=== PATIENT | male | born 1950 | race Caucasian/White ===

== ENCOUNTER 2020-12-17 08:15 | Outpatient (REF) | payer MEDICARE, SELFPAY ==
--- NOTE | ~2020-12-17 | US_ITS ---
EXAMINATION: US RETROPERITONEAL LIMITED (AORTA) CLINICAL INFORMATION: History of nicotine dependence. COMPARISON: 12/08/2011 TECHNIQUE: Villeda-scale, color Doppler and spectral Doppler evaluation of the abdominal aorta. FINDINGS: The aorta is normal. The measurements of the aorta in maximum AP and transverse dimensions respectively are as follows: Proximal: 2.7 x 2.8 cm. Mid: 2.4 x 2.2 cm. Distal: 1.9 x 2 cm. PSV: 123 cm/s. The measurements of the common iliac arteries in maximum AP and TRV dimensions are as follows: Right Common Iliac Artery: 1.2 x 1.2 cm. Left Common Iliac Artery: 1.1 x 1.1 cm. US/US aorta IMPRESSION: No evidence of aneurysmal dilatation of the abdominal aorta.
== END 2020-12-17 08:16 | disposition home or self-care (01) ==
LOC: HO.US 08:15
PROVIDERS: PCP Internal Medicine Geriatric Medicine; Visit Provider Emergency Medicine
DX: Z13.6 Encounter for screening for cardiovascular disorders (principal); Z87.891 Personal history of nicotine dependence
CPT/HCPCS: 76775

== ENCOUNTER 2022-10-29 08:26 | Outpatient (REF) | payer MEDICARE, SELFPAY ==
--- NOTE | ~2022-10-29 | XR_ITS ---
EXAMINATION: XR CHEST CLINICAL INFORMATION: Cough for 2 months. Right lower lobe crackles on exam COMPARISON: 11/12/2019 TECHNIQUE: 2 views of the chest were obtained. FINDINGS: Small right pleural effusion appears new from prior study. No left pleural effusion. No pneumothorax. Normal pulmonary vascularity. No focal consolidation or mass. Normal heart size. Mild degenerative changes of the thoracic spine. XR/XR chest 2V IMPRESSION: New small right pleural effusion.
== END 2022-10-29 08:27 | disposition home or self-care (01) ==
LOC: HO.XRAY 08:26
PROVIDERS: PCP Internal Medicine Geriatric Medicine; Visit Provider Internal Medicine Geriatric Medicine
DX: R05.9 Cough, unspecified (principal)
CPT/HCPCS: 71046

== ENCOUNTER 2022-11-23 08:42 | Outpatient (REF) | payer OTHER, SELFPAY ==
--- NOTE | ~2022-11-23 | XR_ITS ---
EXAMINATION: XR CHEST 2 VIEWS CLINICAL INFORMATION: Cough. COMPARISON: Chest radiographs dated 10/29/2022. TECHNIQUE: Frontal and lateral views of the chest were obtained. The frontal view is somewhat rotated. FINDINGS: The heart, great vessels, pulmonary vasculature and mediastinum are normal. The lungs show no focal infiltrate, effusion or pneumothorax. There is no acute osseous abnormality. XR/XR chest 2V IMPRESSION: No active cardiopulmonary disease.
== END 2022-11-23 08:43 | disposition home or self-care (01) ==
LOC: HO.XRAY 08:42
PROVIDERS: PCP Internal Medicine Geriatric Medicine; Visit Provider Internal Medicine Geriatric Medicine
DX: J90 Pleural effusion, not elsewhere classified (principal); R05.9 Cough, unspecified
CPT/HCPCS: 71046

== ENCOUNTER 2022-12-25 08:30 | Outpatient (REF) | payer OTHER, SELFPAY | END 2022-12-25 08:31 | disposition home or self-care (01) | LOC: HO.SH 08:30 | PROVIDERS: Visit Provider Internal Medicine Geriatric Medicine | DX: Z01.118 Encounter for examination of ears and hearing with other abnormal findings (principal); H93.293 Other abnormal auditory perceptions, bilateral | CPT/HCPCS: 92552; 92556; 92567; 92588 ==

== ENCOUNTER 2023-08-25 08:46 | Outpatient (REF) | payer OTHER, SELFPAY ==
[2023-08-25 12:08] LABS: Alanine Aminotransferase 16 U/L (0-40); Albumin Level 3.8 g/dL (3.5-5.0); Alkaline Phosphatase 68 U/L (39-117); Anion Gap 10 (12-20); Aspartate Amino Transferase 26 U/L (5-37); Bilirubin Total 1.3 mg/dL (0.0-1.0); Blood Urea Nitrogen 22 mg/dL (9-16); Calcium 9.5 mg/dL (8.4-10.2); Carbon Dioxide 26 mmol/L (22-29); Chloride 107 mmol/L (96-108); Cholesterol 152 mg/dL (<200); Estimated Glomerular Filt Rate > 60; Glucose Random 100 mg/dL (60-115); HDL Cholesterol 52 mg/dL (>40); LDL Cholesterol Calculated 86 mg/dL (<100); Potassium 4.4 mmol/L (3.3-5.1); Sodium 139 mmol/L (135-145); Total Protein 7.9 g/dL (6.5-8.0); Triglycerides 73 mg/dL (<150)
== END 2023-08-25 08:47 | disposition home or self-care (01) ==
LOC: HO.HHCL 08:46
PROVIDERS: Visit Provider Internal Medicine Geriatric Medicine
DX: I10 Essential (primary) hypertension (principal); R73.03 Prediabetes
CPT/HCPCS: 36415; 80053; 80061

== ENCOUNTER 2023-11-11 12:48 | Emergency (ER) | payer OTHER, SELFPAY ==
--- NOTE | ~2023-11-11 | XR_ITS ---
EXAMINATION: XR CHEST CLINICAL INFORMATION: Chest pain COMPARISON: None available. TECHNIQUE: 2 views of the chest were obtained. FINDINGS: The lungs are well-expanded with no acute pneumonic process. There is patchy linear density right upper lobe. There are small pulmonary nodules measuring 4 mm and 7 mm in the right middle lobe and likely 7 mm nodule in the lingula. No pleural effusion or thickening seen. Heart size and pulmonary vascularity is normal. No gross bony abnormality seen. XR/XR chest 2V IMPRESSION: 1. No acute pneumonic process seen. 2. Small pulmonary nodules in right middle lobe and lingula. Patchy linear opacity right upper lobe. 3. Recommend CT chest exam.
--- NOTE | ~2023-11-11 | CT_ITS ---
EXAMINATION: CT HEAD WITHOUT CONTRAST CLINICAL INFORMATION: Headache COMPARISON: None available. TECHNIQUE: Contiguous axial imaging was performed from the skull base to vertex without intravenous administration of contrast. This CT examination was performed using dose optimization techniques as appropriate, variously including the following: *Automated exposure control *Adjustment of mA and/or kV according to patient size (this includes techniques or standardized protocols for targeted exams where dose is matched to indication/reason for exam; i.e. extremities or head) *Use of iterative reconstruction technique DLP: 665 mGy-cm FINDINGS: The ventricles and sulci are normal in size and configuration. No acute hemorrhage, mass effect or shift is evident. Villeda-white differentiation is maintained. In the posterior fossa, the brainstem, cerebellum and fourth ventricle image normally. The orbits and calvarium are intact. The paranasal sinuses and mastoid air cells are well pneumatized and clear. CT/CT head/brain wo IV con IMPRESSION: 1. Unremarkable noncontrast brain CT. No acute hemorrhage, mass effect or shift.
--- NOTE | 2023-11-11 12:50 | ECG_ITS ---
Test Reason : chest pain Blood Pressure : / mmHG Vent. Rate : 069 BPM Atrial Rate : 069 BPM P-R Int : 122 ms QRS Dur : 100 ms QT Int : 388 ms P-R-T Axes : 039 023 047 degrees QTc Int : 415 ms Normal sinus rhythm Increased R/S ratio in V1, consider early transition or posterior infarct Abnormal ECG When compared with ECG of 13-NOV-2019 09:50, ST no longer elevated in Inferior leads Referred By: Pihll Durán Electronically Signed By:HORTENCIA BENTLEY
[2023-11-11 13:04] VITALS: BP 149/78; PULSE 73; RESP 18; TEMP 36.6; O2SAT 98; BMI 25.8
--- NOTE | 2023-11-11 13:04 | ED.GENADULT ---
HPI - General Adult General Chief complaint: General Medical Stated complaint: Chest pain Related Data Allergies Allergy/AdvReac Type Severity Reaction Status Date / Time No Known Allergies Allergy Verified 12/11/23 19:23 Physical Exam ED Vital Signs: BMI result Body Mass Index 25.8 Course Course Course Narrative: DONNA- 73-year-old male presents for evaluation of chest tightness. He reports that he also had chest pain 1 week ago with left arm weakness and reported diaphoresis. He did not seek medical care at that time. During triage he has no symptoms but does endorse having chest tightness earlier this morning. His EKG was already completed, plan for labs including a troponin. Also complains of a headache every day since the 1st episode last week. Will also add CT brain Medical Decision Making Lab Data 11/11/23 13:51 11/11/23 13:51 Labs: Lab Results 11/11/23 Range/Units 13:51 WBC 5.8 (4.8-10.8) X10*3/uL RBC 5.36 (4.60-5.80) X10*6/uL Hgb 15.7 (14.0-18.0) g/dl Hct 46.6 (42.0-52.0) % MCV 86.9 (80.0-98.0) fL MCH 29.3 (27.0-33.0) pg MCHC 33.7 (31.0-36.0) g/dl RDW 13.0 (11.0-16.0) % Plt Count 170 (160-400) X10*3/uL MPV 11.7 (9.4-12.4) fL Immature Gran % (Auto) 0.2 (0.0-0.4) % Neut % (Auto) 62.4 (45-73) % Lymph % (Auto) 28.6 (20-40) % [place] % (Auto) 6.9 (2-11) % Eos % (Auto) 1.4 (0-4) % Baso % (Auto) 0.5 (0-2) % Lymph # (Auto) 1.7 (1.2-4.9) X10*3/uL [place] # (Auto) 0.4 (0.1-1.2) X10*3/uL Eos # (Auto) 0.1 (0.0-0.4) X10*3/uL Baso # (Auto) 0.0 (0.0-0.2) X10*3/uL Abs Immat Gran (auto) 0.01 (0.00-0.03) X10*3/uL Absolute Neuts (auto) 3.6 (2.0-8.3) x10*3/uL Absolute Nucleated RBC 0.000 (0.0-0.012) X10*3/uL Nucleated RBC % (auto) 0.0 (0.0-0.2) /100WBC PT 12.1 (11.1-13.3) SEC INR 1.0 (0.9-1.1) APTT 28.7 (26.0-36.4) SEC Sodium 140 (135-145) mmol/L Potassium 4.2 (3.3-5.1) mmol/L Chloride 104 (96-108) mmol/L Carbon Dioxide 28 (22-29) mmol/L Anion Gap 12 (12-20) BUN 18 H (9-16) mg/dL Creatinine 1.06 (0.5-1.4) mg/dL Estim Creat Clear Calc 61.8 Estimated GFR > 60 Random Glucose 120 H (60-115) mg/dL Calcium 9.2 (8.4-10.2) mg/dL Total Bilirubin 0.6 (0.0-1.0) mg/dL AST 29 (5-37) U/L ALT 17 (0-40) U/L Alkaline Phosphatase 67 (39-117) U/L Troponin I High Sens < 2.7 (<3.5-35.0) ng/L Total Protein 7.4 (6.5-8.0) g/dL Albumin 3.7 (3.5-5.0) g/dL Lipase 24 (8-78) U/L Discharge Plan Discharge Clinical Impression: Chest pain Patient Disposition: Left W/O Completing Treatment Discharge Date/Time: 11/11/23 18:41
[2023-11-11 13:56] LABS: MANUAL DIFF FLAG NO
[2023-11-11 13:58] LABS: Basophils Percent Auto 0.5 % (0-2); Eosinophils Absolute Auto 0.1 X10*3/uL (0.0-0.4); Eosinophils Percent Auto 1.4 % (0-4); Hematocrit 46.6 % (42.0-52.0); Hemoglobin 15.7 g/dl (14.0-18.0); Imm Gran Abs Auto 0.01 X10*3/uL (0.00-0.03); Imm Gran Pct Auto 0.2 % (0.0-0.4); Lymphocytes Absolute Auto 1.7 X10*3/uL (1.2-4.9); Lymphocytes Percent Auto 28.6 % (20-40); Mean Corpuscular HGB Conc 33.7 g/dl (31.0-36.0); Mean Corpuscular Hemoglobin 29.3 pg (27.0-33.0); Mean Corpuscular Volume 86.9 fL (80.0-98.0); Mean Platelet Volume 11.7 fL (9.4-12.4); Monocytes Absolute Auto 0.4 X10*3/uL (0.1-1.2); Monocytes Percent Auto 6.9 % (2-11); Neutrophils Absolute Auto 3.6 x10*3/uL (2.0-8.3); Neutrophils Percent Auto 62.4 % (45-73); Platelet Count 170 X10*3/uL (160-400); Red Blood Count 5.36 X10*6/uL (4.60-5.80); White Blood Count 5.8 X10*3/uL (4.8-10.8)
[2023-11-11 14:03] LABS: Prothrombin Time 12.1 SEC (11.1-13.3)
[2023-11-11 14:06] LABS: Partial Thromboplastin Time 28.7 SEC (26.0-36.4)
[2023-11-11 14:18] LABS: Alanine Aminotransferase 17 U/L (0-40); Albumin Level 3.7 g/dL (3.5-5.0); Alkaline Phosphatase 67 U/L (39-117); Anion Gap 12 (12-20); Aspartate Amino Transferase 29 U/L (5-37); Bilirubin Total 0.6 mg/dL (0.0-1.0); Blood Urea Nitrogen 18 mg/dL (9-16); Calcium 9.2 mg/dL (8.4-10.2); Carbon Dioxide 28 mmol/L (22-29); Chloride 104 mmol/L (96-108); Creatinine Clr Calc Pharmacy 61.8; Estimated Glomerular Filt Rate > 60; Glucose Random 120 mg/dL (60-115); Lipase 24 U/L (8-78); Potassium 4.2 mmol/L (3.3-5.1); Sodium 140 mmol/L (135-145); Total Protein 7.4 g/dL (6.5-8.0)
[2023-11-11 14:33] LABS: Troponin-I High Sensitivity < 2.7 ng/L (<3.5-35.0)
[2023-11-11 15:24] VITALS: BP 140/74; PULSE 73; RESP 16; TEMP 36.5; O2SAT 98
== END 2023-11-11 18:41 | disposition left against medical advice (07) ==
PROVIDERS: Physician Assistant; Emergency Provider Emergency Medicine; PCP Internal Medicine Geriatric Medicine
DX: R07.89 Other chest pain (principal); R53.1 Weakness; R51.9 Headache, unspecified; Z79.899 Other long term (current) drug therapy
CPT/HCPCS: 36415; 70450; 71046; 80053; 83690; 84484; 85025; 85610; 85730; 93005; 99283; 99284

== ENCOUNTER → 2023-11-11 12:50 | Outpatient (BNV) | payer OTHER, SELFPAY | PROVIDERS: Emergency Provider Emergency Medicine; PCP Internal Medicine Geriatric Medicine; Visit Provider Internal Medicine | DX: R07.9 Chest pain, unspecified (principal) | CPT/HCPCS: 93010 ==

== ENCOUNTER 2023-12-11 19:13 | Emergency (ER) | payer OTHER, SELFPAY ==
--- NOTE | ~2023-12-11 | XR_ITS ---
EXAMINATION: CHEST 2 VIEWS CLINICAL INFORMATION: cp. COMPARISON: 11/11/2023. TECHNIQUE: PA and lateral views of the chest obtained. FINDINGS: The lungs are well expanded. No focal infiltrate, effusion, edema, or pneumothorax. Calcified granulomas again noted. Cardiac and mediastinal silhouettes are within normal limits for technique. No acute bony abnormality seen XR/XR chest 2V IMPRESSION: No evidence of acute disease
--- NOTE | 2023-12-11 19:14 | ECG_ITS ---
Test Reason : CP Blood Pressure : / mmHG Vent. Rate : 071 BPM Atrial Rate : 071 BPM P-R Int : 126 ms QRS Dur : 088 ms QT Int : 390 ms P-R-T Axes : 043 022 035 degrees QTc Int : 423 ms Normal sinus rhythm Normal ECG When compared with ECG of 11-NOV-2023 12:52, No significant change was found Referred By: Candida Martines Electronically Signed By:Fabián Medrano
--- NOTE | 2023-12-11 19:14 | ED_ITS ---
HPI - Chest Pain General Chief Complaint: Chest Pain Stated Complaint: chest pain Time Seen by Provider: 12/11/23 20:42 Source: patient Mode of arrival: ambulatory History of Present Illness HPI narrative: 73-year-old male with history of hypertension presents after experiencing substernal chest pain while sitting at [employer] and denies any stressful scenario or interactions, chest pain was nonradiating and not associated with any dizziness/headache/shortness of breath/diaphoresis patient does report mild nausea. He then asked someone to take him home, he did forget to take his medication for blood pressure today, then had another episode of chest discomfort that lasted approximately 10 minutes just prior to arrival. Patient is completely asymptomatic since arriving to the emergency room he does report an incident approximately 3 weeks ago and states that he underwent an evaluation here in the emergency room for which he did not stay for the entire investigation but did follow-up with his primary care afterwards and denies being sent out for a cardiology referral. Related Data Allergies Allergy/AdvReac Type Severity Reaction Status Date / Time No Known Allergies Allergy Verified 12/11/23 19:23 Review of Systems 2 Review of Systems: Pertinent positives and negatives as stated in the HPI [facility] Past Medical History Source: nursing notes reviewed Social History Social History Advance Directives: No Advance Directives Information Provided: No Physical Exam 2 Vital Signs: Vital Signs: Last Vital Signs Temp 97.6 F 12/11/23 20:08 Pulse 71 12/11/23 20:08 Resp 19 12/11/23 20:08 BP 125/68 12/11/23 20:08 Pulse Ox 97 12/11/23 20:08 O2 Del Method Room Air 12/11/23 20:08 BMI result Body Mass Index 26.7 VITAL SIGNS: Reviewed. GENERAL: Well developed, well nourished, in no acute distress. HEAD: Normocephalic/atraumatic EYES: PERRLA, EOMI EARS: Ext canals without abnormality, TMs non-bulging and non-erythematous NOSE: Nares patent bilateral OROPHARYNX: no oral lesions noted, posterior pharynx clear and non-erythematous without noted tonsillar enlargement/erythema/exudates NECK: Supple, no adenopathy LUNGS: Normal breath sounds. No adventitious sounds or accessory muscle use. SpO2<97> CARDIOVASCULAR: Regular rate and rhythm without noted murmurs ABDOMEN: Soft, non-tender, non-distended with bowel sounds. MUSCULOSKELETAL: No tenderness, deformities, or effusions noted on gross inspection. EXTREMITIES: No cyanosis, clubbing or edema. SKIN: Inspection of the skin reveals no rashes NEUROLOGIC: Alert and oriented x 4. Strength and sensation to light touch were grossly intact x 4. Course Course Course Narrative: RME: 73 year-old M w/ PMHx presenting to the ED c/o chest pain described as pressure x 20-30mins FEATHER BALER while at rest. Pain resolved at present. Admits to exertional fatigue. reports this is the 3rd time in a couple months patient has been having CP. denies SOB, numbness/tingling. EKG, Labs, CXR ordered Full HPI, ROS and PE to be performed by primary ED provider. Medical Decision Making Medical Decision Making [facility] Narrative: 73-year-old male with history and clinical presentation, DDX: Musculoskeletal, anxiety, lower clinical suspicion for ACS I reviewed all investigations and hematologic indices are grossly within normal limits without any noted derangements. Chemistry and disease to not demonstrated WILIAM or electrolyte derangement but there are noted increase in transaminases in comparison to approximately 1 month ago when patient presented. I sensitivity troponin is undetectable and EKG without evidence to suggest STEMI. Chest x-ray without infiltrate or venous congestion otherwise my interpretation is in agreement with radiology's impression. Serial troponins are negative, there are no acute findings on EKG and no evidence to suggest viral or bacterial etiologies. Patient was strongly encouraged to follow-up with his primary care doctor on Wednesday/Wednesday morning. Differential Diagnosis Differential Diagnoses: The differential diagnosis associated with the presentation includes Please see the discussion above Admission/Observation Consideration of admission/observation: Escalation of care including admission/observation considered Please see the discussion above Lab Data [facility] Lab Attestation statement: I reviewed the patient's lab results. Please see the discussion above 12/11/23 19:36 12/11/23 19:36 Labs: Lab Results 12/11/23 12/11/23 Range/Units 19:36 22:29 WBC 5.4 (4.8-10.8) X10*3/uL RBC 5.40 (4.60-5.80) X10*6/uL Hgb 15.9 (14.0-18.0) g/dl Hct 47.2 (42.0-52.0) % MCV 87.4 (80.0-98.0) fL MCH 29.4 (27.0-33.0) pg MCHC 33.7 (31.0-36.0) g/dl RDW 12.7 (11.0-16.0) % Plt Count 164 (160-400) X10*3/uL MPV 12.2 (9.4-12.4) fL Immature Gran % (Auto) 0.2 (0.0-0.4) % Neut % (Auto) 60.6 (45-73) % Lymph % (Auto) 28.6 (20-40) % [place] % (Auto) 8.7 (2-11) % Eos % (Auto) 1.3 (0-4) % Baso % (Auto) 0.6 (0-2) % Lymph # (Auto) 1.5 (1.2-4.9) X10*3/uL [place] # (Auto) 0.5 (0.1-1.2) X10*3/uL Eos # (Auto) 0.1 (0.0-0.4) X10*3/uL Baso # (Auto) 0.0 (0.0-0.2) X10*3/uL Abs Immat Gran (auto) 0.01 (0.00-0.03) X10*3/uL Absolute Neuts (auto) 3.3 (2.0-8.3) x10*3/uL Absolute Nucleated RBC 0.000 (0.0-0.012) X10*3/uL Nucleated RBC % (auto) 0.0 (0.0-0.2) /100WBC Sodium 138 (135-145) mmol/L Potassium 4.0 (3.3-5.1) mmol/L Chloride 104 (96-108) mmol/L Carbon Dioxide 26 (22-29) mmol/L Anion Gap 12 (12-20) BUN 26 H (9-16) mg/dL Creatinine 1.08 (0.5-1.4) mg/dL Estim Creat Clear Calc 60.6 Estimated GFR > 60 Random Glucose 155 H (60-115) mg/dL Calcium 9.0 (8.4-10.2) mg/dL Total Bilirubin 0.7 (0.0-1.0) mg/dL Direct Bilirubin 0.3 (0.0-0.5) mg/dL AST 120 H (5-37) U/L ALT 60 H (0-40) U/L Alkaline Phosphatase 80 (39-117) U/L Troponin I High Sens < 2.7 < 2.7 (<3.5-35.0) ng/L B-Natriuretic Peptide 11 (<100) pg/mL Total Protein 7.7 (6.5-8.0) g/dL Albumin 3.8 (3.5-5.0) g/dL Independent Interpretation I performed an independent interpretation of an: EKG Interpretation: Normal sinus rhythm, HR-71, no STEMI, MA/QRS/QTC is within normal limits. Radiology Impression Discussion of test interpretation with radiology: I have reviewed the radiologist's reading. Radiologist Impression: Please see the discussion above External Record Review External record reviewed: Outpatient record and Prior outpatient labs Chronic Conditions Patient?s care impacted by: Hypertension Critical Care Time Critical Care Time Critical Care Time: Yes Total Critical Care Time: 45 Attestation: I personally attest to this time spent taking care of the patient. Discharge Plan Discharge Clinical Impression: Chest pain Patient Disposition: Home, Self-Care Instructions: Chest Pain (ED) Additional Instructions: Reanude todos los medicamentos caseros seg?n lo recetado. Seguimiento con m?dico de atenci?n primaria el jkai por la ma?arielle. Regrese a la lopez de emergencias si los s?ntomas empeoran. Resume all home medications as prescribed. Follow-up with primary care doctor on Wednesday. Return to the ER for any worsening symptoms. Referrals: Name,MD Oliver [Primary Care Provider] - Print Language: Citizen Of [place]
[2023-12-11 19:19] VITALS: BP 160/88; PULSE 78; RESP 16; TEMP 36.4; O2SAT 98; BMI 26.7
[2023-12-11 19:42] LABS: MANUAL DIFF FLAG NO
[2023-12-11 19:54] LABS: Basophils Percent Auto 0.6 % (0-2); Eosinophils Absolute Auto 0.1 X10*3/uL (0.0-0.4); Eosinophils Percent Auto 1.3 % (0-4); Hematocrit 47.2 % (42.0-52.0); Hemoglobin 15.9 g/dl (14.0-18.0); Imm Gran Abs Auto 0.01 X10*3/uL (0.00-0.03); Imm Gran Pct Auto 0.2 % (0.0-0.4); Lymphocytes Absolute Auto 1.5 X10*3/uL (1.2-4.9); Lymphocytes Percent Auto 28.6 % (20-40); Mean Corpuscular HGB Conc 33.7 g/dl (31.0-36.0); Mean Corpuscular Hemoglobin 29.4 pg (27.0-33.0); Mean Corpuscular Volume 87.4 fL (80.0-98.0); Mean Platelet Volume 12.2 fL (9.4-12.4); Monocytes Absolute Auto 0.5 X10*3/uL (0.1-1.2); Monocytes Percent Auto 8.7 % (2-11); Neutrophils Absolute Auto 3.3 x10*3/uL (2.0-8.3); Neutrophils Percent Auto 60.6 % (45-73); Platelet Count 164 X10*3/uL (160-400); Red Cell Distribution Width 12.7 % (11.0-16.0); White Blood Count 5.4 X10*3/uL (4.8-10.8)
[2023-12-11 19:59] LABS: Alanine Aminotransferase 60 U/L (0-40); Albumin Level 3.8 g/dL (3.5-5.0); Alkaline Phosphatase 80 U/L (39-117); Anion Gap 12 (12-20); Aspartate Amino Transferase 120 U/L (5-37); Bilirubin Direct 0.3 mg/dL (0.0-0.5); Bilirubin Total 0.7 mg/dL (0.0-1.0); Blood Urea Nitrogen 26 mg/dL (9-16); Carbon Dioxide 26 mmol/L (22-29); Chloride 104 mmol/L (96-108); Creatinine Clr Calc Pharmacy 60.6; Estimated Glomerular Filt Rate > 60; Glucose Random 155 mg/dL (60-115); Sodium 138 mmol/L (135-145); Total Protein 7.7 g/dL (6.5-8.0)
[2023-12-11 20:03] LABS: B Type Natriuretic Peptide 11 pg/mL (<100)
[2023-12-11 20:08] VITALS: BP 125/68; PULSE 71; RESP 19; TEMP 36.4; O2SAT 97
[2023-12-11 20:08] LABS: Troponin-I High Sensitivity < 2.7 ng/L (<3.5-35.0)
[2023-12-11 22:00] VITALS: PULSE 72
[2023-12-11 23:06] LABS: Troponin-I High Sensitivity < 2.7 ng/L (<3.5-35.0)
[2023-12-11 23:40] VITALS: BP 120/71; PULSE 67; RESP 18; TEMP 36.7; O2SAT 95
--- NOTE | 2023-12-11 23:47 | PC.NURSE ---
pt reports cp only lasted approx 5 min and resolved. no episodes of cp here. vss. nsr on monitor. pt and educated on d/c instructions both verbalize understanding in syriac. axox4 ambulatory with steady gait.
== END 2023-12-11 23:48 | disposition home or self-care (01) ==
PROVIDERS: Physician Assistant; Emergency Provider Student in an Organized Health Care Education/Training Program; PCP Internal Medicine Geriatric Medicine
DX: R07.9 Chest pain, unspecified (principal)
CPT/HCPCS: 36415; 71046; 80048; 80076; 83880; 84484; 85025; 93005; 99283; 99284

== ENCOUNTER → 2023-12-11 19:14 | Outpatient (BNV) | payer OTHER, SELFPAY | PROVIDERS: Emergency Provider Student in an Organized Health Care Education/Training Program; PCP Internal Medicine Geriatric Medicine; Visit Provider Internal Medicine Cardiovascular Disease | DX: R07.9 Chest pain, unspecified (principal) | CPT/HCPCS: 93010 ==

== ENCOUNTER 2024-02-01 07:24 | Outpatient (REF) | payer OTHER, SELFPAY ==
--- NOTE | ~2024-02-01 | CT_ITS ---
EXAMINATION: CT CHEST WITH CONTRAST CLINICAL INFORMATION: Pulmonary nodule seen on recent chest x-ray COMPARISON: Chest radiograph 12/11/2023 TECHNIQUE: Multidetector volumetric CT imaging of the chest was obtained after the administration of 65 mL of Omnipaque 350 intravenous contrast without immediate adverse reactions. Axial MIP volume rendering provided. Sagittal and coronal reformatted images were obtained. This CT examination was performed using dose optimization techniques as appropriate, variously including the following: *Automated exposure control *Adjustment of mA and/or kV according to patient size (this includes techniques or standardized protocols for targeted exams where dose is matched to indication/reason for exam; i.e. extremities or head) *Use of iterative reconstruction technique DLP: 152 mGy-cm FINDINGS: LUNGS: Mild paraseptal emphysema. Biapical pleural parenchymal scarring with scattered opacities suggesting of scar. Numerous calcified pulmonary granulomas. A 6 mm solid lower lobe pulmonary nodule with irregular margins, 6 5:117 and a 6 x 4 mm (average diameter 5 mm) irregular solid left upper lobe pulmonary nodule, 5:77. Few scattered solid noncalcified pulmonary micronodules are also seen. PLEURA: Calcified right pleural plaques which can be seen in the setting of asbestos-related pleural disease. MEDIASTINUM: No cardiomegaly. Aorta and pulmonary artery are normal in caliber. No mediastinal lymphadenopathy. No hilar lymphadenopathy. CORONARY ARTERY CALCIFICATION: Mild coronary artery calcification is present recommend correlation with cardiac risk factors. CHEST WALL/AXILLA: No axillary or internal mammary lymphadenopathy. UPPER ABDOMEN: Hypoattenuating hepatic parenchyma compatible with hepatic steatosis. Small hiatal hernia. OSSEOUS STRUCTURES: Unremarkable. CT/CT chest w IV con IMPRESSION: * Several solid noncalcified pulmonary nodules measuring up to 6 mm the largest with irregular margins. According to the UPDATED 2017 Fleischner Society recommendations, the advised follow-up imaging for multiple solid nodules measuring up to 6-8 mm is follow-up CT at 3 to 6 months. In high-risk patients, subsequent CT follow-up at 18 to 24 months is recommended. In low-risk patients, subsequent CT follow-up at 18 to 24 months is optional. * Numerous calcified pulmonary granulomas suggesting prior granulomatous disease. * Calcified right pleural plaques which can be seen in the setting of asbestos-related pleural disease. * Mild paraseptal emphysema. * Mild coronary artery calcification is present recommend correlation with cardiac risk factors. * Hepatic steatosis. Aubrey Pompa human geography faculty member confirmed receipt of these findings and recommendations with Lana Limon RN at the office of ordering provider Oliver Constantino, at 1:14 PM 02/09/2024 with read back confirmation and it was ascertained that the content and urgency of the report was understood at the time of direct communication.
[2024-02-01] MEDS: iohexoL 350 MG/ML 100 ML INFUS..BTL 65 ML IV (08:49)
[2024-02-01 14:50] LABS: Creatinine POC 1.1 mg/dL (0.5-1.4); GFR POC > 60
== END 2024-02-01 07:25 | disposition home or self-care (01) ==
LOC: HO.CT 07:24
PROVIDERS: PCP Internal Medicine Geriatric Medicine; Visit Provider Internal Medicine Geriatric Medicine
DX: R91.1 Solitary pulmonary nodule (principal)
CPT/HCPCS: 71260; 82565; Q9967

== ENCOUNTER 2024-03-15 09:30 | Outpatient (AMB) | payer OTHER, SELFPAY ==
[2024-03-15 09:36] VITALS: BP 100/62; PULSE 91; O2SAT 97; BMI 26.6
--- NOTE | 2024-03-15 09:36 | A.OFFVIS_ITS ---
Vital Signs 03/15/24 09:36 Height 5 ft 8 in Weight 175 lb 4.28 oz BMI 26.6 BP 100/62 Blood Pressure Location Rt brachial Position Sitting Pulse 91 Pulse Source Doppler Pulse Oximetry (%) 97 Oxygen Delivery Method Room Air Intake Visit Reasons: pulmonary nodules Allergies No Known Allergies Allergy (Verified 12/11/23 19:23) HPI HPI pulmonary nodules: Details: 74-year-old gentleman, former smoker in his 20s up to 2 packs a day, quit over 40 years prior, with underlying history of tuberculosis in his late teens, treated in [facility] for at least 6 months, referred for evaluation of abnormal CT scan. Patient also complains of cough intermittently productive of sputum and intermittent episodes of chest tightness with exposure to strong scents. He denies recent pulmonary function testing. Patient does have history of tuberculosis in his mother, but no other history of lung disease in his family. Patient has had multiple jobs, but does not remember being exposed to asbestos. He does complain of intermittent environmental allergies. He denies any dyspnea on exertion. [facility], [facility] Social History (Updated 03/15/24 @ 09:41 by Kajal Torres [facility]) Patient Tobacco Use Status: Former Tobacco user Years Smoked: quit about 45+ years ago Review of Systems Const Denies daytime sleepiness, Denies excessive sweating, Denies fatigue, Denies fever(s), Denies lethargy, Denies malaise, Denies night sweats, Denies snoring and Denies weight loss Eyes Denies blurry vision and Denies itchy eyes ENT Denies nasal congestion, Denies post nasal drip, Denies sinus pain, Denies sinus pressure and Denies other ( Thrush) Card Denies chest pain, Denies pedal edema, Denies dyspnea, Denies orthopnea and Denies paroxysmal nocturnal dyspnea Resp Reports cough, Denies hemoptysis, Denies excessive phlegm production, Denies dyspnea, Denies snoring, Denies wheezing and Reports other (Intermittent chest tightness) GI Denies abdominal pain and Denies heartburn Musc Denies myalgias, Denies arthralgias and Denies joint swelling Skin/Breast Denies rash Neuro Denies memory loss and Denies seizure-like activity Psych Denies abnormal sleep pattern, Denies anxiety and Denies memory loss Endo Denies excessive sweating, Denies fatigue and Denies heat intolerance [place]/Lymph Denies easy bruising Aller/Immun Denies itchy eyes, Denies seasonal rhinorrhea and Denies wheezing Physical Exam Vital Signs: Last Vital Signs Pulse 91 03/15/24 09:36 BP 100/62 03/15/24 09:36 Pulse Ox 97 03/15/24 09:36 Oxygen Delivery Method Room Air 03/15/24 09:36 BMI result Body Mass Index 26.6 Const General: no acute distress and alert Nutritional Appearance: not obese Orientation/consciousness: Other orientation findings ( oriented) HEENT Head: Yes atraumatic Eyes General: appearance normal, both eyes and all related structures Sclerae: sclerae normal EOM: EOMs intact bilaterally Neck Neck: Yes supple Lymphatic: no lymphadenopathy noted Resp Effort & Inspection: normal respiratory effort and no use of accessory muscles Auscultation: clear to auscultation bilaterally Cardio Rate: regular rate Rhythm: regular rhythm Heart sounds: no gallops, no murmurs and no rubs Skin General skin exam: other ( warm) Extrem General: No clubbing, No cyanosis and No edema Assessment & Plan Assessment & Plan (1) Asthma: Code(s): J45.909 - Unspecified asthma, uncomplicated Category: Medical Plan: Likely underlying asthma. Will obtain full PFT. (2) History of tuberculosis: Code(s): Z86.11 - Personal history of tuberculosis Category: Medical Plan: Will obtain T spot for further evaluation. (3) Multiple pulmonary nodules: Code(s): R91.8 - Other nonspecific abnormal finding of lung field Category: Medical Plan: 6 mm and under multiple calcified nodules, may be related to prior TB treatment. Also noted pleural plaques and emphysema. No history of asbestos exposure. Will repeat CT chest in 6 months. Orders: Orders T Spot TB Today Z86.11 - Personal history of tuberculosis PFT pulmonary function test Today J45.909 - Unspecified asthma, uncomplicated CT chest wo IV con 08/15/24 R91.8 - Other nonspecific abnormal finding of lung field Coding Level of Care Code New Pt Level 4 (48004) Diagnoses Asthma J45.909 History of tuberculosis Z86.11 Multiple pulmonary nodules R91.8
== END 2024-03-15 10:06 | disposition home or self-care (01) ==
PROVIDERS: PCP Internal Medicine Geriatric Medicine; Visit Provider Internal Medicine Pulmonary Disease
DX: J45.909 Unspecified asthma, uncomplicated (principal); Z86.11 Personal history of tuberculosis; R91.8 Other nonspecific abnormal finding of lung field
CPT/HCPCS: 99204

== ENCOUNTER 2024-03-15 09:30 | Outpatient (REF) | payer OTHER, SELFPAY ==
[2024-03-18 06:43] LABS: TS Negative Control Passed; TS Panel A 0; TS Panel B 0; TS Positive Control Passed; TSpotTB Negative (Negative)
== END 2024-03-15 09:31 | disposition home or self-care (01) ==
LOC: HO.LAB 09:30
PROVIDERS: PCP Internal Medicine Geriatric Medicine; Visit Provider Internal Medicine Pulmonary Disease
DX: R91.8 Other nonspecific abnormal finding of lung field (principal); Z86.11 Personal history of tuberculosis
CPT/HCPCS: 36415; 86481; 99202

== ENCOUNTER 2024-08-08 08:46 | Outpatient (REF) | payer OTHER, SELFPAY ==
--- NOTE | ~2024-08-08 | CT_ITS ---
EXAMINATION: CT CHEST WITHOUT CONTRAST CLINICAL INFORMATION: Follow-up pulmonary nodule. COMPARISON: 02/01/2024. TECHNIQUE: Multidetector volumetric CT imaging of the chest was done. Axial MIP volume rendering provided. Sagittal and coronal reformatted images were obtained. This CT examination was performed using dose optimization techniques as appropriate, variously including the following: *Automated exposure control *Adjustment of mA and/or kV according to patient size (this includes techniques or standardized protocols for targeted exams where dose is matched to indication/reason for exam; i.e. extremities or head) *Use of iterative reconstruction technique DLP: 172 mGy-cm FINDINGS: PULMONARY NODULES: -5 mm right lower lobe nodule previously seen is unchanged, with a suggestion may represent intrabronchial inspissation (series 5, image 293). -An abutting similar appearing 6 mm stellate nodule is present slightly more inferomedially right lower lobe (series 5, image 311), also unchanged. -6 x 4 mm (average diameter 5 mm) solid left upper lobe pulmonary nodule previously seen is unchanged (series 5 image 186). -Innumerable calcified granuloma bilaterally. -No new or enlarging nodules. LUNGS: -Similar right lung volume loss, right middle and upper lobe reticulonodular scarring, and right inferior thoracic pleural thickening and calcification, without change. -Numerous calcified granulomata are present throughout both lungs, the largest in the right middle lobe measuring 7 mm in diameter. -Similar biapical pleural parenchymal scarring. MEDIASTINUM: -No mediastinal or hilar lymphadenopathy. -No masses. -Aorta and main pulmonary artery are normal in caliber. -Heart size is normal. No pericardial effusion. -Esophagus is normal. -Suspect a small type I hiatus hernia at the GE junction. CORONARY ARTERY CALCIFICATION: None visualized on this study. AXILLA/CHEST WALL: No masses or lymphadenopathy. UPPER ABDOMEN: -Small type I hiatus hernia. -Partially imaged parapelvic cysts bilateral kidneys. -Remainder of the upper abdominal contents appear normal. -Previously seen fatty infiltration of the liver has resolved. OSSEOUS STRUCTURES: -There is no lytic or blastic suspicious bone lesion. -No acute findings. -Mild spinal degenerative changes, stable. CT/CT chest wo IV con IMPRESSION: 1. Mild centrilobular emphysema. Stable foci of parenchymal scarring right middle and upper lobes. Stable innumerable calcified granulomas both lungs. 2. Stable mild right lung volume loss, inferior pleural thickening and calcification. 3. Stable pulmonary nodules measuring up to 6 mm right lower lobe, without new or enlarging suspicious nodule. 4. Diffuse small airway thickening and mild bronchiectasis, consistent with chronic airways disease. 5. No additional acute pulmonary abnormality. 6. Small type I hiatus hernia GE junction. 7. Additional ancillary findings as discussed. Fleischner guidelines were followed. Electronically signed by: Ki Perez MD 10/04/2024 03:31 PM [facility]
== END 2024-08-08 08:47 | disposition home or self-care (01) ==
LOC: HO.CT 08:46
PROVIDERS: PCP Internal Medicine Geriatric Medicine; Visit Provider Internal Medicine Pulmonary Disease
DX: R91.8 Other nonspecific abnormal finding of lung field (principal)
CPT/HCPCS: 71250

== ENCOUNTER → 2024-08-08 08:48 | Outpatient (BNV) | payer OTHER, SELFPAY | PROVIDERS: PCP Internal Medicine Geriatric Medicine; Visit Provider Radiology Diagnostic Radiology | DX: R91.8 Other nonspecific abnormal finding of lung field (principal) | CPT/HCPCS: 71250 ==

== ENCOUNTER 2024-08-13 15:42 | Emergency (ER) | payer OTHER, SELFPAY ==
[2024-08-13 15:48] VITALS: BP 162/92; PULSE 86; RESP 16; TEMP 36.6; O2SAT 97; BMI 26.5
--- NOTE | 2024-08-13 15:48 | ED.GENADULT ---
HPI - General Adult General Chief complaint: General Medical Stated complaint: Food stuck in throat Time Seen by Provider: 08/13/24 15:56 Source: patient Mode of arrival: ambulatory Limitations: no limitations History of Present Illness ED Provider: Suresh MOJICA HPI narrative: 74-year-old male history of hypertension and cured prostate cancer presents to the ED for food stuck in his throat. Patient states at 12:00 o'clock he had a small piece of apple and since then feel like having difficulty swallowing apples choking sensation. Patient states feel like apple is still in the esophagus. Before apple patient had plantain, mashed potato, and jean marie sausage with no problems. Patieint states no change in voice, chest pain, abdominal pain, nausea, vomitting, or shortness of breath. Patient denies having any esophageal issues in the past. Patient denies any acid reflux sensation or any swallowing esophagus throat discomfort going down to chest. Related Data Home Medications ?Medication ?Instructions ?Recorded ?Confirmed acetaminophen 500 mg tablet mg PO 03/15/24 fluticasone propionate 50 intranasal 03/15/24 mcg/actuation nasal spray,suspension gabapentin 300 mg capsule 300 mg PO BEDTIME 03/15/24 imipramine HCl 50 mg tablet 50 mg PO BEDTIME 03/15/24 losartan 25 mg tablet 25 mg PO DAILY 03/15/24 Allergies Allergy/AdvReac Type Severity Reaction Status Date / Time No Known Allergies Allergy Verified 08/13/24 15:49 Review of Systems Review of Systems: food stuck in throat Yes all other systems are reviewed and are negative [facility] Social History Social History (Updated 03/15/24 @ 09:41 by Kajal Torres ON LICENSE OF [facility]) Patient Tobacco Use Status: Former Tobacco user Years Smoked: quit about 45+ years ago Smoked in Last 30 Days: No Use of substances other than those prescribed or required for medical reasons: No Advance Directives: No Advance Directives Information Provided: No Physical Exam ED Vital Signs: Vital Signs - 24 hr 08/13/24 15:48 08/13/24 17:28 08/13/24 19:15 Temperature 97.9 F 97.7 F 98.4 F Pulse Rate 86 70 69 Respiratory Rate 16 16 12 Blood Pressure 162/92 H 137/90 H 134/77 Pulse Oximetry 97 98 99 Oxygen Delivery Method Room Air Room Air Room Air 08/13/24 19:53 Temperature 98.4 F Pulse Rate 69 Respiratory Rate 12 Blood Pressure 134/77 Pulse Oximetry 99 Oxygen Delivery Method Room Air BMI result Body Mass Index 26.5 Const General: cooperative, healthy appearing, comfortable, no acute distress, well developed, alert and awake Orientation/consciousness: patient oriented x3 [facility] Head: Yes normal to inspection, Yes No palpable skull fracture present, Yes normocephalic and Yes atraumatic Ears: hearing grossly normal bilaterally, external ears normal, TM's normal bilaterally, TM normal on the right, TM normal on the left, EAC's normal, mastoids normal and no periauricular adenopathy Throat: Yes posterior oropharynx normal, Yes tonsils normal and Yes uvula midline Eyes General: appearance normal, both eyes and all related structures Neck Neck: Yes normal visual inspection, Yes full ROM, Yes no lymphadenopathy, Yes no meningeal signs, Yes trachea midline, Yes supple, No anterior neck swelling and No tender Chest Chest palpation & inspection: normal inspection of the chest and normal palpation of entire chest wall Resp Effort & Inspection: normal respiratory effort and able to speak in complete sentences Auscultation: clear to auscultation bilaterally Cardio Jugular venous distension: no JVD Heart sounds: S1 normal heart sound present and S2 normal heart sound present GI Inspection: Yes normal to inspection Palpation (GI): Soft to palpation, not firm, nontender, no guarding and not rigid General: No CVA tenderness and Yes no CVA tenderness Back/Spine/Pelvis Back: no CVA tenderness, No CVA tenderness and No back tenderness Skin General skin exam: no rashes or lesions noted, elasticity normal and turgor normal Neuro General: patient oriented x3, gait normal, tone normal, moves all extremities, Normal light touch and pain sensation, no meningeal signs, no focal motor deficits, CN's II-XI intact bilaterally and normal sensation to monofilament Extrem General: Yes normal to inspection, Yes full ROM and Yes capillary refill normal Psych Appearance: grossly normal, well kempt and not disheveled Course Course Course Narrative: This is a Rapid Medical Examination (RME) performed by Franki Carey PA-C in triage. Full HPI, ROS, assessment and treatment plan per primary provider in the Main ED. 74 yo male here for eval of esophageal food bolus. 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 has been able to tolerate water however feels as though something is still stuck in his throat. no hx of similar. + satting 97% on RA. airway patent. soeaking in full complete sentences. Plan: further eval in back. Medications Administered Discontinued Medications Generic Name Dose Route Start Last Admin Trade Name Alba PRN Reason Stop Dose Admin Glucagon 1 mg 08/13/24 16:15 08/13/24 16:36 Glucagon Hcl 1 Mg Vial IVPUSH 08/13/24 16:16 1 mg ONCE ONE Administration Medical Decision Making Medical Decision Making [facility] Narrative: 74-year-old male presents to the ED as food being stuck in her throat. Patient states had sensation of apple in throat when he swallows. Patient presently not drooling and not vomiting. Negative for any choking. Patient states drinking some kim gordon and starting to feel better. Patient denies any referred chest pain. Patient has family history of father and brother from heart attack at similar age. Although patient does not have any chest pain or shortness of breath will do EKG and cardiac markers. Glucagon IV ordered due to patient stating still having sensation of food/apple in the throat but presently drinking Gatorade without any issue 7;29pm: Patient 2 troponins negative. EKG negative STEMI. Patient states no longer having sensation food/apple in his throat. Patient feels better after glucagon. Patient had crackers and drank kim gordon. Patient is safe for discharge. Not suspecting food bolus, myocardial infarction, pneumothorax, hemothorax, pancreatitis, cholecystitis, perforation, PE, aortic dissection, GI bleed, CHF, peforation, or any other life-threatening etiology. Food impaction self resolved. No need for any x-ray. Patient denies any chest pain. No need for any CT of esophagus or chest. Patient is now asymptomatic and feels better. Patient and explained worrisome signs and informed to return to the ED immediately Differential Diagnosis Differential Diagnoses: The differential diagnosis associated with the presentation includes (MT, food bolus) Admission/Observation Consideration of admission/observation: Escalation of care including admission/observation considered Lab Data [facility] Lab Attestation statement: I reviewed the patient's lab results. 08/13/24 16:35 08/13/24 16:35 Labs: Lab Results 08/13/24 08/13/24 Range/Units 16:35 18:40 WBC 5.7 (4.8-10.8) X10*3/uL RBC 5.26 (4.60-5.80) X10*6/uL Hgb 15.6 (14.0-18.0) g/dl Hct 45.5 (42.0-52.0) % MCV 86.5 (80.0-98.0) fL MCH 29.7 (27.0-33.0) pg MCHC 34.3 (31.0-36.0) g/dl RDW 13.0 (11.0-16.0) % Plt Count 163 (160-400) X10*3/uL MPV 12.0 (9.4-12.4) fL Immature Gran % (Auto) 0.2 (0.0-0.4) % Neut % (Auto) 60.3 (45-73) % Lymph % (Auto) 30.9 (20-40) % Calloway % (Auto) 7.6 (2-11) % Eos % (Auto) 0.5 (0-4) % Baso % (Auto) 0.5 (0-2) % Lymph # (Auto) 1.8 (1.2-4.9) X10*3/uL Calloway # (Auto) 0.4 (0.1-1.2) X10*3/uL Eos # (Auto) 0.0 (0.0-0.4) X10*3/uL Baso # (Auto) 0.0 (0.0-0.2) X10*3/uL Abs Immat Gran (auto) 0.01 (0.00-0.03) X10*3/uL Absolute Neuts (auto) 3.4 (2.0-8.3) x10*3/uL Absolute Nucleated RBC 0.000 (0.0-0.012) X10*3/uL Nucleated RBC % (auto) 0.0 (0.0-0.2) /100WBC PT 12.1 (10.9-12.4) SEC INR 1.0 (0.9-1.1) APTT 28.5 (26.0-36.8) SEC Sodium 137 (135-145) mmol/L Potassium 4.4 (3.3-5.1) mmol/L Chloride 104 (96-108) mmol/L Carbon Dioxide 25 (22-29) mmol/L Anion Gap 12 (12-20) BUN 18 H (9-16) mg/dL Creatinine 1.02 (0.5-1.4) mg/dL Estim Creat Clear Calc 63.3 Estimated GFR > 60 Random Glucose 108 (60-115) mg/dL Calcium 9.8 D (8.4-10.2) mg/dL Total Bilirubin 0.9 (0.0-1.0) mg/dL AST 25 (5-37) U/L ALT 16 (0-40) U/L Alkaline Phosphatase 57 (39-117) U/L Troponin I High Sens < 2.7 < 2.7 (<3.5-35.0) ng/L Total Protein 7.4 (6.5-8.0) g/dL Albumin 3.8 (3.5-5.0) g/dL Independent Interpretation I performed an independent interpretation of an: EKG (Negative STEMI) Radiology Impression Discussion of test interpretation with radiology: I have reviewed the radiologist's reading. Independent Historian Clinical information obtained from an independent historian. History obtained from or confirmed by: Spouse () and Other (patinet) External Record Review External record reviewed: Other (prior visists) Discharge Plan Discharge Clinical Impression: Indigestion, Obstruction of esophagus due to food impaction Patient Disposition: Home, Self-Care Instructions: Esophageal Foreign Body (ED), Indigestion (ED), Food Impaction (ED) Additional Instructions: Your EKG and blood work came back negative for heart attack. Rest of your labs are normal. Your food bolus/impaction self resolved. 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 Return to the ED immediately for any drooling, change in voice, vomiting, inability tolerate solid food/liquid, chest pain, shortness of breath, neck pain acid burning sensation, or any other concerning symptoms. Recommend follow-up with your primary care provider. Prescriptions: No Action fluticasone propionate 50 mcg/actuation spray,suspension intranasal gabapentin 300 mg capsule 300 mg PO BEDTIME imipramine HCl 50 mg tablet 50 mg PO BEDTIME acetaminophen 500 mg tablet PO losartan 25 mg tablet 25 mg PO DAILY Interventions: ED Discharge Assessment Last Done: 08/13/24 19:53 Discharge Date/Time: 08/13/24 19:53 Print Language: Citizen Of [place]
--- NOTE | 2024-08-13 16:19 | ECG_ITS ---
Test Reason : CHOKING Blood Pressure : / mmHG Vent. Rate : 077 BPM Atrial Rate : 077 BPM P-R Int : 120 ms QRS Dur : 090 ms QT Int : 378 ms P-R-T Axes : 027 014 044 degrees QTc Int : 427 ms Normal sinus rhythm Nonspecific T wave abnormality Abnormal ECG When compared with ECG of 11-DEC-2023 19:27, No significant change was found Referred By: Suresh Mccollum Electronically Signed By:Fabián Medrano
[2024-08-13] MEDS: glucagon HCL 1 MG VIAL IVPUSH (16:36)
[2024-08-13 16:44] LABS: MANUAL DIFF FLAG NO
[2024-08-13 16:50] LABS: Basophils Percent Auto 0.5 % (0-2); Eosinophils Percent Auto 0.5 % (0-4); Hematocrit 45.5 % (42.0-52.0); Hemoglobin 15.6 g/dl (14.0-18.0); Imm Gran Abs Auto 0.01 X10*3/uL (0.00-0.03); Imm Gran Pct Auto 0.2 % (0.0-0.4); Lymphocytes Absolute Auto 1.8 X10*3/uL (1.2-4.9); Lymphocytes Percent Auto 30.9 % (20-40); Mean Corpuscular HGB Conc 34.3 g/dl (31.0-36.0); Mean Corpuscular Hemoglobin 29.7 pg (27.0-33.0); Mean Corpuscular Volume 86.5 fL (80.0-98.0); Monocytes Absolute Auto 0.4 X10*3/uL (0.1-1.2); Monocytes Percent Auto 7.6 % (2-11); Neutrophils Absolute Auto 3.4 x10*3/uL (2.0-8.3); Neutrophils Percent Auto 60.3 % (45-73); Platelet Count 163 X10*3/uL (160-400); Red Blood Count 5.26 X10*6/uL (4.60-5.80); White Blood Count 5.7 X10*3/uL (4.8-10.8)
[2024-08-13 16:59] LABS: Prothrombin Time 12.1 SEC (10.9-12.4)
[2024-08-13 17:01] LABS: Alanine Aminotransferase 16 U/L (0-40); Albumin Level 3.8 g/dL (3.5-5.0); Alkaline Phosphatase 57 U/L (39-117); Anion Gap 12 (12-20); Aspartate Amino Transferase 25 U/L (5-37); Bilirubin Total 0.9 mg/dL (0.0-1.0); Blood Urea Nitrogen 18 mg/dL (9-16); Calcium 9.8 mg/dL (8.4-10.2); Carbon Dioxide 25 mmol/L (22-29); Chloride 104 mmol/L (96-108); Creatinine Clr Calc Pharmacy 63.3; Estimated Glomerular Filt Rate > 60; Glucose Random 108 mg/dL (60-115); Potassium 4.4 mmol/L (3.3-5.1); Sodium 137 mmol/L (135-145); Total Protein 7.4 g/dL (6.5-8.0)
[2024-08-13 17:02] LABS: Partial Thromboplastin Time 28.5 SEC (26.0-36.8)
[2024-08-13 17:09] LABS: Troponin-I High Sensitivity < 2.7 ng/L (<3.5-35.0)
[2024-08-13 17:28] VITALS: BP 137/90; PULSE 70; RESP 16; TEMP 36.5; O2SAT 98
[2024-08-13 19:09] LABS: Troponin-I High Sensitivity < 2.7 ng/L (<3.5-35.0)
[2024-08-13 19:15] VITALS: BP 134/77; PULSE 69; RESP 12; TEMP 36.9; O2SAT 99
--- NOTE | 2024-08-13 19:20 | PC.NURSE ---
Assumed care of pt. Pt anuradha heath, no acute distress at this time. Pending repeat labs.
[2024-08-13 19:53] VITALS: BP 134/77; PULSE 69; RESP 12; TEMP 36.9; O2SAT 99
== END 2024-08-13 19:53 | disposition home or self-care (01) ==
PROVIDERS: Physician Assistant; Emergency Provider Emergency Medicine; PCP Internal Medicine Geriatric Medicine
DX: K30 Functional dyspepsia (principal); R09.89 Other specified symptoms and signs involving the circulatory and respiratory systems; R94.31 Abnormal electrocardiogram [ECG] [EKG]; R10.2 Pelvic and perineal pain; Z79.899 Other long term (current) drug therapy
CPT/HCPCS: 36415; 80053; 84484; 85025; 85610; 85730; 93005; 96374; 99284; J1610

== ENCOUNTER → 2024-08-13 16:19 | Outpatient (BNV) | payer OTHER, SELFPAY | PROVIDERS: Emergency Provider Emergency Medicine; PCP Internal Medicine Geriatric Medicine; Visit Provider Internal Medicine Cardiovascular Disease | DX: R94.31 Abnormal electrocardiogram [ECG] [EKG] (principal) | CPT/HCPCS: 93010 ==

== ENCOUNTER 2024-08-28 11:02 | Outpatient (REF) | payer OTHER, SELFPAY ==
[2024-08-28 14:36] LABS: TSH reflex Free T4 1.89 uIU/mL (0.32-4.0)
== END 2024-08-28 11:03 | disposition home or self-care (01) ==
LOC: HO.HHCL 11:02
PROVIDERS: Visit Provider Nurse Practitioner
DX: R13.13 Dysphagia, pharyngeal phase (principal)
CPT/HCPCS: 36415; 84443

== ENCOUNTER 2024-09-04 12:43 | Outpatient (REF) | payer OTHER, SELFPAY ==
--- NOTE | ~2024-09-04 | US_ITS ---
EXAMINATION: ULTRASOUND SOFT TISSUES NECK, LIMITED CLINICAL INFORMATION: Tenderness. Possible lymphadenopathy. COMPARISON: CT chest 02/01/2024. TECHNIQUE: Sonographic evaluation of the regions of clinical concern as pointed by the patient in the bilateral soft tissues of the neck. FINDINGS/ US/US soft tiss head and/or neck IMPRESSION: No lymphadenopathy. No significant abnormality including no mass, organized collection or abscess. Electronically signed by: Chelo Jewell MD 09/04/2024 05:01 PM [facility]
== END 2024-09-04 12:44 | disposition home or self-care (01) ==
LOC: HO.US 12:43
PROVIDERS: PCP Internal Medicine Geriatric Medicine; Visit Provider Nurse Practitioner
DX: R13.19 Other dysphagia (principal); R59.0 Localized enlarged lymph nodes
CPT/HCPCS: 76536

== ENCOUNTER 2024-09-13 09:54 | Outpatient (REF) | payer OTHER, SELFPAY ==
--- NOTE | ~2024-09-13 | FL_ITS ---
EXAMINATION: Modified Barium Swallow CLINICAL INFORMATION: Dysphagia COMPARISON: None TECHNIQUE: Modified barium swallow was performed under lateral fluoroscopy with patient in standing position. Barium mixed with solids and liquids of different consistencies was administered by the speech pathologist. Examination was recorded in the fluoroscopy suite. FINDINGS: No laryngeal penetration or aspiration was observed during this examination. FLUOROSCOPY TIME: 1 minute 7 seconds Number of Spot Images: N/A DOSE AREA PRODUCT: 453.1 uGy-m2 (microgray-meter squared) FL/FL Modified Barium Swallow IMPRESSION: 1. No laryngeal penetration or aspiration was observed during this examination. Refer to the speech therapy report for further clarification This procedure was performed by Phill Brown PA-C, and supervised by Dr. Perez Electronically signed by: Ki Perez MD 09/13/2024 03:22 PM [facility]
--- NOTE | 2024-09-13 13:13 | MHC.SL.IMP ---
Date of Plan of Treatment: 09/13/24 Onset of Symptoms/Illness: 09/06/24 Date Treatment Started: 09/13/24 Admitting Diagnosis: Dysphagia, other (R13.19) Primary Speech & Language Diagnosis: R13.19 Other Dysphagia Reason for Today's Visit: 79295 Modified Barium Swallow Study Pre-evaluation Dietary Consistencies: Regular Pre-evaluation Liquid Consistency: Thin Pre-evaluation Medication Administration: Whole with Liquid Medical History: Pulminory Nodules Tuberculosis (remote) Indigestion Obstruction of esophagus due to food impaction Oral Motor Exam Facial Symmetry: Symmetrical Oral Expression Ability: No Impairment Is patient able to manage secretions?: Yes Is patient able to produce volitional cough?: Yes Food and Liquid Trials: Oral Impairment: Lip Closure: 0=No labial escape Oral Impairment: Tongue Control During Bolus Hold: 0=Cohesive bolus between tongue to palatal seal Oral Impairment: Bolus Preparation/Mastication: 0=Timely and efficient chewing and mashing Oral Impairment: Bolus Transport/Lingual Motion: 0=Brisk tongue motion Oral Impairment: Oral Residue: 1=Trace residue lining oral structures Oral Impairment:Initiation of Pharyngeal Swallow: 0=Bolus head at posterior angle of ramus (first hyoid excursion) Pharyngeal Impairment: Soft Palate Elevation: Pharyngeal Impairment: Laryngeal Elevation: 0=Complete superior movement of thyroid cartilage (see description) Pharyngeal Impairment: Anterior Hyoid Excursion: 0=Complete anterior movement Pharyngeal Impairment: Epiglottic Movement: 0=Complete inversion Pharyngeal Impairment: Laryngeal Vestibular Closure:: 0=Complete: no air/contrast in laryngeal vestibule Pharyngeal Impairment: Pharyngeal Stripping Wave: 0=Present: complete Pharyngeal Impairment: Pharyngeal Contraction: Did not test Pharyngeal Impairment: Pharyngoesophageal Segment Openin=Complete distension and complete duration: no obstruction of flow Pharyngeal Impairment: Tongue Base (TB) Retraction: 1=Trace column of contrast/air between TB and posterior PW Pharyngeal Impairment: Pharyngeal Residue: 1=Trace residue within or on pharyngeal structures Pharyngeal Impairment: Esophageal Clearance Upright Position: Did not test Impressions and Recommendations Clinical Observations: Current (pre-evaluation) Intake/Diet: Pre-Study Functional Oral Intake Scale (FOIS): 6- Total oral intake with no special preparation, but must avoid specific foods or liquid items MBSImP ID: [id number] Results: Lip closure for intraoral bolus containment resulted in no labial escape. Tongue control during bolus hold maintained a cohesive bolus held between tongue to palate seal. Bolus preparation and mastication resulted in timely and efficient chewing and mashing. Bolus transport/lingual motion was with brisk tongue motion. Oral residue was a trace, lining oral structures. Initiation of the pharyngeal swallow occurred as the bolus head reached the posterior angle of the mandibular ramus. Soft palate elevation resulted in no bolus between the soft palate and the pharyngeal wall. Laryngeal elevation demonstrated complete superior movement of the thyroid cartilage with complete approximation of the arytenoids to the epiglottic petiole. Anterior hyoid excursion demonstrated complete anterior movement. Epiglottic movement resulted in complete inversion. Laryngeal vestibular closure was complete, as indicated by no air or contrast within the laryngeal vestibule at the height of the swallow. Pharyngeal stripping wave was present and complete. Pharyngeal contraction could not be determined due to logistical reasons not related to physiologic impairment. Pharyngoesophageal segment opening was completely distended for complete duration with no obstruction of bolus flow. Tongue base retraction allowed a trace column of contrast or air between the retracted tongue base and the posterior pharyngeal wall. Pharyngeal residue was a trace within or on pharyngeal structures. Esophageal clearance in the upright position could not be assessed due to logistical reasons not related to physiologic impairment. Oral Impairment Score: 0 Pharyngeal Impairment Score: 0 (absence of score, component 13) Esophageal Impairment Score: --- (absence of score, component 17) Laryngeal Penetration and Aspiration: Neither penetration nor aspiration was observed in today's study with Cookie, Pudding-thick, Thin. PLAN: Intake Recommendations: Post-Study Functional Oral Intake Scale (FOIS): 7- Total oral intake with no restrictions SUMMARY: Mr. Champagne was provided barium contrast via Thin Liquids, Puree Solids, and Regular Solids - as well a 13mm Barium Pill. No penetration or aspiration was observed. No significant oral or pharyngeal residue was present after the swallow. After bites of Puree Solids, he reported that it was starting to feel stuck, pointing to his jugular notch. After the study, he was noted to be clearing his throat more frequently, another reported symptom of his. The 13mm Pill was taken in an A/P view with water. The attending radiologist scanned down to his stomach with no obstruction of the pill observed. Liquid Intake Recommendation: Thin Liquid Intake Strategies: Unrestricted Dietary Recommendations: Regular Medication Administration: Whole with Liquid Please contact the pharmacy regarding appropriate crushable or liquid drug formulations that are available whenever modified delivery is recommended. Compensatory Strategies Recommended: Sitting Upright (90 deg) Small Bites and Sips Alternate Liquids/Solids Rate of Ingestion Change Supervision during eating and or drinking: None Needed Recommended Treatments: Compens. Strategy Educat. Recommendation for Speech Therapy: NA:Typical Evaluation SPLITTER MACHINE recommending continue unrestricted diet. Continue Esophageal Dysmotility precautions including, chew food well, small bites/sips, alternate solids and liquids, and remain upright after meals for at least 30 minutes. Consider use of a PPI for symptom relief. Consider consult to GI or Upper GI Series for further investigation. Speech Therapy not indicated at this time. Timeline to reassess: PRN Documentation Writer Clinician/Clinical Fellow: No Supervisory Statement: N/A Speech Language Pathologist: Willian Phillips M.A., CCC-SPLITTER MACHINE
== END 2024-09-13 09:55 | disposition home or self-care (01) ==
LOC: HO.XRAY 09:54
PROVIDERS: PCP Internal Medicine Geriatric Medicine; Visit Provider Nurse Practitioner
DX: R13.19 Other dysphagia (principal)
CPT/HCPCS: 74230; 92611

== ENCOUNTER → 2024-09-13 09:56 | Outpatient (BNV) | payer OTHER, SELFPAY | PROVIDERS: PCP Internal Medicine Geriatric Medicine; Visit Provider Physician Assistant Surgical | DX: R13.10 Dysphagia, unspecified (principal) | CPT/HCPCS: 74230 ==

== ENCOUNTER 2024-12-04 15:54 | Outpatient (REF) | payer OTHER, SELFPAY ==
--- OUTSIDE RECORDS SUMMARY | 2024-12-04 16:34 | XMS_ITS | Encounter Summary ---
Author Organization [employer] Address [address] [place] [address] Care Team Providers Care Sales Officer Name Role Phone Name, Oliver ROTHMAN Primary Care Provider [phone] Encounter Details Date Type Department Care Team (Late st Contact Info) Description 11/18/2023 Abstract [facility] DIABETES/NUTRITION [address] [place] [address] Name, MD Oliver [address] [place] [address] Social History Tobacco Use Types Packs/Day Years Used Date Smoking Tobacco: Never Passive Smoke Exposure: Never Smokeless Tobacco: Never Alcohol Use Standard Drinks/Week Comments Never 0 (1 standard drink = 0.6 oz pur e alcohol) Housing Stability Answer Date Recorded What is your housing situation today? I have stephany avila 08/18/[address] you li ve. Do you have problems with any of the following? None of the above 08/18/2023 Food Insecurity Answer Date Recorded Within the past 12 months, y ou worried that your food would run out before you got money to buy more: Never True 08/18/2023 Within the past 12 months,th e food you bought just didn't last and you didn't have enough money to get more: Never True Transportation Answer Date Recorded In the past 12 months, has l ack of transportation kept you from medical appts, meetings, work or from getting things needed for daily living? No 08/18/2023 Utilities Answer Date Recorded In the past 12 months, has t he electric, gas, oil or water company threatened to shut off services in your home? No 08/18/2023 Depression Answer Date Recorded Patient Health Questionnaire-2 Score 0 10/21/2022 Sex and Gender Information Value Date Recorded Sex Assigned at Male 08/24/2022 10:17 AM EDT Legal Sex Male 10:17 AM EDT Gender Identity Male 08/24/2022 10:17 AM EDT Sexual Orientation Straight 08/24/2022 10 :17 AM EDT documented as of this encounter Plan of Treatment Upcoming Encounters Date Type Department Care Team (Late st Contact Info) Description 12/18/2024 3:00 PM EST Telemedicine [facility] MEDICINE [address] [place] [address] documented as of this encounter Visit Diagnoses Not on filedocumented in this encounter Care Teams Sales Officer Relationship Specialty Start Date End Date Name, MD Oliver [address] [place] [address] PCP - General Family Medicine 05/17/17 documented as of this encounter
--- OUTSIDE RECORDS SUMMARY | 2024-12-04 16:34 | XMS_ITS ---
Author Name Cookie Clemons NP Address [address] [place] [address] Phone [phone] Organization [facility] Care Team Providers Care Database Operator Name Role Phone Cookie Clemons Unavailable [phone] Unavailable Unavailable Unavailable [facility] Unavailable Unavailable Unavailable Unavailable Unavailable Unavailable [phone] Reason for Referral Not Available Allergies, adverse reactions, alerts No known allergies History of medication use Medication Class Instructions Start Date End Date Diclofenac Sodium 1 % Gel APPLY 2 GRAMS TOPICALLY TO AFFECTED AREA(S) 4 TIMES A DAY 2022-03-18 No Data Available Loratadine 10 mg Tab TAKE 1 TABLET BY [facility] EVERY DAY NEEDED FOR ALLERGIES 2022-01-16 2024-04-12 Losartan Potassium 25 mg Tab TAKE 1 TABL ET BY MOUTH EVERY DAY 2022-01-05 No Data Available valACYclovir 1 GM Tab TAKE 2 TABLETS BY MOUTH TWICE A DAY 2022-04-30 2022-08-28 Viagra 100 mg Tab TAKE 1 TABLET 1 HOUR BEFORE SEXUAL RELATIONS ONCE DAILY NEEDED. 2022-06-04 No Data Available Acetaminophen Extra Strength 500 mg Tab TAKE 1-2 TABLET (500MG) BY ORAL ROUTE EVERY 6 HOURS NEEDED 2022-06-04 No Data Available Gabapentin 300 mg Cap 1 tablet PO QHS. 2023-07-06 No Data Available Ibuprofen 800 mg Tab TAKE 1 TABLET EVERY 8 HOURS FOR PAIN 2023-10-29 No Data Available Amoxicillin 500 mg Cap TAKE 1 CAPSULE BY MOUTH EVERY 8 HOURS WITH FOOD UNTIL FINISHED 2023-10-29 No Data Available Fluticasone Propionate 50 MCG/ACT Suspension PLEASE SEE ATTACHED FOR DETAILED DIRECTIONS 2023-11-11 No Data Available Chlorhexidine Gluconate 0.12 % Solution SWISH AND SPIT 15MLS BY MOUTH ONCE DAILY AT NIGHT TIME BEFORE GOING TO BED. USE IT FOR 2 WEEKS ONLY. 2023-11-19 No Data Available blood pressure test kit-larg e cuff USE TO CHECK BLOOD PRESSURE TWICE DAILY 2023-12-21 No Data Available Imipramine 50 mg Tab TAKE 1 TABLET BY [facility] EVERYDAY AT BEDTIME 2024-02-07 No Data Available guaiFENesin-Codeine 100/10 mg/5ML Solution TAKE 5 ML BY MOUTH EVERY 6 HOURS IF NEEDED FOR COUGH FOR UP TO 5 DAYS 2024-02-09 No Data Available Problem List Problem Status Onset Date Resolved Date H/O prostate cancer Active 2023-07-06 N/A Abdominal aortic aneurysm without rupture Active 2023-07-06 N/A Hypertension Active 2022-08-28 N/A Cervical myelopathy Active 2023-07-08 N/A Other problems related to [facility] facilities and other health care Active 2024-04-12 N/A Numbness of right hand; Chronic cervical pain Active 2023-07-06 N/A Type 2 diabetes mellitus without complication Active 2023-07-06 N/A Osteoarthritis Active 2022-08-28 N/A Foreign body aspiration Active 2024-08-22 N/A Encounters Encounters Type Facility Date of Service Diagnosis/Co mplaint Pain Assessment - NO pain present (1126F) [facility] [place] Pain Assessment - NO pain present (1126F) [facility] [place] Pain Assessment - NO pain present (1126F) [facility] [place] Pain Assessment - NO pain present (1126F) [facility] [place] Pain Assessment - NO pain present (1126F) [facility] [place] Pain Assessment - NO pain present (1126F) [facility] [place] Pain Assessment - NO pain present (1126F) [facility] [place]20[place] Type 2 diabetes mellitus wit h other circulatory complicationsHypertension secondary to endocrine disordersUnspecified osteoarthritis, unspecified site Pain Assessment - NO pain present (1126F) [facility] [place] Pain Assessment - NO pain present (1126F) [facility] [place] Estab. patient 30-39min; chronic exacerbation, 2 stable chronic or 1 acute illness add add modifier 95 for video, (do not use for phone, instead use 80032-69) [facility] ([place]20[place] Type 2 diabetes mellitus wit hout complicationsAbdominal aortic aneurysm, without rupture, unspecifiedDisease of spinal cord, unspecifiedEssential (primary) hypertensionUnspecified osteoarthritis, unspecified sitePersonal history of malignant neoplasm of prostateAnesthesia of skinCervicalgiaOther chronic pain Estab. patient 30-39min; chronic exacerbation, 2 stable chronic or 1 acute illness add add modifier 95 for video, (do not use for phone, instead use 14574-73) [facility] ([place] 07[place]20[place] Estab. patient 30-39min; chronic exacerbation, 2 stable chronic or 1 acute illness add add modifier 95 for video, (do not use for phone, instead use 38956-73) [facility] [place] Estab. patient 30-39min; chronic exacerbation, 2 stable chronic or 1 acute illness add add modifier 95 for video, (do not use for phone, instead use 98982-07) [facility] [place] 07[place]20[place] Estab. patient 30-39min; chronic exacerbation, 2 stable chronic or 1 acute illness add add modifier 95 for video, (do not use for phone, instead use 80099-61) [facility] [place] 07[place]20[place] Estab. patient 30-39min; chronic exacerbation, 2 stable chronic or 1 acute illness add add modifier 95 for video, (do not use for phone, instead use 55493-86) [facility] [place] 07[place]20[place] Estab. patient 30-39min; chronic exacerbation, 2 stable chronic or 1 acute illness add add modifier 95 for video, (do not use for phone, instead use 22108-00) [facility] [place] 07[place]20[place] Estab. patient 30-39min; chronic exacerbation, 2 stable chronic or 1 acute illness add add modifier 95 for video, (do not use for phone, instead use 13619-77) [facility] ([place] 07[place]/20[place] Estab. patient 30-39min; chronic exacerbation, 2 stable chronic or 1 acute illness add add modifier 95 for video, (do not use for phone, instead use 64121-87) [facility] ([place]) 07[place]06/20[place] Estab. patient 30-39min; chronic exacerbation, 2 stable chronic or 1 acute illness add add modifier 95 for video, (do not use for phone, instead use 20106-66) [facility] ([place] 07[place]/2023 Unlisted special service; to be used for medical record reviews and reporting CPTII codes (1111F, etc) [facility] ([place] 03/17/2024 Other specified health statu s Unlisted special service; to be used for medical record reviews and reporting CPTII codes (1111F, etc) [facility] ([place] 03/17/2024 Unlisted special service; to be used for medical record reviews and reporting CPTII codes (1111F, etc) [facility] ([place] 03[place]17/[place] Estab. patient 30-39min; chronic exacerbation, 2 stable chronic or 1 acute illness add add modifier 95 for video, (do not use for phone, instead use 41484-68) [facility] ([place] 04[place]/2024 Essential (primary) hypertensionUnspecified osteoarthritis, unspecified siteType 2 diabetes mellitus without complicationsPersonal history of malignant neoplasm of prostateAbdominal aortic aneurysm, without rupture, unspecifiedAnesthesia of skinCervicalgiaOther chronic painDisease of spinal cord, unspecifiedOther problems related to medical facilities and other health care Estab. patient 30-39min; chronic exacerbation, 2 stable chronic or 1 acute illness add add modifier 95 for video, (do not use for phone, instead use 92203-11) [facility] [place] Estab. patient 30-39min; chronic exacerbation, 2 stable chronic or 1 acute illness add add modifier 95 for video, (do not use for phone, instead use 17368-97) [facility] [place] 04[place] Estab. patient 30-39min; chronic exacerbation, 2 stable chronic or 1 acute illness add add modifier 95 for video, (do not use for phone, instead use 50345-38) [facility] ([place] 04[place]12/20[place] Estab. patient 30-39min; chronic exacerbation, 2 stable chronic or 1 acute illness add add modifier 95 for video, (do not use for phone, instead use 45740-61) [facility] [place] 04[place]12/20[place] Estab. patient 30-39min; chronic exacerbation, 2 stable chronic or 1 acute illness add add modifier 95 for video, (do not use for phone, instead use 94278-35) [facility] [place] 04[place]12/20[place] Estab. patient 30-39min; chronic exacerbation, 2 stable chronic or 1 acute illness add add modifier 95 for video, (do not use for phone, instead use 51408-97) [facility] [place] 04[place]12/20[place] Estab. patient 30-39min; chronic exacerbation, 2 stable chronic or 1 acute illness add add modifier 95 for video, (do not use for phone, instead use 05344-33) [facility] [place] 04[place]12/20[place] Estab. patient 30-39min; chronic exacerbation, 2 stable chronic or 1 acute illness add add modifier 95 for video, (do not use for phone, instead use 71145-62) [facility] [place] 04/12/20[place] Estab. patient 30-39min; chronic exacerbation, 2 stable chronic or 1 acute illness add add modifier 95 for video, (do not use for phone, instead use 11313-78) [facility] [place] 04/12/2024 No Data Available [facility] [place]/2024 Type 2 diabetes mellitus wit hout complicationsEssential (primary) hypertensionUnsp FB in resp tract, part unsp causing oth injury, sequela No Data Available [facility] [place] 08/22/2024 Vital Signs Date of Collection Vitals 2022-08-28 08:38:20 Height - 172.72 cmWe ight - 77.11 kgBody Mass Index (BMI) - 25.85 kg/m2BP Diastolic - 72.0 mm[Hg]BP Systolic - 130.0 mm[Hg] 2023-07-06 07:42:53 Height - 170.18 cmWe ight - 73.48 kgBody Mass Index (BMI) - 25.37 kg/m2BP Diastolic - 80.0 mm[Hg]BP Systolic - 138.0 mm[Hg] 2024-04-12 06:09:07 Weight - 77.11 kgBod y Mass Index (BMI) - 26.63 kg/m2BP Diastolic - 80.0 mm[Hg]BP Systolic - 130.0 mm[Hg]Heart Rate - 80.0 /min Social History Social History Social History Observation Description Effec tive Time Current Smoking Status Former smoker 2024-11-25 0 Sex Male History of Procedures Procedures Service Procedure code Service date Servicing provider Phone# Pain Assessment - NO pain present (1126F) 1126F 2022-08-28 No Data Available No Data A vailable Medication List Documented (1159F) 1159F 2022-08-28 No Data Available No Data Starr ilable Medication Review by prescribing provider or pharmacist documented (1160F) 1160F 2022-08-28 No Data Available No Data Starr ilable Functional Status Assessed (1170F) 1170F 2022-08-28 No Data Available No Data Avail able Advance Care Directive Advance care planning discussion documented in the medical record (1158F) 1158F 2022-08-28 No Data Available No Data Availa ble BMI obtained (3008F) 3008F 2022-08-28 No Data Availab le No Data Available New patient,40-59min; chronic exacerbation, 2 stable chronic or 1 acute illness add add modifier 95 for video (do not use for phone, instead use 98438-54) 99695 2022-08-28 No Data Available No Data Availa ble SBP 130-139 (3075F) 3075F 2022-08-28 No Data Availabl e No Data Available DBP <80 (3078F) 3078F 2022-08-28 No Data Available No Data Available Estab. patient 30-39min; chronic exacerbation, 2 stable chronic or 1 acute illness add add modifier 95 for video, (do not use for phone, instead use 33923-92) 23429 2023-07-06 No Data Available No Data Availa ble Medication List Documented (1159F) 1159F 2023-07-06 No Data Available No Data Starr ilable Medication Review by prescribing provider or pharmacist documented (1160F) 1160F 2023-07-06 No Data Available No Data Starr ilable Pain Assessment - NO pain present (1126F) 1126F 2023-07-06 No Data Available No Data A vailable BMI obtained (3008F) 3008F 2023-07-06 No Data Availab le No Data Available Advance Care Directive Advance care planning discussion documented in the medical record (1158F) 1158F 2023-07-06 No Data Available No Data Availa ble Advance care planning discussed and documented in the medical record ? beneficiary/patient did not wish to or was unable to provide an advance care plan or name a surrogate decision-maker. (1124F) 1124F 2023-07-06 No Data Available No Data Availa ble Pain Assessment - Pain Documented on a Pain Scale (1125F) 1125F 2023-07-06 No Data Available No Data Starr ilable SBP 130-139 (3075F) 3075F 2023-07-06 No Data Availabl e No Data Available DBP 80-89 (3079F) 3079F 2023-07-06 No Data Available No Data Available Unlisted special service; to be used for medical record reviews and reporting CPTII codes (1111F, etc) 62390 2024-03-17 No Data Available No Data Availa ble SBP 130-139 (3075F) 3075F 2024-03-17 No Data Availabl e No Data Available DBP 80-89 (3079F) 3079F 2024-03-17 No Data Available No Data Available Estab. patient 30-39min; chronic exacerbation, 2 stable chronic or 1 acute illness add add modifier 95 for video, (do not use for phone, instead use 11298-77) 02639 2024-04-12 No Data Available No Data Availa ble Medication List Documented (1159F) 1159F 2024-04-12 No Data Available No Data Starr ilable Medication Review by prescribing provider or pharmacist documented (1160F) 1160F 2024-04-12 No Data Available No Data Starr ilable Pain Assessment - NO pain present (1126F) 1126F 2024-04-12 No Data Available No Data A vailable BMI obtained (3008F) 3008F 2024-04-12 No Data Availab le No Data Available Advance Care Directive Advance care planning discussion documented in the medical record (1158F) 1158F 2024-04-12 No Data Available No Data Availa ble Advance care planning discussed and documented ? advance care plan or surrogate decision-maker was documented in the medical record. (1123F) 1123F 2024-04-12 No Data Available No Data Availa ble SBP 130-139 (3075F) 3075F 2024-04-12 No Data Availabl e No Data Available DBP 80-89 (3079F) 3079F 2024-04-12 No Data Available No Data Available Functional Status Assessed (1170F) 1170F 2024-04-12 No Data Available No Data Avail able No Data Available 67241 2024-08-22 No Data Available No Data Available Medication List Documented (1159F) 1159F 2024-08-22 No Data Available No Data Starr ilable Functional Status Functional Category Effective Dates Ambulates with cane intermit tently . Requires moderate to total assistance with cooking and cleaning. Minimum assistance with bathing, dressing, and toileting. 2022-09-01 Mental Status Status Date Alert and oriented x3 2022-08-28 Assessments Date of Service Assessments 2022-08-28 08:38:20 Hypertension complic ating diabetesOsteoarthritis 2023-07-06 07:42:53 HypertensionOsteoart hritisType 2 diabetes mellitus with other circulatory complicationsH/O prostate cancerAbdominal aortic aneurysm without ruptureNumbness of right hand; Chronic cervical painCervical myelopathy 2024-04-12 06:09:07 HypertensionOsteoart hritisType 2 diabetes mellitus without complicationH/O prostate cancerAbdominal aortic aneurysm without ruptureNumbness of right hand; Chronic cervical painCervical myelopathyOther problems related to medical facilities and other health care 2024-08-22 08:44:40 HypertensionType 2 d iabetes mellitus without complicationForeign body aspiration Plan of Care Date of Service Plans 2022-08-28 08:38:20 Pain Assessment - NO pain documented (1126F)Medication Review by prescribing provider or pharmacist documented (1160F)Medication List Documented (1159F)Functional Status Assessed (1170F)Advance Care Directive Advance care planning discussion documented in the medical record (1158F)BMI obtained (3008F)SBP 130-139 (3075F)DBP <80 (3078F)Televideo new patient,40-59min; chronic exacerbation, 2 stable chronic or 1 acute illness add modifier 95Continue to see PCP. Follow-up with [facility] as needed for any acute or disease education needs that may arise.LosartanDM2 diet controlled, unknown D0aJtmhlst with PCP every 3 monthsPain increasing in multiple joints (hips/knees). OTC Tylenol prn pain.Needs toilet riser to assist with independence toileting. 2023-07-06 07:42:53 Medication Review by prescribing provider or pharmacist documented (1160F)Medication List Documented (1159F)Functional Status Assessed (1170F)Advance Care Directive Advance care planning discussion documented in the medical record (1158F)BMI obtained (3008F)Televideo 30-39min; chronic exacerbation, 2 stable chronic or 1 acute illness add modifier 95Advance care planning discussed and documented ? advance care plan or surrogate decision-maker was documented in the medical record. (1123F)Pain Assessment - Pain Documented (1125F)Advance care planning discussed and documented in the medical record ? beneficiary/patient did not wish to or was unable to provide an advance care plan or name a surrogate decision-maker. (1124F)SBP 130-139 (3075F)DBP <80 (3078F)Continue to see PCP. Follow-up with [facility] as needed for any acute or disease education needs that may arise.LosartanContinue taking medication, monitor BP routinely and Follows with PCP every 3 monthsPain increasing in multiple joints (hips/knees). OTC Tylenol prn pain.Needs toilet riser to assist with independence toileting.Stableno recent a1c in outside care notes availableDiscussed significance of low carb diet, exercising as tolerable, and continue f/u care with PCP.Stable Surgery onlyIn remission Continue f/u care with PCP and urologyStableContinue f/u care and monitoring with PCPStable Gabapentin Continue f/u with PCPMD Portal notes member does have a diagnosis that includes cervical myelopathy seen on Xray of the cervical spine 12/01/22 2024-03-17 08:02:52 Unlisted special ser vice; to be used for medical record reviews and reporting CPTII codes (1111F, etc)SBP 130-139 (3075F)DBP 80-89 (3079F) 2024-04-12 06:09:07 Medication Review by prescribing provider or pharmacist documented (1160F)Medication List Documented (1159F)Functional Status Assessed (1170F)Advance Care Directive Advance care planning discussion documented in the medical record (1158F)BMI obtained (3008F)Televideo 30-39min; chronic exacerbation, 2 stable chronic or 1 acute illness add modifier 95Pain Assessment - Pain Documented (1125F)Advance care planning discussed and documented ? advance care plan or surrogate decision-maker was documented in the medical record. (1123F)Continue to see PCP. Follow-up with [facility] as needed for any acute or disease education needs that may arise.LosartanContinue taking medication, monitor BP routinely and Follows with PCP every 3 monthsPain increasing in multiple joints (hips/knees). OTC Tylenol prn pain.Has toilet riser to assist with independence toileting.not on pharmacological managementno recent a1c in outside care notes availableDiscussed significance of low carb diet, exercising as tolerable, and continue f/u care with PCP.Stable Surgery onlyIn remission Continue f/u care with PCP and urologyStableContinue f/u care and monitoring with PCPGabapentin, Imipramine Continue f/u with PCPMD Portal notes member does have a diagnosis that includes cervical myelopathy seen on Xray of the cervical spine 12/01/22When member to call: 1. If bp is elevated sbp>150; dbp>90 or symptomatic-h/a, dizziness, cp, sob. 2. if there is a fall 3. if BS >300 or BS<90 or symptomatic; i.e., dizzy, off balance , shaky, general weakness. 4. if UTI symptoms arise-urinary frequency, dysuria, low abd pain. [facility] Follow-up with [facility] as needed for any acute or disease education needs that may arise 17/05. 2024-08-22 08:44:40 Phone (patient, pare nt, or guardian); 5-10 minutes of medical discussion (no modifier 95)Continue to see PCP. Follow-up with [facility] as needed for any acute or disease education needs that may arise 17/05.LosartanContinue taking medication, monitor BP routinely and Follows with PCP every 3 monthsnot on pharmacological managementno recent a1c in outside care notes availableDiscussed significance of low carb diet, exercising as tolerable, and continue f/u care with PCP.he had a piece of apple stuck in his esophagus he was given a medication to dilated his esophagus and apple was able to be swallowed, no changes to diet textures educated to chew his food more Goals Date Goal 2022-08-28 Remember to monitor your blood pressure regularly. 2022-08-28 Call me if you feel sick or ill, notice changes in behavior, or have any concerns. 2022-08-28 Keep it up working o n ambulating daily. 2023-07-06 Remember to contact EMS if developing emergent symptoms. 2023-07-06 Contact us if develo ping worsening numbness, HHS, DKA, urgent HTN s/sx, or worsening pain. 2023-07-06 Continue taking medi cations as prescribed and f/u care and monitoring with PCP every 3-6 months. 2024-08-22 Continue taking medi cations as directed and keep all follow up appointments with established PCP and Specialist. 2024-08-22 At least 50% of time spent counseling patient, discussing diagnosis, treatment plan, complicance, and coordinating follow up care. Health Concerns Date Concern 2024-08-22 Visit completed via audio by telephone. Patient/Guardian agreed to visit via telehealth.Time spent in visit: 5 minutes 2024-08-22 Most recent hospital stay(s) or ER visit(s) and precipitating factors: he had a piece of apple stuck in his esophagus he was given a medication to dilated his esophagus and apple was able to be swallowed, no changes to diet textures educated to chew his food more 2024-08-22 HEDIS review: done
--- OUTSIDE RECORDS SUMMARY | 2024-12-04 16:34 | XMS_ITS | Encounter Summary ---
Author Organization [facility] Address [address] [place] [address] Care Team Providers Care Kier Operator Name Role Phone Name, Oliver ROTHMAN Primary Care Provider [phone] Encounter Details Date Type Department Care Team (Latest Contact Info) Description 05/20/2022 Abstract [facility] CONVERSIONS Dental, Provider, DDS Social History Tobacco Use Types Packs/Day Years Used Date Smoking Tobacco: Never Assessed Sex and Gender Information Value Date Recorded Sex Assigned at Male 08/24/2022 10:17 AM EDT Legal Sex Male 10:17 AM EDT Gender Identity Male 08/24/2022 10:17 AM EDT Sexual Orientation Straight 08/24/2022 10 :17 AM EDT documented as of this encounter Plan of Treatment Upcoming Encounters Date Type Department Care Team (Late st Contact Info) Description 12/18/2024 3:00 PM EST Telemedicine [facility] MEDICINE [address] [place] [address] documented as of this encounter Visit Diagnoses Not on filedocumented in this encounter Care Teams Kier Operator Relationship Specialty Start Date End Date Name, MD Oliver [address] [place] [address] PCP - General Family Medicine 05/17/17 documented as of this encounter
--- OUTSIDE RECORDS SUMMARY | 2024-12-04 16:34 | XMS_ITS | Clinical Summary ---
Author Organization [employer] Address [address] [place] [address] [address] [place] [address] Care Team Providers Care Scheduling Analyst Name Role Phone Name, Oliver ROTHMAN Primary Care Provider [phone] Allergies No known active allergies Medications loratadine (Claritin) 10 MG tablet Take 1 tablet by mouth if needed each day for allergies. 022 Active Diclofenac Sodium 1 % gel apply 2 gram by topical route 4 times every day to the affected area(s) 022 Active aspirin 81 MG EC tablet take 1 tablet by oral route every day 017 Active sildenafil (Viagra) 100 MG tabletIndicatio ns:Erectile dysfunction, unspecified erectile dysfunction type take 1 tablet by oral route every day as needed approximately 1 hour before sexual activity 10 tablet 023 Active gabapentin (Neurontin) 300 MG capsuleIndicati ons:Cervical myelopathy (CMS/HCC) TAKE 1 CAPSULE BY MOUTH EVERYDAY AT BEDTIME 30 capsule 11 023 Active Blood Pressure kit Use twice a day 1 kit 024 Active Acetaminophen Extra Strength 500 MG tabletIndicatio ns:Cough, unspecified type TAKE 1-2 TABLET (500MG) BY ORAL ROUTE EVERY 6 HOURS NEEDED 60 tablet 2 024 Active losartan (Cozaar) 25 MG tabletIndicatio ns:Essential hypertension TAKE 1 TABLET BY MOUTH EVERY DAY 90 tablet 1 024 Active fluticasone (Flonase) 50 MCG/ACT nasal spray ADMINISTER 1 SPRAY INTO EACH NOSTRIL IN THE MORNING. SHAKE GENTLY. BEFORE FIRST USE, PRIME PUMP. AFTER USE, CLEAN TIP AND REPLACE CAP. 16 mL 025 Active omeprazole OTC (PriLOSEC OTC) 20 MG EC tablet Take 1 tablet (20 mg) by mouth before breakfast. Do not crush, chew, or split. 30 tablet 025 2025 Active fluticasone (Flonase) 50 MCG/ACT nasal spray ADMINISTER 1 SPRAY INTO EACH NOSTRIL IN THE MORNING. SHAKE GENTLY. BEFORE FIRST USE, PRIME PUMP. AFTER USE, CLEAN TIP AND REPLACE CAP. 16 mL 2 024 2024 Discontinued Active Problems Problem Noted Date Diagnosed Date Asbestos exposure 02/09/2024 Pulmonary nodule 02/09/2024 Overview (12/04/2024): He was evaluated at [facility]. He has a remote history of treated TB T spot negative CT scan of the chest consistent with previous treated TB infection. [place] [address] CT Scan Report Signed Patient: Ever Champagne MR#: [id number] [birth year] : 1950 Acct:[id number] Age/Sex: 74 / M ADM Date: 08/08/24 Loc: HO.CT Attending Dr: Ced Robles MD Ordering Physician: Ced Robles MD Date of Service: 08/08/24 Procedure(s): CT chest wo IV con Accession Number(s): [id number] cc: Oliver Constantino MD; Ced Robles MD EXAMINATION: CT CHEST WITHOUT CONTRAST CLINICAL INFORMATION: Follow-up pulmonary nodule. COMPARISON: 02/01/2024. TECHNIQUE: Multidetector volumetric CT imaging of the chest was done. Axial MIP volume rendering provided. Sagittal and coronal reformatted images were obtained. This CT examination was performed using dose optimization techniques as appropriate, variously including the following: *Automated exposure control *Adjustment of mA and/or kV according to patient size (this includes techniques or standardized protocols for targeted exams where dose is matched to indication/reason for exam; i.e. extremities or head) *Use of iterative reconstruction technique DLP: 172 mGy-cm FINDINGS: PULMONARY NODULES: -5 mm right lower lobe nodule previously seen is unchanged, with a suggestion may represent intrabronchial inspissation (series 5, image 293). -An abutting similar appearing 6 mm stellate nodule is present slightly more inferomedially right lower lobe (series 5, image 311), also unchanged. -6 x 4 mm (average diameter 5 mm) solid left upper lobe pulmonary nodule previously seen is unchanged (series 5 image 186). -Innumerable calcified granuloma bilaterally. -No new or enlarging nodules. LUNGS: -Similar right lung volume loss, right middle and upper lobe reticulonodular scarring, and right inferior thoracic pleural thickening and calcification, without change. -Numerous calcified granulomata are present throughout both lungs, the largest in the right middle lobe measuring 7 mm in diameter. -Similar biapical pleural parenchymal scarring. MEDIASTINUM: -No mediastinal or hilar lymphadenopathy. -No masses. -Aorta and main pulmonary artery are normal in caliber. -Heart size is normal. No pericardial effusion. -Esophagus is normal. -Suspect a small type I hiatus hernia at the GE junction. CORONARY ARTERY CALCIFICATION: None visualized on this study. AXILLA/CHEST WALL: No masses or lymphadenopathy. UPPER ABDOMEN: -Small type I hiatus hernia. -Partially imaged parapelvic cysts bilateral kidneys. -Remainder of the upper abdominal contents appear normal. -Previously seen fatty infiltration of the liver has resolved. OSSEOUS STRUCTURES: -There is no lytic or blastic suspicious bone lesion. -No acute findings. -Mild spinal degenerative changes, stable. CT/CT chest wo IV con IMPRESSION: 1. Mild centrilobular emphysema. Stable foci of parenchymal scarring right middle and upper lobes. Stable innumerable calcified granulomas both lungs. 2. Stable mild right lung volume loss, inferior pleural thickening and calcification. 3. Stable pulmonary nodules measuring up to 6 mm right lower lobe, without new or enlarging suspicious nodule. 4. Diffuse small airway thickening and mild bronchiectasis, consistent with chronic airways disease. 5. No additional acute pulmonary abnormality. 6. Small type I hiatus hernia GE junction. 7. Additional ancillary findings as discussed. Fleischner guidelines were followed. Electronically signed by: Ki Perez MD 10/04/2024 03:31 PM [facility] History of cervical spinal surgery 08/18/2023 Cervical myelopathy 10/16/2022 Erectile dysfunction 10/16/2022 Essential hypertension 10/16/2022 Prediabetes 10/16/2022 Tubular adenoma of colon 10/12/2019 Overview (08/18/2023): Colonoscopy done 2019 at [facility], repeat recommended in 5 years Urinary incontinence 03/09/2018 Radicular pain 08/09/2017 Chronic neck pain 08/09/2017 Overview (08/18/2023): 2017 Cervical spine X-ray IMPRESSION: 1. Postsurgical changes at C4-C6. 2. A prominent posterior disc osteophyte complex is noted at C5-C6. 3. Degenerative spondylosis throughout the lower cervical spine as described, with at least mild neuroforaminal stenosis at multiple levels bilaterally. The left C6-C7 neural foramen is not well-visualized whichmay be technical though this may suggest more significant neuroforaminal stenosis. Resolved Problems Problem Noted Date Diagnosed Date Resolved Date Nicotine dependence 12/04/2020 08/18/20 23 Encounters Date Type Department Care Team Description 12/04/2024 3:15 PM EST Office Visit [facility] [address] [place] [phone] Oliver Constantino MD Essential hypertension (Primary Dx); Other dysphagia; Tubular adenoma of colon; Pulmonary nodule 12/04/2024 Travel 11/09/2024 Refill [facility] [address] [place] [phone] Oliver Constantino MD 10/09/2024 Travel 10/09/2024 Telephone [facility] [address] [place] [phone] Carmelita Kapadia RN 09/19/2024 2:40 PM EST Office Visit [facility] [address] [place] [address] Essie Gonzalez NP Influenza A (Primary Dx); Cough in adult patient; Elevated blood pressure reading in office with diagnosis of hypertension 09/19/2024 Telephone [facility] [address] [place] [phone] Oliver Constantino MD Referral 09/13/2024 Orders Only [facility] [address] [place] [phone] Essie Gonzalez NP 09/13/2024 Refill [facility] [address] [place] [phone] Rajni Diana NP Essential hypertension 09/05/2024 Telephone [facility] [address] [facility] [place], [place] [phone] Liset Mcdowell, VIKTORIYA from Last 3 Months Immunizations Name Administration Dates Next Due Influenza High-dose Quadrivalent Preservative Fr ee 08/18/2023,06/22/2020 Influenza Quadrivalent Adjuvanted 08/17/2022, Influenza injectable quadriv alent IIV4 with preservative 08/09/2017 Influenza, High Dose Seasonal, Preservative Free 11/03/2019 Pfizer Covid-19 Vaccine 12+ 08/12/2021, Pfizer Covid-19 Vaccine 12+ maría-sucrose (Ronal quiros) 08/12/2021,11/15/2020 Pneumococcal Conjugate PCV 13 04/26/2018 Pneumococcal Polysaccharide PPSV23 01/16/2022 Tdap 08/09/2017 Social History Tobacco Use Types Packs/Day Years Used Date Smoking Tobacco: Never Passive Smoke Exposure: Never Smokeless Tobacco: Never Tobacco Cessation:Counseling Given: Not Answered Alcohol Use Standard Drinks/Week Comments Never 0 (1 standard drink = 0.6 oz pur e alcohol) Depression Answer Date Recorded Patient Health Questionnaire-9 Score 0 12/09/2023 Patient Health Questionnaire-9 Score 0 12/09/2023 Last PHQ-9: Questionnaire Data Not on file 0 12/09/2023 Housing Stability Answer Date Recorded What is your housing situation today? I have stephany avila 12/09/[address] you li ve. Do you have problems with any of the following? None of the above 12/09/2023 Food Insecurity Answer Date Recorded Within the past 12 months, y ou worried that your food would run out before you got money to buy more: Never True 12/09/2023 Within the past 12 months,th e food you bought just didn't last and you didn't have enough money to get more: Never True Transportation Answer Date Recorded In the past 12 months, has l ack of transportation kept you from medical appts, meetings, work or from getting things needed for daily living? No 12/09/2023 Utilities Answer Date Recorded In the past 12 months, has t he electric, gas, oil or water company threatened to shut off services in your home? No 12/09/2023 Depression Answer Date Recorded Patient Health Questionnaire-2 Score 0 12/09/2023 Sex and Gender Information Value Date Recorded Sex Assigned at Male 08/24/2022 10:17 AM EDT Legal Sex Male 10:17 AM EDT Gender Identity Male 08/24/2022 10:17 AM EDT Sexual Orientation Straight 08/24/2022 10 :17 AM EDT Last Filed Vital Signs Vital Sign Reading Time Taken Comments Blood Pressure 135/79 12/04/2024 3:35 PM EST Pulse 76 12/04/2024 2:55 PM EST Temperature 36.8 ??C (98.2 ??F) 12/04/2024 2:55 PM ES T Respiratory Rate 16 12/04/2024 2:55 PM EST Oxygen Saturation 97% 12/04/2024 2:55 PM EST Inhaled Oxygen Concentration - - Weight 78.9 kg (174 lb) 12/04/2024 2:55 PM EST Height 172.7 cm (5' 8 ) 09/19/2024 2:37 PM EST Body Mass Index 26.46 09/19/2024 2:37 PM EST Plan of Treatment Upcoming Encounters Date Type Department Care Team (Late st Contact Info) Description 12/18/2024 3:00 PM EST Telemedicine [facility] [address] [place] [phone] Health Maintenance Due Date Last Done Comments CT Colonography 1950 FIT DNA/Cologuard 1950 FIT 1950 FOBT 1950 Sigmoidoscopy 1950 Alcohol/Substance Use Screening 1964 Hepatitis C Screening 02/02/1970 Zoster Vaccines (1 of 2) 02/02/2002 Diabetes: Hemoglobin A1C 06/05/2023 06/05/2022, 03/2 06/2022 COVID-19 Vaccine ( season) 2024 09/04/2022, 08/12/2021, 08/12/2021, Additional history exists Colonoscopy 10/20/2024 10/20/2019 Colorectal Cancer Screening 10/20/2024 Depression Screening 12/09/2024 12/09/2023, 12/09/19 SDOH Screening 12/09/2024 12/09/2023 Tobacco Screening 12/09/2024 12/09/2023 RSV Patients and Patients Aged 60 years or older (1 - 1-dose 75+ series) 02/02/2027 DTaP/Tdap/Td Vaccines (2 - Td or Tdap) 08/09/2027 08/09/2017 Lipid Panel 08/25/2028 08/25/2023, 09/26, 01/20/2022, Additional history exists Pneumococcal Vaccine: 50+ Years Completed 01/16/2022, 04/26/2018 Influenza Vaccine Completed 10/08/2024, , 08/17/2022, Additional history exists HIB Vaccines Aged Out No longer eligi ble based on patient's age to complete this topic HPV Vaccines Aged Out No longer eligi ble based on patient's age to complete this topic Hepatitis A Vaccines Aged Out No long er eligible based on patient's age to complete this topic Hepatitis B Vaccines Aged Out No long er eligible based on patient's age to complete this topic IPV Vaccines Aged Out No longer eligi ble based on patient's age to complete this topic Meningococcal Vaccine Aged Out No loly liban eligible based on patient's age to complete this topic RSV under 20 months Aged Out No longe r eligible based on patient's age to complete this topic Rotavirus Vaccines Aged Out No longer eligible based on patient's age to complete this topic Procedures Procedure Name Priority Date/Time Associated Diagnosis Comments POCT INFLUENZA B (ID NOW RAPID MOLECULAR) Routine 09/19/2024 3:03 PM EST Cough in adult patient POCT INFLUENZA A (ID NOW RAPID MOLECULAR) Routine 09/19/2024 3:01 PM EST Cough in adult patient POC MOSES ID NOW STREP A Routine 09/19/2024 2:42 PM EST Cough in adult patient POCT RAPID COVID ANTIGEN Routine 09/19/2024 2:42 PM EST Cough in adult patient FL BARIUM SWALLOW MODIFIED Routine 09/13/2024 10:30 AM EST US HEAD NECK SOFT TISSUE Urgent 09/04/2024 1:07 PM EST Other dysphagia Lymphadenopathy, submandibular LIPID PANEL, STANDARD Routine 08/25/2023 8:51 AM EDT Essential hypertension Prediabetes HEMOGLOBIN A1C Routine 06/05/2022 7:58 AM EDT HM COLONOSCOPY Routine 10/20/2019 11:04 AM EST from Last 3 Months or Most Recently Relevant to Health Maintenance Results * Influenza B (ID NOW Rapid Molecular) (09/19/2024 3:03 PM EST) [facility] Influenza B Negative Negative, Indeterminate [facility] Swab 09/19/2024 3:03 PM EST Essie Choudhury DIE STORAGE CLERK POINT OF CARE TEST ENTER/EDIT O RDERABLES Final Result Performing Organization Address City/[facility]/ZIP Co de Phone Number [facility] [address] [place] [address] [phone] * (ABNORMAL) Influenza A (ID NOW Rapid Molecular) (09/19/2024 3:01 PM EST) [facility] Influenza A Positive( A) Negative, Indeterminate [facility] Swab 09/19/2024 3:01 PM EST Essie Choudhury DIE STORAGE CLERK POINT OF CARE TEST ENTER/EDIT O RDERABLES Final Result Performing Organization Address [facility]/ZIP Co de Phone Number [facility] [address] [place] [phone] * POCT rapid strep A manually resulted (09/19/2024 2:42 PM EST) Pathologist [facility] Rapid Strep A Screen Negative Negative, None Detected Swab 09/19/2024 2:42 PM EST us Essie Gonzalez DIE STORAGE CLERK POINT OF CARE TEST ENTER/EDIT O RDERABLES Final Result * POCT Rapid COVID Ag (09/19/2024 2:42 PM EST) Rapid COVID Ag Negative Swab 09/19/2024 2:42 PM EST us Fountain Maceyalvaro DIE STORAGE CLERK POINT OF CARE TEST ENTER/EDIT O RDERABLES Final Result * FL BARIUM SWALLOW MODIFIED (09/13/2024 10:30 AM EST) Anatomical Region Laterality Modality Head, Neck Radiographic Usha ging 09/13/2024 10:3 0 AM EST Narrative 09/13/2024 3:25 PM EST ? [facility] ?[address] ?[place] [address] ? Fluoroscopy Report ? Signed ? Patient: Ihsan,Ever ?MR#: [id number] ?? 28 ? : 1950 ?Acct:[id number] ? Age/Sex: 74 / M ?ADM Date: 09/13/24 ? Loc: HO.XRAY ? Attending Dr: Essie Gonzalez ? Ordering Physician: Essie Gonzalez ?? Date of Service: 09/13/24 ?? Procedure(s): FL Modified Barium Swallow ?? Accession Number(s): [id number] ? cc: Essie Gonzalez; Name,Oliver ROTHMAN ? EXAMINATION: ?? Modified Barium Swallow ? CLINICAL INFORMATION: ?? Dysphagia ? COMPARISON: ?? None ? TECHNIQUE: ?? Modified barium swallow was performed under lateral fluoroscopy with ?? patient in standing position. Barium mixed with solids and liquids of ?? different consistencies was administered by the speech pathologist. ?? Examination was recorded in the fluoroscopy suite. ? FINDINGS: ?? No laryngeal penetration or aspiration was observed during this ?? examination. ? FLUOROSCOPY TIME: ?? 1 minute 7 seconds ? Number of Spot Images: N/A ? DOSE AREA PRODUCT: ?? 453.1 uGy-m2 (microgray-meter squared) ? FL/FL Modified Barium Swallow ?? IMPRESSION: ?? 1. No laryngeal penetration or aspiration was observed during this ?? examination. ? Refer to the speech therapy report for further clarification ? This procedure was performed by Phill Brown PA-C, and supervised by ?? Dr. Perez ? Electronically signed by: ??Ki Perez MD ??09/13/2024 03:22 PM EST RP ? Dictated By: ?Phill Brown ? Signed By: ?<Electronically signed by Phill Brown in OV> ? 09/13/24 1522 ?<Electronically signed by Ki Perez MD in OV> ? 09/13/24 1525 ? DD/ 1030 ? TD/TT: 09/13/24 1045 ? Trade Mark Attorney: ? Procedure Note Donotuseinterpreter, Image - 09/13/2024 [place] [address] Fluoroscopy Report Signed Patient: Luis Fernando Champagne#: [id number] [birth year] : 2Acct:[id number] Age/Sex: 74 / MADM Date: 09/13/24 Loc: FLAKITA Attending Dr: Essie Gonzalez Ordering Physician: Essie Gonzalez Date of Service: 09/13/24 Procedure(s): FL Modified Barium Swallow Accession Number(s): [id number] cc: Essie Gonzalez; Name,Oliver ROTHMAN EXAMINATION: Modified Barium Swallow CLINICAL INFORMATION: Dysphagia COMPARISON: None TECHNIQUE: Modified barium swallow was performed under lateral fluoroscopy with patient in standing position. Barium mixed with solids and liquids of different consistencies was administered by the speech pathologist. Examination was recorded in the fluoroscopy suite. FINDINGS: No laryngeal penetration or aspiration was observed during this examination. FLUOROSCOPY TIME: 1 minute 7 seconds Number of Spot Images: N/A DOSE AREA PRODUCT: 453.1 uGy-m2 (microgray-meter squared) FL/FL Modified Barium Swallow IMPRESSION: 1. No laryngeal penetration or aspiration was observed during this examination. Refer to the speech therapy report for further clarification This procedure was performed by Phill Brown PA-C, and supervised by Dr. Perez Electronically signed by: Ki Perez MD 09/13/2024 03:22 PM [facility] Dictated By: Phill Brown Signed By: <Electronically signed by Phill Brown in OV> 09/13/24 1522 <Electronically signed by Ki Perez MD in OV> 09/13/24 1525 DD/ 1030 TD/TT: 09/13/24 1045 Trade Mark Attorney: us Essie Gonzalez DIE STORAGE CLERK IMG FLUOROSCOPY PROCEDURES Rebecca l Result * US Head Neck Soft Tissue (09/04/2024 1:07 PM EST) Anatomical Region Laterality Modality Head, Neck Ultrasound 09/04/2024 1:07 PM EST Narrative 09/04/2024 5:04 PM EST ? [facility] ?[address] ?[place] [address] ? Ultrasound Report ? Signed ? Patient: Ihsan,Ever ?MR#: [id number] ?? 28 ? : 1950 ?Acct:[id number] ? Age/Sex: 74 / M ?ADM Date: 09/04/24 ? Loc: HO.US ? Attending Dr: Essie Gonzalez ? Ordering Physician: Essie Gonzalez ?? Date of Service: 09/04/24 ?? Procedure(s): US soft tiss head and/or neck ?? Accession Number(s): [id number] ? cc: Essie Gonzalez; Name,Olvier ROTHMAN ? EXAMINATION: ?? ULTRASOUND SOFT TISSUES NECK, LIMITED ? CLINICAL INFORMATION: ?? Tenderness. Possible lymphadenopathy. ? COMPARISON: ?? CT chest 02/01/2024. ? TECHNIQUE: ?? Sonographic evaluation of the regions of clinical concern as pointed by ?? the patient in the bilateral soft tissues of the neck. ? FINDINGS/ ? US/US soft tiss head and/or neck ?? IMPRESSION: ?? No lymphadenopathy. No significant abnormality including no mass, ?? organized collection or abscess. ? Electronically signed by: ??Chelo Jewell MD ??09/04/2024 05:01 PM EST RP ? Dictated By: ?Fanta,Chelo ? Signed By: ?<Electronically signed by Chelo Jewell in OV> ?09/04/24 1701 ? DD/ 1307 ? TD/TT: 09/04/24 1311 ? Trade Mark Attorney: ? Procedure Note Isabelle, Image - 09/04/[address] [address] Ultrasound Report Signed Patient: Luis Fernando Champagne#: [id number] [birth year] : 2Acct:[id number] Age/Sex: 74 / MADM Date: 09/04/24 Loc: HO.US Attending Dr: Essie Gonzalez Ordering Physician: Essie Gonzalez Date of Service: 09/04/24 Procedure(s): US soft tiss head and/or neck Accession Number(s): [id number] cc: Essie Gonzalez; Name,Oliver ROTHMAN EXAMINATION: ULTRASOUND SOFT TISSUES NECK, LIMITED CLINICAL INFORMATION: Tenderness. Possible lymphadenopathy. COMPARISON: CT chest 02/01/2024. TECHNIQUE: Sonographic evaluation of the regions of clinical concern as pointed by the patient in the bilateral soft tissues of the neck. FINDINGS/ US/US soft tiss head and/or neck IMPRESSION: No lymphadenopathy. No significant abnormality including no mass, organized collection or abscess. Electronically signed by: Chelo Jewell MD 09/04/2024 05:01 PM [facility] Dictated By: Chelo Jewell Signed By: <Electronically signed by Chelo Jewell in OV> 09/04/24 1701 DD/ 1307 TD/TT: 09/04/24 1311 Trade Mark Attorney: us Essie Gonzalez DIE STORAGE CLERK IMG US PROCEDURES Final Result * Lipid Panel, Standard (08/25/2023 8:51 AM EDT) Triglycerides 73 <150 mg/dL [facility] Comment:Desirable Triglyceri de: less than 150 mg/dLBorderline High Triglyceride 150-199 mg/dLHigh Triglyceride: 200-499 mg/dLVery High Triglyceride: greater than or equal to 5OO mg/dL Cholesterol 152 <200 mg/dL [facility] Comment:Desirable Cholestero l: less than 200 mg/dLBorderline High Cholesterol: 200-239 mg/dLHigh Cholesterol: greater than 239 mg/dL LDL Cholesterol Calculated 86 <100 mg/dL [facility] Comment:Desirable LDL: less than 100 mg/dLNear Optimal/Above Optimal LDL: 110- 129 mg/dLBorderline High LDL: 130-159 mg/dLHigh LDL: 160-189 mg/dLVery High LDL: greater than or equal to 190 mg/dL HDL Cholesterol 52 >40 mg/dL [facility] Comment:Desirable HDL: great er than 40 mg/dL Note: This HDL assay may give artificially low results in patients with liver disease. Blood Venous blood specimen / Unknown 08/25/2023 8:51 AM EDT 08/25/2023 11:32 AM EDT Oliver Constantino MD LAB BLOOD ORDERABLES Final Resul t Performing Organization Address City/[facility]/ZIP Co de Phone Number [facility] [address] [place] [phone] * HEMOGLOBIN A1c (06/05/2022 7:58 AM EDT) Hemoglobin A1c 5.5 <5.7 % of total Hgb [facility] Comment: For the purpose of screening for the presence of diabetes: ?? <5.7% ? Consistent with the absence of diabetes 5.7-6.4% ?Consistent with increased risk for diabetes ? (prediabetes) > or =6.5% ??Consistent with diabetes ?? This assay result is consistent with a decreased risk of diabetes. ?? Currently, no consensus exists regarding use of hemoglobin A1c for diagnosis of diabetes in children. ?? According to [place] [employer] Association (ADA) guidelines, hemoglobin A1c <7.0% represents optimal control in non- diabetic patients. Different metrics may apply to specific patient populations. ?? Standards of Medical Care in Diabetes(ADA). ?? 06/05/2022 7:58 AM EDT us Oliver Constantino MD LAB BLOOD ORDERABLES Final Resul t [facility] [address] [place] [address], * Hm Colonoscopy (10/20/2019 11:04 AM EST) Colonoscopy Normal Normal Narrative Chanda Chery - 10/20/2019 11:04 AM EST Recommended 5 year follow up Historical Provider HEALTH MAINTENANCE Final Result from Last 3 Months or Most Recently Relevant to Health Maintenance Insurance [facility] DUAL COMPLETE Care Teams Scheduling Analyst Relationship Specialty Start Date End Date Name, MD Oliver [address] [place] [address] PCP - General Family Medicine 05/17/17
--- OUTSIDE RECORDS SUMMARY | 2024-12-04 16:34 | XMS_ITS | Encounter Summary ---
Author Organization [facility] Address [address] [place] [address] 7t [place] [address] Care Team Providers Care Aspnet Developer Name Role Phone Oliver Constantino MD Primary Care Provider [phone] Reason for Referral * Consultation (Routine) - Pending Review Specialty Diagnoses / Procedures Referred By Saranya amaya Referred To Contact Gastroenterology Diagnoses Other dysphagia Tubular adenoma of colon Oliver Constantino MD [address] [place] [address] Phone: tel: fax: Referral ID Status Reason Start Date Expiration Date Visits Requested Visits Authorized [id number] Pending Review Specialty Services Required 12/04/2024 12/04/2025 1 1 Reason for Visit * Reason Comments Follow-up Encounter Details Date Type Department Care Team ([facility] st Contact Info) Description 12/04/2024 3:15 PM EST Office Visit [facility] [address] [place] [address] [phone] Oliver Constantino MD [address] [place] [address] [phone] Essential hypertension (Primary Dx); Other dysphagia; Tubular adenoma of colon; Pulmonary nodule Social History Tobacco Use Types Packs/Day Years [...] AM EDT documented as of this encounter Last Filed Vital Signs Vital Sign Reading Time Taken Comments Blood Pressure 135/79 12/04/2024 3:35 PM EST Pulse 76 12/04/2024 2:55 PM EST Temperature 36.8 ??C (98.2 ??F) 12/04/2024 2:55 PM ES T Respiratory Rate 16 12/04/2024 2:55 PM EST Oxygen Saturation 97% 12/04/2024 2:55 PM EST Inhaled Oxygen Concentration - - Weight 78.9 kg (174 lb) 12/04/2024 2:55 PM EST Height - - Body Mass Index 26.46 09/19/2024 2:37 PM EST documented in this encounter Progress Notes * Oliver Constantino MD - 12/04/2024 3:15 PM EST Subjective Patient ID: Ever Champagne is a 74 y.o. male who presents for Follow-up. Patient comes for a follow-up visit. He is accompanied by his . BP was initially elevated. Repeat blood pressure was better. The patient is on losartan for hypertension. He does not use the medication daily. He continues to complain of occasional dysphagia. He also describes occasional heartburn. He was evaluated with barium swallow that was unremarkable on August of last year. He does not have any chest pains or shortness of breath. He did have complaints of chest pains last year and hada negative cardiac workup. Review of Systems Constitutional: Negative for chills, fatigue, fever and unexpected weight change. HENT: Negative for sore throat. Respiratory: Negative for cough, chest tightness and shortness of breath. Cardiovascular: Negative for chest pain, palpitations and leg swelling. Gastrointestinal: Negative for abdominal pain, blood in stool, nausea and vomiting. See HPI Visit Vitals BP 135/79 Pulse 76 Temp 98.2 ??F (36.8 ??C) (Oral) Resp 16 Wt 174 lb (78.9 kg) SpO2 97% BMI 26.46 kg/m?? Smoking Status Never BSA 1.95 m?? Objective Physical Exam Constitutional: Appearance: Normal appearance. Cardiovascular: Rate and Rhythm: Normal rate and regular rhythm. Heart sounds: No murmur heard. Pulmonary: Effort: Pulmonary effort is normal. No respiratory distress. Breath sounds: No wheezing, rhonchi or rales. Abdominal: Palpations: Abdomen is soft. Tenderness: There is no abdominal tenderness. Musculoskeletal: Right lower leg: No edema. Left lower leg: No edema. Neurological: Mental Status: He is alert. [place] [id number] Fluoroscopy Report Signed Patient: Ever Champagne MR#: [id number] 26 : 1950 Acct:[id number] Age/Sex: 74 / M ADM Date: 09/13/24 Loc: [facility] Attending Dr: Essie Gonzalez Ordering Physician: Essie Gonzalez Date of Service: 09/13/24 Procedure(s): FL Modified Barium Swallow Accession Number(s): [id number] cc: Essie Gonzalez; Name,Oliver ROTHMAN EXAMINATION: Modified [...] by: Ki Perez MD 09/13/2024 03:22 PM [facility] 4.8 - 10.8 X10*3/uL 5.7 5.4 5.8 Red Blood Count 4.60 - 5.80 X10*6/uL 5.26 5.40 5.36 Hemoglobin 14.0 - 18.0 g/dl 15.6 15.9 15.7 15.4 R 15.0 R Hematocrit 42.0 - 52.0 % 45.5 47.2 46.6 45.5 R 44.8 R Mean Corpuscular Volume 80.0 - 98.0 fL 86.5 87.4 86.9 Mean Corpuscular Hemoglobin 27.0 - 33.0 pg 29.7 29.4 29.3 Mean Corpuscular HGB Conc 31.0 - 36.0 g/dl 34.3 33.7 33.7 Red Cell Distribution Width 11.0 - 16.0 % 13.0 12.7 13.0 Platelet Count 160 - 400 X10*3/uL 163 164 170 152 R 161 R Mean Platelet Volume 9.4 - 12.4 fL 12.0 12.2 11.7 Neutrophils Percent Auto 45 - 73 % 60.3 60.6 62.4 Imm Gran Pct Auto 0.0 - 0.4 % 0.2 0.2 0.2 Lymphocytes Percent Auto 20 - 40 % 30.9 28.6 28.6 Monocytes Percent Auto 2 - 11 % 7.6 8.7 6.9 Eosinophils Percent Auto 0 - 4 % 0.5 1.3 1.4 Basophils Percent Auto 0 - 2 % 0.5 0.6 0.5 NRBC Pct Auto 0.0 - 0.2 /100WBC 0.0 0.0 0.0 Neutrophils Absolute Auto 2.0 - 8.3 x10*3/uL 3.4 3.3 3.6 Imm Gran Abs Auto 0.00 - 0.03 X10*3/uL 0.01 0.01 0.01 Lymphocytes Absolute Auto 1.2 - 4.9 X10*3/uL 1.8 1.5 1.7 Monocytes Absolute Auto 0.1 - 1.2 X10*3/uL 0.4 0.5 0.4 Eosinophils Absolute Auto 0.0 - 0.4 X10*3/uL 0.0 0.1 0.1 Basophils Absolute Auto 0.0 - 0.2 X10*3/uL 0.0 0.0 0.0 NRBC Abs Auto 0.0 - 0.012 X10*3/uL 0.000 0.000 0.000 Lab Results Component Value Date GLUCOSE 108 08/13/2024 NA 137 08/13/2024 K 4.4 08/13/2024 CO2 25 08/13/2024 CL 104 08/13/2024 BUN 18 (H) 08/13/2024 CREATININE 1.02 08/13/2024 Assessment/Plan Diagnoses and all orders for this visit: Essential hypertension Comments: I recommended the patient to use his losartan daily, recheck BMP, check blood pressure at home, follow-up televisit with team nurse in 2 weeks. Orders: - Basic Metabolic Panel; Future Other dysphagia Comments: I recommend trial of PPI, referral to GI for endoscopic workup recommendations. He is due for repeat colonoscopy as well. Orders: - Referral to Gastroenterology; Future Tubular adenoma of colon - Referral to Gastroenterology; Future Other orders - omeprazole OTC (PriLOSEC OTC) 20 MG EC tablet; Take 1 tablet (20 mg) by mouth before breakfast. Do not crush, chew, or split. documented in this encounter Plan of Treatment Upcoming Encounters Date Type Department Care Team (Late st Contact Info) Description 12/18/2024 3:00 PM EST Telemedicine [address] [address] Scheduled Orders Name Type Priority Associated Diagnoses Orde r Schedule Basic Metabolic Panel Lab Routine Essential hypertension Expected: 12/04/2024 (Approximate), Expires: 12/04/2025 Scheduled Referrals Name Type Priority Associated Diagnoses Order Schedule Referral to Gastroenterology Outpatient Referral Routine Other dysphagia Tubular adenoma of colon Expected: 12/04/2024 (Approximate), Expires: 12/04/2025 documented as of this encounter Visit Diagnoses Diagnosis Essential hypertension- Primary Unspecified essential hypertension Other dysphagia Tubular adenoma of colon Benign neoplasm of colon Pulmonary nodule Other diseases of lung, not elsewhere classified documented in this encounter Additional Health Concerns Assessment Noted Time PHQ-9 Depression Total Score: 0 12/09/19 24 8:56 AM EST documented as of this encounter Care Teams Aspnet Developer Relationship Specialty Start Date End Date Name, MD Oliver [address] [place] [address] PCP - General Family Medicine 05/17/17 documented as of this encounter
--- OUTSIDE RECORDS SUMMARY | 2024-12-04 16:34 | XMS_ITS | Encounter Summary ---
Author Organization [employer] [facility] Address [address] [place] [address] 7t [place] [address] Care Team Providers Care Strategic Accounts Manager Name Role Phone Name, Oliver ROTHMAN Primary Care Provider [phone] Encounter Details Date Type Department Care Team (Late Contact Info) Description 03/29/2023 Abstract [facility] MED[facility]INE [address] [place] [address] [phone] Name, MD Oliver [address] [place] [phone] Social History Tobacco Use Types Packs/Day Years Used Date Smoking Tobacco: Never Smokeless Tobacco: Never Depression Answer Date Recorded Patient Health Questionnaire-2 [...] Info) Description 12/18/2024 3:00 PM EST Telemedicine [address] [phone] documented as of this encounter Procedures Procedure Name Priority Date/Time Associated Diagnosis Comments COLONOSCOPY Routine 10/20/2019 11:04 AM EST documented in this encounter Results * Hm Colonoscopy (10/20/2019 11:04 AM EST) Colonoscopy Normal Normal Narrative Chanda Chery - 10/20/2019 11:04 AM EST Recommended 5 year follow up us Historical Provider HEALTH MAINTENANCE Final Result documented in this encounter Visit Diagnoses Not on filedocumented in this encounter Care Teams Strategic Accounts Manager Relationship Specialty Start Date End Date Name, MD Oliver [address] [place] [address] PCP - General Family Medicine 05/17/17 documented as of this encounter
--- OUTSIDE RECORDS SUMMARY | 2024-12-04 16:34 | XMS_ITS | Clinical Summary ---
Author Organization [facility] Address [address] [place] [address] Care Team Providers Care Mud Grinder Name Role Phone Unavailable Primary Care Provider Unavailabl e Immunizations Name Administration Dates Next Due Covid-19 MRNA Vaccine - Pfiz er 12+ (Purple Cap) 08/12/2021,12/06/2020,11/15/2020 Social History Tobacco Use Types Packs/Day Years Used Date Smoking Tobacco: Never Assessed Sex and Gender Information Value Date Recorded Sex Assigned at Not on file Gender Identity Not on file Sexual Orientation Not on file Plan of Treatment Health Maintenance Due Date Last Done Comments Hepatitis C Virus Screening 1950 DTaP/Tdap/Td Vaccines (1 - Tdap) 02/02/1971 Colonoscopy 02/02/1997 Pneumococcal Vaccines 50+ (1 of 1 - PCV) 02/02/2002 Zoster (Shingles) Vaccine (1 of 2) 02/02/2002 Influenza Vaccine 05/25/2024 COVID-19 Vaccine (4 - 2023-2 5 season) 2024 08/12/2021, 12/06/2020, 11/15/2020 RSV Vaccine 60 years and older and Patients (1 - 1-dose 75+ series) 02/02/2027 Hepatitis B Vaccines Aged Out No long er eligible based on patient's age to complete this topic
--- OUTSIDE RECORDS SUMMARY | 2024-12-04 16:34 | XMS_ITS | Encounter Summary ---
Author Organization [employer] Address [address] [facility] 7t [place] [address] Care Team Providers Care Water Filtration Technician Name Role Phone Name, Oliver ROTHMAN Primary Care Provider [phone] Reason for Visit * Reason Comments Med Refill Encounter Details Date Type Department Care Team (Late st Contact Info) Description 11/09/2024 Refill [facility] MEDICINE [address] [place], [place] [phone] Name, MD Oliver [address] [place] [address] Social History Tobacco Use Types Packs/Day Years [...] Info) Description 12/18/2024 3:00 PM EST Telemedicine [facility]INE [address] [place] [address] documented as of this encounter Visit Diagnoses Not on filedocumented in this encounter Additional Health Concerns Assessment Noted Time PHQ-9 Depression Total Score: 0 12/09/19 24 8:56 AM EST documented as of this encounter Care Teams Water Filtration Technician Relationship Specialty Start Date End Date Name, MD Oliver [address] [place] [address] PCP - General Family Medicine 05/17/17 documented as of this encounter
--- OUTSIDE RECORDS SUMMARY | 2024-12-04 16:34 | XMS_ITS | Encounter Summary ---
Author Organization [employer] Address [address] [facility] [address] [facility] [address]t [place] [address] Care Team Providers Care Trust And Estates Attorney Name Role Phone Name, Oliver ROTHMAN Primary Care Provider [phone] Encounter Details Date Type Department Care Team (Late st Contact Info) Description 11/18/2023 Abstract [facility] DIABETES/NUTRITION [address] [place] [address] Name, MD Oliver [address] [place] [address] Social History Tobacco Use Types Packs/Day Years [...] Info) Description 12/18/2024 3:00 PM EST Telemedicine [facility] MEDICINE [address] [place] [address] documented as of this encounter Visit Diagnoses Not on filedocumented in this encounter Care Teams Trust And Estates Attorney Relationship Specialty Start Date End Date Name, MD Oliver [address] [place] [address] PCP - General Family Medicine 05/17/17 documented as of this encounter
--- OUTSIDE RECORDS SUMMARY | 2024-12-04 16:34 | XMS_ITS | Encounter Summary ---
Author Organization [employer] Address [address] [place] [address] Care Team Providers Care Utility Sales Representative Name Role Phone Name, Oliver ROTHMAN Primary Care Provider [phone] Encounter Details Date Type Department Care Team (Late st Contact Info) Description 11/18/2023 Abstract [facility] DIABETES/NUTRITION [address] [place] [address] Name, MD Oliver [address] [place] [address] Social History Tobacco Use Types Packs/Day Years [...] Info) Description 12/18/2024 3:00 PM EST Telemedicine [facility] MEDICINE [address] [place] [address] documented as of this encounter Visit Diagnoses Not on filedocumented in this encounter Care Teams Utility Sales Representative Relationship Specialty Start Date End Date Name, MD Oliver [address] [place] [address] PCP - General Family Medicine 05/17/17 documented as of this encounter
--- OUTSIDE RECORDS SUMMARY | 2024-12-04 16:34 | XMS_ITS | Encounter Summary ---
Author Organization [employer] Address [address] [facility] 7t [place] [address] Care Team Providers Care Rn Anesthesiology Name Role Phone Name, Oliver ROTHMAN Primary Care Provider [phone] Reason for Visit * Reason Onset Date Comments Med Refill 10/13/2023 Encounter Details Date Type Department Care Team ([facility] st Contact Info) Description 10/13/2023 Telephone [facility] MEDICINE [address] [place] [address] Name, MD Oliver [address] [place] [address] Med Refill Social History Tobacco Use Types Packs/Day Years [...] the past 12 months, has t he [employer], gas, oil or water [employer] threatened to shut off services in your home? No 08/18/2023 Depression Answer Date Recorded Patient Health Questionnaire-2 Score 0 10/21/2022 Sex and Gender Information Value Date Recorded Sex Assigned at Male 08/24/2022 10:17 AM EDT Legal Sex Male 10:17 AM EDT Gender Identity Male 08/24/2022 10:17 AM EDT Sexual Orientation Straight 08/24/2022 10 :17 AM EDT documented as of this encounter Miscellaneous Notes * Telephone Encounter - Doe Barnett RN - 10/19/2023 10:57 AM EST T/C x 2 am to pt. To inform regarding below message, No answer. LVM to call back on [phone] . * Telephone Encounter - Doe Barnett RN - 10/15/2023 8:56 AM EST T/C to pt. To inform regarding below message, No answer. LVM to call back on [phone] . * Telephone Encounter - Doe Barnett RN - 10/13/2023 10:30 AM EST Please review and advise for below request. * Telephone Encounter - Junior Tracy - 10/13/2023 9:36 AM EST Tc from patient requesting a medication refill for gabapentin (Neurontin) 300 MG capsule documented in this encounter Plan of Treatment Upcoming Encounters Date Type Department Care Team (Late st Contact Info) Description 12/18/2024 3:00 PM EST Telemedicine [facility] MEDICINE [address] [place] [phone] documented as of this encounter Visit Diagnoses Not on filedocumented in this encounter Care Teams Rn Anesthesiology Relationship Specialty Start Date End Date Name, MD Oliver [address] [place] [address] PCP - General Family Medicine 05/17/17 documented as of this encounter
--- OUTSIDE RECORDS SUMMARY | 2024-12-04 16:34 | XMS_ITS | Encounter Summary ---
Author Organization [employer] Address [address] [facility] 7t [place] [address] Care Team Providers Care Director Of Vital Statistics Name Role Phone Name, Oliver ROTHMAN Primary Care Provider [phone] Encounter Details Date Type Department Care Team (Latest Contact Info) Description 12/04/2024 Travel Social History Tobacco Use Types Packs/Day Years [...] Info) Description 12/18/2024 3:00 PM EST Telemedicine [facility] [address] [place] [address] documented as of this encounter Visit Diagnoses Not on filedocumented in this encounter Additional Health Concerns Assessment Noted Time PHQ-9 Depression Total Score: 0 12/09/19 24 8:56 AM EST documented as of this encounter Care Teams Director Of Vital Statistics Relationship Specialty Start Date End Date Name, MD Oliver [address] [place] [address] PCP - General Family Medicine 05/17/17 documented as of this encounter
--- OUTSIDE RECORDS SUMMARY | 2024-12-04 16:34 | XMS_ITS | Encounter Summary ---
Author Organization [employer] Address [address] 7[address] [place] [address] Care Team Providers Care Paint Mixer Machine Name Role Phone Name, Oliver ROTHMAN Primary Care Provider [phone] Encounter Details Date Type Department Care Team (Late st Contact Info) Description 11/18/2023 Abstract [facility] DIABETES/NUTRITION [address] [place] [address] Name, MD Oliver [address] [place] [address] Social History Tobacco Use Types Packs/Day Years [...] Info) Description 12/18/2024 3:00 PM EST Telemedicine [facility] MEDICINE [address] [place] [address] documented as of this encounter Visit Diagnoses Not on filedocumented in this encounter Care Teams Paint Mixer Machine Relationship Specialty Start Date End Date Name, MD Oliver [address] [place] [address] PCP - General Family Medicine 05/17/17 documented as of this encounter
--- OUTSIDE RECORDS SUMMARY | 2024-12-04 16:34 | XMS_ITS | Encounter Summary ---
Author Organization [employer] Address [address] [place] [address] Care Team Providers Care Auto Camp Attendant Name Role Phone Name, Oliver ROTHMAN Primary Care Provider [phone] Encounter Details Date Type Department Care Team (Late st Contact Info) Description 11/18/2023 Abstract [facility] MEDICINE [address] [place] [address] Name, MD Oliver [address] [place] [address] Social History Tobacco Use Types Packs/Day Years [...] Info) Description 12/18/2024 3:00 PM EST Telemedicine [facility] MEDICINE [address] [place] [address] documented as of this encounter Visit Diagnoses Not on filedocumented in this encounter Care Teams Auto Camp Attendant Relationship Specialty Start Date End Date Name, MD Oliver [address] [place] [address] PCP - General Family Medicine 05/17/17 documented as of this encounter
[2024-12-04 18:16] LABS: Anion Gap 9 (12-20); Blood Urea Nitrogen 22 mg/dL (9-16); Calcium 9.3 mg/dL (8.4-10.2); Carbon Dioxide 28 mmol/L (22-29); Chloride 108 mmol/L (96-108); Estimated Glomerular Filt Rate > 60; Glucose Random 94 mg/dL (60-115); Potassium 3.8 mmol/L (3.3-5.1); Sodium 141 mmol/L (135-145)
== END 2024-12-04 15:55 | disposition home or self-care (01) ==
LOC: HO.HHCL 15:54
PROVIDERS: Visit Provider Internal Medicine Geriatric Medicine
DX: I10 Essential (primary) hypertension (principal)
CPT/HCPCS: 36415; 80048

== ENCOUNTER 2024-12-12 15:18 | Outpatient (REF) | payer OTHER, SELFPAY ==
--- OUTSIDE RECORDS SUMMARY | 2024-12-12 16:11 | XMS_ITS | Encounter Summary ---
Author Organization [employer] Address [address] [facility] [address] 7t [place] [address] Care Team Providers Care Corporate Claims Examiner Name Role Phone Name, Oliver ROTHMAN Primary Care Provider [phone] Encounter Details Date Type Department Care Team (Late st Contact Info) Description 11/18/2023 Abstract [facility] DIABETES/NUTRITION [address] [place] [address] Name, MD Oliver [address] [place] [address] Social History Tobacco Use Types Packs/Day Years [...] Info) Description 12/18/2024 3:00 PM EST Telemedicine [facility] MEDICINE [address] [place] [address] documented as of this encounter Visit Diagnoses Not on filedocumented in this encounter Care Teams Corporate Claims Examiner Relationship Specialty Start Date End Date Name, MD Oliver [address] [place] [address] PCP - General Family Medicine 05/17/17 documented as of this encounter
--- OUTSIDE RECORDS SUMMARY | 2024-12-12 16:11 | XMS_ITS | Encounter Summary ---
Author Organization [employer] Address [address] [address] [facility] [address] [place] [address] Care Team Providers Care Dairy Nutrition Consultant Name Role Phone Name, Oliver ROTHMAN Primary Care Provider [phone] Encounter Details Date Type Department Care Team (Late st Contact Info) Description 11/18/2023 Abstract [facility] DIABETES/NUTRITION [address] [place] [address] Name, MD Oliver [address] [place] [address] Social History Tobacco Use Types Packs/Day Years [...] Info) Description 12/18/2024 3:00 PM EST Telemedicine [facility] MEDICINE [address] [place] [address] documented as of this encounter Visit Diagnoses Not on filedocumented in this encounter Care Teams Dairy Nutrition Consultant Relationship Specialty Start Date End Date Name, MD Oliver [address] [place] [address] PCP - General Family Medicine 05/17/17 documented as of this encounter
--- OUTSIDE RECORDS SUMMARY | 2024-12-12 16:11 | XMS_ITS | Encounter Summary ---
Author Organization [employer] Address [address] [facility] 7t [place] [address] Care Team Providers Care Application Dba Name Role Phone Name, Oliver ROTHMAN Primary Care Provider [phone] Reason for Visit * Reason Onset Date Comments Med Refill 10/13/2023 Encounter Details Date Type Department Care Team ([facility] st Contact Info) Description 10/13/2023 Telephone [facility] MEDICINE [address] [place] [address] Name, MD Oliver [address] [place] [address] Med Refill Social History Tobacco Use Types [...] the past 12 months, has t he [employer], gas, oil or water [employer] threatened to shut off services in your [...] No answer. LVM to call back on [phone] . * Telephone Encounter - Doe Barnett RN - 10/15/2023 8:56 AM EST T/C to pt. To inform regarding below message, No answer. LVM to call back on [phone] . * Telephone Encounter - Doe Barnett [...] Info) Description 12/18/2024 3:00 PM EST Telemedicine [facility] MEDICINE [address] [place] [address] documented as of this encounter Visit Diagnoses Not on filedocumented in this encounter Care Teams Application Dba Relationship Specialty Start Date End Date Name, MD Oliver [address] [place] [address] PCP - General Family Medicine 05/17/17 documented as of this encounter
--- OUTSIDE RECORDS SUMMARY | 2024-12-12 16:11 | XMS_ITS | Encounter Summary ---
Author Organization [employer] Address [address] 7[address] [place] [address] Care Team Providers Care Metal Framer Name Role Phone Name, Oliver ROTHMAN Primary Care Provider [phone] Encounter Details Date Type Department Care Team (Late st Contact Info) Description 11/18/2023 Abstract [facility] MEDICINE [address] [place] [address] Name, MD Oliver [address] [place] [address] Social History Tobacco Use Types Packs/Day Years [...] 12/18/2024 3:00 PM EST Telemedicine [facility] MEDICINE [address] [place] [address] documented as of this encounter Visit Diagnoses Not on filedocumented in this encounter Care Teams Metal Framer Relationship Specialty Start Date End Date Name, MD Oliver [address] [place] [address] PCP - General Family Medicine 05/17/17 documented as of this encounter
--- OUTSIDE RECORDS SUMMARY | 2024-12-12 16:11 | XMS_ITS | Encounter Summary ---
Author Organization [facility] Address [address] 7t [place] [address] Care Team Providers Care Varnish Maker Helper Name Role Phone Name, Oliver ROTHMAN Primary Care Provider [phone] Reason for Visit * Reason Onset Date Comments Nurse Triage 12/12/2024 Encounter Details Date Type Department Care Team ([facility] st Contact Info) Description 12/12/2024 Telephone [facility] MEDICINE [address] [place] [address] Name, MD Oliver [address] [place] [address] Nurse Triage Social History Tobacco Use Types Packs/Day Years [...] encounter Miscellaneous Notes * Telephone Encounter - Lana Michelle RN - 12/12/2024 10:08 AM EST Call returned to Ever [place]oo to triage below. Spoke with patient and INDUSTRIAL ECONOMICS PROFESSOR. Reports that pt given Rx for bactrim. Pt seen by [facility] provider over the weekend. Pt was having pain with passing urine and lower abd pain. Patient states has not taken abx as having difficulty with swallowing and pill is too large. Pt wants to be seen by Pcp as no UA done to confirm dx. Pt agrees to visit today. Protocol Used: Urination Pain - Male (Adult) Protocol-Based Disposition: See in Office or Video Visit Today Future Appointments Date Time Provider Department Center 12/12/2024 2:45 PM Oliver Constantino MD MEDICINE [facility] 12/18/2024 3:00 PM [facility] BLUE TEAM NURSE MEDICINE [facility] Insurance verified as active per Real Time Eligibility in [facility]. Positive Triage Question: * All other males with painful urination, or patient wants to be seen * All higher-acuity triage questions were negative Care Advice Discussed: * Reassurance and Education - Urination Pain * Drink Extra Fluids * Reasons To Call Back - Fever over 100.4 F (38.0 C) occurs - Side (flank) or lower back pain occurs - You become worse * Telephone Encounter - Dena Fabien - 12/12/2024 9:25 AM EST Symptom: Urine Symptoms Outcome: Schedule a same-day appointment or talk to a nurse or provider today Reason: Caller denied all higher acuity questions The caller accepted this outcome. Contact pt at [phone] (denied principal archaeologist) documented in this encounter Plan of Treatment Upcoming Encounters Date Type Department Care Team (Late st Contact Info) Description 12/18/2024 3:00 PM EST Telemedicine [facility] MEDICINE [address] [place] [address] documented as of this encounter Visit Diagnoses Not on filedocumented in this encounter Additional Health Concerns Assessment Noted Time PHQ-9 Depression Total Score: 0 12/09/19 24 8:56 AM EST documented as of this encounter Care Teams Varnish Maker Helper Relationship Specialty Start Date End Date Name, MD Oliver [address] [place] [phone] PCP - General Family Medicine 05/17/17 documented as of this encounter
--- OUTSIDE RECORDS SUMMARY | 2024-12-12 16:11 | XMS_ITS | Clinical Summary ---
Author Organization [employer] Address [address] [place] [address] 7t [place] [address] Care Team Providers Care Cat Cracker Operator Name Role Phone Name, Oliver ROTHMAN Primary Care Provider [phone] Allergies No known active allergies Medications loratadine (Claritin) 10 MG tablet Take 1 tablet by mouth if needed each day for allergies. 01/17/20 22 Active Diclofenac Sodium 1 % gel apply 2 gram by topical route 4 times every day to the affected area(s) 03/18/20 22 Active aspirin 81 MG EC tablet take 1 tablet by oral route every day 05/17/20 17 Active sildenafil (Viagra) 100 MG tabletIndication s:Erectile dysfunction, unspecified erectile dysfunction type take 1 tablet by oral route every day as needed approximately 1 hour before sexual activity 10 tablet 08/18/20 23 Active gabapentin (Neurontin) 300 MG capsuleIndicatio ns:Cervical myelopathy (CMS/HCC) TAKE 1 CAPSULE BY MOUTH EVERYDAY AT BEDTIME 30 capsule 11 10/15/20 23 Active Blood Pressure kit Use twice a day 1 kit 12/21/19 24 Active Acetaminophen Extra Strength 500 MG tabletIndication s:Cough, unspecified type TAKE 1-2 TABLET (500MG) BY ORAL ROUTE EVERY 6 HOURS NEEDED 60 tablet 2 01/04/20 24 Active losartan (Cozaar) 25 MG tabletIndication s:Essential hypertension TAKE 1 TABLET BY MOUTH EVERY DAY 90 tablet 1 09/13/20 24 Active fluticasone (Flonase) 50 MCG/ACT nasal spray ADMINISTER 1 SPRAY INTO EACH NOSTRIL IN THE MORNING. SHAKE GENTLY. BEFORE FIRST USE, PRIME PUMP. AFTER USE, CLEAN TIP AND REPLACE CAP. 16 mL 11/10/19 25 Active omeprazole OTC (PriLOSEC OTC) 20 MG EC tablet Take 1 tablet (20 mg) by mouth before breakfast. Do not crush, chew, or split. 30 tablet 12/04/19 25 026 Active Active Problems Problem Noted Date Diagnosed Date History of prostatectomy 12/12/2024 Asbestos exposure 02/09/2024 Pulmonary nodule 02/09/2024 Overview (12/04/2024): He was evaluated at [facility] pulmonary. He has a remote history of treated TB T spot negative CT scan of the chest consistent with previous treated TB infection. [address] [address] [address] Scan Report Signed Patient: Ever Champagne MR#: [id number] 26 : 1950 Acct:[id number] Age/Sex: 74 / M ADM Date: 08/08/24 Loc: .CT Attending Dr: Ced Robles MD Ordering Physician: Ced Robles MD Date of Service: 08/08/24 Procedure(s): CT chest wo IV con Accession Number(s): [id number] cc: Name,Oliver ROTHMAN; Ced Robles MD EXAMINATION: CT CHEST WITHOUT [...] by: Ki Perez MD 10/04/2024 03:31 PM [facility] History of cervical spinal surgery 08/18/2023 Cervical myelopathy 10/16/2022 Erectile dysfunction 10/16/2022 Essential hypertension 10/16/2022 Prediabetes 10/16/2022 Tubular adenoma of colon 10/12/2019 Overview (08/18/2023): Colonoscopy done 2018 at [facility], repeat recommended in 5 years Urinary incontinence [...] Encounters Date Type Department Care Team Description 12/12/2024 2:45 PM EST Office Visit [address] [address] Oliver Constantino MD Suprapubic pain (Primary Dx); Foul smelling urine; History of prostatectomy; History of prostate cancer; Urinary incontinence, unspecified type 12/12/[address] [address] Oliver Constantino MD Nurse Triage 12/04/2024 3:15 PM EST Office Visit [address] [address] Oliver Constantino MD Essential hypertension (Primary Dx); Other dysphagia; Tubular adenoma of colon; Pulmonary nodule 12/04/2024 Travel 11/09/[address] [address] Oliver Constantino MD 10/09/2024 Travel 10/09/[address] [address] Carmelita Kapadia RN 09/19/2024 2:40 PM EST Office Visit [facility] [address] [place] [address] Essie Gonzalez NP Influenza A (Primary Dx); Cough in adult patient; Elevated blood pressure reading in office with diagnosis of hypertension 09/19/[address] [address] Oliver Constantino MD Referral 09/13/2024 Orders Only [place] [address] [place] [address] Essie Gonzalez NP 09/13/2024 Refill [facility] [address] [facility] [place] [address] Rajni Diana NP Essential hypertension from Last 3 Months Immunizations Name Administration Dates Next Due Influenza High-dose Quadrivalent Preservative Fr ee 08/18/2023,06/22/2020 Influenza Quadrivalent Adjuvanted 08/17/2022, Influenza injectable quadriv alent IIV4 with preservative 08/09/2017 Influenza, High Dose Seasonal, Preservative Free 11/03/2019 Pfizer Covid-19 Vaccine 12+ 08/12/2021, Pfizer Covid-19 Vaccine 12+ maría-sucrose (Villeda C ap) 08/12/2021,11/15/2020 Pneumococcal Conjugate PCV 13 04/26/2018 Pneumococcal [...] Sign Reading Time Taken Comments Blood Pressure 138/83 12/12/2024 3:11 PM EST Pulse 74 12/12/2024 2:31 PM EST Temperature 36 ??C (96.8 ??F) 12/12/2024 2:31 PM EST Respiratory Rate 16 12/12/2024 2:31 PM EST Oxygen Saturation 98% 12/12/2024 2:31 PM EST Inhaled Oxygen Concentration - - Weight 79.3 kg (174 lb 12.8 oz) 12/12/2024 2:31 PM EST Height 172.7 cm (5' 8 ) 09/19/2024 2:37 PM EST Body Mass Index 26.58 09/19/2024 2:37 PM EST Plan of Treatment Upcoming Encounters Date Type Department Care Team (Late st Contact Info) Description 12/18/2024 3:00 PM EST Telemedicine [facility] MEDICINE [address] [place] [address] Health Maintenance Due Date Last Done Comments CT Colonography 1950 FIT DNA/Cologuard 1950 FIT 1950 FOBT 1950 Sigmoidoscopy 1950 Alcohol/Substance Use Screening 1964 Hepatitis C Screening 02/02/1970 Diabetes: Hemoglobin A1C 06/05/2023 06/05/2022, 03/2 06/2022 COVID-19 Vaccine ( season) 2024 09/04/2022, 08/12/2021, 08/12/2021, Additional history exists Colonoscopy 10/20/2024 10/20/2019 Colorectal Cancer Screening 10/20/2024 Depression Screening 12/09/2024 12/09/2023, 12/09/19 SDOH Screening 12/09/2024 12/09/2023 Tobacco Screening 12/09/2024 12/09/2023 Zoster Vaccines (2 of 2) 01/30/2025 12/05/2024 RSV Patients and Patients Aged 60 years [...] Name Priority Date/Time Associated Diagnosis Comments POCT URINALYSIS DIPSTICK Routine 12/12/2024 2:50 PM EST Suprapubic pain Foul smelling urine BASIC METABOLIC PANEL Routine 12/04/2024 3:56 PM EST Essential hypertension POCT INFLUENZA B (ID NOW RAPID MOLECULAR) [...] SWALLOW MODIFIED Routine 09/13/2024 10:30 AM EST LIPID PANEL, STANDARD Routine 08/25/2023 8:51 AM EDT Essential hypertension Prediabetes HEMOGLOBIN A1C Routine 06/05/2022 7:58 AM EDT HM COLONOSCOPY Routine 10/20/2019 11:04 AM EST from Last 3 Months or Most Recently Relevant to Health Maintenance Results * (ABNORMAL) POCT Urinalysis (12/12/2024 2:50 PM EST) Color, UA Light Yellow Clarity, UA Clear Glucose, UA Negative Bilirubin, UA Negative Ketones, UA Negative Spec Grav, UA 1.005 Blood, UA Positive(A) Negative, None Detected Comment:SMALL pH, UA 6.0 Protein, UA Negative Urobilinogen, UA 0.2 Leukocytes, UA Negative Negative, Rare, Trace Nitrite, UA Negative Negative, None Detected Appearance, UA CLEAR QC Media Lot # [id number] Lot# Expiration Date Urine 12/12/2024 2:50 PM EST us Oliver Constantino MD POINT OF CARE TEST ENTER/EDIT OR DERABLES Final Result * (ABNORMAL) Basic Metabolic Panel (12/04/2024 3:56 PM EST) Sodium 141 135 - 145 mmol/L [facility] Potassium 3.8 3.3 - 5.1 mmol/L [facility] Chloride 108 96 - 108 mmol/L [facility] Carbon Dioxide 28 22 - 29 mmol/L [facility] Anion Gap 9(L) 12 - 20 [facility] Urea Nitrogen (BUN) 22(H) 9 - 16 mg/dL [facility] Creatinine, Serum 1.07 0.5 - 1.4 mg/dL [facility] Estimated Glomerular Filt Rate >60 [facility] Comment:Chronic Kidney Disea se: Estimated GFR < 60 mL/min/1.93z0Wnysoc Kidney Disease: Estimated GFR < 15 mL/min/1.73m2 Glucose 94 60 - 115 mg/dL [facility] Calcium 9.3 8.4 - 10.2 mg/dL [facility] Blood Venous blood specimen / Unknown 12/04/2024 3:56 PM EST 12/04/2024 5:49 PM EST us Oliver Constantino MD LAB BLOOD ORDERABLES Final Resul t Performing Organization Address [facility] Co de Phone Number [facility] [address] [place] [phone] * Influenza B (ID NOW Rapid Molecular) (09/19/2024 3:03 PM EST) Influenza B Negative Negative, Indeterminate [facility] Swab 09/19/2024 3:03 PM EST us Essie Gonzalez CREDENTIALS SPECIALIST POINT OF CARE TEST ENTER/EDIT O RDERABLES Final Result Performing Organization Address [facility] Co de Phone Number [facility] [address] [place] [phone] * (ABNORMAL) Influenza A (ID NOW Rapid Molecular) (09/19/2024 3:01 PM EST) Influenza A Positive( A) Negative, Indeterminate [facility] Swab 09/19/2024 3:01 PM EST us Essie Gonzalez CREDENTIALS SPECIALIST POINT OF CARE TEST ENTER/EDIT O RDERABLES Final Result Performing Organization Address [facility] Co de Phone Number [facility] [address] [place] [phone] * POCT rapid strep A manually resulted (09/19/2024 2:42 PM EST) [facility] Rapid Strep A Screen Negative Negative, None Detected Swab 09/19/2024 2:42 PM EST Essie Gonzalez CREDENTIALS SPECIALIST POINT OF CARE TEST ENTER/EDIT O RDERABLES Final Result * POCT Rapid COVID Ag (09/19/2024 2:42 PM EST) [facility] Rapid COVID Ag Negative Swab 09/19/2024 2:42 PM EST us Essie Gonzalez CREDENTIALS SPECIALIST POINT OF CARE TEST ENTER/EDIT O RDERABLES Final Result * FL BARIUM SWALLOW MODIFIED (09/13/2024 10:30 AM EST) Anatomical Region Laterality Modality Head, Neck Radiographic Usha ging 09/13/2024 10:3 0 AM EST Narrative 09/13/2024 3:25 PM EST ? [facility] ?[address] ?[place] [address] ? Fluoroscopy Report ? Signed ? Patient: Ever Champagne ?MR#: [id number] ?? 26 ? : 1950 ?Acct:[id number] ? Age/Sex: 74 / M ?ADM Date: 09/13/24 ? Loc: HO.XRAY ? Attending Sukh Gonzalez ? Ordering Physician: Essie Gonzalez ?? Date of Service: 09/13/24 ?? Procedure(s): FL Modified Barium Swallow ?? Accession Number(s): [id number] ? cc: Essie Gonzalez; Name,Oliver ROTHMAN ? [...] DD/ 1030 ? TD/TT: 09/13/24 1045 ? Director [employer]: ? Procedure Note Isabelle, Image - 09/13/2024 [place] [address] Fluoroscopy Report Signed Patient: Luis Fernando Champagne#: [id number] [birth year] : 1950cct:[id number] Age/Sex: 74 / MADM Date: 09/13/24 Loc: HO.XRAY Attending Dr: Essie Gonzalez Ordering Physician: Essie Gonzalez Date of Service: 09/13/24 Procedure(s): FL Modified Barium Swallow Accession Number(s): [id number] cc: Essie Gonzalez; Name,Oliver ROTHMAN EXAMINATION: Modified [...] by: Ki Perez MD 09/13/2024 03:22 PM [facility] Dictated By: Phill Brown Signed By: <Electronically signed by Phill Brown in OV> 09/13/24 1522 <Electronically signed by Ki Perez MD in OV> 09/13/24 1525 DD/ 1030 TD/TT: 09/13/24 1045 Director Museum [employer]: us Essie Appram CREDENTIALS SPECIALIST IMG FLUOROSCOPY PROCEDURES Rebecca l Result * Lipid Panel, Standard (08/25/2023 8:51 AM EDT) Triglycerides 73 <150 mg/dL [facility] Comment:Desirable Triglyceri de: less than 150 mg/dLBorderline High Triglyceride 150-199 mg/dLHigh Triglyceride: 200-499 mg/dLVery High Triglyceride: greater than or equal to 5OO mg/dL Cholesterol 152 <200 mg/dL [facility] Comment:Desirable Cholestero l: less than 200 mg/dLBorderline High Cholesterol: 200-239 mg/dLHigh Cholesterol: greater than 239 mg/dL LDL Cholesterol Calculated 86 <100 mg/dL [facility] Comment:Desirable LDL: less than 100 mg/dLNear Optimal/Above Optimal LDL: 110- 129 mg/dLBorderline High LDL: 130-159 mg/dLHigh LDL: 160-189 mg/dLVery High LDL: greater than or equal to 190 mg/dL HDL Cholesterol 52 >40 mg/dL [facility] Comment:Desirable HDL: great er than 40 mg/dL Note: This HDL assay may give artificially low results in patients with liver disease. Blood Venous blood specimen / Unknown 08/25/2023 8:51 AM EDT 08/25/2023 11:32 AM EDT us Oliver Constantino MD LAB BLOOD ORDERABLES Final Resul t [facility] [address] [place] [phone] * HEMOGLOBIN A1c (06/05/2022 7:58 AM EDT) Hemoglobin A1c 5.5 <5.7 % of total Hgb [facility] Comment: For the purpose of [...] of diabetes in children. ?? According to [place] Diabetes Association (ADA) guidelines, hemoglobin A1c <7.0% represents optimal control in non- diabetic patients. Different metrics may apply to specific patient populations. ?? Standards of Medical Care in Diabetes(ADA). ?? 06/05/2022 7:58 AM EDT us Oliver Name LAB BLOOD ORDERABLES Final Resul t [facility] [address] * Hm Colonoscopy (10/20/2019 11:04 AM EST) Colonoscopy Normal Normal Narrative Chanda Chery - 10/20/2019 11:04 AM EST Recommended 5 year follow up Historical Provider HEALTH MAINTENANCE Final Result from Last 3 Months or Most Recently Relevant to Health Maintenance Insurance [facility] DUAL COMPLETE Care Teams Cat Cracker Operator Relationship Specialty Start Date End Date Name, MD Oliver [address] [place] [address] PCP - General Family Medicine 05/17/17
--- OUTSIDE RECORDS SUMMARY | 2024-12-12 16:11 | XMS_ITS | Encounter Summary ---
Author Organization [facility] [facility] Address [address] [place] [address] 7t [place] [address] Care Team Providers Care Public Safety Teacher Name Role Phone Oliver Constantino MD Primary Care Provider [phone] Reason for Referral * Consultation (Routine) - Authorized Specialty Diagnoses / Procedures Referred By Saranya amaya Referred To Contact Gastroenterology Diagnoses Other dysphagia Tubular adenoma of colon Oliver Constantino MD [address] [place] [address] Phone: tel: fax: [address] Phone: tel: fax: Referral ID Status Reason Start Date Expiration Date Visits Requested Visits Authorized [id number] Authorized Specialty Services Required 12/04/2024 12/04/2025 1 1 Reason for Visit * Reason Comments Follow-up Encounter Details Date Type Department Care Team (Late st Contact Info) Description 12/04/2024 3:15 PM EST Office Visit [facility] MEDICINE [address] [place] [phone] Oliver Constantino MD [address] [place], [place] [phone] Essential hypertension (Primary Dx); Other dysphagia; Tubular [...] edema. Neurological: Mental Status: He is alert. [address] [address] Fluoroscopy Report Signed Patient: Ever Champagne MR#: [id number] [birth year] : 1950 Acct:[id number] Age/Sex: 74 / M ADM Date: 09/13/24 Loc: HO.XRAY Attending Dr: Essie Gonzalez Ordering Physician: Essie Gonzalez Date of Service: 09/13/24 Procedure(s): FL Modified Barium Swallow Accession Number(s): [id number] cc: Essie Gonzalez; Name,Oliver ROTHMAN EXAMINATION: Modified [...] [facility] 4.8 - 10.8 X10*3/uL 5.7 5.4 5.8 [...] Info) Description 12/18/2024 3:00 PM EST Telemedicine [facility] MEDICINE [address] [place] [address] Scheduled Referrals Name Type Priority Associated Diagnoses Order Schedule Referral to Gastroenterology Outpatient Referral Routine Other dysphagia Tubular adenoma of colon Expected: 12/04/2024 (Approximate), Expires: 12/04/2025 documented as of this encounter Procedures Procedure Name Priority Date/Time Associated Diagnosis Comments BASIC METABOLIC PANEL Routine 12/04/2024 3:56 PM EST Essential hypertension documented in this encounter Results * (ABNORMAL) Basic Metabolic Panel (12/04/2024 3:56 PM EST) Sodium 141 135 - 145 mmol/L [facility] Potassium 3.8 3.3 - 5.1 mmol/L [facility] Chloride 108 96 - 108 mmol/L [facility] Carbon Dioxide 28 22 - 29 mmol/L [facility] Anion Gap 9(L) 12 - 20 [facility] Urea Nitrogen (BUN) 22(H) 9 - 16 mg/dL [facility] Creatinine, Serum 1.07 0.5 - 1.4 mg/dL [facility] Estimated Glomerular Filt Rate >60 [facility] Comment:Chronic Kidney Disea se: Estimated GFR < 60 mL/min/1.28u3Iifdnl Kidney Disease: Estimated GFR < 15 mL/min/1.73m2 Glucose 94 60 - 115 mg/dL [facility] Calcium 9.3 8.4 - 10.2 mg/dL [facility] Blood Venous blood specimen / Unknown 12/04/2024 3:56 PM EST 12/04/2024 5:49 PM EST us Oliver Constantino MD LAB BLOOD ORDERABLES Final Resul t [facility] [address] [place] [phone] documented in this encounter Visit Diagnoses Diagnosis Essential hypertension- Primary Unspecified essential hypertension Other dysphagia Tubular adenoma of colon Benign neoplasm of colon Pulmonary nodule Other diseases of lung, not elsewhere classified documented in this encounter Additional Health Concerns Assessment Noted Time PHQ-9 Depression Total Score: 0 12/09/19 24 8:56 AM EST documented as of this encounter Care Teams Public Safety Teacher Relationship Specialty Start Date End Date Name, MD Oliver [address] [place] [address] PCP - General Family Medicine 05/17/17 documented as of this encounter
--- OUTSIDE RECORDS SUMMARY | 2024-12-12 16:11 | XMS_ITS | Encounter Summary ---
Author Organization [employer] Address [address] [facility] 7t [place] [address] Care Team Providers Care Community Outreach Manager Name Role Phone Name, Oliver ROTHMAN Primary Care Provider [phone] Encounter Details Date Type Department Care Team [...] Info) Description 12/18/2024 3:00 PM EST Telemedicine [facility] MEDICINE [address] [place] [address] documented as of this encounter Visit Diagnoses Not on filedocumented in this encounter Additional Health Concerns Assessment Noted Time PHQ-9 Depression Total Score: 0 12/09/19 24 8:56 AM EST documented as of this encounter Care Teams Community Outreach Manager Relationship Specialty Start Date End Date Name, MD Oliver [address] [place] [address] PCP - General Family Medicine 05/17/17 documented as of this encounter
--- OUTSIDE RECORDS SUMMARY | 2024-12-12 16:11 | XMS_ITS | Encounter Summary ---
Author Organization [employer] Address [address] [place] [address] Care Team Providers Care Orthopedic Mechanic Name Role Phone Name, Oliver ROTHMAN Primary Care Provider [phone] Encounter Details Date Type Department Care Team (Late st Contact Info) Description 11/18/2023 Abstract [facility] DIABETES/NUTRITION [address] [place] [address] Name, MD Oliver [address] [place] [address] Social History Tobacco Use Types Packs/Day Years [...] 12/18/2024 3:00 PM EST Telemedicine [facility] MEDICINE [address] [place] [address] documented as of this encounter Visit Diagnoses Not on filedocumented in this encounter Care Teams Orthopedic Mechanic Relationship Specialty Start Date End Date Name, MD Oliver [address] [place] [address] PCP - General Family Medicine 05/17/17 documented as of this encounter
--- OUTSIDE RECORDS SUMMARY | 2024-12-12 16:11 | XMS_ITS | Encounter Summary ---
Author Organization [facility] [facility] Address [address] [facility] 7t [place] [address] Care Team Providers Care Overhead Crane Inspector Name Role Phone Name, Oliver ROTHMAN Primary Care Provider Encounter Details Date Type Department Care Team (Latest Contact Info) Description 05/20/2022 Abstract [facility] CONVERSIONS Dental, Provider, DDS Social History Tobacco [...] Info) Description 12/18/2024 3:00 PM EST Telemedicine [facility] MEDICINE [address] [place] [address] documented as of this encounter Visit Diagnoses Not on filedocumented in this encounter Care Teams Overhead Crane Inspector Relationship Specialty Start Date End Date Name, MD Oliver [address] [place] [address] PCP - General Family Medicine 05/17/17 documented as of this encounter
--- OUTSIDE RECORDS SUMMARY | 2024-12-12 16:11 | XMS_ITS | Clinical Summary ---
Author Organization [facility] Address [address] [place] [address] Care Team Providers Care Cylinder Sander Operator Name Role Phone Unavailable Primary Care Provider [...]
--- OUTSIDE RECORDS SUMMARY | 2024-12-12 16:11 | XMS_ITS | Encounter Summary ---
[facility] Address [address] [place] [address] 7 [place] [address] Care Team Providers Care Chassis Engineer Name Role Phone Name, Oliver ROTHMAN Primary Care Provider [phone] Reason for Visit * Reason Comments Difficulty Urinating Encounter Details Date Type Department Care Team ([facility] st Contact Info) Description 12/12/2024 2:45 PM EST Office Visit [facility] [address] [place] [address] Name, MD Oliver [address] [place] [address] Suprapubic pain (Primary Dx); Foul smelling urine; History of prostatectomy; History of prostate cancer; Urinary incontinence, unspecified type Social History Tobacco Use Types Packs/Day Years [...] your housing situation today? I have stephany margarita 12/09/[address] you li [...] 12.8 oz) 12/12/2024 2:31 PM EST Height - - Body Mass Index 26.58 09/19/2024 2:37 PM EST documented in this encounter Plan of Treatment Upcoming Encounters Date Type Department Care Team (Late st Contact Info) Description 12/18/2024 3:00 PM EST Telemedicine [facility] [address] [place] [id number] Scheduled Orders Name Type Priority Associated Diagnoses Orde r Schedule Urinalysis, Complete, with Reflex to Culture Lab Routine Suprapubic pain Foul smelling urine Expected: 12/12/2024 (Approximate), Expires: 12/12/2025 PSA,Total Lab Routine History of prostate cancer Expected: 12/12/2024, Expires: 12/12/2025 documented as of this encounter Procedures Procedure Name Priority Date/Time Associated Diagnosis Comments POCT URINALYSIS DIPSTICK Routine 12/12/2024 2:50 PM EST Suprapubic pain Foul smelling urine documented in this encounter Results * (ABNORMAL) POCT Urinalysis (12/12/2024 2:50 [...] Expiration Date Urine 12/12/2024 2:50 PM EST Oliver Constantino MD POINT OF CARE TEST ENTER/EDIT OR DERABLES Final Result documented in this encounter Visit Diagnoses Diagnosis Suprapubic pain- Primary Abdominal pain, other specified site Foul smelling urine History of prostatectomy Other postprocedural status History of prostate cancer Personal history of malignant neoplasm of prostate Urinary incontinence, unspecified type documented in this encounter Additional Health Concerns Assessment Noted Time PHQ-9 Depression Total Score: 0 12/09/19 24 8:56 AM EST documented as of this encounter Care Teams Chassis Engineer Relationship Specialty Start Date End Date Name, MD Oliver [address] [place] [address] PCP - General Family Medicine 05/17/17 documented as of this encounter
--- OUTSIDE RECORDS SUMMARY | 2024-12-12 16:11 | XMS_ITS ---
Author Name Cookie Clemons NP Address [address] [place] [address] Phone [phone] Organization [facility] Care Team Providers Care Occupational Therapist Assistants Name Role Phone Cookie Clemons Unavailable [phone] Unavailable Unavailable Unavailable [facility] Unavailable Unavailable Unavailable Unavailable Unavailable Unavailable [phone] Reason for Referral Not Available Allergies, adverse reactions, alerts No known allergies History of medication use Medication Class Instructions Start Date End Date Diclofenac Sodium 1 % Gel APPLY 2 GRAMS TOPICALLY TO AFFECTED AREA(S) 4 TIMES A DAY 2022-03-18 No Data Available Loratadine 10 mg Tab TAKE 1 TABLET BY [facility] EVERY DAY NEEDED FOR ALLERGIES 2022-01-16 2024-04-12 [...] 50 mg Tab TAKE 1 TABLET BY [facility] EVERYDAY AT BEDTIME 2024-02-07 No Data Available guaiFENesin-Codeine 100/10 mg/5ML Solution TAKE 5 ML BY MOUTH EVERY 6 HOURS IF NEEDED FOR COUGH FOR UP TO 5 DAYS 2024-02-09 No Data Available Oseltamivir Phosphate 75 mg Cap TAKE 1 CAPSULE BY MOUTH TWICE A DAY FOR 5 DAYS 2024-09-19 No Data Available Omeprazole 20 mg Cap delayed rel TAKE 1 CAPSULE (20 MG) BY MOUTH BEFORE BREAKFAST DO NOT CRUSH, CHEW, OR SPLIT 2024-12-04 No Data Available Bactrim DS 800/160 mg Tab Take 1 tablet PO twice daily for 7 days. 2024-12-11 No Data Available Problem List Problem Status Onset Date Resolved Date H/O prostate cancer Active 2023-07-06 N/A Abdominal aortic aneurysm without rupture Active 2023-07-06 N/A Hypertension Active 2022-08-28 N/A Cervical myelopathy Active 2023-07-08 N/A Other problems related to [facility] facilities and other health care Active 2024-04-12 N/A Numbness of right hand; Chronic cervical pain Active 2023-07-06 N/A Type 2 diabetes mellitus without complication Active 2023-07-06 N/A Osteoarthritis Active 2022-08-28 N/A Foreign body aspiration Active 2024-08-22 N/A UTI symptoms Active 2024-12-11 N/A Encounters Encounters Type Facility Date of Service Diagnosis/Co mplaint Pain Assessment - NO pain present (1126F) [facility] [place] Pain Assessment - NO pain present (1126F) [facility] [place] Pain Assessment - NO pain present (1126F[place] [facility] [place] Pain Assessment - NO pain present (1126F[place] [facility] [place] Pain Assessment - NO pain present (1126F[place] [facility] [place] Pain Assessment - NO pain present (1126F[place] [facility] [place] Pain Assessment - NO pain present (1126F[place] [facility] [place] Type 2 diabetes mellitus wit h other circulatory complicationsHypertension secondary to endocrine disordersUnspecified osteoarthritis, unspecified site Pain Assessment - NO pain present (1126F[place] [facility] [place] Pain Assessment - NO pain present (1126F[place] [facility] [place] Estab. patient 30-39min; chronic exacerbation, 2 stable chronic or 1 acute illness add add modifier 95 for video, (do not use for phone, instead use 14535-32) [facility] [place] Type 2 diabetes mellitus wit hout complicationsAbdominal aortic aneurysm, without rupture, unspecifiedDisease of spinal cord, unspecifiedEssential (primary) hypertensionUnspecified osteoarthritis, unspecified sitePersonal history of malignant neoplasm of prostateAnesthesia of skinCervicalgiaOther chronic pain Estab. patient 30-39min; chronic exacerbation, 2 stable chronic or 1 acute illness add add modifier 95 for video, (do not use for phone, instead use 26855-14) [facility] [place] Estab. patient 30-39min; chronic exacerbation, 2 stable chronic or 1 acute illness add add modifier 95 for video, (do not use for phone, instead use 65740-01) [facility] [place] Estab. patient 30-39min; chronic exacerbation, 2 stable chronic or 1 acute illness add add modifier 95 for video, (do not use for phone, instead use 96904-68) [facility] [place] Estab. patient 30-39min; chronic exacerbation, 2 stable chronic or 1 acute illness add add modifier 95 for video, (do not use for phone, instead use 21552-98) [facility] [place] Estab. patient 30-39min; chronic exacerbation, 2 stable chronic or 1 acute illness add add modifier 95 for video, (do not use for phone, instead use 17854-27) [facility] [place] Estab. patient 30-39min; chronic exacerbation, 2 stable chronic or 1 acute illness add add modifier 95 for video, (do not use for phone, instead use 35077-44) [facility] [place] Estab. patient 30-39min; chronic exacerbation, 2 stable chronic or 1 acute illness add add modifier 95 for video, (do not use for phone, instead use 35285-98) [facility] [place] Estab. patient 30-39min; chronic exacerbation, 2 stable chronic or 1 acute illness add add modifier 95 for video, (do not use for phone, instead use 02882-58) [facility] [place] Estab. patient 30-39min; chronic exacerbation, 2 stable chronic or 1 acute illness add add modifier 95 for video, (do not use for phone, instead use 93678-71) [facility] [place]2023 Unlisted special service; to be used for medical record reviews and reporting CPTII codes (1111F, etc) [facility] [place]2024 Other specified health statu s Unlisted special service; to be used for medical record reviews and reporting CPTII codes (1111F, etc) [facility] [place] Unlisted special service; to be used for medical record reviews and reporting CPTII codes (1111F, etc) [facility] [place] Estab. patient 30-39min; chronic exacerbation, 2 stable chronic or 1 acute illness add add modifier 95 for video, (do not use for phone, instead use 83904-63) [facility] [place] Essential (primary) hypertensionUnspecified osteoarthritis, [...] (do not use for phone, instead use 85918-75) [facility] [place] Estab. patient 30-39min; chronic exacerbation, 2 stable chronic or 1 acute illness add add modifier 95 for video, (do not use for phone, instead use 73402-86) [facility] [place] Estab. patient 30-39min; chronic exacerbation, 2 stable chronic or 1 acute illness add add modifier 95 for video, (do not use for phone, instead use 33504-70) [facility] [place] Estab. patient 30-39min; chronic exacerbation, 2 stable chronic or 1 acute illness add add modifier 95 for video, (do not use for phone, instead use 09055-44) [facility] [place] Estab. patient 30-39min; chronic exacerbation, 2 stable chronic or 1 acute illness add add modifier 95 for video, (do not use for phone, instead use 73766-20) [facility] [place] Estab. patient 30-39min; chronic exacerbation, 2 stable chronic or 1 acute illness add add modifier 95 for video, (do not use for phone, instead use 09762-48) [facility] [place] Estab. patient 30-39min; chronic exacerbation, 2 stable chronic or 1 acute illness add add modifier 95 for video, (do not use for phone, instead use 53534-34) [facility] [place] Estab. patient 30-39min; chronic exacerbation, 2 stable chronic or 1 acute illness add add modifier 95 for video, (do not use for phone, instead use 57017-55) [facility] [place] Estab. patient 30-39min; chronic exacerbation, 2 stable chronic or 1 acute illness add add modifier 95 for video, (do not use for phone, instead use 17968-86) [facility] [place] [facility] [place]20[place] Type 2 diabetes mellitus wit hout complicationsEssential (primary) hypertensionUnsp FB in resp tract, part unsp causing oth injury, sequela No Data Available [facility] [place] Estab. patient 10-29min; 1 minor problem; add add modifier 95 for video, modifier [address] [facility] [place] Unspecified symptoms and sig ns involving the genitourinary system Estab. patient 10-29min; 1 minor problem; add add modifier 95 for video, modifier [address] [facility] [place]2024 Body mass index (bmi) 27.0-2 7.9, adult Vital Signs Date of Collection Vitals 2022-08-28 [...] - 130.0 mm[Hg]Heart Rate - 80.0 /min 2024-12-11 13:01:13 Weight - 79.83 kgBod y Mass Index (BMI) - 27.57 kg/m2Pain Scale - 0.0 {score} Social History Social History Social History Observation Description Effec tive Time Current Smoking Status Former smoker 2024-11-25 10 Sex Male History of Procedures Procedures Service [...] (do not use for phone, instead use 36428-67) 91066 2022-08-28 No Data Available No Data Availa ble SBP 130-139 (3075F) 3075F 2022-08-28 No Data Availabl e No Data Available DBP <80 (3078F) 3078F 2022-08-28 No Data Available No Data Available Estab. patient 30-39min; chronic exacerbation, 2 stable chronic or 1 acute illness add add modifier 95 for video, (do not use for phone, instead use 85913-16) 24668 2023-07-06 No Data Available No Data Availa [...] reviews and reporting CPTII codes (1111F, etc) 99303 2024-03-17 No Data Available No Data Availa ble SBP 130-139 (3075F) 3075F 2024-03-17 No Data Availabl e No Data Available DBP 80-89 (3079F) 3079F 2024-03-17 No Data Available No Data Available Estab. patient 30-39min; chronic exacerbation, 2 stable chronic or 1 acute illness add add modifier 95 for video, (do not use for phone, instead use 98733-18) 18442 2024-04-12 No Data Available No Data Availa [...] No Data Avail able No Data Available 35413 2024-08-22 No Data Available No Data Available Medication List Documented (1159F) 1159F 2024-08-22 No Data Available No Data Starr ilable Estab. patient 10-29min; 1 minor problem; add add modifier 95 for video, modifier 93 for phone 29210 2024-12-11 No Data Available No Data Availa ble Pain Assessment - NO pain present (1126F) 1126F 2024-12-11 No Data Available No Data A vailable Functional Status Functional Category Effective Dates Ambulates [...] d iabetes mellitus without complicationForeign body aspiration 2024-12-11 13:01:13 UTI symptoms Plan of Care Date of Service Plans [...] modifier 95Continue to see PCP. [facility] or disease education needs that may arise.LosartanDM2 diet controlled, unknown [id number] with PCP every 3 monthsPain increasing in [...] record. (1123F)Continue to see PCP. Follow-up with [facility] as [...] low abd pain. [facility] Follow-up with [facility] [...] textures educated to chew his food more 2024-12-11 13:01:13 Televideo 10-29min; 1 minor problem; add add modifier 95 for video, modifier 93 for phoneContinue to see PCP. Follow-up with Gerardo as needed for any acute or disease education needs that may arise 17/05.Reports symptoms started 4 days ago. Reports tenderness in lower ABD, difficulty urinating. Denies burning with urination, frequency or urgency. Does not feel as if he is fully emptying bladder. Urine malodorous. No blood in urine present. Denies fever, nausea or vomiting. Last BM yesterday. Last UTI over 1 year ago. Does not see Urologist anymore. Last visit with PCP last week, but did not mention anything to PCP. Treatment sent today:Bactrim DS 800/160 mg Tab Take 1 tablet PO twice daily for 7 days.Advised to increase water intake.Avoid caffeine, sodas.Call PCP/ Urologist for follow up appt. Monitor symptoms. If symptoms worsen, no improvement or any new symptoms develop, please contact us 17/05.Follow up scheduled with primary LOW on 12/15/2024. Goals Date Goal 2022-08-28 Remember to monitor [...] plan, complicance, and coordinating follow up care. 2024-12-11 Monitor symptoms. If symptoms worsen, no improvement or any new symptoms develop, please contact us 17/05. 2024-12-11 Follow up scheduled with primary LOW on 12/15/2024. Health Concerns Date Concern 2024-12-11 Ever is a pleasant 74 y/o male. Visit completed via audio by telephone. Patient agreed to visit via telehealth. 2024-12-11 Today, patient has c hief complaint of: Reports symptoms started 4 days ago. Reports tenderness in lower ABD, difficulty urinating. Denies burning with urination, frequency or urgency. Does not feel as if he is fully emptying bladder. Urine malodorous. No blood in urine present. Denies fever, nausea or vomiting. Last BM yesterday. Last UTI over 1 year ago. Does not see Urologist anymore. Last visit with PCP last week, but did not mention anything to PCP. Applicable vital signs: BP 130/84HR 89Temp 97.9
--- OUTSIDE RECORDS SUMMARY | 2024-12-12 16:11 | XMS_ITS | Encounter Summary ---
Author Organization [facility] Address [address] [place] [address] [address] [place] [address] Care Team Providers Care Deputy Director Of Public Works Name Role Phone Name, Oliver ROTHMAN Primary Care Provider [phone] Encounter Details Date Type Department Care Team (Late Contact Info) Description 03/29/2023 Abstract [facility] [address] [place] [address] [phone] Name, MD Oliver [address] [place] [address] Social History Tobacco Use Types Packs/Day Years [...] Info) Description 12/18/2024 3:00 PM EST Telemedicine [address] [id number] documented as of this encounter Procedures Procedure [...] on filedocumented in this encounter Care Teams Deputy Director Of Public Works Relationship Specialty Start Date End Date Name, MD Oliver [address] [place] [address] PCP - General Family Medicine 05/17/17 documented as of this encounter
--- OUTSIDE RECORDS SUMMARY | 2024-12-12 16:11 | XMS_ITS | Encounter Summary ---
Author Organization [employer] Address [address] [place] [address] Care Team Providers Care Local Intermodal Truck Driver Name Role Phone Name, Oliver ROTHMAN Primary Care Provider [phone] Encounter Details Date Type Department Care Team (Late st Contact Info) Description 11/18/2023 Abstract [facility]NU[facility]ITION [address] [place] [address] Name, MD Oliver [address] [place] [address] Social History Tobacco Use Types Packs/Day Years [...] Telemedicine [facility] [address] [place] [address] documented as of this encounter Visit Diagnoses Not on filedocumented in this encounter Care Teams Local Intermodal Truck Driver Relationship Specialty Start Date End Date Name, MD Oliver [address] [place] [address] PCP - General Family Medicine 05/17/17 documented as of this encounter
[2024-12-12 16:51] LABS: Prostate Specific Antigen < 0.10 ng/mL (<0.05-4.0)
[2024-12-15 13:52] LABS: Appearance Urine Clear; Color Urine Yellow; Glucose Urine UA Negative (Negative); Leukocyte Esterase Urine Negative (Negative); Nitrite Urine Negative (Negative); PH 7.5 (5.0-9.0); Specific Gravity - Urine 1.015 (1.005-1.025); Urine Blood Negative (Negative); Urine Ketones Negative (Negative); Urine Protein Negative (Neg-Trace)
[2024-12-15 13:56] LABS: Bacteria Urine None Seen (None Seen); Hyaline Casts Urine 0-2 /LPF (0-2); RBC Urine 0-2 /HPF (0-2); Squamous Epithelial Cell Urine 0-2 /HPF (0-2); WBC Urine 0-5 /HPF (0-5)
== END 2024-12-12 15:19 | disposition home or self-care (01) ==
LOC: HO.HHCL 15:18
PROVIDERS: Visit Provider Internal Medicine Geriatric Medicine
DX: R10.2 Pelvic and perineal pain (principal); Z85.46 Personal history of malignant neoplasm of prostate; R82.90 Unspecified abnormal findings in urine; Z12.5 Encounter for screening for malignant neoplasm of prostate
CPT/HCPCS: 36415; 81001; 84153

== ENCOUNTER 2025-02-21 08:52 | Outpatient (REF) | payer OTHER, SELFPAY ==
--- NOTE | ~2025-02-21 | XR_ITS ---
EXAMINATION: XR FOOT 3 OR MORE VIEWS RIGHT HISTORY: Acute right foot pain along distal plantar COMPARISON: There are no prior studies available for comparison. FINDINGS: Three views of the right foot are submitted. Osseous mineralization is normal. There is no fracture or dislocation. There is mild narrowing of the 1st MTP joint. There are small calcaneal spurs at the plantar aspect and at the insertion of the Achilles tendon. The soft tissues are unremarkable. XR/XR foot RT min 3V IMPRESSION: Mild narrowing of the 1st MTP joint. Calcaneal spurs as described. Electronically signed by: Tyrone Amaro MD 02/22/2025 10:08 AM EDT
--- OUTSIDE RECORDS SUMMARY | 2025-02-21 10:39 | XMS_ITS | Encounter Summary ---
Author Organization [employer] Address [address] [place] [address] Care Team Providers Care Director Of Religious Activities Name Role Phone Name, Oliver ROTHMAN Primary Care Provider [phone] Encounter Details Date Type Department Care Team (Late st Contact Info) Description 11/18/2023 Abstract [facility] DIABETES[facility]NUTRITION [address] [place] [address] Name, MD Oliver [address] [place] [address] Social History Tobacco Use Types Packs/Day Years [...] as of this encounter Plan of Treatment Not on file documented as of this encounter Visit Diagnoses Not on filedocumented in this encounter Care Teams Director Of Religious Activities Relationship Specialty Start Date End Date Name, MD Oliver [address] [place] [address] PCP - General Family Medicine 05/17/17 documented as of this encounter
--- OUTSIDE RECORDS SUMMARY | 2025-02-21 10:39 | XMS_ITS | Clinical Summary ---
Author Organization [facility] Address [address] [place] [address] Care Team Providers Care Security Associate Name Role Phone Unavailable Primary Care Provider [...] patient's age to complete this topic Insurance [facility] on file [facility] MEDIC[facility] Member Subscriber Plan / Payer ( fective 2016-Present) Name:Ever Champagne Relation to Subscriber:Self Name:Ever Champagne Payer ID:[id number] (NAIC) Group ID:[id number] Type:Not on file Address: [address] MEDICARE
--- OUTSIDE RECORDS SUMMARY | 2025-02-21 10:39 | XMS_ITS | Encounter Summary ---
Author Organization [facility] Address [address] [place] [address] [address] [place] [address] Care Team Providers Care Chin Strap Cutter Name Role Phone NameOliver MD Primary Care Provider [phone] Encounter Details Date Type Department Care Team (Late st Contact Info) Description 03/29/2023 Abstract [facility] MEDICINE [address] [place] [address] Name, MD Oliver [address] [place] [address] Social History Tobacco Use Types Packs/Day Years [...] on file documented as of this encounter Procedures Procedure Name Priority Date/Time Associated Diagnosis Comments COLONOSCOPY Routine 10/20/2019 11:04 AM EST documented in this encounter Results * Colonoscopy (10/20/2019 11:04 AM EST) Colonoscopy Normal Normal Narrative Chanda Chery - 10/20/2019 11:04 AM EST Recommended 5 year follow up Historical Provider HEALTH MAINTENANCE Final Result documented in this encounter Visit Diagnoses Not on filedocumented in this encounter Care Teams Chin Strap Cutter Relationship Specialty Start Date End Date Name, MD Oliver [address] [place] [address] PCP - General Family Medicine 05/17/17 documented as of this encounter
--- OUTSIDE RECORDS SUMMARY | 2025-02-21 10:39 | XMS_ITS | Encounter Summary ---
Author Organization [employer] Address [address] [place] [address] Care Team Providers Care Tandem Mill Operator Name Role Phone Name, Oliver ROTHMAN Primary Care Provider [phone] Encounter Details Date Type Department Care Team (Late st Contact Info) Description 11/18/2023 Abstract [facility] DIABETES/NUTRITION [address] [place] [address] Name, MD Oliver [address] [place] [address] Social History Tobacco Use Types Packs/Day Years [...] on filedocumented in this encounter Care Teams Tandem Mill Operator Relationship Specialty Start Date End Date Name, MD Oliver [address] [place] [address] PCP - General Family Medicine 05/17/17 documented as of this encounter
--- OUTSIDE RECORDS SUMMARY | 2025-02-21 10:39 | XMS_ITS ---
Author Name Cookie Clemons NP Address [address] [place] [address] Phone [phone] Organization [facility] Care Team Providers Care Infant Lead Teacher Name Role Phone Cookie Clemons Unavailable [phone] Unavailable Unavailable Unavailable [facility] Unavailable [phone] Unavailable Unavailable [phone] Reason for Referral Not Available Allergies, adverse reactions, alerts No known allergies History of medication use Medication Class Instructions Start Date End Date Diclofenac Sodium 1 % Gel APPLY 2 GRAMS TOPICALLY TO AFFECTED AREA(S) 4 TIMES A DAY 2022-03-18 No Data Available Loratadine 10 mg Tab TAKE 1 TABLET BY [facility] EVERY DAY NEEDED FOR ALLERGIES 2022-01-16 2024-04-12 [...] 50 mg Tab TAKE 1 TABLET BY [facility] EVERYDAY AT BEDTIME 2024-02-07 No Data Available [...] Active 2023-07-08 N/A Other problems related to [facility] facilities and other health care Active 2024-04-12 N/A Numbness of right hand; Chronic cervical pain Active 2023-07-06 N/A Type 2 diabetes mellitus without complication Active 2023-07-06 N/A Osteoarthritis Active 2022-08-28 N/A Foreign body aspiration Active 2024-08-22 N/A UTI symptoms Active 2024-12-11 N/A Encounters Encounters Type Facility Date of Service Diagnosis/Co mplaint Pain Assessment - NO pain present (1126F) [facility] Pain Assessment - NO pain present (1126F) [facility] [place] Pain Assessment - NO pain present (1126F) [facility] Pain Assessment - NO pain present (1126F) [facility] Pain Assessment - NO pain present (1126F) [facility] Pain Assessment - NO pain present (1126F) [facility] Pain Assessment - NO pain present (1126F) [facility], ([place]) 08/[place]/20[place] Type 2 diabetes mellitus wit h other circulatory complicationsHypertension secondary to endocrine disordersUnspecified osteoarthritis, unspecified site Pain Assessment - NO pain present (1126F) [facility] Pain Assessment - NO pain present (1126F) [facility] Estab. patient 30-39min; chronic exacerbation, 2 stable chronic or 1 acute illness add add modifier 95 for video, (do not use for phone, instead use 31346-10) [facility]20[place] Type 2 diabetes mellitus wit hout complicationsAbdominal aortic aneurysm, without rupture, unspecifiedDisease of spinal cord, unspecifiedEssential (primary) hypertensionUnspecified osteoarthritis, unspecified sitePersonal history of malignant neoplasm of prostateAnesthesia of skinCervicalgiaOther chronic pain Estab. patient 30-39min; chronic exacerbation, 2 stable chronic or 1 acute illness add add modifier 95 for video, (do not use for phone, instead use 70243-74) [facility] Estab. patient 30-39min; chronic exacerbation, 2 stable chronic or 1 acute illness add add modifier 95 for video, (do not use for phone, instead use 73457-85) [facility] Estab. patient 30-39min; chronic exacerbation, 2 stable chronic or 1 acute illness add add modifier 95 for video, (do not use for phone, instead use 72369-36) [facility] Estab. patient 30-39min; chronic exacerbation, 2 stable chronic or 1 acute illness add add modifier 95 for video, (do not use for phone, instead use 38634-94) [facility] Estab. patient 30-39min; chronic exacerbation, 2 stable chronic or 1 acute illness add add modifier 95 for video, (do not use for phone, instead use 91775-98) [facility] Estab. patient 30-39min; chronic exacerbation, 2 stable chronic or 1 acute illness add add modifier 95 for video, (do not use for phone, instead use 74384-03) [facility] Estab. patient 30-39min; chronic exacerbation, 2 stable chronic or 1 acute illness add add modifier 95 for video, (do not use for phone, instead use 03279-04) [facility] Estab. patient 30-39min; chronic exacerbation, 2 stable chronic or 1 acute illness add add modifier 95 for video, (do not use for phone, instead use 85685-75) [facility] Estab. patient 30-39min; chronic exacerbation, 2 stable chronic or 1 acute illness add add modifier 95 for video, (do not use for phone, instead use 47552-22) [facility] Unlisted special service; to be used for medical record reviews and reporting CPTII codes (1111F, etc) [facility] [place] Other specified health statu s Unlisted special service; to be used for medical record reviews and reporting CPTII codes (1111F, etc) [facility] [place] Unlisted special service; to be used for medical record reviews and reporting CPTII codes (1111F, etc) [facility] Estab. patient 30-39min; chronic exacerbation, 2 stable chronic or 1 acute illness add add modifier 95 for video, (do not use for phone, instead use 15386-02) [facility] Essential (primary) hypertensionUnspecified osteoarthritis, unspecified [...] (do not use for phone, instead use 32345-43) [facility] Estab. patient 30-39min; chronic exacerbation, 2 stable chronic or 1 acute illness add add modifier 95 for video, (do not use for phone, instead use 84897-98) [facility] Estab. patient 30-39min; chronic exacerbation, 2 stable chronic or 1 acute illness add add modifier 95 for video, (do not use for phone, instead use 07366-28) [facility] Estab. patient 30-39min; chronic exacerbation, 2 stable chronic or 1 acute illness add add modifier 95 for video, (do not use for phone, instead use 03370-54) [facility] Estab. patient 30-39min; chronic exacerbation, 2 stable chronic or 1 acute illness add add modifier 95 for video, (do not use for phone, instead use 54501-82) [facility] Estab. patient 30-39min; chronic exacerbation, 2 stable chronic or 1 acute illness add add modifier 95 for video, (do not use for phone, instead use 58767-44) [facility] Estab. patient 30-39min; chronic exacerbation, 2 stable chronic or 1 acute illness add add modifier 95 for video, (do not use for phone, instead use 34127-74) [facility] Estab. patient 30-39min; chronic exacerbation, 2 stable chronic or 1 acute illness add add modifier 95 for video, (do not use for phone, instead use 95070-29) [facility] Estab. patient 30-39min; chronic exacerbation, 2 stable chronic or 1 acute illness add add modifier 95 for video, (do not use for phone, instead use 41248-45) [facility] No Data Available [facility] Type 2 diabetes mellitus wit hout complicationsEssential (primary) hypertensionUnsp FB in resp tract, part unsp causing oth injury, sequela No Data Available [facility] Estab. patient 10-29min; 1 minor problem; add add modifier 95 for video, modifier 93 for phone [facility]/20[place] Unspecified symptoms and sig ns involving the genitourinary system Estab. patient 10-29min; 1 minor problem; add add modifier 95 for video, modifier 93 for phone [facility] 12[place]/2024 Vital Signs Date of Collection [...] (do not use for phone, instead use 43936-67) [id number] 2022-08-28 No Data Available No Data Availa ble SBP 130-139 (3075F) 3075F 2022-08-28 No Data Availabl e No Data Available DBP <80 (3078F) 3078F 2022-08-28 No Data Available No Data Available Estab. patient 30-39min; chronic exacerbation, 2 stable chronic or 1 acute illness add add modifier 95 for video, (do not use for phone, instead use 68980-62) 25869 2023-07-06 No Data Available No Data Availa [...] reviews and reporting CPTII codes (1111F, etc) 08569 2024-03-17 No Data Available No Data Availa ble SBP 130-139 (3075F) 3075F 2024-03-17 No Data Availabl e No Data Available DBP 80-89 (3079F) 3079F 2024-03-17 No Data Available No Data Available Estab. patient 30-39min; chronic exacerbation, 2 stable chronic or 1 acute illness add add modifier 95 for video, (do not use for phone, instead use 87774-73) 93274 2024-04-12 No Data Available No Data Availa [...] No Data Avail able No Data Available [id number] 2024-08-22 No Data Available No Data Available Medication List Documented (1159F) 1159F 2024-08-22 No Data Available No Data Starr ilable Estab. patient 10-29min; 1 minor problem; add add modifier 95 for video, modifier 93 for phone [id number] 2024-12-11 No Data Available No Data Availa [...] modifier 95Continue to see PCP. Follow-up with [facility] as needed for any acute or disease education needs that may arise.LosartanDM2 diet controlled, unknown [id number] with PCP every 3 monthsPain increasing in [...] low abd pain. [facility] Follow-up with [...]
--- OUTSIDE RECORDS SUMMARY | 2025-02-21 10:39 | XMS_ITS | Clinical Summary ---
Author Organization [employer] Address [address] [place] [address] 7t [place] [address] Care Team Providers Care Straightening Machine Operator Name Role Phone Name, Oliver ROTHMAN Primary Care Provider [phone] Allergies No known active allergies Medications loratadine [...] before sexual activity 10 tablet 023 Active Blood Pressure kit Use twice [...] SHAKE GENTLY. BEFORE FIRST USE, PRIME PUMP. 16 mL 025 Active omeprazole (PriLOSEC) [address] capsule TAKE 1 CAPSULE (20 MG) BY MOUTH BEFORE BREAKFAST DO NOT CRUSH, CHEW, OR SPLIT 30 capsule 025 Active gabapentin (Neurontin) 300 MG capsuleIndicati ons:Cervical myelopathy (CMS/HCC) TAKE 1 CAPSULE BY MOUTH EVERYDAY AT BEDTIME 30 capsule 2 025 Active gabapentin (Neurontin) 300 MG capsuleIndicati ons:Cervical myelopathy (CMS/HCC) TAKE 1 CAPSULE BY MOUTH EVERYDAY AT BEDTIME 30 capsule 11 023 2024 Discontinued omeprazole (PriLOSEC) [address] capsule TAKE 1 CAPSULE (20 MG) BY MOUTH BEFORE BREAKFAST DO NOT CRUSH, CHEW, OR SPLIT 30 capsule 025 2024 Discontinued Active Problems Problem Noted Date Diagnosed Date History of prostatectomy 12/12/2024 Overview (12/12/2024): For treatment of early-stage prostate cancer in 2010 No Chemo or radiation 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 Watkins History of prostate cancer 12/12/2024 Asbestos exposure 02/09/2024 Pulmonary nodule 02/09/2024 Overview (12/04/2024): [place] [facility] [place] He has a remote history of treated TB T spot negative CT scan of the chest consistent with previous treated TB infection. [place] [address] [place] Scan Report Signed Patient: Ever Champagne MR#: [id number] 26 : 1950 Acct:[id number] Age/Sex: 74 / M ADM Date: 08/08/24 Loc: .CT Attending Dr: Ced Robles MD Ordering Physician: Ced Robles MD Date of Service: 08/08/24 Procedure(s): CT chest wo IV con Accession Number(s): [id number] cc: Name,Oliver ROTHMAN; Ced Robles MD EXAMINATION: [...] by: Ki Perez MD 10/04/2024 03:31 PM EST History of cervical spinal surgery 08/18/2023 Cervical myelopathy 10/16/2022 Erectile dysfunction 10/16/2022 Essential hypertension 10/16/2022 Prediabetes 10/16/2022 Tubular adenoma of colon 10/12/2019 Overview (08/18/2023): [place] [facility] [place] repeat recommended in 5 years Urinary [...] Encounters Date Type Department Care Team Description 02/05/2025 Refill [facility] [address] [place] [phone] Name, MD Oliver Cervical myelopathy (CMS/HCC) 02/02/2025 1:40 PM EDT Office Visit [facility] [address] [place] [address] Ferriday, Shiro, ACUTE CARE PHYSICIAN Right foot pain (Primary Dx) 02/02/2025 Travel 02/02/2025 Telephone [facility] [address] [place] [address] NameOliver MD Nurse Triage 01/14/2025 Refill [facility] [address] [place] [phone] Oliver Constantino MD 01/01/2025 Refill [facility] [address] [place] [phone] NameOliver MD 12/20/2024 9:30 AM EST Telemedicine [address] [address] Carmelita Kapadia, VIKTORIYA Essential hypertension 12/20/2024 Travel 12/15/[address] [address] Oliver Constantino MD 12/15/[address] [address] Anthony Silva [place] Lab Orders 12/15/[address] [address] Oliver Constantino MD Lab Orders (U/A) 12/13/[address] [address] Kajal Luciano DO 12/12/2024 2:45 PM EST Office Visit [address] [address] Oliver Constantino MD Suprapubic pain (Primary Dx); Foul smelling urine; History of prostate cancer 12/12/[address] [address] Oliver Constantino MD Nurse Triage 12/04/2024 3:15 PM EST Office Visit [address] [address] Oliver Constantino MD Essential hypertension (Primary Dx); Other dysphagia; Tubular adenoma of colon; Pulmonary nodule 12/04/2024 Travel from Last 3 Months Immunizations Name Administration [...] Sign Reading Time Taken Comments Blood Pressure 131/75 02/02/2025 1:25 PM EDT Pulse 76 02/02/2025 1:25 PM EDT Temperature 36.3 ??C (97.4 ??F) 02/02/2025 1:25 PM ED T Respiratory Rate 17 02/02/2025 1:25 PM EDT Oxygen Saturation 98% 02/02/2025 1:25 PM EDT Inhaled Oxygen Concentration - - Weight 78.4 kg (172 lb 12.8 oz) 02/02/2025 1:25 PM EDT Height 172.7 cm (5' 8 ) 09/19/2024 2:37 PM EST Body Mass Index 26.27 09/19/2024 2:37 PM EST Plan of Treatment Health Maintenance Due Date Last Done Comments CT Colonography 1950 FIT DNA/Cologuard 1950 FIT 1950 FOBT 1950 Sigmoidoscopy 1950 Alcohol/Substance Use Screening 1962 Hepatitis C Screening 02/02/1970 Diabetes: Hemoglobin A1C 06/05/2023 06/05/2022, 12/24 COVID-19 Vaccine ( season) 2024 09/04/2022, 08/12/2021, 08/12/2021, Additional history exists Colonoscopy 10/20/2024 10/20/2019 Colorectal Cancer Screening 10/20/2024 Depression Screening 12/09/2024 12/09/2023, 12/09/19 24 SDOH Screening 12/09/2024 12/09/2023 Zoster Vaccines (2 of 2) 01/30/2025 12/05/2024 Tobacco Screening 02/04/2026 02/04/2025 RSV Patients and Patients Aged 60 years [...] Procedure Name Priority Date/Time Associated Diagnosis Comments PSA, TOTAL Routine 12/12/2024 3:20 PM EST History of prostate cancer POCT URINALYSIS DIPSTICK Routine 12/12/2024 2:50 PM EST Suprapubic pain Foul smelling urine URINALYSIS, COMPLETE, WITH REFLEX TO CULTURE Routine 12/12/2024 10:30 AM EST Suprapubic pain Foul smelling urine BASIC METABOLIC PANEL Routine 12/04/2024 3:56 PM EST Essential hypertension LIPID PANEL, STANDARD Routine 08/25/2023 8:51 AM EDT Essential hypertension Prediabetes HEMOGLOBIN A1C Routine 06/05/2022 7:58 AM EDT HM COLONOSCOPY Routine 10/20/2019 11:04 AM EST from Last 3 Months or Most Recently Relevant to Health Maintenance Results * PSA,Total (12/12/2024 3:20 PM EST) Prostate Specific Antigen <0.10 <0.05 - 4.0 ng/mL [facility] Comment:PSA methodology: Jo Ann Al i ChemiluminescentMicroparticle Immunoassay (CMIA) Blood Venous blood specimen / Unknown 12/12/2024 3:20 PM EST 12/12/2024 4:04 PM EST us Oliver Constantino MD LAB BLOOD ORDERABLES Final Resul t [facility] [address] [place] [phone] * (ABNORMAL) POCT Urinalysis (12/12/2024 2:50 PM [...] Urine 12/12/2024 2:50 PM EST us Oliver Name POINT OF CARE TEST ENTER/EDIT OR DERABLES Final Result * Urinalysis, Complete, with Reflex to Culture (12/12/2024 10:30 AM EST) Color Urine Yellow [facility] Appearance Urine Clear [facility] PH 7.5 5.0 - 9.0 [facility] Glucose Urine UA Negative Negative mg/dL [facility] Urine Blood Negative Negative [facility] Specific [place] - Urine 1.015 1.005 - 1.025 [facility] Urine Protein Negative Neg-Trace mg/dL [facility] Urine Ketones Negative Negative mg/dL [facility] Nitrite Urine Negative Negative [facility] Leukocyte Esterase Urine Negative Negative [facility] RBC Urine 0-2 0 - 2 /HPF [facility] Urine WBC 0-5 0 - 5 /HPF [facility] Urine Squamous Epithelial Cell 0-2 0 - 2 /HPF [facility] Urine Bacteria None Seen None Seen [facility] Hyaline Casts, Urine 0-2 0 - 2 /LPF [facility] Urine 12/12/2024 10:3 0 AM EST 12/15/2024 1:29 PM EST Narrative [facility] - 12/15/2024 1:57 PM EST Urine, Clean Catch us Oliver Constantino MD LAB URINE ORDERABLES Final Resul t Performing Organization Address [facility] de Phone Number [facility] [address] [place] [phone] * (ABNORMAL) Basic Metabolic Panel (12/04/2024 3:56 PM EST) Sodium 141 135 - 145 mmol/L [facility] Potassium 3.8 3.3 - 5.1 mmol/L [facility] Chloride 108 96 - 108 mmol/L [facility] Carbon Dioxide 28 22 - 29 mmol/L [facility] Anion Gap 9(L) 12 - 20 [facility] Urea Nitrogen (BUN) 22(H) 9 - 16 mg/dL [facility] Creatinine, Serum 1.07 0.5 - 1.4 mg/dL [facility] Estimated Glomerular Filt Rate >60 [facility] Comment:Chronic Kidney Disea se: Estimated GFR < 60 mL/min/1.19o4Inedrf Kidney Disease: Estimated GFR < 15 mL/min/1.73m2 Glucose 94 60 - 115 mg/dL [facility] Calcium 9.3 8.4 - 10.2 mg/dL [facility] Blood Venous blood specimen / Unknown 12/04/2024 3:56 PM EST 12/04/2024 5:49 PM EST us Oliver Constantino MD LAB BLOOD ORDERABLES Final Resul t Performing Organization Address [facility] de Phone Number [facility] [address] [place] [phone] * Lipid Panel, Standard (08/25/2023 8:51 AM EDT) Triglycerides 73 <150 mg/dL [facility] Comment:Desirable Triglyceri de: less than 150 mg/dLBorderline High Triglyceride 150-199 mg/dLHigh Triglyceride: 200-499 mg/dLVery High Triglyceride: greater than or equal to 5OO mg/dL Cholesterol 152 <200 mg/dL [facility] Comment:Desirable Cholestero l: less than 200 mg/dLBorderline High Cholesterol: 200-239 mg/dLHigh Cholesterol: greater than 239 mg/dL LDL Cholesterol Calculated 86 <100 mg/dL [facility] Comment:Desirable LDL: less than 100 mg/dLNear Optimal/Above Optimal LDL: 110- 129 mg/dLBorderline High LDL: 130-159 mg/dLHigh LDL: 160-189 mg/dLVery High LDL: greater than or equal to 190 mg/dL HDL Cholesterol 52 >40 mg/dL [facility] Comment:Desirable HDL: great er than 40 mg/dL Note: This HDL assay may give artificially low results in patients with liver disease. Blood Venous blood specimen / Unknown 08/25/2023 8:51 AM EDT 08/25/2023 11:32 AM EDT us Oliver Name LAB BLOOD ORDERABLES Final Resul t [facility] [address] [place] [phone] * HEMOGLOBIN A1c (06/05/2022 7:58 AM EDT) Hemoglobin A1c 5.5 <5.7 % of total Hgb [facility] Comment: For the purpose of [...] of diabetes in children. ?? According to [place] Diabetes Association (ADA) guidelines, hemoglobin A1c <7.0% represents optimal control in non- diabetic patients. Different metrics may apply to specific patient populations. ?? Standards of Medical Care in Diabetes(ADA). ?? 06/05/2022 7:58 AM EDT us Oliver Name LAB BLOOD ORDERABLES Final Resul t [facility] [address] * Colonoscopy (10/20/2019 11:04 AM EST) Colonoscopy Normal Normal Narrative Chanda Chery - 10/20/2019 11:04 AM EST Recommended 5 year follow up us Historical Provider HEALTH MAINTENANCE Final Result from Last 3 Months or Most Recently Relevant to Health Maintenance Insurance [facility] [employer]PLETE Care Teams Straightening Machine Operator Relationship Specialty Start Date End Date Name, MD Oliver [address] [place] [address] PCP - General Family Medicine 05/17/17
--- OUTSIDE RECORDS SUMMARY | 2025-02-21 10:39 | XMS_ITS | Encounter Summary ---
Author Organization [employer] Address [address] [place] [address] Care Team Providers Care Tiler Name Role Phone Name, Oliver ROTHMAN Primary Care Provider [phone] Encounter Details Date Type Department Care Team (Late st Contact Info) Description 11/18/2023 Abstract [facility] [address] [place] [address] Name, MD Oliver [address] [place] [address] Social History Tobacco Use Types Packs/Day Years [...] on filedocumented in this encounter Care Teams Tiler Relationship Specialty Start Date End Date Name, MD Oliver [address] [place] [address] PCP - General Family Medicine 05/17/17 documented as of this encounter
--- OUTSIDE RECORDS SUMMARY | 2025-02-21 10:39 | XMS_ITS | Encounter Summary ---
Author Organization [facility] Address [address] [facility] 7t [place] [address] Care Team Providers Care Insurance Marketing Specialist Name Role Phone Name, Oliver ROTHMAN Primary Care Provider [phone] Encounter Details Date Type Department Care Team (Latest Contact Info) Description 05/20/2022 Abstract [facility] Dental, Provider, DDS Social History [...] on filedocumented in this encounter Care Teams Insurance Marketing Specialist Relationship Specialty Start Date End Date Name, MD Oliver [address] [place] [phone] PCP - General Family Medicine 05/17/17 documented as of this encounter
--- OUTSIDE RECORDS SUMMARY | 2025-02-21 10:39 | XMS_ITS | Encounter Summary ---
Author Organization [employer] Address [address] [facility] 7t [place] [address] Care Team Providers Care Acquisition Editor Name Role Phone Name, Oliver ROTHMAN Primary Care Provider [phone] Reason for Visit * Reason Onset Date Comments Med Refill 10/13/2023 Encounter Details Date Type Department Care Team ([facility] st Contact Info) Description 10/13/2023 Telephone [facility] [address] [place] [address] Name, MD Oliver [address] [place] [address] Med Refill Social History Tobacco Use Types [...] the past 12 months, has t he servtag, gas, oil or water [employer] threatened to shut off services in your [...] No answer. LVM to call back on [phone] . * Telephone Encounter - Doe Barnett RN - 10/15/2023 8:56 AM EST T/C to pt. To inform regarding below message, No answer. LVM to call back on [phone] . * Telephone Encounter - Doe Barnett RN - 10/13/2023 10:30 AM EST Please review and advise for below request. * Telephone Encounter - Junior Tracy - 10/13/2023 9:36 AM EST Tc from patient requesting a medication refill for gabapentin (Neurontin) 300 MG capsule documented in this encounter Plan of Treatment Not on file documented as of this encounter Visit Diagnoses Not on filedocumented in this encounter Care Teams Acquisition Editor Relationship Specialty Start Date End Date Name, MD Oliver [address] [place] [phone] PCP - General Family Medicine 05/17/17 documented as of this encounter
--- OUTSIDE RECORDS SUMMARY | 2025-02-21 10:39 | XMS_ITS | Encounter Summary ---
Author Organization [employer] Address [address] [place] [address] Care Team Providers Care Top Edge Beveler Name Role Phone Name, Oliver ROTHMAN Primary Care Provider Encounter Details Date Type Department Care Team (Late st Contact Info) Description 11/18/2023 Abstract [facility] DIABETES/NUTRITION [address] [place] [address] Name, MD Oliver [address] [place] [address] Social History Tobacco Use Types Packs/Day Years [...] on filedocumented in this encounter Care Teams Top Edge Beveler Relationship Specialty Start Date End Date Name, MD Oliver [address] [place] [address] PCP - General Family Medicine 05/17/17 documented as of this encounter
--- OUTSIDE RECORDS SUMMARY | 2025-02-21 10:39 | XMS_ITS | Encounter Summary ---
Author Organization [employer] Address [address] [place] [address] Care Team Providers Care Oceanographer Geological Name Role Phone Name, Oliver ROTHMAN Primary Care Provider [phone] Encounter Details Date Type Department Care Team (Late st Contact Info) Description 11/18/2023 Abstract [facility] DIABETES/NUTRITION [address] [place] [address] Name, MD Oliver [address] [place] [address] Social History Tobacco Use Types Packs/Day Years [...] on filedocumented in this encounter Care Teams Oceanographer Geological Relationship Specialty Start Date End Date Name, MD Oliver [address] [place] [address] PCP - General Family Medicine 05/17/17 documented as of this encounter
--- OUTSIDE RECORDS SUMMARY | 2025-02-21 10:39 | XMS_ITS ---
Author Name [facility] Organization Unknown Encounters Encounter Type Encounter Reason Primary Diagnosis Location Date Ambulatory Encounter for immunization [facility] 08/12/2021 Care Team Organization Name Specialty Phone Email Start Date End Da te [facility] 08/13/2021 06/12/2024 [facility] 12/06/2020 08/12/2021
== END 2025-02-21 08:53 | disposition home or self-care (01) ==
LOC: HO.XRAY 08:52
PROVIDERS: Absent Provider Registered Nurse; PCP Internal Medicine Geriatric Medicine; Visit Provider Internal Medicine
DX: M79.671 Pain in right foot (principal); R13.10 Dysphagia, unspecified; Z86.0100 Personal history of colon polyps, unspecified
CPT/HCPCS: 73630; 99202

== ENCOUNTER 2025-02-21 08:52 | Outpatient (AMB) | payer OTHER, SELFPAY ==
--- NOTE | 2025-02-21 08:55 | MHC.OFFVIS ---
Vital Signs 02/21/25 08:56 Height 5 ft 8 in Weight 169 lb 12.095 oz BMI 25.8 BP 146/79 H Blood Pressure Location Lt brachial Position Sitting Pulse 71 Intake Visit Reasons: Dysphagia, Tubular Adenoma Intake Note: Ever presents in the office as a new patient for Dysphagia and hx of Tubular Adenoma. CC: He states that he was having issues with his swallowing but now it is not as bad because he eats slow and little bites. Softer foods. States that he has lots of gas - wakes up at 3am with his rumbling in the stomach. Little bit of constipation at times - last week he has been more constipation. Senior Clinical Study Manager Required: Yes Senior Clinical Study Manager Name: [id number] Allergies No Known Allergies Allergy (Verified 02/21/25 08:56) HPI Comments Details: 75 y.o M with PMH of prostate ca, HTN who is here for i) dysphagia, ii) hx of polyps. Reports started almost 6 months ago. Started with hard textured food. Even had to come to ER in Jul for sensation of a piece of apple which resolved with IV glucagon. Since then has been avoiding hard food. Sticks to soft diet and chews very thoroughly. No nausea, vomiting. Former smoker. No etOH use. Pt also has hx of colon polyps. Last colo 2018 good prep. x3 polyps, 2/3 T.A. Splenic flexure polyp was piece meal removal and endomark was placed. [facility] Social History Patient Tobacco Use Status: Former Tobacco user Years Smoked: quit about 45+ years ago Review of Systems Const All systems reviewed & are unremarkable except as noted in HPI and below Physical Exam Vital Signs: Last Vital Signs Pulse 71 02/21/25 08:56 BP 146/79 H 02/21/25 08:56 BMI result Body Mass Index 25.8 No apparent distress Nonicteric Abdomen soft, nondistended Alert and oriented x3, normal gait Assessment & Plan Assessment & Plan (1) Dysphagia: Code(s): R13.10 - Dysphagia, unspecified Category: Medical (2) Personal history of colonic polyps: Code(s): Z86.0100 - Personal history of colon polyps, unspecified Category: Medical Plan 1. dysphagia Ddx include web/ring, stricture, dysmotility, EoE. Plan: - Barium swallow - EGD with poss dilation to be booked 2. Hx of polyps Due for repeat colo. This will be booked at the same time as egd. Plan: - Miralax/gatorade prep requested by pt - Instructions reviewed and bolivian handout given Follow up after procedures Orders: Orders FL barium swallow Today R13.10 - Dysphagia, unspecified Medications: New polyethylene glycol 3350 (Miralax) mix in 64 oz of gatorade for colonoscopy prep 238 grams PO ONCE 238 grams 0RF Coding Level of Care Code New Pt Level 4 (58055) Diagnoses Dysphagia R13.10 Personal history of colonic polyps Z86.0100
[2025-02-21 08:56] VITALS: BP 146/79; PULSE 71; BMI 25.8
--- OUTSIDE RECORDS SUMMARY | 2025-02-21 09:17 | XMS_ITS ---
Author Name Cookie Clemons NP Address [address] [place] [address] Phone [phone] Organization [facility] Team Providers Care Drafter Seismograph Name Role Phone Cookie Clemons Unavailable [phone] Unavailable Unavailable Unavailable [facility] Unavailable Unavailable Unavailable [phone] Reason for Referral Not Available Allergies, adverse reactions, alerts No known allergies History of medication use Medication Class Instructions Start Date End Date Diclofenac Sodium 1 % Gel APPLY 2 GRAMS TOPICALLY TO AFFECTED AREA(S) 4 TIMES A DAY 2022-03-18 No Data Available Loratadine 10 mg Tab TAKE 1 TABLET BY [facility] EVERY DAY NEEDED FOR ALLERGIES 2022-01-16 2024-04-12 [...] 50 mg Tab TAKE 1 TABLET BY [facility] EVERYDAY AT BEDTIME 2024-02-07 No Data Available [...] Active 2023-07-08 N/A Other problems related to [facility] facilities and other health care Active 2024-04-12 N/A Numbness of right hand; Chronic cervical pain Active 2023-07-06 N/A Type 2 diabetes mellitus without complication Active 2023-07-06 N/A Osteoarthritis Active 2022-08-28 N/A Foreign body aspiration Active 2024-08-22 N/A UTI symptoms Active 2024-12-11 N/A Encounters Encounters Type Facility Date of Service Diagnosis/Co mplaint Pain Assessment - NO pain present (1126F) [facility] Pain Assessment - NO pain present (1126F) [facility] [place] Pain Assessment - NO pain present (1126F) [facility] Pain Assessment - NO pain present (1126F) [facility] Pain Assessment - NO pain present (1126F) [facility] Pain Assessment - NO pain present (1126F) [facility] Pain Assessment - NO pain present (1126F) [facility], [place] 08[place]28/20[place] Type 2 diabetes mellitus wit h other circulatory complicationsHypertension secondary to endocrine disordersUnspecified osteoarthritis, unspecified site Pain Assessment - NO pain present (1126F) [facility] Pain Assessment - NO pain present (1126F) [facility] Estab. patient 30-39min; chronic exacerbation, 2 stable chronic or 1 acute illness add add modifier 95 for video, (do not use for phone, instead use 35485-05) [facility]20[place] Type 2 diabetes mellitus wit hout complicationsAbdominal aortic aneurysm, without rupture, unspecifiedDisease of spinal cord, unspecifiedEssential (primary) hypertensionUnspecified osteoarthritis, unspecified sitePersonal history of malignant neoplasm of prostateAnesthesia of skinCervicalgiaOther chronic pain Estab. patient 30-39min; chronic exacerbation, 2 stable chronic or 1 acute illness add add modifier 95 for video, (do not use for phone, instead use 33611-33) [facility] Estab. patient 30-39min; chronic exacerbation, 2 stable chronic or 1 acute illness add add modifier 95 for video, (do not use for phone, instead use 42396-27) [facility] Estab. patient 30-39min; chronic exacerbation, 2 stable chronic or 1 acute illness add add modifier 95 for video, (do not use for phone, instead use 58617-75) [facility] Estab. patient 30-39min; chronic exacerbation, 2 stable chronic or 1 acute illness add add modifier 95 for video, (do not use for phone, instead use 29692-94) [facility] Estab. patient 30-39min; chronic exacerbation, 2 stable chronic or 1 acute illness add add modifier 95 for video, (do not use for phone, instead use 34922-34) [facility] Estab. patient 30-39min; chronic exacerbation, 2 stable chronic or 1 acute illness add add modifier 95 for video, (do not use for phone, instead use 99658-70) [facility]20[place] Estab. patient 30-39min; chronic exacerbation, 2 stable chronic or 1 acute illness add add modifier 95 for video, (do not use for phone, instead use 59083-47) [facility] Estab. patient 30-39min; chronic exacerbation, 2 stable chronic or 1 acute illness add add modifier 95 for video, (do not use for phone, instead use 27940-61) [facility] Estab. patient 30-39min; chronic exacerbation, 2 stable chronic or 1 acute illness add add modifier 95 for video, (do not use for phone, instead use 11983-34) [facility]23 Unlisted special service; to be used for medical record reviews and reporting CPTII codes (1111F, etc) [facility] [place] Other specified health statu s Unlisted special service; to be used for medical record reviews and reporting CPTII codes (1111F, etc) [facility] [place] Unlisted special service; to be used for medical record reviews and reporting CPTII codes (1111F, etc) [facility] Estab. patient 30-39min; chronic exacerbation, 2 stable chronic or 1 acute illness add add modifier 95 for video, (do not use for phone, instead use 84103-46) [facility] Essential (primary) hypertensionUnspecified osteoarthritis, [...] (do not use for phone, instead use 52251-75) [facility] Estab. patient 30-39min; chronic exacerbation, 2 stable chronic or 1 acute illness add add modifier 95 for video, (do not use for phone, instead use 71146-83) [facility] Estab. patient 30-39min; chronic exacerbation, 2 stable chronic or 1 acute illness add add modifier 95 for video, (do not use for phone, instead use 52303-27) [facility] Estab. patient 30-39min; chronic exacerbation, 2 stable chronic or 1 acute illness add add modifier 95 for video, (do not use for phone, instead use 94275-74) [facility] Estab. patient 30-39min; chronic exacerbation, 2 stable chronic or 1 acute illness add add modifier 95 for video, (do not use for phone, instead use 02216-73) [facility] Estab. patient 30-39min; chronic exacerbation, 2 stable chronic or 1 acute illness add add modifier 95 for video, (do not use for phone, instead use 92071-29) [facility] Estab. patient 30-39min; chronic exacerbation, 2 stable chronic or 1 acute illness add add modifier 95 for video, (do not use for phone, instead use 41925-15) [facility] Estab. patient 30-39min; chronic exacerbation, 2 stable chronic or 1 acute illness add add modifier 95 for video, (do not use for phone, instead use 03360-15) [facility] Estab. patient 30-39min; chronic exacerbation, 2 stable chronic or 1 acute illness add add modifier 95 for video, (do not use for phone, instead use 74098-71) [facility] No Data Available [facility]20[place] Type 2 diabetes mellitus wit hout complicationsEssential (primary) hypertensionUnsp FB in resp tract, part unsp causing oth injury, sequela No Data Available [facility] Estab. patient 10-29min; 1 minor problem; add add modifier 95 for video, modifier 93 for phone [facility]/2024 Unspecified symptoms and sig ns involving the genitourinary system Estab. patient 10-29min; 1 minor problem; add add modifier 95 for video, modifier 93 for phone [facility] 12/11/2024 Vital Signs Date of Collection Vitals 2022-08-28 [...] tive Time Current Smoking Status Former smoker 3 0 Sex Male History of Procedures Procedures [...] (do not use for phone, instead use 81906-18) 76061 2022-08-28 No Data Available No Data Availa ble SBP 130-139 (3075F) 3075F 2022-08-28 No Data Availabl e No Data Available DBP <80 (3078F) 3078F 2022-08-28 No Data Available No Data Available Estab. patient 30-39min; chronic exacerbation, 2 stable chronic or 1 acute illness add add modifier 95 for video, (do not use for phone, instead use 79355-18) 14475 2023-07-06 No Data Available No Data Availa [...] reviews and reporting CPTII codes (1111F, etc) 08058 2024-03-17 No Data Available No Data Availa ble SBP 130-139 (3075F) 3075F 2024-03-17 No Data Availabl e No Data Available DBP 80-89 (3079F) 3079F 2024-03-17 No Data Available No Data Available Estab. patient 30-39min; chronic exacerbation, 2 stable chronic or 1 acute illness add add modifier 95 for video, (do not use for phone, instead use 09269-03) 26011 2024-04-12 No Data Available No Data Availa [...] No Data Avail able No Data Available 85084 2024-08-22 No Data Available No Data Available Medication List Documented (1159F) 1159F 2024-08-22 No Data Available No Data Starr ilable Estab. patient 10-29min; 1 minor problem; add add modifier 95 for video, modifier 93 for phone 60309 2024-12-11 No Data Available No Data Availa [...] modifier 95Continue to see PCP. Follow-[facility] with [facility] as needed for any acute or disease education needs that may arise.LosartanDM2 diet controlled, unknown [id number] with PCP every 3 monthsPain increasing in [...] low abd pain. [facility] Follow-up with [facility] as [...]
--- OUTSIDE RECORDS SUMMARY | 2025-02-21 09:17 | XMS_ITS | Clinical Summary ---
Author Organization [facility] Address [address] [place] [address] Care Team Providers Care Print Shop Chief Clerk Name Role Phone Unavailable Primary Care Provider Unavailabl e Immunizations Immunization Administration Dates Next Due Covid-19 MRNA Vaccine - Pfiz er 12+ (Purple Cap) 08/12/2021,12/06/2020,11/15/2020 Social History Tobacco Use Types Packs/Day Years Used Date Smoking Tobacco: Never Assessed Sex and Gender Information Value Date Recorded Sex Assigned at Not on file Legal Sex Male 10:44 AM EST Gender Identity Not on file Sexual Orientation [...] on patient's age to complete this topic Insurance [facility] on file [facility] MED[facility] Member Subscriber Plan / Payer ( fective 2016-Present) Name:Ever Champagne Relation to Subscriber:Self Name:Ever Champagne Payer ID:[id number] (NAIC) Group ID:[id number] Type:Not on file Address: [address] MEDICARE
== END 2025-02-21 10:06 | disposition home or self-care (01) ==
LOC: HO.HGI 08:53
PROVIDERS: PCP Internal Medicine Geriatric Medicine; Visit Provider Internal Medicine
DX: R13.10 Dysphagia, unspecified (principal); Z86.0100 Personal history of colon polyps, unspecified
CPT/HCPCS: 99204

== ENCOUNTER → 2025-02-21 09:51 | Outpatient (BNV) | payer OTHER, SELFPAY | PROVIDERS: Absent Provider Registered Nurse; PCP Internal Medicine Geriatric Medicine; Visit Provider Radiology Diagnostic Radiology | DX: M79.671 Pain in right foot (principal); M77.31 Calcaneal spur, right foot; M19.071 Primary osteoarthritis, right ankle and foot | CPT/HCPCS: 73630 ==

== ENCOUNTER 2025-06-05 07:39 | Day surgery (SDC) | payer OTHER, SELFPAY ==
--- OUTSIDE RECORDS SUMMARY | 2025-05-04 12:21 | XMS_ITS | Clinical Summary ---
Author Organization [facility] Address [address] [place] [address] Care Team Providers Care Satin Finisher Name Role Phone Unavailable Primary Care Provider [...] Zoster (Shingles) Vaccine (1 of 2) 02/02/2002 COVID-19 Vaccine (4 - 2023-2 5 season) 2024 08/12/2021, 12/06/2020, 11/15/2020 Influenza Vaccine 05/25/2025 RSV Vaccine 60 years and older and Patients (1 - 1-dose 75+ series) 02/02/2027 Hepatitis B Vaccines Aged Out No long er eligible based on patient's age to complete this topic Insurance [facility] on file [facility] MEDICARE Member Subscriber Plan / Payer ( fective 2016-Present) Name:Ever Champagne Relation to Subscriber:Self Name:Ever Champagne Payer ID:[id number] (NAIC) Group ID:[id number] Type:Not on file Address: [address] MEDICARE
--- OUTSIDE RECORDS SUMMARY | 2025-05-04 12:21 | XMS_ITS | Encounter Summary ---
Author Organization [employer] Address [address] [facility] 7t [place] [address] Care Team Providers Care Director Cardiovascular Name Role Phone Name, Oliver ROTHMAN Primary Care Provider [phone] Encounter Details Date Type Department Care Team (Late st Contact Info) Description 11/18/2023 Abstract [facility] [address] [place], [place] [phone] Name, MD Oliver [address] [place], [place] [phone] Social History Tobacco Use Types Packs/Day Years [...] filedocumented in this encounter Care Teams Director Cardiovascular Relationship Specialty Start Date End Date Name, MD Oliver [address] [place] [address] PCP - General Family Medicine 05/17/17 documented as of this encounter
--- OUTSIDE RECORDS SUMMARY | 2025-05-04 12:21 | XMS_ITS ---
Author Name [facility] Encounters Encounter Type Encounter Reason Primary Diagnosis Location Date Ambulatory Encounter for immunization [facility] 08/12/2021 Care Team Organization Name Specialty Phone Email Start Date End Da te [facility] 08/13/2021 06/12/2024 [facility] 12/06/2020 08/12/2021
--- OUTSIDE RECORDS SUMMARY | 2025-05-04 12:21 | XMS_ITS ---
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 Name Role Phone Dena Arnold Unavailable [phone] Unavailable Unavailable Unavailable [facility] Unavailable Unavailable Unavailable [phone] Reason for Referral Not Available Allergies, adverse reactions, alerts No known allergies History of medication use Medication Class Instructions Start Date End Date Diclofenac Sodium 1 % Gel APPLY 2 GRAMS TOPICALLY TO AFFECTED AREA(S) 4 TIMES A DAY 2022-03-18 No Data Available Loratadine 10 mg Tab TAKE 1 TABLET BY [facility] EVERY DAY NEEDED FOR ALLERGIES 2022-01-16 2024-04-12 [...] PRESSURE TWICE DAILY 2023-12-21 No Data Available guaiFENesin-Codeine 100/10 mg/5ML Solution [...] for 7 days. 2024-12-11 No Data Available prunelax 1 tablet as needed d aily by mouth 2025-04-09 No Data Available Problem List Problem Status Onset Date Resolved Date Synopsis H/O prostate cancer Active 2023-07-06 N/A Stabl e Surgery onlyIn remission Continue f/u care with PCP and urology Abdominal aortic aneurysm without rupture Active 2023-07-06 N/A StableContinue f /u care and monitoring with PCP Hypertension Active 2022-08-28 N/A StableRX: shana Villasenor taking medication, monitor BP routinely and Follows with PCP every 3 months Cervical myelopathyDisease of Spinal Cord Active 2023-07-08 N/A StableDenies exa cerbation recentlyMD Portal notes member does have a diagnosis that includes cervical myelopathy seen on Xray of the cervical spine 12/01/22 Other problems related to medical facilities and other health care Active 2024-04-12 N/A HYPERTENSIO N CONTINGENCY PLANLast updated: 04/09/2025[facility] Member to call for the following symptoms: BP >180/100 / Headache/ HR >100 Planned intervention: Assess for signs of end organ damage (headache, vision changes, chest pain)/ Terminal Makeup Operator on proper BP monitoring technique and reassess/ Encourage low sodium diet/ Discuss breathing exercises/ Encourage medication adherence Numbness of right hand; Chronic cervical pain Active 2023-07-06 N/A StableRX: listedROM exercises, heat therapy, monitor for safety Continue f/u with PCP Type 2 diabetes mellitus without complication Active 2023-07-06 N/A Stablenot o n pharmacological managementno recent a1c in outside care notes availableDiscussed significance of low carb diet, exercising as tolerable, and continue f/u care with PCP. Osteoarthritis Active 2022-08-28 N/A StableRX: listedPain increasing in multiple joints (hips/knees). OTC Tylenol prn pain.Has toilet riser to assist with independence toileting. Foreign body aspiration Resolved 2024-08-22 2025-04-09 h e had a piece of apple stuck in his esophagus he was given a medication to dilated his esophagus and apple was able to be swallowed, no changes to diet textures educated to chew his food more UTI symptoms Resolved 2024-12-11 2025-04-09 Reports symp toms started 4 days ago. Reports tenderness in [...] up scheduled with primary LOW on 12/15/2024. Encounters Encounters Type Facility Date of Service Diagnosis/Co mplaint Pain Assessment - NO pain present (1126F) [facility], ([place]) [place] Pain Assessment - NO pain present (1126F) [facility] ([place] Pain Assessment - NO pain present (1126F) [facility] [place] Pain Assessment - NO pain present (1126F) [facility] [place] Pain Assessment - NO pain present (1126F) [facility] [place] Pain Assessment - NO pain present (1126F) [facility] ([place] 08[place] Pain Assessment - NO pain present (1126F) [facility], ([place]) 08[place]28/20[place] Type 2 diabetes mellitus wit h other circulatory complicationsHypertension secondary to endocrine disordersUnspecified osteoarthritis, unspecified site Pain Assessment - NO pain present (1126F) [facility] Pain Assessment - NO pain present (1126F) [facility] ([place] 08[place] Estab. patient 30-39min; chronic exacerbation, 2 stable chronic or 1 acute illness add add modifier 95 for video, (do not use for phone, instead use 08222-03) [facility] ([place] 07[place]20[place] Type 2 diabetes mellitus wit hout complicationsAbdominal aortic aneurysm, without rupture, unspecifiedDisease of spinal cord, unspecifiedEssential (primary) hypertensionUnspecified osteoarthritis, unspecified sitePersonal history of malignant neoplasm of prostateAnesthesia of skinCervicalgiaOther chronic pain Estab. patient 30-39min; chronic exacerbation, 2 stable chronic or 1 acute illness add add modifier 95 for video, (do not use for phone, instead use 94399-28) [facility] ([place] 07[place] Estab. patient 30-39min; chronic exacerbation, 2 stable chronic or 1 acute illness add add modifier 95 for video, (do not use for phone, instead use 89881-99) [facility] ([place] 07[place] Estab. patient 30-39min; chronic exacerbation, 2 stable chronic or 1 acute illness add add modifier 95 for video, (do not use for phone, instead use 85095-01) [facility] ([place] 07[place] Estab. patient 30-39min; chronic exacerbation, 2 stable chronic or 1 acute illness add add modifier 95 for video, (do not use for phone, instead use 02601-40) [facility] ([place] 07[place] Estab. patient 30-39min; chronic exacerbation, 2 stable chronic or 1 acute illness add add modifier 95 for video, (do not use for phone, instead use 13759-70) [facility] ([place] 07[place]20[place] Estab. patient 30-39min; chronic exacerbation, 2 stable chronic or 1 acute illness add add modifier 95 for video, (do not use for phone, instead use 08212-52) [facility], ([place] 07[place]06/20[place] Estab. patient 30-39min; chronic exacerbation, 2 stable chronic or 1 acute illness add add modifier 95 for video, (do not use for phone, instead use 60561-73) [facility], ([place] 07/06/20[place] Estab. patient 30-39min; chronic exacerbation, 2 stable chronic or 1 acute illness add add modifier 95 for video, (do not use for phone, instead use 26294-10) [facility], ([place]) 07[place]06/20[place] Estab. patient 30-39min; chronic exacerbation, 2 stable chronic or 1 acute illness add add modifier 95 for video, (do not use for phone, instead use 84798-22) [facility], ([place] 07[place]/2023 Unlisted special service; to be used for medical record reviews and reporting CPTII codes (1111F, etc) [facility] ([place] 03/17/2024 Other specified health statu s Unlisted special service; to be used for medical record reviews and reporting CPTII codes (1111F, etc) [facility] ([place] 03/17/20[place] Unlisted special service; to be used for medical record reviews and reporting CPTII codes (1111F, etc) [facility] ([place] 03[place]17/20[place] Estab. patient 30-39min; chronic exacerbation, 2 stable chronic or 1 acute illness add add modifier 95 for video, (do not use for phone, instead use 17393-67) [facility] [place] Essential (primary) hypertensionUnspecified osteoarthritis, [...] (do not use for phone, instead use 56082-43) [facility] 04[place] Estab. patient 30-39min; chronic exacerbation, 2 stable chronic or 1 acute illness add add modifier 95 for video, (do not use for phone, instead use 86067-28) [facility] 04[place] Estab. patient 30-39min; chronic exacerbation, 2 stable chronic or 1 acute illness add add modifier 95 for video, (do not use for phone, instead use 01696-21) [facility] [place] 04[place] Estab. patient 30-39min; chronic exacerbation, 2 stable chronic or 1 acute illness add add modifier 95 for video, (do not use for phone, instead use 95008-87) [facility] ([place] 04[place]12/[place] Estab. patient 30-39min; chronic exacerbation, 2 stable chronic or 1 acute illness add add modifier 95 for video, (do not use for phone, instead use 46198-31) [facility], ([place] 04[place]12/[place] Estab. patient 30-39min; chronic exacerbation, 2 stable chronic or 1 acute illness add add modifier 95 for video, (do not use for phone, instead use 09183-45) [facility] ([place] 04[place] Estab. patient 30-39min; chronic exacerbation, 2 stable chronic or 1 acute illness add add modifier 95 for video, (do not use for phone, instead use 05570-27) [facility] [place] 04[place]12/[place] Estab. patient 30-39min; chronic exacerbation, 2 stable chronic or 1 acute illness add add modifier 95 for video, (do not use for phone, instead use 89297-63) [facility] Estab. patient 30-39min; chronic exacerbation, 2 stable chronic or 1 acute illness add add modifier 95 for video, (do not use for phone, instead use 44525-74) [facility] No Data Available [facility] [place] Type 2 diabetes mellitus wit hout complicationsEssential (primary) hypertensionUnsp FB in resp tract, part unsp causing oth injury, sequela No Data Available [facility] [place] Estab. patient 10-29min; 1 minor problem; add add modifier 95 for video, modifier 93 for phone [facility] [place]/2024 Unspecified symptoms and sig ns involving the genitourinary system Estab. patient 10-29min; 1 minor problem; add add modifier 95 for video, modifier 93 for phone [facility] [place] Estab. patient 20-29min; 1 stable chronic or 2 minor; add add modifier 95 for video, modifier 93 for phone [facility] [place] 04[place]/2025 Unspecified osteoarthritis, unspecified siteEssential (primary) hypertensionType 2 diabetes mellitus without complicationsPersonal history of malignant neoplasm of prostateAbdominal aortic aneurysm, without rupture, unspecifiedAnesthesia of skinCervicalgiaOther chronic painDisease of spinal cord, unspecifiedOther problems related to medical facilities and other health care Estab. patient 20-29min; 1 stable chronic or 2 minor; add add modifier 95 for video, modifier 93 for phone [facility] Estab. patient 20-29min; 1 stable chronic or 2 minor; add add modifier 95 for video, modifier 93 for phone [facility] [place] 04/[place]/20[place] Estab. patient 20-29min; 1 stable chronic or 2 minor; add add modifier 95 for video, modifier 93 for phone [facility] [place] 04[place]/20[place] Estab. patient 20-29min; 1 stable chronic or 2 minor; add add modifier 95 for video, modifier 93 for phone [facility] [place] 04[place]20[place] Estab. patient 20-29min; 1 stable chronic or 2 minor; add add modifier 95 for video, modifier 93 for phone [facility] [place] 04[place]20[place] Estab. patient 20-29min; 1 stable chronic or 2 minor; add add modifier 95 for video, modifier 93 for phone [facility] [place] 04/[place]/20[place] Estab. patient 20-29min; 1 stable chronic or 2 minor; add add modifier 95 for video, modifier 93 for phone [facility] [place] 04/[place]/20[place] Estab. patient 20-29min; 1 stable chronic or 2 minor; add add modifier 95 for video, modifier 93 for phone [facility] [place] Estab. patient 20-29min; 1 stable chronic or 2 minor; add add modifier 95 for video, modifier 93 for phone [facility] [place] 04/[place]/2025 Vital Signs Date of Collection Vitals 2022-08-28 [...] - 27.57 kg/m2Pain Scale - 0.0 {score} 2025-04-09 12:03:16 Height - 170.18 cmWe ight - 78.02 kgBody Mass Index (BMI) - 26.94 kg/m2BP Diastolic - 74.0 mm[Hg]BP Systolic - 124.0 mm[Hg] Social History Social History Social History Observation Description Effec tive Time Current Smoking Status Former smoker 2025-04-24 1 Sex Male History of Procedures Procedures Service [...] (do not use for phone, instead use 34501-45) 05779 2022-08-28 No Data Available No Data Availa ble SBP 130-139 (3075F) 3075F 2022-08-28 No Data Availabl e No Data Available DBP <80 (3078F) 3078F 2022-08-28 No Data Available No Data Available Estab. patient 30-39min; chronic exacerbation, 2 stable chronic or 1 acute illness add add modifier 95 for video, (do not use for phone, instead use 37460-72) 77911 2023-07-06 No Data Available No Data Availa [...] discussed and documented in the medical record beneficiary/patient did not wish to or was [...] reviews and reporting CPTII codes (1111F, etc) 27243 2024-03-17 No Data Available No Data Availa ble SBP 130-139 (3075F) 3075F 2024-03-17 No Data Availabl e No Data Available DBP 80-89 (3079F) 3079F 2024-03-17 No Data Available No Data Available Estab. patient 30-39min; chronic exacerbation, 2 stable chronic or 1 acute illness add add modifier 95 for video, (do not use for phone, instead use 99808-37) 67009 2024-04-12 No Data Available No Data Availa [...] ble Advance care planning discussed and documented advance care plan or surrogate decision-maker was documented in the medical record. (1123F) 1123F 2024-04-12 No Data Available No Data Availa ble SBP 130-139 (3075F) 3075F 2024-04-12 No Data Availabl e No Data Available DBP 80-89 (3079F) 3079F 2024-04-12 No Data Available No Data Available Functional Status Assessed (1170F) 1170F 2024-04-12 No Data Available No Data Avail able No Data Available 60032 2024-08-22 No Data Available No Data Available Medication List Documented (1159F) 1159F 2024-08-22 No Data Available No Data Starr ilable Estab. patient 10-29min; 1 minor problem; add add modifier 95 for video, modifier 93 for phone 34346 2024-12-11 No Data Available No Data Availa ble Pain Assessment - NO pain present (1126F) 1126F 2024-12-11 No Data Available No Data A vailable Estab. patient 20-29min; 1 stable chronic or 2 minor; add add modifier 95 for video, modifier 93 for phone 03034 2025-04-09 No Data Available No Data Availa ble Medication Review by prescribing provider or pharmacist documented (1160F) 1160F 2025-04-09 No Data Available No Data Starr ilable Medication List Documented (1159F) 1159F 2025-04-09 No Data Available No Data Starr ilable Functional Status Assessed (1170F) 1170F 2025-04-09 No Data Available No Data Avail able Advance Care Directive Advance care planning discussion documented in the medical record (1158F) 1158F 2025-04-09 No Data Available No Data Availa ble Advance care planning discussed and documented advance care plan or surrogate decision-maker was documented in the medical record. (1123F) 1123F 2025-04-09 No Data Available No Data Availa ble Pain Assessment - NO pain present (1126F) 1126F 2025-04-09 No Data Available No Data A vailable BMI obtained (3008F) 3008F 2025-04-09 No Data Availab le No Data Available SBP < 130 (3074F) 3074F 2025-04-09 No Data Available No Data Available DBP <80 (3078F) 3078F 2025-04-09 No Data Available No Data Available Functional Status Functional Category Effective Dates Ambulates with cane intermit tently . Requires moderate to total assistance with cooking and cleaning. Minimum assistance with bathing, dressing, and toileting. 2022-09-01 Cognition Status: Oriented to Person, Pl paul and Time 2025-04-09 ADL: Bathing Independent , D ressing Independent , Eating Independent , Ambulation Independent , Transferring Independent and Toileting Independent 2025-04-09 IADL: Medication Needs Whit tance , Meal Prep Needs Assistance , Shopping Needs Assistance , Driving or Public Transport Needs Assistance , Housework Needs Assistance and Finances Needs Assistance 2025-04-09 How many falls within the last 6 months? Denies. 2025-04-09 Near falls within the last 6 months? no 2025-04-09 Do you feel unsteady on your feet? No 20 18-04-16 Do you worry about falling? No 2025-03-25 6 DME used with ambulation: cane. Social Supports - # of Inter actions with Friends/Family in a typical week: FINISHER SCREWDOWN daily. 2025-04-09 Mental Status Status Date Alert and oriented [...] complicationForeign body aspiration 2024-12-11 13:01:13 UTI symptoms 2025-04-09 12:03:16 Other problems relat ed to medical facilities and other health careHypertensionOsteoarthritisType 2 diabetes mellitus without complicationH/O prostate cancerAbdominal aortic aneurysm without ruptureNumbness of right hand; Chronic cervical painCervical myelopathyDisease of Spinal Cord Plan of Care Date of Service Plans [...] modifier 95Continue to see PCP. Follow-up with [facility] as needed for any acute or disease education needs that may arise.LosartanDM2 diet controlled, unknown [id number] with PCP every 3 monthsPain increasing in [...] modifier 95Advance care planning discussed and documented advance care plan or surrogate decision-maker was documented in the medical record. (1123F)Pain Assessment - Pain Documented (1125F)Advance care planning discussed and documented in the medical record beneficiary/patient did not wish to or was [...] Documented (1125F)Advance care planning discussed and documented advance care plan or surrogate decision-maker was [...] low abd pain. [facility] Follow-up with Gerardo as [...] for phoneContinue to see PCP. Follow-up with [facility] as needed for any acute or disease [...] up scheduled with primary LOW on 12/15/2024. 2025-04-09 12:03:16 Functional Status As sessed (1170F)Advance Care Directive Advance care planning discussion documented in the medical record (1158F)Advance care planning discussed and documented advance care plan or surrogate decision-maker was documented in the medical record. (1123F)SBP < 130 (3074F)DBP <80 (3078F)Estab. patient 20-29min; 1 stable chronic or 2 minor; add add modifier 95 for video, modifier 93 for phoneMedication List Documented (1159F)Medication Review by prescribing provider or pharmacist documented (1160F)Pain Assessment - NO pain present (1126F)BMI obtained (3008F)Continue to see PCP. Follow-up with [facility] as needed for any acute or disease education needs that may arise.HYPERTENSION CONTINGENCY PLANLast updated: 04/09/2025HTN Member to call for the following symptoms: BP >180/100 / Headache/ HR >100 Planned intervention: Assess for signs of end organ damage (headache, vision changes, chest pain)/ Terminal Makeup Operator on proper BP monitoring technique and reassess/ Encourage low sodium diet/ Discuss breathing exercises/ Encourage medication adherenceStableRX: listedContinue taking medication, monitor BP routinely and Follows with PCP every 3 monthsStableRX: listedPain increasing in multiple joints (hips/knees). OTC Tylenol prn pain.Has toilet riser to assist with independence toileting.Stablenot on pharmacological managementno recent a1c in outside care notes availableDiscussed significance of low carb diet, exercising as tolerable, and continue f/u care with PCP.Stable Surgery onlyIn remission Continue f/u care with PCP and urologyStableContinue f/u care and monitoring with PCPStableRX: listedROM exercises, heat therapy, monitor for safety Continue f/u with PCPStableDenies exacerbation recentlyMD Portal notes member does have a diagnosis that includes cervical myelopathy seen on Xray of the cervical spine 12/01/22 Goals Date Goal 2022-08-28 Remember to monitor your blood pressure regularly. 2022-08-28 Call me if you feel sick or ill, notice changes in behavior, or have any concerns. 2022-08-28 Keep it up working o n ambulating daily. 2023-07-06 Remember to contact EMS if developing emergent symptoms. 2023-07-06 Contact us if naomie carrizales worsening numbness, HHS, DKA, urgent HTN s/sx, [...] up scheduled with primary LOW on 12/15/2024. 2025-04-09 Remember to adhere t o dietary and lifestyle interventions as discussed. 2025-04-09 Contact us if naomie rasmusseng health-related concerns. 2025-04-09 Continue taking medi cations as prescribed and f/u care and monitoring with PCP. Health Concerns Date Concern 2025-04-09 Visit completed denisa monterroso audio/video.Patient/Guardian agreed to visit via telehealth. Today, patient has chief complaint of: follow up care and comprehensive review.Reviewed Allergies, Medications, Active Medical conditions, past medical/surgical history, Social history. 2025-04-09 HCP: yes (Michelle bell daughter.) ACP: yes. Full code. 2025-04-09 Most recent hospital stay(s) or ER visit(s) and precipitating factors: denies in the last month. 2025-04-09 Informed verbal cons ent was obtained from this patient to communicate and provide care using virtual and other telecommunications tools. This patient has been explained the risks, if any, related to the encounter. I explained that care provided through video or audio communication cannot replace the need for physical examination or an in-person visit for some disorders or urgent problems. 2025-04-09 HCP: yes (Michelle bell daughter.) ACP: yes. Full code.
--- NOTE | 2025-06-04 10:22 | P.CONAN_ITS ---
Documented by User: Gloria Rider NP 06/04/25 10:23 HPI - Anesthesia Eval Consult details Narrative: 75yo M for Upper Endoscopy and Colonoscopy [facility] Active Problems Active Problems: All Active Problems Personal history of colonic polyps (Acute) Dysphagia (Acute) Multiple pulmonary nodules (Acute) Asthma (Acute) History of tuberculosis (Acute) Past Medical History Medical History History of tuberculosis Multiple pulmonary nodules Asthma Social History Social History Are you a primary day care worker to a significant other at home: No Do you presently have visiting nurse or other home services: No Patient Tobacco Use Status: Former Tobacco user Years Smoked: quit about 45+ years ago Use of substances other than those prescribed or required for medical reasons: No Have you been hit, kicked, punched, or otherwise hurt by someone within the past year? If so, by whom?: No Are you DNR?: No Advance Directives: No Advance Directives Information Provided: Yes Poor oral hygiene: No Meds Allergies Allergy/AdvReac Type Severity Reaction Status Date / Time No Known Allergies Allergy Verified 06/05/25 08:50 Home Medications ?Medication ?Instructions ?Recorded ?Confirmed ?Last Taken ?Type acetaminophen 500 mg tablet mg PO 03/15/24 Unknown Hi story fluticasone propionate 50 intranasal 03/15/24 Unknown History mcg/actuation nasal spray,suspension gabapentin 300 mg capsule 300 mg PO BEDTIME 03/15/24 0 06/05/25 Unknown History imipramine HCl 50 mg tablet 50 mg PO BEDTIME 03/15/24 06/05/25 Unknown History losartan 25 mg tablet 25 mg PO DAILY 03/15/2405/25 Unknown History blood pressure test kit-large #1 ea 02/21/25 Unknown History Exam Pertinent Lab Results Pertinent Lab Results: Laboratory Tests 12/04/24 15:56 Sodium 141 Potassium 3.8 Chloride 108 Carbon Dioxide 28 BUN 22 H Creatinine 1.07 Narrative Narrative: CT chest wo IV con 2023 IMPRESSION: 1. Mild centrilobular emphysema. Stable foci of parenchymal scarring right middle and upper lobes. Stable innumerable calcified granulomas both lungs. 2. Stable mild right lung volume loss, inferior pleural thickening and calcification. 3. Stable pulmonary nodules measuring up to 6 mm right lower lobe, without new or enlarging suspicious nodule. 4. Diffuse small airway thickening and mild bronchiectasis, consistent with chronic airways disease. 5. No additional acute pulmonary abnormality. 6. Small type I hiatus hernia GE junction. 7. Additional ancillary findings as discussed. Assessment and Plan Assessment Anesthesia Assessment: Chart Reviewed Documented by User: Morales Wilson MD 06/05/25 09:19 [facility] Past Medical History Medical History History of tuberculosis Multiple pulmonary nodules Asthma Family History Family history of problems with anesthesia: No Social History Social History Are you a primary day care worker to a significant other at home: No Do you presently have visiting nurse or other home services: No Patient Tobacco Use Status: Former Tobacco user Years Smoked: quit about 45+ years ago Use of substances other than those prescribed or required for medical reasons: No Have you been hit, kicked, punched, or otherwise hurt by someone within the past year? If so, by whom?: No Are you DNR?: No Advance Directives: No Advance Directives Information Provided: Yes Poor oral hygiene: No Meds Allergies Allergy/AdvReac Type Severity Reaction Status Date / Time No Known Allergies Allergy Verified 06/05/25 08:50 Home Medications ?Medication ?Instructions ?Recorded ?Confirmed ?Last Taken ?Type acetaminophen 500 mg tablet mg PO 03/15/24 Unknown Hi story fluticasone propionate 50 intranasal 03/15/24 Unknown History mcg/actuation nasal spray,suspension gabapentin 300 mg capsule 300 mg PO BEDTIME 03/15/24 0 06/05/25 Unknown History imipramine HCl 50 mg tablet 50 mg PO BEDTIME 03/15/24 06/05/25 Unknown History losartan 25 mg tablet 25 mg PO DAILY 03/15/2405/25 Unknown History blood pressure test kit-large #1 ea 02/21/25 Unknown History Exam Airway Mallampati Class: II TM Dist: >3cm Neck ROM: Full Loose/Missing/Broken Teeth: No (rrr) Heart: rrr Lungs: cta Assessment and Plan Assessment Anesthesia Assessment: Anesthesia Plan Discussed Final Anesthetic Review Family History of Problems with Anesthesia: No NPO: Yes ASA Class: II Final Preanesthetic Review: No Changes in Pt Med Stat, Meds/Allgs Chart Reviewed, Consent Obtained/Reviewed and Anes Risks/Benef Reviewed Patient Risk: Low Procedure Risk: Low Anesthetic Plan Anesthetic Plan: MAC: Disposition: Standard PACU
[2025-06-05 08:58] VITALS: BP 151/81; PULSE 70; RESP 14; TEMP 36.6; O2SAT 100; BMI 25.1
[2025-06-05] MEDS: Lactated Ringers 1,000 ML 100 ML IVCONT (09:02)
--- NOTE | 2025-06-05 09:15 | MHC.SHP ---
Pre-Procedural Eval Section A - 24 Hr Update-Section A only Date of Service: 06/05/25 Section B - Complete if H&P > 30 days Chief Complaint: polyp of colon,dysphagia Details of Present Illness: prostate ca, HTN Present Medications: see Short Stay Collaborative assessment Allergies: Allergies Allergy/AdvReac Type Severity Reaction Status Date / Time No Known Allergies Allergy Verified 06/05/25 08:50 Review of Systems Review of Systems Comment: Ten point ROS negative Exam Exam Comment: Gen appear: No acute distress HEENT: no icterus Chest: No overt resp distress Abd: soft, nontender, nondistended Psych: Stable affect, answering questions appropriately Neuro: A/Ox3 noted to move all extremities spontaneously Ext: no peripheral edema Plan Diagnosis/Plan: Unchanged I have reviewed the history and physical and performed a pertinent physical examination on my patient. No changes have occurred unless specified. Time Spent With Patient Time: Total time managing care of this patient today ____ minutes.
[2025-06-05 11:28] VITALS: BP 98/65; PULSE 79; RESP 16; TEMP 36.6; O2SAT 95
[2025-06-05 11:43] VITALS: BP 105/67; PULSE 67; RESP 18; TEMP 36.6; O2SAT 96
[2025-06-05 11:58] VITALS: BP 118/66; PULSE 65; RESP 18; TEMP 36.7; O2SAT 96
--- NOTE | 2025-06-05 12:11 | P.OPN-COLO_ITS ---
Colonoscopy Operative Note Operative Note Date of Service: 06/05/25 Narrative: Procedure: Upper endoscopy and colonoscopy Indication: Dysphagia, hx of polyps Endoscopist: Keya Blue MD Anesthesia Provider: Dr Wilson Anesthesia type: MAC Instrument: [id number]-[id number] and [id number]-[id number] EGD Procedure:?? The procedure, indications, preparation and potential complications were reviewed with the patient, who indicated understanding and gave written informed consent to proceed. The endoscope was introduced through the mouth, and advanced to the 2nd part of the duodenum. The mucosa was carefully examined on slow withdrawal of the endoscope. The patient tolerated the procedure well. There were no immediate complications.? EGD Findings:? * Esophagus:? Normal esophageal mucosa was noted. The Z-line was at 40 cm and displaced by a hiatal hernia with the diaphragmatic pinch at 42 cm.. Cold forceps biopsies were taken from middle and lower esophagus to rule out eosinophilic esophagitis. * Stomach:?Erythema and erosions in the gastric body were noted. A few whitish appearing polyps were also noted in the cardia and fundus of the stomach. Cold forceps biopsies were taken for histology. Retroflexion was from the cardia demonstrating Hill grade 2 hiatal hernia. Cold forceps biopsies were taken from the gastric body and antrum for histology. * Duodenum:? Normal duodenal mucosa. Cold forceps biopsies were taken from the duodenal bulb and 2nd portion of the duodenum to rule out celiac sprue. Colonoscopy Procedure:? The patient was then turned for the colonoscopy. A digital rectal exam was performed which was normal.? A distal attachment cap was affixed to the tip of the scope and the colonoscope was then inserted through the anus and advanced through the colon and advanced to the cecum at 75 cm and terminal ileum.? Appendiceal orifice and ileocecal valve were identified. Mucosa was carefully examined under high definition white light as the instrument was slowly withdrawn in a retrograde panoramic fashion. Retroflexion was performed in rectum. The procedure was not difficult. The quality of the prep was BBPS: 3+2+3 = adequate Withdrawal time 14 minutes Limitations: No limitations Findings: Mucosa: Small single ulcer was noted in the sigmoid colon. Cold forceps biopsies were taken for histology. A previous tattoo was noted in descending colon without any residual polyp around it. Protruding lesions: * One sessile polyp of size 2 mm noted in the transverse colon. Cold forceps polypectomy was performed. The polyp was completely removed and retrieved. * Two sessile polyps of size 2-5 mm were noted in descending colon. Cold snare polypectomy was performed. The polyps were completely removed and retrieved * Large internal hemorrhoids without stigmata of recent bleeding. Impression: 1. Normal esophagus (biopsy) 2. Gastritis (biopsy) 3. Gastric polyps (biopsy) 4. Hiatal hernia 5. Normal duodenum (biopsy) 6. Previous tattoo in descending colon 7. Sigmoid colon ulcer (biopsy) 8. Total of 3 polyps removed 9. Diverticulosis 10. Hemorrhoids Recommendations:?? * Follow-up path results * Avoid NSAIDs. Start omeprazole 40 mg once daily. * H Pylori treatment if biopsies + * Repeat colonoscopy for polyp surveillance in 3 years if all polyps are adenoma, otherwise 7 years.
== END 2025-06-05 12:31 | disposition home or self-care (01) ==
PROVIDERS: PCP Internal Medicine Geriatric Medicine; Visit Provider Internal Medicine
PROC: (CPT 45385; principal; 2025-06-05 09:50)
DX: Z12.11 Encounter for screening for malignant neoplasm of colon (principal); D12.3 Benign neoplasm of transverse colon; D12.4 Benign neoplasm of descending colon; K63.3 Ulcer of intestine; K57.30 Diverticulosis of large intestine without perforation or abscess without bleeding; K64.8 Other hemorrhoids; Z86.0101 Personal history of adenomatous and serrated colon polyps; R13.10 Dysphagia, unspecified; K31.7 Polyp of stomach and duodenum; D13.2 Benign neoplasm of duodenum; K29.60 Other gastritis without bleeding; K44.9 Diaphragmatic hernia without obstruction or gangrene; K22.9 Disease of esophagus, unspecified; I10 Essential (primary) hypertension
CPT/HCPCS: 45385; 45380; 43239; 88305; 88313; 88342; J2003; J2704; J3010

== ENCOUNTER → 2025-06-05 07:39 | Outpatient (BNV) | payer OTHER, SELFPAY | PROVIDERS: PCP Internal Medicine Geriatric Medicine; Visit Provider Internal Medicine | DX: Z12.11 Encounter for screening for malignant neoplasm of colon (principal); Z86.0100 Personal history of colon polyps, unspecified; K63.3 Ulcer of intestine; D12.3 Benign neoplasm of transverse colon; D12.4 Benign neoplasm of descending colon; K57.90 Diverticulosis of intestine, part unspecified, without perforation or abscess without bleeding; R13.10 Dysphagia, unspecified; K29.70 Gastritis, unspecified, without bleeding; K31.7 Polyp of stomach and duodenum; K64.8 Other hemorrhoids | CPT/HCPCS: 43239; 45380; 45385 ==

== ENCOUNTER → 2025-06-05 15:52 | Outpatient (BNV) | payer OTHER, SELFPAY | PROVIDERS: Emergency Provider Emergency Medicine; PCP Internal Medicine Geriatric Medicine; Visit Provider Internal Medicine Cardiovascular Disease | DX: I49.1 Atrial premature depolarization (principal) | CPT/HCPCS: 93010 ==

== ENCOUNTER 2025-06-05 15:54 | Emergency (ER) | payer OTHER, SELFPAY ==
--- NOTE | 2025-06-05 | ECG_ITS ---
Test Reason : cp Blood Pressure : */* mmHG Vent. Rate : 81 BPM Atrial Rate : 81 BPM P-R Int : 120 ms QRS Dur : 96 ms QT Int : 376 ms P-R-T Axes : 23 21 55 degrees QTcB Int : 436 ms Sinus rhythm with Premature atrial complexes with Aberrant conduction Otherwise normal ECG When compared with ECG of 13-Aug-2024 16:20, Aberrant conduction is now Present Referred By: Generic ED Physician Electronically Signed By: Fabián Medrano
--- NOTE | ~2025-06-05 | XR_ITS ---
EXAMINATION: XR CHEST 1 VIEW HISTORY: chest pain, vomiting, post endoscopy COMPARISON: Comparison is made with the prior examination dated 12/11/2023. FINDINGS: A single AP portable view of the chest performed at 4:55 PM is submitted. Again seen is scarring at the right lung base. The left lung is clear. There is no pleural effusion, pneumothorax, or pulmonary vascular congestion. The heart is normal in size given technique. There is degenerative disc disease of the spine. XR/XR chest 1V IMPRESSION: No acute cardiopulmonary abnormality. Electronically signed by: Tyrone Amaro MD 06/06/2025 07:28 AM EDT RP
--- NOTE | ~2025-06-05 | CT_ITS ---
CLINICAL HISTORY: vomiting post colonscopy CT abdomen and pelvis with contrast Comparison: CT/SC/SR - CT CHEST WITHOUT IV CONTRAST - 08/08/24 08:53 EDT Findings: Scarring in the right lower lobe. Small hiatal hernia. Liver, spleen, pancreas, gallbladder, and adrenal glands are within normal limits. No hydronephrosis. Symmetric contrast enhancement of the kidneys. Left parapelvic cysts. Colonic diverticulosis without acute inflammation. No bowel obstruction, pneumatosis or pneumoperitoneum. Normal appendix. Pelvic contents unremarkable. Degenerative changes of the spine. IMPRESSION: 1. No acute intraabdominal or pelvic pathology. This document has been electronically signed by: Eugenio Mcadams MD on 06/05/2025 18:47:59
--- NOTE | ~2025-06-05 | CT_ITS ---
CLINICAL HISTORY: central chest pain vomiting s p endo colonoscope CT chest with contrast Comparison: CT/MO/SR - CT CHEST WITHOUT IV CONTRAST - 08/08/24 08:53 EDT Findings: The heart is normal size. No pericardial effusion. Small hiatal hernia. Visualized thyroid gland is within normal limits. No enlarged mediastinal or hilar lymph nodes. Stable scarring and volume loss in the right lung. Scattered calcified granulomas and small (<6 mm) nodules, similar to prior. No consolidation, pleural effusion or pneumothorax. The visualized upper abdomen is unremarkable. No acute fractures. IMPRESSION: 1. No acute intrathoracic findings. This document has been electronically signed by: Eugenio Mcadams MD on 06/05/2025 18:38:28
[2025-06-05 16:00] VITALS: BP 176/84; PULSE 73; RESP 18; TEMP 36.6; O2SAT 97; BMI 25.2
--- NOTE | 2025-06-05 16:01 | ED.GENADULT ---
HPI - General Adult General Chief complaint: Chest Pain Stated complaint: chest pain/vomiting-colonoscopy today Time Seen by Provider: 06/05/25 16:20 History of Present Illness ED Provider: Ruben Bourgeois MD HPI narrative: 75-year-old male had colonoscopy earlier today started eating soup and having chest pain vomiting.3p onset after eating soup and cinnamon roll. central chest pain, no dyspnea, sweating. was HTN at home systolic 180s. No neck/back abd pain. No GI bleed. Related Data Home Medications ?Medication ?Instructions ?Recorded ?Confirmed acetaminophen 500 mg tablet mg PO 03/15/24 fluticasone propionate 50 intranasal 03/15/24 mcg/actuation nasal spray,suspension gabapentin 300 mg capsule 300 mg PO BEDTIME 03/15/24 06/05/25 imipramine HCl 50 mg tablet 50 mg PO BEDTIME 03/15/24 06/05/25 losartan 25 mg tablet 25 mg PO DAILY 03/15/24 06/05/25 blood pressure test kit-large #1 ea 02/21/25 Previous Rx's ?Medication ?Instructions ?Recorded omeprazole 40 mg capsule,delayed 40 mg PO DAILY #90 caps 06/05/25 release ondansetron 4 mg disintegrating 4 mg PO Q8H PRN nausea and 06/05/25 tablet vomiting #7 tabs Allergies Allergy/AdvReac Type Severity Reaction Status Date / Time No Known Allergies Allergy Verified 06/05/25 16:01 [facility] Past Medical History Medical History History of tuberculosis Multiple pulmonary nodules Asthma Social History Social History Are you a primary career manager to a significant other at home: No Do you presently have visiting nurse or other home services: No Patient Tobacco Use Status: Former Tobacco user Years Smoked: quit about 45+ years ago Physical Exam ED Exam Exam: EXAM: Gen: Alert, awake, well appearing, well hydrated. Head: Atraumatic Eyes: Anicteric, Normal conjunctiva. ENT: Moist mucosa, no pallor. ? Neck: Supple. Skin: ?No observable rash or bruising on exposed or examined skin Respiratory: Breathing comfortably, No distress.Clear to auscultation bilaterally, symmetric chest expansion, No wheeze, rales, ronchi. Cardiovascular: Regular rate and rhythm. No murmurs or rub. Well perfused periphery, warm extremities. No edema. ? Abdominal: No focal tenderness. Soft, no objective distension. No palpable masses or obvious organomegaly. ?No guarding, no rebound tenderness or other peritoneal findings. : No flank tenderness. Neuro: Alert. Gross movement of all extremities intact. ? Psych: Calm. Cooperative. MSK: No grossly visible deformity. Vital signs: See flowsheet Vital Signs: Vital Signs - 24 hr 06/05/25 16:00 06/05/25 18:36 06/05/25 19:07 Temperature 97.9 F 97.9 F Pulse Rate 73 68 67 Respiratory Rate 18 16 16 Blood Pressure 176/84 H 138/76 126/71 Pulse Oximetry 97 98 97 Oxygen Delivery Method Room Air Room Air Room Air 06/05/25 19:26 Temperature 97.9 F Pulse Rate 67 Respiratory Rate 16 Blood Pressure 126/71 Pulse Oximetry 97 Oxygen Delivery Method Room Air BMI result Body Mass Index 25.2 Course Course Course Narrative: Rapid medical examination performed in triage by Beckie Townsend PA-C. Patient is a 75 year old assigned male at presenting to the emergency department with nausea, vomiting, and chest pain. 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 Labs ordered. Patient placed back in the waiting room pending room availability and results. Medications Administered Discontinued Medications Generic Name Dose Route Start Last Admin Trade Name Freq PRN Reason Stop Dose Admin Droperidol 1.25 mg 06/05/25 16:52 06/05/25 17:11 Droperidol 5 Mg/2 Ml Vial IVPUSH 06/05/25 16:53 1.25 mg ONCE ONE Administration Sodium Chloride 500 mls @ 50 mls/hr 06/05/25 16:45 06/05/25 17:15 Ns IV 06/06/25 02:44 50 mls/hr .Q10H MARISSA Administration Iohexol 100 ml 06/05/25 17:52 06/05/25 17:53 Iohexol 350 Mg/Ml 100 Ml Infus..Btl IV 06/05/25 17:53 85 ml ONCE ONE Administration Midazolam HCl 0.5 mg 06/05/25 16:52 06/05/25 17:12 Midazolam Hcl 2 Mg/2 Ml Vial IVPUSH 06/05/25 16:53 0.5 mg ONCE ONE Administration Ondansetron HCl 4 mg 06/05/25 16:12 06/05/25 16:21 Ondansetron Hcl 4 Mg/2 Ml Vial IVPUSH 06/05/25 16:13 4 mg ONCE ONE Administration Pantoprazole Sodium 40 mg 06/05/25 16:45 06/05/25 17:10 Pantoprazole Sodium 40 Mg/10 Ml Vial IVPUSH 06/05/25 16:46 40 mg ONCE ONE Administration Medical Decision Making Medical Decision Making MDM Narrative: Medical Decision Makin-year-old male who presents several hours after upper and lower endoscopy which was uncomplicated. The patient had some soup at around 15:00 develop a central chest pain without radiation. Still present but mostly resolved very low but he began vomiting upon arrival in the ED. Nonbloody nonbilious. No rectal bleeding no abdominal pain. Denies urinary symptoms. No known or previously diagnosed coronary disease aortic disease or heart disease per him and the at the bedside. Reassess before discharge with improvement in nausea Preliminary Favored Differential Diagnosis: Anesthesia adverse effect, ACS less likely, mediastinitis, pneumothorax, esophageal rupture among additional considered etiologies Testing Interpreted Independently: Sinus rhythm normal, normal intervals and axis no ischemia Radiology or Lab testing Results Reviewed: Labs reassuring, CTsneg for acute pathology Consults: Not Applicable Independent Historians/External Chart Reviews: Not Applicable Social Determinants of Health Impacting MDM/Planning: Not Applicable Lab Data 06/05/25 16:08 06/05/25 16:08 Labs: Lab Results 06/05/25 06/05/25 Range/Units 16:08 18:05 WBC 7.0 (4.8-10.8) X10*3/uL RBC 5.18 (4.60-5.80) X10*6/uL Hgb 15.7 (14.0-18.0) g/dl Hct 44.6 (42.0-52.0) % MCV 86.1 (80.0-98.0) fL MCH 30.3 (27.0-33.0) pg MCHC 35.2 (31.0-36.0) g/dl RDW 12.6 (11.0-16.0) % Plt Count 167 (160-400) X10*3/uL MPV 11.5 (9.4-12.4) fL Immature Gran % (Auto) 0.1 (0.0-0.4) % Neut % (Auto) 50.7 (45-73) % Lymph % (Auto) 37.2 (20-40) % Peach % (Auto) 10.2 (2-11) % Eos % (Auto) 1.1 (0-4) % Baso % (Auto) 0.7 (0-2) % Lymph # (Auto) 2.6 (1.2-4.9) X10*3/uL Peach # (Auto) 0.7 (0.1-1.2) X10*3/uL Eos # (Auto) 0.1 (0.0-0.4) X10*3/uL Baso # (Auto) 0.1 (0.0-0.2) X10*3/uL Abs Immat Gran (auto) 0.01 (0.00-0.03) X10*3/uL Absolute Neuts (auto) 3.6 (2.0-8.3) x10*3/uL Absolute Nucleated RBC 0.000 (0.0-0.012) X10*3/uL Nucleated RBC % (auto) 0.0 (0.0-0.2) /100WBC Sodium 139 (135-145) mmol/L Potassium 3.7 (3.3-5.1) mmol/L Chloride 109 H (96-108) mmol/L Carbon Dioxide 21 L (22-29) mmol/L Anion Gap 13 (12-20) BUN 16 (9-16) mg/dL Creatinine 1.02 (0.5-1.4) mg/dL Estim Creat Clear Calc 62.4 Estimated GFR > 60 Random Glucose 136 H (60-115) mg/dL Calcium 8.5 D (8.4-10.2) mg/dL Magnesium 1.9 (1.6-2.6) mg/dL Total Bilirubin 0.9 (0.0-1.0) mg/dL AST 31 (5-37) U/L ALT 14 (0-40) U/L Alkaline Phosphatase 64 (39-117) U/L Troponin I High Sens 2.7 < 2.7 (<3.5-35.0) ng/L Total Protein 6.9 (6.5-8.0) g/dL Albumin 3.8 (3.5-5.0) g/dL Influenza Type A (PCR) NEGATIVE (Negative) Influenza Type B (PCR) NEGATIVE (Negative) RSV RNA Qual (PCR) NEGATIVE (Negative) SARS-CoV-2 RNA (RT-PCR) NEGATIVE (Negative) Discharge Plan Discharge Clinical Impression: Chest pain Patient Disposition: Home, Self-Care Instructions: Chest Pain (ED) Additional Instructions: DISCHARGE DIAGNOSES: Chest pain and vomiting of unclear cause after endoscopy and colonoscopy HISTORY OF PRESENTATION: ?Chest pain prior to arrival about 15:00 EMERGENCY DEPARTMENT COURSE,TESTS, TREATMENTS: While in the ED today you had a CT scan of the chest abdomen and pelvis without abnormalities. You had reassuring lab work including negative cardiac enzymes. You had multiple nausea medication combinations including midazolam, droperidol, ondansetron or Zofran and IV fluid with some improvement DISCHARGE MEDICATIONS: ?[We have made no changes to your regular medication regimen] we have however added Zofran on as needed for nausea FOLLOW-UP: ?Call your primary or general physician soon as possible to discuss your symptoms, your ED visit and to discuss follow up plans Call your GI doctor tomorrow to discuss follow up you may also need to see your primary doctor for possible outpatient referral for the atypical chest pain workup INSTRUCTIONS ?& RETURN PRECAUTIONS: If any symptoms change first call your primary physician, if it is after-hours your primary doctors office should have a provider automation architect you can speak with. If the symptoms are severe or very concerning to you then call 911 or return to the ED. [[id number]] Ruben Bourgeois MD Emergency Physician [facility] Prescriptions: New ondansetron 4 mg tablet,disintegrating 4 mg PO Q8H PRN (Reason: nausea and vomiting) Qty: 7 0RF No Action omeprazole 40 mg capsule,delayed release(DR/EC) 40 mg PO DAILY Qty: 90 1RF fluticasone propionate 50 mcg/actuation spray,suspension intranasal gabapentin 300 mg capsule 300 mg PO BEDTIME imipramine HCl 50 mg tablet 50 mg PO BEDTIME acetaminophen 500 mg tablet PO losartan 25 mg tablet 25 mg PO DAILY (DME) blood pressure test kit-large Kit See Rx Instructions .ROUTE BID Qty: 1 Rx Instructions: As directed Interventions: ED Discharge Assessment Last Done: 06/05/25 19:26 Discharge Date/Time: 06/05/25 19:34 Print Language: Pashto
[2025-06-05 16:13] LABS: MANUAL DIFF FLAG NO
[2025-06-05 16:14] LABS: Hematocrit 44.6 % (42.0-52.0); Hemoglobin 15.7 g/dl (14.0-18.0); Imm Gran Abs Auto 0.01 X10*3/uL (0.00-0.03); Imm Gran Pct Auto 0.1 % (0.0-0.4); Lymphocytes Absolute Auto 2.6 X10*3/uL (1.2-4.9); Mean Corpuscular HGB Conc 35.2 g/dl (31.0-36.0); Mean Corpuscular Hemoglobin 30.3 pg (27.0-33.0); Mean Corpuscular Volume 86.1 fL (80.0-98.0); NRBC Abs Auto 0.000 X10*3/uL (0.0-0.012); NRBC Pct Auto 0.0 /100WBC (0.0-0.2); Platelet Count 167 X10*3/uL (160-400); Red Blood Count 5.18 X10*6/uL (4.60-5.80); White Blood Count 7.0 X10*3/uL (4.8-10.8)
[2025-06-05 16:28] LABS: Alanine Aminotransferase 14 U/L (0-40); Albumin Level 3.8 g/dL (3.5-5.0); Alkaline Phosphatase 64 U/L (39-117); Anion Gap 13 (12-20); Aspartate Amino Transferase 31 U/L (5-37); Blood Urea Nitrogen 16 mg/dL (9-16); Calcium 8.5 mg/dL (8.4-10.2); Carbon Dioxide 21 mmol/L (22-29); Chloride 109 mmol/L (96-108); Creatinine Clr Calc Pharmacy 62.4; Estimated Glomerular Filt Rate > 60; Magnesium 1.9 mg/dL (1.6-2.6); Potassium 3.7 mmol/L (3.3-5.1); Sodium 139 mmol/L (135-145); Total Protein 6.9 g/dL (6.5-8.0)
[2025-06-05 16:34] LABS: Troponin-I High Sensitivity 2.7 ng/L (<3.5-35.0)
--- OUTSIDE RECORDS SUMMARY | 2025-06-05 16:34 | XMS_ITS ---
Author Name Clayton RECYCLABLE MATERIALS DISTRIBUTOR,NUT PACKER,FN P,TOOTH CUTTER PINION, Dena Address [address] [place] [address] Phone [phone] [facility] Care Team Providers Care Machine Set Up Operator Name Role Phone Dena Arnold Unavailable [phone] Unavailable Unavailable Unavailable [facility] Unavailable Unavailable Unavailable [phone] Reason for Referral Not Available Allergies, adverse reactions, alerts No known allergies History of medication use Medication Class Instructions Start Date End Date Diclofenac Sodium 1 % Gel APPLY 2 GRAMS TOPICALLY TO AFFECTED AREA(S) 4 TIMES A DAY 2022-03-18 No Data Available Loratadine 10 mg Tab TAKE 1 TABLET BY [facility] EVERY DAY NEEDED FOR ALLERGIES 2022-01-16 2024-04-12 [...] 2024-04-12 N/A HYPERTENSIO N CONTINGENCY PLANLast updated: 04/09/2025[facility] Member to call for the following symptoms: BP >180/100 / Headache/ HR >100 Planned intervention: Assess for signs of end organ damage (headache, vision changes, chest pain)/ Brake Repairer Bus on proper BP monitoring technique and reassess/ [...] Pain Assessment - NO pain present (1126F) [facility] Pain Assessment - NO pain present (1126F) [facility] [place] Pain Assessment - NO pain present (1126F) [facility] [place] Pain Assessment - NO pain present (1126F) [facility] [place] Pain Assessment - NO pain present (1126F) [facility] [place] Pain Assessment - NO pain present (1126F) [facility] [place] Pain Assessment - NO pain present (1126F) [facility]20[place] Type 2 diabetes mellitus wit h other circulatory complicationsHypertension secondary to endocrine disordersUnspecified osteoarthritis, unspecified site Pain Assessment - NO pain present (1126F) [facility] Pain Assessment - NO pain present (1126F) [facility] Estab. patient 30-39min; chronic exacerbation, 2 stable chronic or 1 acute illness add add modifier 95 for video, (do not use for phone, instead use 93690-66) [facility] [place] 07[place]2023 Type 2 diabetes mellitus wit hout complicationsAbdominal aortic aneurysm, without rupture, unspecifiedDisease of spinal cord, unspecifiedEssential (primary) hypertensionUnspecified osteoarthritis, unspecified sitePersonal history of malignant neoplasm of prostateAnesthesia of skinCervicalgiaOther chronic pain Estab. patient 30-39min; chronic exacerbation, 2 stable chronic or 1 acute illness add add modifier 95 for video, (do not use for phone, instead use 39866-01) [facility] [place] Estab. patient 30-39min; chronic exacerbation, 2 stable chronic or 1 acute illness add add modifier 95 for video, (do not use for phone, instead use 93735-55) [facility] [place] Estab. patient 30-39min; chronic exacerbation, 2 stable chronic or 1 acute illness add add modifier 95 for video, (do not use for phone, instead use 29612-11) [facility] [place] 07[place] Estab. patient 30-39min; chronic exacerbation, 2 stable chronic or 1 acute illness add add modifier 95 for video, (do not use for phone, instead use 75619-46) [facility] [place] 07[place] Estab. patient 30-39min; chronic exacerbation, 2 stable chronic or 1 acute illness add add modifier 95 for video, (do not use for phone, instead use 47838-94) [facility] [place] 07[place]23 Estab. patient 30-39min; chronic exacerbation, 2 stable chronic or 1 acute illness add add modifier 95 for video, (do not use for phone, instead use 18857-31) [facility] [place] 07[place]23 Estab. patient 30-39min; chronic exacerbation, 2 stable chronic or 1 acute illness add add modifier 95 for video, (do not use for phone, instead use 48202-10) [facility] [place] 07[place] Estab. patient 30-39min; chronic exacerbation, 2 stable chronic or 1 acute illness add add modifier 95 for video, (do not use for phone, instead use 38022-49) [facility] Estab. patient 30-39min; chronic exacerbation, 2 stable chronic or 1 acute illness add add modifier 95 for video, (do not use for phone, instead use 72042-94) [facility] [place] 07[place]2023 Unlisted special service; to be used for medical record reviews and reporting CPTII codes (1111F, etc) [facility] [place] 03/17/2024 Other specified health statu s Unlisted special service; to be used for medical record reviews and reporting CPTII codes (1111F, etc) [facility] [place] 03/17/2024 Unlisted special service; to be used for medical record reviews and reporting CPTII codes (1111F, etc) [facility] ([place] 03[place]17/20[place] Estab. patient 30-39min; chronic exacerbation, 2 stable chronic or 1 acute illness add add modifier 95 for video, (do not use for phone, instead use 30742-35) [facility] [place] Essential (primary) hypertensionUnspecified osteoarthritis, [...] (do not use for phone, instead use 70012-08) [facility] [place] Estab. patient 30-39min; chronic exacerbation, 2 stable chronic or 1 acute illness add add modifier 95 for video, (do not use for phone, instead use 98422-06) [facility] [place] Estab. patient 30-39min; chronic exacerbation, 2 stable chronic or 1 acute illness add add modifier 95 for video, (do not use for phone, instead use 22557-35) [facility] [place] Estab. patient 30-39min; chronic exacerbation, 2 stable chronic or 1 acute illness add add modifier 95 for video, (do not use for phone, instead use 31994-26) [facility] [place] 04[place]12/20[place] Estab. patient 30-39min; chronic exacerbation, 2 stable chronic or 1 acute illness add add modifier 95 for video, (do not use for phone, instead use 93273-27) [facility] [place] 04[place]12[place] Estab. patient 30-39min; chronic exacerbation, 2 stable chronic or 1 acute illness add add modifier 95 for video, (do not use for phone, instead use 28039-46) [facility] Estab. patient 30-39min; chronic exacerbation, 2 stable chronic or 1 acute illness add add modifier 95 for video, (do not use for phone, instead use 17087-05) [facility] [place] 04[place]12/[place] Estab. patient 30-39min; chronic exacerbation, 2 stable chronic or 1 acute illness add add modifier 95 for video, (do not use for phone, instead use 99574-56) [facility] Estab. patient 30-39min; chronic exacerbation, 2 stable chronic or 1 acute illness add add modifier 95 for video, (do not use for phone, instead use 30868-62) [facility] [place] No Data Available [facility] [place] Type 2 diabetes mellitus wit hout complicationsEssential (primary) hypertensionUnsp FB in resp tract, part unsp causing oth injury, sequela No Data Available [facility] [place] Estab. patient 10-29min; 1 minor problem; add add modifier 95 for video, modifier 93 for phone [facility] [place]/2024 Unspecified symptoms and sig ns involving the genitourinary system Estab. patient 10-29min; 1 minor problem; add add modifier 95 for video, modifier 93 for phone [facility] [place] Estab. patient 20-29min; 1 stable chronic or 2 minor; add add modifier 95 for video, modifier 93 for phone [facility] [place] 04[place]/2025 Unspecified osteoarthritis, unspecified siteEssential (primary) hypertensionType 2 diabetes mellitus without complicationsPersonal history of malignant neoplasm of prostateAbdominal aortic aneurysm, without rupture, unspecifiedAnesthesia of skinCervicalgiaOther chronic painDisease of spinal cord, unspecifiedOther problems related to medical facilities and other health care Estab. patient 20-29min; 1 stable chronic or 2 minor; add add modifier 95 for video, modifier 93 for phone [facility] [place] Estab. patient 20-29min; 1 stable chronic or 2 minor; add add modifier 95 for video, modifier 93 for phone [facility] [place]/20[place] Estab. patient 20-29min; 1 stable chronic or 2 minor; add add modifier 95 for video, modifier 93 for phone [facility] [place]/20[place] Estab. patient 20-29min; 1 stable chronic or 2 minor; add add modifier 95 for video, modifier 93 for phone [facility] [place]20[place] Estab. patient 20-29min; 1 stable chronic or 2 minor; add add modifier 95 for video, modifier 93 for phone [facility] [place] Estab. patient 20-29min; 1 stable chronic or 2 minor; add add modifier 95 for video, modifier 93 for phone [facility] [place]20[place] Estab. patient 20-29min; 1 stable chronic or 2 minor; add add modifier 95 for video, modifier 93 for phone [facility] [place]/20[place] Estab. patient 20-29min; 1 stable chronic or 2 minor; add add modifier 95 for video, modifier 93 for phone [facility] [place] Estab. patient 20-29min; 1 stable chronic or 2 minor; add add modifier 95 for video, modifier 93 for phone [facility] [place] 04[place]2025 Vital Signs Date of [...] tive Time Current Smoking Status Former smoker 2025-05-25 2 Sex Male History of Procedures Procedures Service [...] (do not use for phone, instead use 38956-52) 17259 2022-08-28 No Data Available No Data Availa ble SBP 130-139 (3075F) 3075F 2022-08-28 No Data Availabl e No Data Available DBP <80 (3078F) 3078F 2022-08-28 No Data Available No Data Available Estab. patient 30-39min; chronic exacerbation, 2 stable chronic or 1 acute illness add add modifier 95 for video, (do not use for phone, instead use 87384-07) 24474 2023-07-06 No Data Available No Data Availa [...] reviews and reporting CPTII codes (1111F, etc) 21264 2024-03-17 No Data Available No Data Availa ble SBP 130-139 (3075F) 3075F 2024-03-17 No Data Availabl e No Data Available DBP 80-89 (3079F) 3079F 2024-03-17 No Data Available No Data Available Estab. patient 30-39min; chronic exacerbation, 2 stable chronic or 1 acute illness add add modifier 95 for video, (do not use for phone, instead use 11929-90) 37447 2024-04-12 No Data Available No Data Availa ble Medication List Documented (1159F) 1159F 2024-04-12 No Data Available No Data Strar ilable Medication Review by prescribing provider or [...] No Data Avail able No Data Available 22702 2024-08-22 No Data Available No Data Available Medication List Documented (1159F) 1159F 2024-08-22 No Data Available No Data Starr ilable Estab. patient 10-29min; 1 minor problem; add add modifier 95 for video, modifier 93 for phone 99080 2024-12-11 No Data Available No Data Availa ble Pain Assessment - NO pain present (1126F) 1126F 2024-12-11 No Data Available No Data A vailable Estab. 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 2025-04-09 Mental Status Status Date Alert [...] needs that may arise.LosartanDM2 diet controlled, unknown [id number] with PCP every 3 monthsPain increasing in [...] low abd pain. Please remember to call [facility] to see [facility]. 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
--- OUTSIDE RECORDS SUMMARY | 2025-06-05 16:34 | XMS_ITS | Clinical Summary ---
Author Organization [facility] Address [address] [place] [address] Care Team Providers Care Imaging Services Director Name Role Phone Unavailable Primary Care Provider [...] patient's age to complete this topic Insurance [facility] on file [facility] MEDICARE Member Subscriber Plan / Payer ( fective 2016-Present) Name:Ever Champagne Relation to Subscriber:Self Name:Ever Champagne Payer ID:[id number] (NAIC) Group ID:[id number] Type:Not on file Address: [address] MEDICARE
--- OUTSIDE RECORDS SUMMARY | 2025-06-05 16:34 | XMS_ITS | Encounter Summary ---
Author Organization [employer] Address [address] [facility] [address] [place] [address] Care Team Providers Care Web Analytics Specialist Name Role Phone Name, Oliver ROTHMAN Primary Care Provider [phone] Encounter Details Date Type Department Care Team (Late st Contact Info) Description 11/18/2023 Abstract [facility] MEDICINE [address] [place], [place] [id number] Name, MD Oliver [address], [place] [phone] Social History Tobacco Use Types Packs/Day Years [...] on filedocumented in this encounter Care Teams Web Analytics Specialist Relationship Specialty Start Date End Date Name, MD Oliver [address] [place] [address] PCP - General Family Medicine 05/17/17 documented as of this encounter
[2025-06-05 16:51] LABS: Resp Syncy Virus RNA Qual PCR NEGATIVE (Negative); SARS COV2 PCR INHOUSE NEGATIVE (Negative)
[2025-06-05] MEDS: iohexoL 350 MG/ML 100 ML INFUS..BTL IV (17:53)
[2025-06-05 18:36] VITALS: BP 138/76; PULSE 68; RESP 16; O2SAT 98
[2025-06-05 18:37] LABS: Troponin-I High Sensitivity < 2.7 ng/L (<3.5-35.0)
[2025-06-05 19:07] VITALS: BP 126/71; PULSE 67; RESP 16; TEMP 36.6; O2SAT 97
[2025-06-05 19:26] VITALS: BP 126/71; PULSE 67; RESP 16; TEMP 36.6; O2SAT 97
--- NOTE | 2025-06-18 12:24 | PC.NURSE ---
total volume 0.9 1000ml infused prior to departure
== END 2025-06-05 19:34 | disposition home or self-care (01) ==
PROVIDERS: Physician Assistant Medical; Emergency Provider Emergency Medicine; PCP Internal Medicine Geriatric Medicine
DX: R07.9 Chest pain, unspecified (principal); J45.909 Unspecified asthma, uncomplicated; Z87.891 Personal history of nicotine dependence; Z03.818 Encounter for observation for suspected exposure to other biological agents ruled out
CPT/HCPCS: 36415; 71045; 71260; 74177; 80053; 83735; 84484; 85025; 87637; 93005; 96374; 96375; 99284; J1790; J2250; J2405; J2470; Q9967

== ENCOUNTER → 2025-06-05 17:27 | Outpatient (BNV) | payer OTHER, SELFPAY | PROVIDERS: Emergency Provider Emergency Medicine; PCP Internal Medicine Geriatric Medicine; Visit Provider Radiology Diagnostic Radiology | DX: R11.10 Vomiting, unspecified (principal); R07.9 Chest pain, unspecified | CPT/HCPCS: 71260; 74177 ==

== ENCOUNTER 2025-06-20 14:31 | Outpatient (AMB) | payer OTHER, SELFPAY ==
--- NOTE | 2025-06-20 14:37 | A.OFFVIS_ITS ---
Vital Signs 06/20/25 14:38 Height 5 ft 7 in Weight 166 lb BMI 26.0 BP 148/76 H Blood Pressure Location Rt brachial Position Sitting Pulse 70 Pulse Source Pulse Oximeter Pulse Oximetry (%) 97 Oxygen Delivery Method Room Air Intake Visit Reasons: s/p double Intake Note: Est pt for mgmt of GERD + S/P Double. CC: Pt denies any acute GI concerns at this time. Pt states that he has not been taking the omeprazole per concerns of terminal system operator side effects. Pt has not had any GERD sx at this time. Blower Feeder Dyed Raw Stock Required: Yes Blower Feeder Dyed Raw Stock Services: Blower Feeder Dyed Raw Stock Offered & Declined Accompanied by: Family/Other Allergies No Known Allergies Allergy (Verified 06/20/25 14:38) HPI Comments Details: 75 y.o M with PMH of prostate ca, HTN who is here for i) dysphagia, ii) hx of polyps. Reports started almost 6 months ago. Started with hard textured food. Even had to come to ER in Jul for sensation of a piece of apple which resolved with IV glucagon. Since then has been avoiding hard food. Sticks to soft diet and chews very thoroughly. No nausea, vomiting. Former smoker. No etOH use. Pt also has hx of colon polyps. Last colo 2019 good prep. x3 polyps, 2/3 T.A. Splenic flexure polyp was piece meal removal and endomark was placed. 06/05/25: 1. Normal esophagus (biopsy) 2. Gastritis (biopsy) 3. Gastric polyps (biopsy) 4. Hiatal hernia 5. Normal duodenum (biopsy) 6. Previous tattoo in descending colon 7. Sigmoid colon ulcer (biopsy) 8. Total of 3 polyps removed 9. Diverticulosis 10. Hemorrhoids A. Duodenum, biopsy: Duodenal mucosa with preserved villi and prominent Florinda's glands, otherwise no specific change. B. Gastric antrum, biopsy: Chronic Helicobacter gastritis with mild-moderate activity and intestinal metaplasia (complete and incomplete); negative for dysplasia. C. Gastric body, biopsy: Chronic Helicobacter gastritis with mild-moderate activity; negative for intestinal metaplasia and dysplasia. D. 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 E. Esophagus, lower, biopsy: Squamous mucosa with few intraepithelial eosinophils (up to 3 per high- power field) and columnar mucosa with minimal chronic inflammation, consistent with esophagitis; negative for intestinal metaplasia and dysplasia. F. Esophagus, middle, biopsy: Squamous mucosa with no specific change; no columnar mucosa present. G. Colon, sigmoid ulcer, biopsy: Minute fragment of colonic mucosa with no specific change (multiple levels examined). H. Colon, transverse, polyp: Tubular adenoma, completely excised; negative for high-grade dysplasia and carcinoma. I. Colon, descending, polyps: Tubular adenoma (1 piece); negative for high-grade dysplasia and carcinoma, and colonic mucosa (1 piece) with no specific change. 06/20/25: Here for follow up. Accompanied by rowan who helps interpret. Pt developed headache, chest pain and nausea shortly after he started mowing the lawn within hours of the procedure. Likely had heat exhaustion and/or side effects from anesthesia. W/up in ER was normal. Results of the EGD colonoscopy reviewed. Positive for H pylori. He is interested in treatment. Also noted to have 2 tubular adenoma. Repeat colonoscopy recommended in 7 years if patient is in good health. Daughter continues to report unintentional weight loss, despite good appetite. This is difficult to ascertain over [employer], as his weight charted in October 2023 was 170 lbs and weight today is 166 lbs i.e not clinically significant. [facility] Medical History History of tuberculosis Multiple pulmonary nodules Asthma Social History Are you a primary career resource specialist to a significant other at home: No Do you presently have visiting nurse or other home services: No Patient Tobacco Use Status: Former Tobacco user Years Smoked: quit about 45+ years ago Physical Exam Vital Signs: Last Vital Signs Pulse 70 06/20/25 14:38 BP 148/76 H 06/20/25 14:38 Pulse Ox 97 06/20/25 14:38 Oxygen Delivery Method Room Air 06/20/25 14:38 BMI result Body Mass Index 26.0 Assessment & Plan Assessment & Plan (1) Personal history of colonic polyps: Code(s): Z86.0100 - Personal history of colon polyps, unspecified Category: Medical (2) Unintentional weight loss: Code(s): R63.4 - Abnormal weight loss Category: Medical (3) Helicobacter pylori gastritis: Code(s): K29.70 - Gastritis, unspecified, without bleeding; B96.81 - Helicobacter pylori [H. pylori] as the cause of diseases classified elsewhere Category: Medical Plan 1. Unintentional weight loss Unable to discern if this is clinically significant as based on meditech was 170lbs in Oct 2023 and now 166 lbs i.e not clinically significant. Normal w/up so far including a contrasted scan done in ER 2 weeks ago, bidirectional endoscopy. Pt with hx of TB in his teens but TSPOT neg from 2023 i.e no reactivation. Plan: - Monitor conservatively for now - Pt advised to incorporate protein shakes once a day - If weight stabilizes with increased caloric intake, no further needed however if weight declines despite increasing intake, will need to investigate other causes of unintentional weight loss. 2. H Pylori gastritis Pt interested in tx. Plan: - Will try for Talicia, if not approved by insurance, will Rx bismuth based quad therapy - ANNALISA to be booked in 6 weeks 3. Hx of polyps Based on x 2 polyps, will be due for repeat colo in 2031 if in good health. ANNALISA in 6 weeks Follow up in office 3 months Medications: New ejshaglejh-voyvaxhis-vkuzttzau 10-250-12.5 mg (Talicia) must administer with a meal/food 4 caps (4 x 10-250-12.5 mg) PO TID 168 ea 0RF 14 days Discontinued omeprazole Discontinued Reason: Doctor's Order 40 mg PO DAILY 90 caps 1RF Patient Instructions: - You were noted to have H Pylori in the stomach - We recommend treatment. This is to be continued for 2 weeks. - Depending on what the insurance approves, you will receive instructions on how to take the medication - Once the treatment is completed, you will return to office in 4-6 weeks to make sure the bacteria has been treated Coding Level of Care Code Est Pt Level 4 (37557) Complex EM visit Add On G2211 Diagnoses Personal history of colonic polyps Z86.0100 Unintentional weight loss R63.4 Helicobacter pylori gastritis K29.70; B96.81
[2025-06-20 14:38] VITALS: BP 148/76; PULSE 70; O2SAT 97; BMI 26.0
--- OUTSIDE RECORDS SUMMARY | 2025-06-20 15:30 | XMS_ITS | Encounter Summary ---
Author Organization [employer] Address [address] [facility] [address] [place] [address] Care Team Providers Care Dry Starch Supervisor Name Role Phone Name, Oliver ROTHMAN Primary Care Provider Encounter Details Date Type Department Care Team (Late st Contact Info) Description 11/18/2023 Abstract [facility] DIABETES/NUTRITION [address] [place] [address] Name, MD Oliver [address] [place] [address] Social History Tobacco Use Types Packs/Day Years [...] on filedocumented in this encounter Care Teams Dry Starch Supervisor Relationship Specialty Start Date End Date Name, MD Oliver [address] [place] [address] PCP - General Family Medicine 05/17/17 documented as of this encounter
--- OUTSIDE RECORDS SUMMARY | 2025-06-20 15:30 | XMS_ITS | Clinical Summary ---
Author Organization [facility] Address [address] [place] [address] Care Team Providers Care Biology Professor Name Role Phone Unavailable Primary Care Provider [...] patient's age to complete this topic Insurance [facility] on file [facility] MEDIC[facility] Member Subscriber Plan / Payer ( fective 2016-Present) Name:Ever Champagne Relation to Subscriber:Self Name:Ever Champagne Payer ID:[id number] (NAIC) Group ID:[id number] Type:Not on file Address: [address] MEDICARE
--- OUTSIDE RECORDS SUMMARY | 2025-06-20 15:30 | XMS_ITS | Encounter Summary ---
Author Organization [employer] Address [address] [facility] [address] [place] [address] Care Team Providers Care Production Assembly Supervisor Name Role Phone Name, Oliver ROTHMAN Primary Care Provider [phone] Encounter Details Date Type Department Care Team (Late st Contact Info) Description 11/18/2023 Abstract [facility] MEDICINE [address] [place], [place] [phone] Name, MD Oliver [address] [place], [place] [phone] Social History Tobacco Use Types Packs/Day Years [...] on filedocumented in this encounter Care Teams Production Assembly Supervisor Relationship Specialty Start Date End Date Name, MD Oliver [address] [place] [address] PCP - General Family Medicine 05/17/17 documented as of this encounter
--- OUTSIDE RECORDS SUMMARY | 2025-06-20 15:30 | XMS_ITS | Encounter Summary ---
Author Organization [employer] Address [address] [facility] [address] [place] [address] Care Team Providers Care Principal Scientist Name Role Phone Name, Oliver ROTHMAN Primary Care Provider [phone] Reason for Visit * Reason Onset Date Comments Med Refill 10/13/2023 Encounter Details Date Type Department Care Team ([facility] st Contact Info) Description 10/13/2023 Telephone [facility] MEDICINE [address] [place] [address] Name, MD Oliver [address] [place] [address] Med Refill Social History Tobacco Use Types Packs/Day Years Used Date Smoking Tobacco: Never Passive Smoke Exposure: Never Smokeless Tobacco: Never Alcohol Use Standard Drinks/Week Comments Never 0 (1 standard drink = 0.6 oz pur e alcohol) Housing Stability Answer Date Recorded What is your housing situation today? I have stephanyjacques avila 08/18/[address] you [...] No answer. LVM to call back on [phone] . * Telephone Encounter - Doe Barnett RN - 10/15/2023 8:56 AM EST T/C to pt. To inform regarding below message, No answer. LVM to call back on [phone] . * Telephone Encounter - Doe Barnett [...] on filedocumented in this encounter Care Teams Principal Scientist Relationship Specialty Start Date End Date Name, MD Oliver [address] [place] [address] PCP - General Family Medicine 05/17/17 documented as of this encounter
--- OUTSIDE RECORDS SUMMARY | 2025-06-20 15:30 | XMS_ITS | Encounter Summary ---
Author Organization [employer] Address [address] [facility] 7t [place] [address] Care Team Providers Care Cardiac Rehabilitation Program Director Name Role Phone Name, Oliver ROTHMAN Primary Care Provider [phone] Encounter Details Date Type Department Care Team (Late st Contact Info) Description 11/18/2023 Abstract [facility] DIABETES/NUTRITION [address] [place] [address] Name, MD Oliver [address] [place] [address] Social History Tobacco Use Types Packs/Day Years [...] on filedocumented in this encounter Care Teams Cardiac Rehabilitation Program Director Relationship Specialty Start Date End Date Name, MD Oliver [address] [place] [address] PCP - General Family Medicine 05/17/17 documented as of this encounter
--- OUTSIDE RECORDS SUMMARY | 2025-06-20 15:30 | XMS_ITS | Encounter Summary ---
Author Organization [employer] Address [address] [facility] 7t [place] [address] Care Team Providers Care Office Helper Name Role Phone Name, Oliver ROTHMAN Primary Care Provider [phone] Encounter Details Date Type Department Care Team (Latest Contact Info) Description 05/20/2022 Abstract [facility] CONVERSION[facility] Dental, Provider, DDS Social History Tobacco [...] on filedocumented in this encounter Care Teams Office Helper Relationship Specialty Start Date End Date Name, MD Oliver [address] [place] [address] PCP - General Family Medicine 05/17/17 documented as of this encounter
--- OUTSIDE RECORDS SUMMARY | 2025-06-20 15:30 | XMS_ITS ---
Author Name Clayton HUMAN RESOURCES BENEFITS ASSISTANT,AUTOMATIC DRILLING MACHINE OPERATOR,FN P,HVAC SERVICES PROFESSIONAL, Dena Address [address] [place] [address] Phone [phone] [facility] Care Team Providers Care Drug Abuse Treatment Specialist Name Role Phone Dena Arnold Unavailable [phone] Unavailable Unavailable Unavailable [facility] Unavailable Unavailable Unavailable [phone] Reason for Referral Not Available Allergies, adverse reactions, alerts No known allergies History of medication use Medication Class Instructions Start Date End Date Diclofenac Sodium 1 % Gel APPLY 2 GRAMS TOPICALLY TO AFFECTED AREA(S) 4 TIMES A DAY 2022-03-18 No Data Available Loratadine 10 mg Tab TAKE 1 TABLET BY [facility] EVERY DAY NEEDED FOR ALLERGIES 2022-01-16 [...] 2024-04-12 N/A HYPERTENSIO N CONTINGENCY PLANLast updated: 04/09/2025[facility] Member to call for the following symptoms: BP >180/100 / Headache/ HR >100 Planned intervention: Assess for signs of end organ damage (headache, vision changes, chest pain)/ Cleat Blanker on proper BP monitoring technique and reassess/ [...] Pain Assessment - NO pain present (1126F) [facility] Pain Assessment - NO pain present (1126F) [facility] [place] Pain Assessment - NO pain present (1126F) [facility] Pain Assessment - NO pain present (1126F) [facility] [place] Pain Assessment - NO pain present (1126F) [facility] [place] Pain Assessment - NO pain present (1126F) [facility] Pain Assessment - NO pain present (1126F) [facility] ([place] 08/28/2022 Type 2 diabetes mellitus wit h other circulatory complicationsHypertension secondary to endocrine disordersUnspecified osteoarthritis, unspecified site Pain Assessment - NO pain present (1126F) [facility] Pain Assessment - NO pain present (1126F) [facility]20[place] Estab. patient 30-39min; chronic exacerbation, 2 stable chronic or 1 acute illness add add modifier 95 for video, (do not use for phone, instead use 59658-17) [facility] 07[place]06[place]2023 Type 2 diabetes mellitus wit hout complicationsAbdominal aortic aneurysm, without rupture, unspecifiedDisease of spinal cord, unspecifiedEssential (primary) hypertensionUnspecified osteoarthritis, unspecified sitePersonal history of malignant neoplasm of prostateAnesthesia of skinCervicalgiaOther chronic pain Estab. patient 30-39min; chronic exacerbation, 2 stable chronic or 1 acute illness add add modifier 95 for video, (do not use for phone, instead use 42610-51) [facility] [place] 07[place]06[place]2023 Estab. patient 30-39min; chronic exacerbation, 2 stable chronic or 1 acute illness add add modifier 95 for video, (do not use for phone, instead use 57148-68) [facility] [place] 07/06/2023 Estab. patient 30-39min; chronic exacerbation, 2 stable chronic or 1 acute illness add add modifier 95 for video, (do not use for phone, instead use 89599-84) [facility] [place] 07/06/2023 Estab. patient 30-39min; chronic exacerbation, 2 stable chronic or 1 acute illness add add modifier 95 for video, (do not use for phone, instead use 88284-75) [facility] [place] 07/06/2023 Estab. patient 30-39min; chronic exacerbation, 2 stable chronic or 1 acute illness add add modifier 95 for video, (do not use for phone, instead use 64192-31) [facility] [place] 07/06/2023 Estab. patient 30-39min; chronic exacerbation, 2 stable chronic or 1 acute illness add add modifier 95 for video, (do not use for phone, instead use 66244-18) [facility] [place] 07/06/2023 Estab. patient 30-39min; chronic exacerbation, 2 stable chronic or 1 acute illness add add modifier 95 for video, (do not use for phone, instead use 56375-07) [facility] [place] 07/06/2023 Estab. patient 30-39min; chronic exacerbation, 2 stable chronic or 1 acute illness add add modifier 95 for video, (do not use for phone, instead use 02874-27) [facility] Estab. patient 30-39min; chronic exacerbation, 2 stable chronic or 1 acute illness add add modifier 95 for video, (do not use for phone, instead use 88869-70) [facility] [place] 07/06/2023 Unlisted special service; to be used for medical record reviews and reporting CPTII codes (1111F, etc) [facility] [place] 03/17/2024 Other specified health statu s Unlisted special service; to be used for medical record reviews and reporting CPTII codes (1111F, etc) [facility] [place]/17/[place] Unlisted special service; to be used for medical record reviews and reporting CPTII codes (1111F, etc) [facility] [place] 03[place]17/[place] Estab. patient 30-39min; chronic exacerbation, 2 stable chronic or 1 acute illness add add modifier 95 for video, (do not use for phone, instead use 11124-63) [facility] 04[place]12[place]2024 Essential (primary) hypertensionUnspecified osteoarthritis, unspecified [...] (do not use for phone, instead use 89076-14) [facility] 04[place]12/20[place] Estab. patient 30-39min; chronic exacerbation, 2 stable chronic or 1 acute illness add add modifier 95 for video, (do not use for phone, instead use 45335-03) [facility] 04[place]12/20[place] Estab. patient 30-39min; chronic exacerbation, 2 stable chronic or 1 acute illness add add modifier 95 for video, (do not use for phone, instead use 72775-08) [facility] 04[place]12/20[place] Estab. patient 30-39min; chronic exacerbation, 2 stable chronic or 1 acute illness add add modifier 95 for video, (do not use for phone, instead use 57720-30) [facility] [place] 04/12/2024 Estab. patient 30-39min; chronic exacerbation, 2 stable chronic or 1 acute illness add add modifier 95 for video, (do not use for phone, instead use 20369-08) [facility] [place] 04/12/2024 Estab. patient 30-39min; chronic exacerbation, 2 stable chronic or 1 acute illness add add modifier 95 for video, (do not use for phone, instead use 31444-86) [facility] 04[place]12[place]20[place] Estab. patient 30-39min; chronic exacerbation, 2 stable chronic or 1 acute illness add add modifier 95 for video, (do not use for phone, instead use 26644-29) [facility] [place] 04/12/2024 Estab. patient 30-39min; chronic exacerbation, 2 stable chronic or 1 acute illness add add modifier 95 for video, (do not use for phone, instead use 54952-91) [facility] 04[place]12[place]20[place] Estab. patient 30-39min; chronic exacerbation, 2 stable chronic or 1 acute illness add add modifier 95 for video, (do not use for phone, instead use 76342-21) [facility] 04[place]2024 No Data Available [facility]/2024 Type 2 diabetes mellitus wit hout complicationsEssential (primary) hypertensionUnsp FB in resp tract, part unsp causing oth injury, sequela No Data Available [facility] 08/[place]/20[place] Estab. patient 10-29min; 1 minor problem; add add modifier 95 for video, modifier 93 for phone [facility] 12/11/2024 Unspecified symptoms and sig ns involving the genitourinary system Estab. patient 10-29min; 1 minor problem; add add modifier 95 for video, modifier 93 for phone [facility] 12/11/2024 Estab. patient 20-29min; 1 stable chronic or 2 minor; add add modifier 95 for video, modifier 93 for phone [facility] 04/09/2025 Unspecified osteoarthritis, unspecified siteEssential (primary) hypertensionType 2 diabetes mellitus without complicationsPersonal history of malignant neoplasm of prostateAbdominal aortic aneurysm, without rupture, unspecifiedAnesthesia of skinCervicalgiaOther chronic painDisease of spinal cord, unspecifiedOther problems related to medical facilities and other health care Estab. patient 20-29min; 1 stable chronic or 2 minor; add add modifier 95 for video, modifier 93 for phone [facility] 04/09/2025 Estab. patient 20-29min; 1 stable chronic or 2 minor; add add modifier 95 for video, modifier 93 for phone [facility] 04/09/2025 Estab. patient 20-29min; 1 stable chronic or 2 minor; add add modifier 95 for video, modifier 93 for phone [facility] 04/09/2025 Estab. patient 20-29min; 1 stable chronic or 2 minor; add add modifier 95 for video, modifier 93 for phone [facility] 04/09/2025 Estab. patient 20-29min; 1 stable chronic or 2 minor; add add modifier 95 for video, modifier 93 for phone [facility] 04/09/2025 Estab. patient 20-29min; 1 stable chronic or 2 minor; add add modifier 95 for video, modifier 93 for phone [facility] 04/09/2025 Estab. patient 20-29min; 1 stable chronic or 2 minor; add add modifier 95 for video, modifier 93 for phone [facility] 04/09/2025 Estab. patient 20-29min; 1 stable chronic or 2 minor; add add modifier 95 for video, modifier 93 for phone [facility] [place] 04/[place]2025 Estab. patient 20-29min; 1 stable chronic or 2 minor; add add modifier 95 for video, modifier 93 for phone [facility] [place] 04/09/2025 Vital Signs Date of Collection [...] tive Time Current Smoking Status Former smoker 2025-05-26 9 Sex Male History of Procedures Procedures Service [...] (do not use for phone, instead use 84105-15) 11964 2022-08-28 No Data Available No Data Availa ble SBP 130-139 (3075F) 3075F 2022-08-28 No Data Availabl e No Data Available DBP <80 (3078F) 3078F 2022-08-28 No Data Available No Data Available Estab. patient 30-39min; chronic exacerbation, 2 stable chronic or 1 acute illness add add modifier 95 for video, (do not use for phone, instead use 79581-56) 52220 2023-07-06 No Data Available No Data Availa [...] reviews and reporting CPTII codes (1111F, etc) 03822 2024-03-17 No Data Available No Data Availa ble SBP 130-139 (3075F) 3075F 2024-03-17 No Data Availabl e No Data Available DBP 80-89 (3079F) 3079F 2024-03-17 No Data Available No Data Available Estab. patient 30-39min; chronic exacerbation, 2 stable chronic or 1 acute illness add add modifier 95 for video, (do not use for phone, instead use 39333-56) 93267 2024-04-12 No Data Available No Data Availa [...] No Data Avail able No Data Available 80389 2024-08-22 No Data Available No Data Available Medication List Documented (1159F) 1159F 2024-08-22 No Data Available No Data Starr ilable Estab. patient 10-29min; 1 minor problem; add add modifier 95 for video, modifier 93 for phone 30114 2024-12-11 No Data Available No Data Availa ble Pain Assessment - NO pain present (1126F) 1126F 2024-12-11 No Data Available No Data A vailable Estab. patient 20-29min; 1 stable chronic or 2 minor; add add modifier 95 for video, modifier 93 for phone 16974 2025-04-09 No Data Available No Data Availa [...] actions with Friends/Family in a typical week: [employer] daily. 2025-04-09 Mental Status Status Date Alert [...] modifier 95Continue to see PCP. Follow-up with [facility] as needed for any acute or disease education needs that may arise.LosartanDM2 diet controlled, unknown [id number] with PCP every 3 monthsPain increasing in [...] low abd pain. [facility] Follow-up with Gerardo as [...] organ damage (headache, vision changes, chest pain)/ Cleat Blanker on proper BP monitoring technique and reassess/ [...]
--- OUTSIDE RECORDS SUMMARY | 2025-06-20 15:30 | XMS_ITS | Encounter Summary ---
Author Organization [employer] Address [address] [facility] [address]t [place] [address] Care Team Providers Care Table Filler Name Role Phone Name, Oliver ROTHMAN Primary Care Provider [phone] Encounter Details Date Type Department Care Team (Late st Contact Info) Description 11/18/2023 Abstract [facility] DIABETES/NUTRITION [address] [place] [address] Name, MD Oliver [address] [place] [address] Social History Tobacco Use Types Packs/Day Years [...] on filedocumented in this encounter Care Teams Table Filler Relationship Specialty Start Date End Date Name, MD Oliver [address] [place] [address] PCP - General Family Medicine 05/17/17 documented as of this encounter
--- OUTSIDE RECORDS SUMMARY | 2025-06-20 15:30 | XMS_ITS | Encounter Summary ---
Author Organization [employer] Address [address] [place] [address] [address] [place] [address] Care Team Providers Care Lead Former Name Role Phone Name, Oliver ROTHMAN Primary Care Provider [phone] Encounter Details Date Type Department Care Team (Late st Contact Info) Description 03/29/2023 Abstract [facility] MEDICINE [address] [place] [address] Name, MD Oliver [address] [place] [address] Social History Tobacco Use Types Packs/Day Years [...] 11:04 AM EST) Colonoscopy Normal Normal Narrative Miri, Chanda - 10/20/2019 11:04 AM EST Recommended 5 year follow up Historical Provider HEALTH MAINTENANCE Final Result documented in this encounter Visit Diagnoses Not on filedocumented in this encounter Care Teams Lead Former Relationship Specialty Start Date End Date Name, MD Oliver [address] [place] [address] PCP - General Family Medicine 05/17/17 documented as of this encounter
--- OUTSIDE RECORDS SUMMARY | 2025-06-20 15:30 | XMS_ITS | Encounter Summary ---
Author Organization [employer] Address [address] [facility] [address]t [place] [address] Care Team Providers Care Manager Forensic Name Role Phone Name, Oliver ROTHMAN Primary Care Provider [phone] Encounter Details Date Type Department Care Team (Late st Contact Info) Description 11/18/2023 Abstract [facility] DIABETES/NUTRITION [address] [place] [address] Name, MD Oliver [address] [place] [address] Social History Tobacco Use Types Packs/Day Years [...] on filedocumented in this encounter Care Teams Manager Forensic Relationship Specialty Start Date End Date Name, MD Oliver [address] [place] [address] PCP - General Family Medicine 05/17/17 documented as of this encounter
--- OUTSIDE RECORDS SUMMARY | 2025-06-20 15:30 | XMS_ITS | Clinical Summary ---
Author Organization [employer] Address [address] [place] [address] [address] [place] [address] Care Team Providers Care [employer] Worker Name Role Phone Name, Oliver ROTHMAN Primary Care Provider [phone] Allergies No known active allergies Medications loratadine [...] BY MOUTH EVERY DAY 90 tablet 1 025 Active omeprazole (PriLOSEC) [address] capsule TAKE 1 CAPSULE (20 MG) BY MOUTH BEFORE BREAKFAST DO NOT CRUSH, CHEW, OR SPLIT 30 capsule 025 Active gabapentin (Neurontin) 300 MG capsuleIndicati ons:Cervical myelopathy (CMS/HCC) TAKE 1 CAPSULE BY MOUTH EVERYDAY AT BEDTIME 30 capsule 2 025 Active fluticasone (Flonase) 50 MCG/ACT nasal spray ADMINISTER 1 SPRAY INTO EACH NOSTRIL IN THE MORNING. SHAKE GENTLY. BEFORE FIRST USE, PRIME PUMP. 16 mL 025 Active fluticasone (Flonase) 50 MCG/ACT nasal spray ADMINISTER 1 SPRAY INTO EACH NOSTRIL IN THE MORNING. SHAKE GENTLY. BEFORE FIRST USE, PRIME PUMP. 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 Watkins History of prostate cancer 12/12/2024 Asbestos exposure 02/09/2024 Pulmonary nodule 02/09/2024 Overview (12/04/2024): He was evaluated at [facility] pulmonary. He has a remote history of treated TB T spot negative CT scan of the chest consistent with previous treated TB infection. [place] [address] CT Scan Report Signed Patient: Ever Champagne MR#: [id number] 26 : 1950 Acct:[id number] Age/Sex: 74 / M ADM Date: 08/08/24 Loc: .CT Attending Dr: Ced Robles MD Ordering Physician: Ced Robles MD Date of Service: 08/08/24 Procedure(s): CT chest wo IV con Accession Number(s): [id number] cc: Oliver Constantino MD; Ced Robles MD [...] by: Ki Perez MD 10/04/2024 03:31 PM [facility] History of cervical spinal surgery 08/18/2023 Cervical myelopathy 10/16/2022 Erectile dysfunction 10/16/2022 Essential hypertension 10/16/2022 Prediabetes 10/16/2022 Tubular adenoma of colon 10/12/2019 Overview (08/18/2023): Colonoscopy done 2019 at [facility], repeat recommended in 5 [...] Encounters Date Type Department Care Team Description 06/12/2025 Abstract [facility] MEDICINE [address] [place] [address] NameOliver MD 06/05/2025 Orders Only GENERIC EXTERNAL DATA DEPARTMENT Provider, Generic External Data 06/03/2025 Refill [facility] MEDICINE [address] [place] [address] Oliver Constantino MD 05/19/2025 Refill [facility]ICINE [address] [place] [address] Oliver Constantino MD Cervical myelopathy ([facility]) 05/03/2025 Refill [facility]ICINE [address] [place] [address] Oliver Constantino MD 05/02/2025 Telephone C MEDICINE [address] [place] [address] Oliver Constantino MD Call Back Request 04/10/2025 Refill C MEDICINE [address] [place] [address] Oliver Constantino MD 03/29/2025 Refill [facility]INE [address] [place] [address] Oliver Constantino MD from Last 3 Months Immunizations Immunization Administration Dates Next Due Influenza High-dose Quadrivalent [...] 76 02/02/2025 1:25 PM EDT Temperature 36.3 C (97.4 F) 02/02/2025 1:25 PM EDT Respiratory Rate 17 02/02/2025 1:25 PM EDT [...] 2024 09/04/2022, 08/12/2021, 08/12/2021, Additional history exists Depression Screening 12/09/2024 12/09/2023, 12/09/19 24 SDOH Screening 12/09/2024 12/09/2023 Zoster Vaccines (2 of 2) 01/30/2025 12/05/2024 Influenza Vaccine (#1) 2025 , 08/18/2023, 08/17/2022, Additional history exists Tobacco Screening 02/04/2026 02/04/2025 RSV Patients and Patients Aged 60 years or older (1 - 1-dose 75+ series) 02/02/2027 DTaP/Tdap/Td Vaccines (2 - Td or Tdap) 08/09/2027 08/09/2017 Colonoscopy 06/05/2028 06/05/2025, 10/20/2019 Colorectal Cancer Screening 06/05/2028 Lipid Panel 08/25/2028 08/25/2023, 09/26, 01/20/2022, Additional history exists Pneumococcal Vaccine: 50+ Years Completed 01/16/2022, 04/26/2018 HIB Vaccines Aged Out No longer eligi [...] patient's age to complete this topic Meningococcal B Vaccine Aged Out No l onger eligible based on patient's age to complete [...] Procedure Name Priority Date/Time Associated Diagnosis Comments CT ABDOMEN PELVIS W CONTRAST Routine 06/05/2025 6:[address] CHEST W CONTRAST Routine 06/05/2025 6 :38 PM EDT HIGH SENSITIVITY TROPONIN I Routine 06/05/2025 6:05 PM EDT XR CHEST 1 VIEW Routine 06/05/2025 5:00 PM EDT HIGH SENSITIVITY TROPONIN I Routine 06/05/2025 4:08 PM EDT MAGNESIUM Routine 06/05/2025 4:08 PM EDT COMPREHENSIVE METABOLIC PANEL Routine 06/05/2025 4:08 PM EDT CBC WITH AUTO DIFFERENTIAL Routine 06/05/2025 4:08 PM EDT SARS COV2/INFLUENZA A/B AND RSV RNA QL NAAT Routine 06/05/2025 4:08 PM EDT HEMATOXYLIN AND EOSIN STAIN Routine 06/05/2025 10:50 AM EDT HM COLONOSCOPY Routine 06/05/2025 LIPID PANEL, STANDARD Routine 08/25/2023 8:51 AM EDT Essential hypertension Prediabetes HEMOGLOBIN A1C Routine 06/05/2022 7:58 AM EDT from Last 3 Months or Most Recently Relevant to Health Maintenance Results * CT Abdomen Pelvis w/ Contrast (06/05/2025 6:47 PM EDT) Anatomical Region Laterality Modality Body, Pelvis, Abdomen Computed T omography 06/05/2025 6:47 PM EDT Narrative 06/05/2025 6:49 PM EDT [place] [address] CT Scan Report Signed Patient: Ever Champagne MR#: [id number] [birth year] : 1950 Acct:[id number] Age/Sex: 75 / M ADM Date: 06/05/25 Loc: .ED Attending Dr: Ordering Physician: Ruben Bourgeois MD Date of Service: 06/05/25 Procedure(s): CT abdomen pelvis w IV con Accession Number(s): [id number] cc: Ruben Bourgeois MD; Name,Oliver ROTHMAN Report Number: [id number]: Total DLP = 0.00 mGy-cm CLINICAL HISTORY: vomiting post colonscopy CT abdomen and pelvis with contrast Comparison: CT/NH/SR - CT CHEST WITHOUT IV CONTRAST - 08/08/24 08:53 EDT Findings: Scarring in the right lower lobe. Small hiatal hernia. Liver, spleen, pancreas, gallbladder, and adrenal glands are within normal limits. No hydronephrosis. Symmetric contrast enhancement of the kidneys. Left parapelvic cysts. Colonic diverticulosis without acute inflammation. No bowel obstruction, pneumatosis or pneumoperitoneum. Normal appendix. Pelvic contents unremarkable. Degenerative changes of the spine. IMPRESSION: 1. No acute intraabdominal or pelvic pathology. This document has been electronically signed by: Eugenio Mcadams MD on 06/05/2025 18:47:59 Dictated By: Eugenio Mcadams MD Signed By: <Electronically signed by Eugenio Mcadams MD in OV> 06/05/251848 DD/ 46 TD/TT: 06/05/251846 Power Press Tender: Procedure Note Donotuseinterpreter, Image - 06/05/[address] [place] [address] [address] Scan Report Signed Patient: Luis Fernando Champagne#: [id number] 26 : 1950cct:[id number] Age/Sex: 75 / MADM Date: 06/05/25 Loc: HO.ED Attending Dr: Ordering Physician: Ruben Bourgeois MD Date of Service: 06/05/25 Procedure(s): CT abdomen pelvis w IV con Accession Number(s): [id number] cc: Ruben Bourgeois MD; Name,Oliver Report Number: [id number]: Total DLP = 0.00 mGy-cm CLINICAL HISTORY: vomiting post colonscopy CT abdomen and pelvis with contrast Comparison: CT/NH/SR - CT CHEST WITHOUT IV CONTRAST - 08/08/24 08:53 EDT Findings: Scarring in the right lower lobe. Small hiatal hernia. Liver, spleen, pancreas, gallbladder, and adrenal glands are within normal limits. No hydronephrosis. Symmetric contrast enhancement of the kidneys. Left parapelvic cysts. Colonic diverticulosis without acute inflammation. No bowel obstruction, pneumatosis or pneumoperitoneum. Normal appendix. Pelvic contents unremarkable. Degenerative changes of the spine. IMPRESSION: 1. No acute intraabdominal or pelvic pathology. This document has been electronically signed by: Eugenio Mcadams MD on 06/05/2025 18:47:59 Dictated By: Eugenio Mcadams MD Signed By: <Electronically signed by Eugenio Mcadams MD in OV> 06/05/251848 DD/ 46 TD/TT: 06/05/251846 Power Press Tender: us [facility] External Provider IMG CT PROCEDURES Final Result * CT Chest w/ Contrast (06/05/2025 6:38 PM EDT) Anatomical Region Laterality Modality Body, Chest Computed Tomogra phy 06/05/2025 6:38 PM EDT Narrative 06/05/2025 6:39 PM EDT [address] [address] [address] Scan Report Signed Patient: Ever Champagne MR#: [id number] [birth year] : 1950 Acct:[id number] Age/Sex: 75 / M ADM Date: 06/05/25 Loc: .ED Attending Dr: Ordering Physician: Ruben Bourgeois MD Date of Service: 06/05/25 Procedure(s): CT chest w IV con Accession Number(s): [id number] cc: Ruben Bourgeois MD; Name,Oliver ROTHMAN Report Number: [id number]: Total DLP = 709.00 mGy-cm CLINICAL HISTORY: central chest pain vomiting s p endo colonoscope CT chest with contrast Comparison: CT/NH/SR - CT CHEST WITHOUT IV CONTRAST - 08/08/24 08:53 EDT Findings: The heart is normal size. No pericardial effusion. Small hiatal hernia. Visualized thyroid gland is within normal limits. No enlarged mediastinal or hilar lymph nodes. Stable scarring and volume loss in the right lung. Scattered calcified granulomas and small (<6 mm) nodules, similar to prior. No consolidation, pleural effusion or pneumothorax. The visualized upper abdomen is unremarkable. No acute fractures. IMPRESSION: 1. No acute intrathoracic findings. This document has been electronically signed by: Eugenio Mcadams MD on 06/05/2025 18:38:28 Dictated By: Eugenio Mcadams MD Signed By: <Electronically signed by Eugenio Mcadams MD in OV> 06/05/251838 DD/ 37 TD/TT: 06/05/251837 Power Press Tender: Procedure Note Donotuseinterpreter, Image - 06/05/[address] [address] [address] Scan Report Signed Patient: Luis Fernando Champagne#: [id number] 26 : 2Acct:[id number] Age/Sex: 75 / MADM Date: 06/05/25 Loc: HO.ED Attending Dr: Ordering Physician: Ruben Bourgeois MD Date of Service: 06/05/25 Procedure(s): CT chest w IV con Accession Number(s): [id number] cc: Ruben Bourgeois MD; Name,Oliver ROTHMAN Report Number: [id number]: Total DLP = 709.00 mGy-cm CLINICAL HISTORY: central chest pain vomiting s p endo colonoscope CT chest with contrast Comparison: CT/NH/SR - CT CHEST WITHOUT IV CONTRAST - 08/08/24 08:53 EDT Findings: The heart is normal size. No pericardial effusion. Small hiatal hernia. Visualized thyroid gland is within normal limits. No enlarged mediastinal or hilar lymph nodes. Stable scarring and volume loss in the right lung. Scattered calcified granulomas and small (<6 mm) nodules, similar toprior. No consolidation, pleural effusion or pneumothorax. The visualized upper abdomen is unremarkable. No acute fractures. IMPRESSION: 1. No acute intrathoracic findings. This document has been electronically signed by: Eugenio Mcadams MD on 06/05/2025 18:38:28 Dictated By: Eugenio Mcadams MD Signed By: <Electronically signed by Eugenio Mcadams MD in OV> 06/05/251838 DD/ 37 TD/TT: 06/05/251837 Power Press Tender: [facility] External Provider IMG CT PROCEDURES Final Result * High Sensitivity Troponin I (06/05/2025 6:05 PM EDT) Only the most recent of2 resultswithin the time period is included. TROPONIN I HIGH SENSITIVITY <2.7 <3.5 - 35.0 ng/L [facility] Comment:The [employer] high sens itivity Troponin-I results should beused in conjunction with other diagnostic information suchas ECG, clinical observations and information, and patientsymptoms to aid in the diagnosis of [place]. 06/05/2025 6:05 PM EDT 06/05/2025 6:09 PM EDT us Generic External Data Provider LAB BLOOD ORDERAB LES Final Result Performing Organization Address City/State/[facility] Co de Phone Number [facility] [address] [place] [phone] * XR Chest 1 View (06/05/2025 5:00 PM EDT) Anatomical Region Laterality Modality Chest Radiographic Usha ging 06/05/2025 5:00 PM EDT Narrative 06/06/2025 7:31 AM EDT [address] [address] XRay Report Signed Patient: Ever Champagne MR#: [id number] [birth year] : 1950 Acct:[id number] Age/Sex: 75 / M ADM Date: 06/05/25 Loc: .ED Attending Dr: Ordering Physician: Ruben Bourgeois MD Date of Service: 06/05/25 Procedure(s): XR chest 1V Accession Number(s): [id number] cc: Ruben Bourgeois MD; Name,Oliver ROTHMAN EXAMINATION: XR CHEST 1 VIEW HISTORY: chest pain, vomiting, post endoscopy COMPARISON: Comparison is made with the prior examination dated 12/11/2023. FINDINGS: A single AP portable view of the chest performed at 4:55 PM is submitted. Again seen is scarring at the right lung base. The left lung is clear. There is no pleural effusion, pneumothorax, or pulmonary vascular congestion. The heart is normal in size given technique. There is degenerative disc disease of the spine. XR/XR chest 1V IMPRESSION: No acute cardiopulmonary abnormality. Electronically signed by: Tyrone Amaro MD 06/06/2025 07:28 AM EDT RP Dictated By: Tyrone Amaro MD Signed By: <Electronically signed by Tyrone Amaro MD in OV> 06/06/2528 DD/ 99 TD/TT: 06/05/251704 Power Press Tender: Procedure Note Isabelle, Image - 06/06/2025 [place] [address] XRay Report Signed Patient: Luis Fernando Champagne#: [id number] 26 : 2Acct:[id number] Age/Sex: 75 / MADM Date: 06/05/25 Loc: .ED Attending Dr: Ordering Physician: Ruben Bourgeois MD Date of Service: 06/05/25 Procedure(s): XR chest 1V Accession Number(s): [id number] cc: Ruben Bourgeois MD; Name,Oliver ROTHMAN EXAMINATION: XR CHEST 1 VIEW HISTORY: chest pain, vomiting, post endoscopy COMPARISON: Comparison is made with the prior examination dated 12/11/2023. FINDINGS: A single AP portable view of the chest performed at 4:55 PM is submitted. Again seen is scarring at the right lung base. The left lung is clear. There is no pleural effusion, pneumothorax, or pulmonary vascular congestion. The heart is normal in size given technique. There is degenerative disc disease of the spine. XR/XR chest 1V IMPRESSION: No acute cardiopulmonary abnormality. Electronically signed by: Tyrone Amaro MD 06/06/2025 07:28 AM EDT RP Dictated By: Tyrone Amaro MD Signed By: <Electronically signed by Tyrone Amaro MD in OV> 06/06/2528 DD/ 99 TD/TT: 06/05/251704 Power Press Tender: [facility] External Provider IMG XR PROCEDURES Final Result * SARS-CoV-2 RNA, Influenza A/B, and RSV RNA, Ql NAAT (06/05/2025 4:08 PM EDT) Influenza A PCR NEGATIVE Negative [facility] Influenza B PCR NEGATIVE Negative [facility] Resp Syncy Virus RNA Qual PCR NEGATIVE Negative [facility] SARS COV2 PCR NEGATIVE Negative [facility] Comment:All test results mus t be correlated with clinical findings.Negative results do not preclude SARS-CoV2, influenza Avirus, influenza B virus and/or RSV infectionand should not be used as the sole basis for treatment orother patient management decisions. Negative results must becombined with clinical observations, patient history, andepidemiological information.This test has not been evaluated for monitoring treatment ofinfection.This test has been authorized by the FDA under an EmergencyUse Authorization (EUA) for use by authorized laboratories.Testing performed on the [employer] GeneXpert utilizingreal-time RT-PCR.All SARS CoV2 and positive influenza A/B results arereported to [facility]. 06/05/2025 4:08 PM EDT 06/05/2025 4:11 PM EDT us Generic External Data Provider LAB MICROBIOLOGY - GENERAL ORDERABLES Final Result [facility] [address] [place] [phone] * CBC auto differential (06/05/2025 4:08 PM EDT) White Blood Count 7.0 4.8 - 10.8 X10*3/uL [facility] Red Blood Count 5.18 4.60 - 5.80 X10*6/uL [facility] Hemoglobin 15.7 14.0 - 18.0 g/dl [facility] Hematocrit 44.6 42.0 - 52.0 % [facility] Mean Corpuscular Volume 86.1 80.0 - 98.0 fL [facility] Mean Corpuscular Hemoglobin 30.3 27.0 - 33.0 pg [facility] Mean Corpuscular HGB Conc 35.2 31.0 - 36.0 g/dl [facility] Red Cell Distribution Width 12.6 11.0 - 16.0 % [facility] Platelet Count 167 160 - 400 X10*3/uL [facility] Mean Platelet Volume 11.5 9.4 - 12.4 fL [facility] Neutrophils Percent Auto 50.7 45 - 73 % [facility] Imm Gran Pct Auto 0.1 0.0 - 0.4 % [facility] Lymphocytes Percent Auto 37.2 20 - 40 % [facility] Monocytes Percent Auto 10.2 2 - 11 % [facility] Eosinophils Percent Auto 1.1 0 - 4 % [facility] Basophils Percent Auto 0.7 0 - 2 % [facility] NRBC Pct Auto 0.0 0.0 - 0.2 /100WBC [facility] Neutrophils Absolute Auto 3.6 2.0 - 8.3 x10*3/uL [facility] Imm Gran Abs Auto 0.01 0.00 - 0.03 X10*3/uL [facility] Lymphocytes Absolute Auto 2.6 1.2 - 4.9 X10*3/uL [facility] Monocytes Absolute Auto 0.7 0.1 - 1.2 X10*3/uL [facility] Eosinophils Absolute Auto 0.1 0.0 - 0.4 X10*3/uL [facility] Basophils Absolute Auto 0.1 0.0 - 0.2 X10*3/uL [facility] NRBC Abs Auto 0.000 0.0 - 0.012 X10*3/uL [facility] 06/05/2025 4:08 PM EDT 06/05/2025 4:11 PM EDT us Generic External Data Provider LAB BLOOD ORDERAB LES Final Result [facility] [address] [place] [phone] * Magnesium (06/05/2025 4:08 PM EDT) Magnesium 1.9 1.6 - 2.6 mg/dL [facility] 06/05/2025 4:08 PM EDT 06/05/2025 4:11 PM EDT us Generic External Data Provider LAB BLOOD ORDERAB LES Final Result [facility] [address] [place] [phone] * (ABNORMAL) Comprehensive Metabolic Panel (06/05/2025 4:08 PM EDT) Sodium 139 135 - 145 mmol/L [facility] Potassium 3.7 3.3 - 5.1 mmol/L [facility] Chloride 109(H) 96 - 108 mmol/L [facility] Carbon Dioxide 21(L) 22 - 29 mmol/L [facility] Anion Gap 13 12 - 20 [facility] Urea Nitrogen (BUN) 16 9 - 16 mg/dL [facility] Creatinine, Serum 1.02 0.5 - 1.4 mg/dL [facility] Creatinine Clr Calc Pharmacy 62.4 [facility] Comment:eGFR (calculated fro m the MDRD study equation) and eCrCl(calculated from the Cockcroft-Gault equation) are based ondifferent parameters and may not yield comparable results.If eCrCl result is absurd, please check patient'sheight/weight. Estimated Glomerular Filt Rate >60 [facility] Comment:Chronic Kidney Disea se: Estimated GFR < 60 mL/min/1.97p7Xlptol Kidney Disease: Estimated GFR < 15 mL/min/1.73m2 Glucose 136(H) 60 - 115 mg/dL [facility] Calcium 8.5 8.4 - 10.2 mg/dL [facility] Bilirubin, Total 0.9 0.0 - 1.0 mg/dL [facility] Aspartate Amino Transferase 31 5 - 37 U/L [facility] Alanine Aminotransferase 14 0 - 40 U/L [facility] Total Protein 6.9 6.5 - 8.0 g/dL [facility] Albumin Level 3.8 3.5 - 5.0 g/dL [facility] Alkaline Phosphatase 64 39 - 117 U/L [facility] 06/05/2025 4:08 PM EDT 06/05/2025 4:11 PM EDT us Generic External Data Provider LAB BLOOD ORDERAB LES Final Result [facility] [address] [place] [phone] * Hematoxylin and Eosin Stain (06/05/2025 10:50 AM EDT) 06/05/2025 10:5 0 AM EDT 06/05/2025 11:33 AM EDT Narrative [facility] - 06/07/2025 4:30 PM EDT ----- ------- Name: Ever Champagne Age/Sex: 75/M : 1950 Unit#: [id number] Attend Dr: Keya Blue MD Re06/05/25 Status: [facility] Location: [facility] Disch: ----- ------- SPEC : [id number] RECD: 06/05/25 STATUS: WILLY EDDY NUM: [id number] MARIEL: 06/05/25-1050 [facility] DR: Keya Blue MD ENTERED: 06/05/25-1148 SP TYPE: Surgical OTHR DR: Name,Oliver ROTHMAN ORDERED: HE Stain/, Gross Micro L4/9, IHC/3, Special st. 2/3, H. pylori/3, AB/PAS/3 Diagnosis A. Duodenum, biopsy: Duodenal mucosa with preserved villi and prominent Florinda's glands, otherwise no specific change. B. Gastric antrum, biopsy: Chronic Helicobacter gastritis with mild-moderate activity and intestinal metaplasia (complete and incomplete); negative for dysplasia. C. Gastric body, biopsy: Chronic Helicobacter gastritis with mild-moderate activity; negative for intestinal metaplasia and dysplasia. D. 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 E. Esophagus, lower, biopsy: Squamous mucosa with few intraepithelial eosinophils (up to 3 per high-power field) and columnar mucosa with minimal chronic inflammation, consistent with esophagitis; negative for intestinal metaplasia and dysplasia. F. Esophagus, middle, biopsy: Squamous mucosa with no specific change; no columnar mucosa present. G. Colon, sigmoid ulcer, biopsy: Minute fragment of colonic mucosa with no specific change (multiple levels examined). H. Colon, transverse, polyp: Tubular adenoma, completely excised; negative for high- grade dysplasia and carcinoma. I. Colon, descending, polyps: Tubular adenoma (1 piece); negative for high-grade dysplasia and carcinoma, and colonic mucosa (1 piece) with no specific change. Clinical History Pre-Op Dx: Polyp of colon, dysphagia Post-Op Dx: Gastritis, gastric polyp, hiatal hernia, diverticulosis, sigmoid colon ulcer, hemorrhoids, previous tattoo Microscopic Description Microscopic sections reviewed. Immunostains for H. pylori on B, C and D are negative. AB/PAS on B and D are positive for intestinal metaplasia. AB/PAS on E is negative for intestinal metaplasia. Controls stain appropriately. CONTINUED ON NEXT PAGE ----- ------- Name: Ever Champagne Age/Sex: 75/M : 1950 [id number]#: [id number] Attend Dr: Keya Blue MD Re06/05/25 Status: [facility] Location: [facility] Disch: ----- ------- SPEC : [id number] RECD: 06/05/25 STATUS: WILLY EDDY NUM: [id number] MARIEL: 06/05/25-105 [facility] DR: Keya Blue MD ENTERED: 06/05/25-114 SP TYPE: Surgical OTHR DR: Oliver Constantino MD ORDERED: HE Stain/, Gross Micro L4/9, IHC/3, Special st. 2/3, H. pylori/3, AB/PAS/3 Material Received A. Duodenum bx's B. Gastric antrum bx's C. Gastric body bx's D. Gastric polyps E. Lower esophagus bx's F. Middle esophagus bx's G. Sigmoid colon ulcer bx's H. Transverse colon polyp I. Descending colon polyps Gross Description Received in nine parts. Part A: Received in formalin labeled duodenum bx's are four hansen-pink irregular tissue fragments each measuring 0.25 cm, submitted in toto in a cassette labeled A. Part B: Received in formalin labeled gastric antrum bx's are four hansen-pink irregular tissue fragments ranging from 0.15-0.3 cm, submitted in toto in a cassette labeled B. Part C: Received in formalin labeled gastric body bx's are three villeda-white and hansen-pink irregular tissue fragments ranging from 0.15-0.3 cm, submitted in toto in a cassette labeled C. Part D: Received in formalin labeled gastric polyps are four hansen-pink and pink-red irregular and rectangular tissue fragments ranging from 0.25-0.35 cm, submitted in toto in a cassette labeled D. Part E: Received in formalin labeled lower esophagus bx's are two villeda-white irregular and rectangular tissue fragments measuring 0.25 and 0.35 cm, submitted in toto in a cassette labeled E. Part F: Received in formalin labeled middle esophagus bx's are four villeda-white irregular and rectangular tissue fragments ranging from 0.3-0.45 cm, submitted in toto in a cassette labeled F. Part G: Received in formalin labeled sigmoid colon ulcer bx's (sic) is a 0.1 cm pale, villeda-hansen irregular tissue fragment, submitted in toto in a cassette labeled G. Part H: Received in formalin labeled transverse colon polyp is a 0.3 cm hansen-pink irregular tissue fragment, submitted in toto in a cassette labeled H. CONTINUED ON NEXT PAGE ----- ------- Name: IhsanEver Age/Sex: 75/M : 1950 Unit#: [id number] Attend Dr: Keya Blue MD Re06/05/25 Status: [facility] Location: [facility] Disch: ----- ------- SPEC : [id number] RECD: 06/05/25 STATUS: WILLY EDDY NUM: [id number] MARIEL: 06/05/25-105 [facility] DR: Keya Blue MD ENTERED: 06/05/25 SP TYPE: Surgical OTHR DR: Oliver Constantino MD ORDERED: HE Stain/, Gross Micro L4/9, IHC/3, Special st. 2/, H. pylori/3, AB/PAS/3 Gross Description (Continued) Part I: Received in formalin labeled descending colon polyps are two hansen-pink irregular and papular tissue fragments measuring 0.35 and 0.45 cm, submitted in toto in a cassette labeled I. CEDS Special studies ordered and performed: Immunostain for H. pylori on B1, C1 and D1; AB/PAS stains on B1, D1 and E1. IHC S/NG Disclaimer NOTE: Unless otherwise stated, all tissue is formalin-fixed and paraffin-embedded. Some or all of the immunohistochemical tests reported herein may have been developed and their performance characteristics determined by [facility]. They have not been cleared or approved by the U.S. Food and Drug Administration (FDA). However, the FDA has determined that such clearance or approval is not necessary. This laboratory is certified under the Clinical Laboratory Improvement Amendments of 1988 (CLIA) as qualified to perform high complexity clinical laboratory testing. Copies To: Name,Oliver ROTHMAN [address] [place] [id number] Keya Blue MD [facility] [address] [place] [id number] [email or web address] ----- ------- Signed (signature on file) Marcia Schrader 06/07/25 1630 ----- ------- END OF REPORT Generic External Data Provider LAB BLOOD ORDERAB LES Final Result [facility] [address] [place] [address] [phone] * (ABNORMAL) Hm Colonoscopy (06/05/2025) Colonoscopy Abnormal(A ) Normal 06/05/2025 Oliver Constantino MD HEALTH MAINTENANCE Final Result * Lipid Panel, Standard (08/25/2023 8:51 AM EDT) Triglycerides 73 <150 mg/dL [facility] Comment:Desirable Triglyceri de: less than 150 mg/dLBorderline High Triglyceride 150-199 mg/dLHigh Triglyceride: 200-499 mg/dLVery High Triglyceride: greater than or equal to 5OO mg/dL Cholesterol 152 <200 mg/dL [facility] Comment:Desirable Cholestero l: less than 200 mg/dLBorderline High Cholesterol: 200-239 mg/dLHigh Cholesterol: greater than 239 mg/dL LDL Cholesterol Calculated 86 <100 mg/dL [facility] Comment:Desirable LDL: less than 100 mg/dLNear Optimal/Above Optimal LDL: 110- 129 mg/dLBorderline High LDL: 130-159 mg/dLHigh LDL: 160-189 mg/dLVery High LDL: greater than or equal to 190 mg/dL HDL Cholesterol 52 >40 mg/dL [facility] Comment:Desirable HDL: great er than 40 mg/dL Note: This HDL assay may give artificially low results in patients with liver disease. Blood Venous blood specimen / Unknown 08/25/2023 8:51 AM EDT 08/25/2023 11:32 AM EDT us Oliver Constantino MD LAB BLOOD ORDERABLES Final Resul t Performing Organization Address City/[facility]/ZIP Co de Phone Number [facility] [address] [place] [address] [phone] HEMOGLOBIN A1c (06/05/2022 7:58 AM EDT) Hemoglobin A1c 5.5 <5.7 % of total Hgb [facility] Comment: For the purpose of screening for the presence of diabetes: <5.7% Consistent with the absence of diabetes 5.7-6.4% Consistent with increased risk for diabetes (prediabetes) > or =6.5% Consistent with diabetes This assay result is consistent with a decreased risk of diabetes. Currently, no consensus exists regarding use of hemoglobin A1c for diagnosis of diabetes in children. According to [place] Diabetes Association (ADA) guidelines, hemoglobin A1c <7.0% represents optimal control in non- diabetic patients. Different metrics may apply to specific patient populations. Standards of Medical Care in Diabetes(ADA). 06/05/2022 7:58 AM EDT us Oliver Constantino MD LAB BLOOD ORDERABLES Final Resul t [facility] Anywhere [address] from Last 3 Months or Most Recently Relevant to Health Maintenance Insurance DUAL COMPLETE Care Teams [employer] Worker Relationship Specialty Start Date End Date Name, MD Oliver [address] [place] [id number] PCP - General Family Medicine 05/17/17
== END 2025-06-20 15:29 | disposition home or self-care (01) ==
LOC: HO.HGI 14:32
PROVIDERS: PCP Internal Medicine Geriatric Medicine; Visit Provider Internal Medicine
DX: Z86.0100 Personal history of colon polyps, unspecified (principal); R63.4 Abnormal weight loss; K29.70 Gastritis, unspecified, without bleeding; B96.81 Helicobacter pylori [H. pylori] as the cause of diseases classified elsewhere
CPT/HCPCS: 99214; G2211

== ENCOUNTER → 2025-06-20 14:31 | Outpatient (BNVA) | payer OTHER, SELFPAY | PROVIDERS: PCP Internal Medicine Geriatric Medicine; Visit Provider Internal Medicine | DX: K29.70 Gastritis, unspecified, without bleeding (principal); B96.81 Helicobacter pylori [H. pylori] as the cause of diseases classified elsewhere; R63.4 Abnormal weight loss; Z86.0100 Personal history of colon polyps, unspecified; Z98.890 Other specified postprocedural states; Z68.26 Body mass index [BMI] 26.0-26.9, adult | CPT/HCPCS: 99212 ==

== ENCOUNTER 2025-07-09 12:48 | Emergency (ER) | payer OTHER, SELFPAY ==
--- NOTE | 2025-07-09 | ECG_ITS ---
Test Reason : CP Blood Pressure : */* mmHG Vent. Rate : 78 BPM Atrial Rate : 78 BPM P-R Int : 120 ms QRS Dur : 88 ms QT Int : 368 ms P-R-T Axes : 42 22 35 degrees QTcB Int : 419 ms Normal sinus rhythm Increased R/S ratio in V1, consider early transition or posterior infarct Abnormal ECG When compared with ECG of 05-Jun-2025 15:52, Aberrant conduction is no longer Present Referred By: Generic ED Physician Electronically Signed By: HORTENCIA BENTLEY
--- NOTE | ~2025-07-09 | XR_ITS ---
EXAMINATION: XR CHEST 2 VIEWS HISTORY: chest pain COMPARISON: Comparison is made with the prior examination dated 06/05/2025. FINDINGS: PA and lateral views of the chest are submitted. There is scarring in the right upper lobe of the right lung base. Lungs are otherwise clear. There is no pleural effusion, pneumothorax, or pulmonary vascular congestion. The heart is normal in size. There is degenerative disc disease of the spine. XR/XR chest 2V IMPRESSION: No acute cardiopulmonary abnormality. Electronically signed by: Tyrone Amaro MD 07/09/2025 02:12 PM EDT
[2025-07-09 13:02] LABS: MANUAL DIFF FLAG NO
[2025-07-09 13:03] LABS: Hematocrit 44.9 % (42.0-52.0); Hemoglobin 15.5 g/dl (14.0-18.0); Imm Gran Abs Auto 0.01 X10*3/uL (0.00-0.03); Imm Gran Pct Auto 0.2 % (0.0-0.4); Lymphocytes Absolute Auto 2.2 X10*3/uL (1.2-4.9); Mean Corpuscular HGB Conc 34.5 g/dl (31.0-36.0); Mean Corpuscular Hemoglobin 29.9 pg (27.0-33.0); Mean Corpuscular Volume 86.5 fL (80.0-98.0); NRBC Abs Auto 0.000 X10*3/uL (0.0-0.012); NRBC Pct Auto 0.0 /100WBC (0.0-0.2); Platelet Count 163 X10*3/uL (160-400); Red Blood Count 5.19 X10*6/uL (4.60-5.80); White Blood Count 5.9 X10*3/uL (4.8-10.8)
[2025-07-09 13:14] LABS: Anion Gap 10 (12-20); Blood Urea Nitrogen 20 mg/dL (9-16); Calcium 9.0 mg/dL (8.4-10.2); Carbon Dioxide 25 mmol/L (22-29); Chloride 108 mmol/L (96-108); Estimated Glomerular Filt Rate > 60; Potassium 4.3 mmol/L (3.3-5.1); Sodium 139 mmol/L (135-145)
[2025-07-09 13:15] LABS: INTERNATIONAL NORM RATIO 1.1 (0.9-1.1); Prothrombin Time 12.2 SEC (10.9-12.4)
[2025-07-09 13:29] LABS: Troponin-I High Sensitivity < 2.7 ng/L (<3.5-35.0)
[2025-07-09 13:33] VITALS: BP 145/67; PULSE 68; RESP 18; TEMP 36.2; O2SAT 99; BMI 25.8
--- NOTE | 2025-07-09 13:33 | ED_ITS ---
HPI - General Adult General Chief complaint: General Medical Stated complaint: CP Time Seen by Provider: 07/09/25 19:55 Source: patient Mode of arrival: ambulatory Limitations: no limitations History of Present Illness ED Provider: Dr. Luke HPI narrative: This is a 75-year-old male history of H pylori gastritis,, gastric reflux presented hospital today for sudden onset of chest pain. Patient stated that he was eating fish we will plan to in when this occurred all of a sudden. Patient stated that he did some exercise and he burped and then did feel little bit better. However his chest pain persists therefore he was directed to come to the ER for further evaluation. Patient is asymptomatic at this time does not have any chest pain does not have any shortness of breath. He has no abdominal pain either. Related Data Home Medications ?Medication ?Instructions ?Recorded ?Confirmed acetaminophen 500 mg tablet mg PO 03/15/24 fluticasone propionate 50 intranasal 03/15/24 mcg/actuation nasal spray,suspension gabapentin 300 mg capsule 300 mg PO BEDTIME 03/15/24 0 07/09/25 losartan 25 mg tablet 25 mg PO DAILY 03/15/2406/25 blood pressure test kit-large #1 ea 02/21/25 Previous Rx's ?Medication ?Instructions ?Recorded ondansetron 4 mg disintegrating 4 mg PO Q8H PRN nausea and 06/05/25 tablet vomiting #7 tabs omeprazole 10 mg-amox 250 4 cap (4 x 10-250-12.5 mg) P O TID 06/20/25 mg-rifabutin 12.5 mg capsule 14 days #168 ea immed,delay rel (Talicia) omeprazole 20 mg capsule,delayed 20 mg PO DAILY 30 day s #30 caps 07/09/25 release Allergies Allergy/AdvReac Type Severity Reaction Status Date / Time No Known Allergies Allergy Verified 07/09/25 13:36 Review of Systems 2 Review of Systems: Pertinent review of systems as mentioned in HPI. All other system otherwise negative. [facility] Past Medical History [facility] Narrative: Medical history as mentioned in HPI Medical History History of tuberculosis Multiple pulmonary nodules Asthma Social History Social History Are you a primary health care law specialist to a significant other at home: No Do you presently have visiting nurse or other home services: No Patient Tobacco Use Status: Former Tobacco user Years Smoked: quit about 45+ years ago Smoked in Last 30 Days: No Use of substances other than those prescribed or required for medical reasons: No Advance Directives: No Advance Directives Information Provided: No Physical Exam ED Exam Exam: General: Pleasant, no distress, interacting appropriately Head: Normacephalic, atraumatic ENT: oral mucosa moist, neck supple, no tracheal deviation Cardiovascular: regular rate, regular rhythm, no murmurs, rubbing, gallops Respiratory: CTAB, no wheeze, rales, rhonchi Gastrointestinal: Soft, non distended, non tender, non guarding Neurological: Awake and alert, no facial droop noted Skin: Warm and dry Psychiatric: Appropriate mood and thoughts Vital Signs: Vital Signs - 24 hr 07/09/25 13:33 07/09/25 14:33 07/09/25 19:47 Temperature 97.2 F 97 F 97.8 F Pulse Rate 68 68 63 Respiratory Rate 18 20 18 Blood Pressure 145/67 H 160/75 H 166/83 H Pulse Oximetry 99 99 100 Oxygen Delivery Method Room Air Room Air Room Air 07/09/25 20:54 07/09/25 20:59 Temperature 97.7 F 97.7 F Pulse Rate 63 63 Respiratory Rate 12 12 Blood Pressure 143/82 H 143/82 H Pulse Oximetry 100 99 Oxygen Delivery Method Room Air Room Air BMI result Body Mass Index 25.8 Course Course Course Narrative: This is a rapid medical exam performed by Lei Bruner NP: Additional HPI, ROS, PE not included below will be deferred to primary provider. Patient is a 75y/o M presenting with complaint of chest pain around 1 hour ECONOMIC HISTORIAN after eating a heavy breakfast. took his BP and noted it was elevated. She reports that he has been having this pain intermittently and was seen by cardiology with a negative workup. Plan: EKG, labs, CXR Medical Decision Making Medical Decision Making [facility] Narrative: This is a 75-year-old male history of gastritis and GERD presented hospital today for evaluation of chest pain after eating. ACS workup on patient. EKG did not show any signs of STEMI. Troponins negative x2. Chest x-ray is unremarkable. Patient is asymptomatic or chest pain at this time. Patient stated that he was recently treated for H pylori. He recently finished a regimen for it. Patient does follow up with GI doctor for this. At this time we will plan to discharge patient with omeprazole to take for gastric reflux. The patient is agreeable this plan. Based on patient's history and presentation I suspect patient has gastric reflux. Differential Diagnosis Differential Diagnoses: The differential diagnosis associated with the presentation includes Gastritis, gastric reflux, ACS, CAD, STEMI Lab Data MDM Lab Attestation statement: I reviewed the patient's lab results. 07/09/25 12:57 07/09/25 12:57 Labs: Lab Results 07/09/25 07/09/25 Range/Units 12:57 14:42 WBC 5.9 (4.8-10.8) X10*3/uL RBC 5.19 (4.60-5.80) X10*6/uL Hgb 15.5 (14.0-18.0) g/dl Hct 44.9 (42.0-52.0) % MCV 86.5 (80.0-98.0) fL MCH 29.9 (27.0-33.0) pg MCHC 34.5 (31.0-36.0) g/dl RDW 12.7 (11.0-16.0) % Plt Count 163 (160-400) X10*3/uL MPV 12.3 (9.4-12.4) fL Immature Gran % (Auto) 0.2 (0.0-0.4) % Neut % (Auto) 52.7 (45-73) % Lymph % (Auto) 37.2 (20-40) % [place] % (Auto) 8.0 (2-11) % Eos % (Auto) 1.2 (0-4) % Baso % (Auto) 0.7 (0-2) % Lymph # (Auto) 2.2 (1.2-4.9) X10*3/uL [place] # (Auto) 0.5 (0.1-1.2) X10*3/uL Eos # (Auto) 0.1 (0.0-0.4) X10*3/uL Baso # (Auto) 0.0 (0.0-0.2) X10*3/uL Abs Immat Gran (auto) 0.01 (0.00-0.03) X10*3/uL Absolute Neuts (auto) 3.1 (2.0-8.3) x10*3/uL Absolute Nucleated RBC 0.000 (0.0-0.012) X10*3/uL Nucleated RBC % (auto) 0.0 (0.0-0.2) /100WBC PT 12.2 (10.9-12.4) SEC INR 1.1 (0.9-1.1) Sodium 139 (135-145) mmol/L Potassium 4.3 (3.3-5.1) mmol/L Chloride 108 (96-108) mmol/L Carbon Dioxide 25 (22-29) mmol/L Anion Gap 10 L (12-20) BUN 20 H (9-16) mg/dL Creatinine 1.05 (0.5-1.4) mg/dL Estim Creat Clear Calc TNP Estimated GFR > 60 Random Glucose 128 H (60-115) mg/dL Calcium 9.0 (8.4-10.2) mg/dL Total Bilirubin 0.7 (0.0-1.0) mg/dL Direct Bilirubin 0.3 (0.0-0.5) mg/dL AST 111 H (5-37) U/L ALT 57 H (0-40) U/L Alkaline Phosphatase 69 (39-117) U/L Troponin I High Sens < 2.7 < 2.7 (<3.5-35.0) ng/L Total Protein 7.4 (6.5-8.0) g/dL Albumin 3.9 (3.5-5.0) g/dL Lipase 26 (8-78) U/L Independent Interpretation I performed an independent interpretation of an: EKG, Rhythm Strip and Plain X- Ray Discharge Plan Discharge Clinical Impression: Gastric reflux Patient Disposition: Home, Self-Care Instructions: GERD (Gastroesophageal Reflux Disease) (ED) Prescriptions: New omeprazole 20 mg capsule,delayed release(DR/EC) 20 mg PO DAILY 30 Days Qty: 30 0RF No Action ondansetron 4 mg tablet,disintegrating 4 mg PO Q8H PRN (Reason: nausea and vomiting) Qty: 7 0RF fluticasone propionate 50 mcg/actuation spray,suspension intranasal gabapentin 300 mg capsule 300 mg PO BEDTIME acetaminophen 500 mg tablet PO losartan 25 mg tablet 25 mg PO DAILY (DME) blood pressure test kit-large Kit See Rx Instructions .ROUTE BID Qty: 1 Rx Instructions: As directed Talicia 10-250-12.5 mg capsule,IR - delay rel,biphase 4 cap PO TID 14 Days Qty: 168 0RF Rx Instructions: must administer with a meal/food Interventions: ED Discharge Assessment Last Done: 07/09/25 20:54 Discharge Date/Time: 07/09/25 21:01 Print Language: Icelandic
[2025-07-09 13:54] LABS: Alanine Aminotransferase 57 U/L (0-40); Albumin Level 3.9 g/dL (3.5-5.0); Alkaline Phosphatase 69 U/L (39-117); Aspartate Amino Transferase 111 U/L (5-37); Lipase 26 U/L (8-78); Total Protein 7.4 g/dL (6.5-8.0)
[2025-07-09 14:33] VITALS: BP 160/75; PULSE 68; RESP 20; TEMP 36.1; O2SAT 99
[2025-07-09 15:28] LABS: Troponin-I High Sensitivity < 2.7 ng/L (<3.5-35.0)
[2025-07-09 19:47] VITALS: BP 166/83; PULSE 63; RESP 18; TEMP 36.6; O2SAT 100
[2025-07-09 20:54] VITALS: BP 143/82; PULSE 63; RESP 12; TEMP 36.5; O2SAT 100
[2025-07-09 20:59] VITALS: BP 143/82; PULSE 63; RESP 12; TEMP 36.5; O2SAT 99
--- OUTSIDE RECORDS SUMMARY | 2025-07-09 21:55 | XMS_ITS ---
Author Name Aurelio Alexis APRN Address [address] [place] [address] Phone [phone] [facility] Care Team Providers Care Product Development Specialist Name Role Phone Saira Alexis Unavailable [phone] Unavailable Unavailable Unavailable [facility] Unavailable [phone] Unavailable Unavailable [phone] Reason for Referral Not Available Allergies, adverse reactions, alerts No known allergies History of medication use Medication Class Instructions Start Date End Date Diclofenac Sodium 1 % Gel APPLY 2 GRAMS TOPICALLY TO AFFECTED AREA(S) 4 TIMES A DAY 2022-03-18 No Data Available Loratadine 10 mg Tab TAKE 1 TABLET BY [facility] EVERY DAY NEEDED FOR ALLERGIES 2022-01-16 2024-04-12 [...] 2024-04-12 N/A HYPERTENSIO N CONTINGENCY PLANLast updated: 04/09/2025N Member to call for the following symptoms: BP >180/100 / Headache/ HR >100 Planned intervention: Assess for signs of end organ damage (headache, vision changes, chest pain)/ Vision Specialist on proper BP monitoring technique and reassess/ [...] Pain Assessment - NO pain present (1126F) [facility] [place] Pain Assessment - NO pain present (1126F) [facility] [place] Pain Assessment - NO pain present (1126F) [facility] [place] Pain Assessment - NO pain present (1126F) [facility] [place] Pain Assessment - NO pain present (1126F) [facility] [place] Pain Assessment - NO pain present (1126F) [facility] [place] Pain Assessment - NO pain present (1126F) [facility] [place] Type 2 diabetes mellitus wit h other circulatory complicationsHypertension secondary to endocrine disordersUnspecified osteoarthritis, unspecified site Pain Assessment - NO pain present (1126F) [facility] [place] Pain Assessment - NO pain present (1126F) [facility] [place] Estab. patient 30-39min; chronic exacerbation, 2 stable chronic or 1 acute illness add add modifier 95 for video, (do not use for phone, instead use 49711-26) [facility] [place]2023 Type 2 diabetes mellitus wit hout complicationsAbdominal aortic aneurysm, without rupture, unspecifiedDisease of spinal cord, unspecifiedEssential (primary) hypertensionUnspecified osteoarthritis, unspecified sitePersonal history of malignant neoplasm of prostateAnesthesia of skinCervicalgiaOther chronic pain Estab. patient 30-39min; chronic exacerbation, 2 stable chronic or 1 acute illness add add modifier 95 for video, (do not use for phone, instead use 85673-17) [facility] [place] Estab. patient 30-39min; chronic exacerbation, 2 stable chronic or 1 acute illness add add modifier 95 for video, (do not use for phone, instead use 69379-59) [facility] [place] Estab. patient 30-39min; chronic exacerbation, 2 stable chronic or 1 acute illness add add modifier 95 for video, (do not use for phone, instead use 54124-37) [facility] [place] Estab. patient 30-39min; chronic exacerbation, 2 stable chronic or 1 acute illness add add modifier 95 for video, (do not use for phone, instead use 59536-00) [facility] [place] Estab. patient 30-39min; chronic exacerbation, 2 stable chronic or 1 acute illness add add modifier 95 for video, (do not use for phone, instead use 55754-82) [facility] [place] Estab. patient 30-39min; chronic exacerbation, 2 stable chronic or 1 acute illness add add modifier 95 for video, (do not use for phone, instead use 08624-50) [facility] [place] Estab. patient 30-39min; chronic exacerbation, 2 stable chronic or 1 acute illness add add modifier 95 for video, (do not use for phone, instead use 69619-66) [facility] Estab. patient 30-39min; chronic exacerbation, 2 stable chronic or 1 acute illness add add modifier 95 for video, (do not use for phone, instead use 43783-93) [facility] [place] Estab. patient 30-39min; chronic exacerbation, 2 stable chronic or 1 acute illness add add modifier 95 for video, (do not use for phone, instead use 24410-68) [facility] [place]2023 Unlisted special service; to be used for medical record reviews and reporting CPTII codes (1111F, etc) [facility] [place] Other specified health statu s Unlisted special service; to be used for medical record reviews and reporting CPTII codes (1111F, etc) [facility] ([place] 03/17/2024 Unlisted special service; to be used for medical record reviews and reporting CPTII codes (1111F, etc) [facility] [place] Estab. patient 30-39min; chronic exacerbation, 2 stable chronic or 1 acute illness add add modifier 95 for video, (do not use for phone, instead use 98656-22) [facility] [place] Essential (primary) hypertensionUnspecified osteoarthritis, [...] (do not use for phone, instead use 88991-44) [facility] [place] Estab. patient 30-39min; chronic exacerbation, 2 stable chronic or 1 acute illness add add modifier 95 for video, (do not use for phone, instead use 07142-85) [facility] [place] Estab. patient 30-39min; chronic exacerbation, 2 stable chronic or 1 acute illness add add modifier 95 for video, (do not use for phone, instead use 58436-71) [facility] [place] Estab. patient 30-39min; chronic exacerbation, 2 stable chronic or 1 acute illness add add modifier 95 for video, (do not use for phone, instead use 31224-53) [facility] [place] Estab. patient 30-39min; chronic exacerbation, 2 stable chronic or 1 acute illness add add modifier 95 for video, (do not use for phone, instead use 62244-00) [facility] [place] Estab. patient 30-39min; chronic exacerbation, 2 stable chronic or 1 acute illness add add modifier 95 for video, (do not use for phone, instead use 08036-27) [facility] [place] Estab. patient 30-39min; chronic exacerbation, 2 stable chronic or 1 acute illness add add modifier 95 for video, (do not use for phone, instead use 96523-76) [facility] [place] Estab. patient 30-39min; chronic exacerbation, 2 stable chronic or 1 acute illness add add modifier 95 for video, (do not use for phone, instead use 57775-76) [facility] [place] Estab. patient 30-39min; chronic exacerbation, 2 stable chronic or 1 acute illness add add modifier 95 for video, (do not use for phone, instead use 60961-06) [facility] [place] No Data Available [facility] [place]20[place] Type 2 diabetes mellitus wit hout complicationsEssential (primary) hypertensionUnsp FB in resp tract, part unsp causing oth injury, sequela No Data Available [facility] [place] Estab. patient 10-29min; 1 minor problem; add add modifier 95 for video, modifier 93 for phone [facility] [place]/2024 Unspecified symptoms and sig ns involving the genitourinary system Estab. patient 10-29min; 1 minor problem; add add modifier 95 for video, modifier 93 for phone [facility] [place] Estab. patient 20-29min; 1 stable chronic or 2 minor; add add modifier 95 for video, modifier 93 for phone [facility] [place] 04/09/2025 Unspecified osteoarthritis, unspecified siteEssential (primary) hypertensionType 2 diabetes mellitus without complicationsPersonal history of malignant neoplasm of prostateAbdominal aortic aneurysm, without rupture, unspecifiedAnesthesia of skinCervicalgiaOther chronic painDisease of spinal cord, unspecifiedOther problems related to medical facilities and other health care Estab. patient 20-29min; 1 stable chronic or 2 minor; add add modifier 95 for video, modifier 93 for phone [facility]/20[place] Estab. patient 20-29min; 1 stable chronic or 2 minor; add add modifier 95 for video, modifier 93 for phone [facility] 04/09/2025 Estab. patient 20-29min; 1 stable chronic or 2 minor; add add modifier 95 for video, modifier 93 for phone [facility]20[place] Estab. patient 20-29min; 1 stable chronic or 2 minor; add add modifier 95 for video, modifier 93 for phone [facility] 04/09/2025 Estab. patient 20-29min; 1 stable chronic or 2 minor; add add modifier 95 for video, modifier 93 for phone [facility] 04/09/2025 Estab. patient 20-29min; 1 stable chronic or 2 minor; add add modifier 95 for video, modifier 93 for phone [facility] 04/09/2025 Estab. patient 20-29min; 1 stable chronic or 2 minor; add add modifier 95 for video, modifier 93 for phone [facility]/20[place] Estab. patient 20-29min; 1 stable chronic or 2 minor; add add modifier 95 for video, modifier 93 for phone [facility] [place] Estab. patient 20-29min; 1 stable chronic or 2 minor; add add modifier 95 for video, modifier 93 for phone [facility] [place] 04/[place]/2025 Vital Signs Date of Collection [...] tive Time Current Smoking Status Former smoker 2025-06-25 8 Sex Male History of Procedures Procedures Service [...] (do not use for phone, instead use 40795-29) 94274 2022-08-28 No Data Available No Data Availa ble SBP 130-139 (3075F) 3075F 2022-08-28 No Data Availabl e No Data Available DBP <80 (3078F) 3078F 2022-08-28 No Data Available No Data Available Estab. patient 30-39min; chronic exacerbation, 2 stable chronic or 1 acute illness add add modifier 95 for video, (do not use for phone, instead use 27866-75) 00678 2023-07-06 No Data Available No Data Availa [...] reviews and reporting CPTII codes (1111F, etc) 18346 2024-03-17 No Data Available No Data Availa ble SBP 130-139 (3075F) 3075F 2024-03-17 No Data Availabl e No Data Available DBP 80-89 (3079F) 3079F 2024-03-17 No Data Available No Data Available Estab. patient 30-39min; chronic exacerbation, 2 stable chronic or 1 acute illness add add modifier 95 for video, (do not use for phone, instead use 88698-03) 53203 2024-04-12 No Data Available No Data Availa [...] No Data Avail able No Data Available [id number] 2024-08-22 No Data Available No Data Available Medication List Documented (1159F) 1159F 2024-08-22 No Data Available No Data Starr ilable Estab. patient 10-29min; 1 minor problem; add add modifier 95 for video, modifier 93 for phone 67740 2024-12-11 No Data Available No Data Availa ble Pain Assessment - NO pain present (1126F) 1126F 2024-12-11 No Data Available No Data A vailable Estab. 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 2025-04-09 Mental Status Status Date Alert [...] modifier 95Continue to see PCP. Follow-up with [facility] as needed for any acute or disease education needs that may arise.LosartanDM2 diet controlled, unknown [id number] with PCP every 3 monthsPain increasing in [...] low abd pain. [facility] Follow-up with Ger[facility] as [...] obtained (3008F)Continue to see PCP. Follow-up with [facility] as needed for any acute or disease education needs that may arise.HYPERTENSION CONTINGENCY PLANLast updated: 04/09/2025HTN Member to call for the following symptoms: BP >180/100 / Headache/ HR >100 Planned intervention: Assess for signs of end organ damage (headache, vision changes, chest pain)/ Vision Specialist on proper BP monitoring technique and reassess/ [...] as discussed. 2025-04-09 Contact us if naomie carrizales health-related concerns. 2025-04-09 Continue taking medi cations [...]
--- OUTSIDE RECORDS SUMMARY | 2025-07-09 21:55 | XMS_ITS | Encounter Summary ---
Author Organization [employer] Address [address] [place] [address] Care Team Providers Care C Developer Name Role Phone Name, Oliver ROTHMAN Primary Care Provider [phone] Encounter Details Date Type Department Care Team (Late st Contact Info) Description 11/18/2023 Abstract [facility] DIABETES/NUTRITION [address] [place] [address] Name, MD Oliver [address] [place] [address] Social History Tobacco Use Types Packs/Day Years [...] on filedocumented in this encounter Care Teams C Developer Relationship Specialty Start Date End Date Name, MD Oliver [address] [place] [address] PCP - General Family Medicine 05/17/17 documented as of this encounter
--- OUTSIDE RECORDS SUMMARY | 2025-07-09 21:55 | XMS_ITS | Encounter Summary ---
Author Organization [employer] Address [address] [place] [address] Care Team Providers Care Trimming Operator Name Role Phone Name, Oliver ROTHMAN Primary Care Provider [phone] Encounter Details Date Type Department Care Team (Late st Contact Info) Description 11/18/2023 Abstract [facility] MEDICINE [address] [place], [place] [id number] Name, MD Oliver [address] [place], [place] [id number] Social History Tobacco Use Types Packs/Day Years [...] on filedocumented in this encounter Care Teams Trimming Operator Relationship Specialty Start Date End Date Name, MD Oliver [address] [place] [address] PCP - General Family Medicine 05/17/17 documented as of this encounter
--- OUTSIDE RECORDS SUMMARY | 2025-07-09 21:55 | XMS_ITS | Encounter Summary ---
Author Organization [employer] Address [address] [place] [address] [address] [place] [address] Care Team Providers Care Senior Premium Auditor Name Role Phone Name, Oliver ROTHMAN Primary Care Provider [phone] Encounter Details Date Type Department Care Team (Late st Contact Info) Description 03/29/2023 Abstract [facility] MEDICINE [address] [place] [address] Name, MD Oliver [address] [place] [address] Social History Tobacco Use Types Packs/Day Years [...] on filedocumented in this encounter Care Teams Senior Premium Auditor Relationship Specialty Start Date End Date Name, MD Oliver [address] [place] [address] PCP - General Family Medicine 05/17/17 documented as of this encounter
--- OUTSIDE RECORDS SUMMARY | 2025-07-09 21:55 | XMS_ITS | Encounter Summary ---
Author Organization [employer] Address [address] [facility] [address] [place] [address] Care Team Providers Care Maintenance Repairman Name Role Phone Name, Oliver ROTHMAN Primary Care Provider [phone] Encounter Details Date Type Department Care Team ([facility] Contact Info) Description 07/09/2025 Orders Only GENERIC EXTERNAL DATA DEPARTMENT Provider, Generic External Data Social History Tobacco Use Types Packs/Day Years [...] Procedure Name Priority Date/Time Associated Diagnosis Comments HIGH SENSITIVITY TROPONIN I Routine 07/09/2025 2:42 PM EDT XR CHEST 2 VIEWS Routine 07/09/2025 1:56 PM EDT HIGH SENSITIVITY TROPONIN I Routine 07/09/2025 12:57 PM EDT CBC WITH AUTO DIFFERENTIAL Routine 07/09/2025 12:57 PM EDT PROTHROMBIN TIME-INR Routine 07/09/2025 12:57 PM EDT LIPASE Routine 07/09/2025 12:57 PM EDT HEPATIC FUNCTION PANEL Routine 07/09/2025 12:57 PM EDT BASIC METABOLIC PANEL Routine 07/09/2025 12:57 PM EDT documented in this encounter Results * High Sensitivity Troponin I (07/09/2025 2:42 PM EDT) TROPONIN I HIGH SENSITIVITY <2.7 <3.5 - 35.0 ng/L [facility] Comment:[employer] high sens itivity Troponin-I results should beused in conjunction with other diagnostic information suchas ECG, clinical observations and information, and patientsymptoms to aid in the diagnosis of [facility]. 07/09/2025 2:42 PM EDT 07/09/2025 2:45 PM EDT us Generic External Data Provider LAB BLOOD ORDERAB LES Final Result [facility] [address] [place] [phone] * XR Chest 2 Views (07/09/2025 1:56 PM EDT) Anatomical Region Laterality Modality Chest Radiographic Usha ging 07/09/2025 1:56 PM EDT Narrative 07/09/2025 2:15 PM EDT [address] [address] XRay Report Signed Patient: Ever Champagne MR#: [id number] [birth year] : 1950 Acct:[id number] Age/Sex: 75 / M ADM Date: 07/09/25 Loc: .ED Attending Dr: Ordering Physician: Generic ED Physician Date of Service: 07/09/25 Procedure(s): XR chest 2V Accession Number(s): [id number] cc: Generic ED Physician; Name,Oliver ROTHMAN Reason for Exam: chest pain EXAMINATION: XR CHEST 2 VIEWS HISTORY: chest pain COMPARISON: Comparison is made with the prior examination dated 06/05/2025. FINDINGS: PA and lateral views of the chest are submitted. There is scarring in the right upper lobe of the right lung base. Lungs are otherwise clear. There is no pleural effusion, pneumothorax, or pulmonary vascular congestion. The heart is normal in size. There is degenerative disc disease of the spine. XR/XR chest 2V IMPRESSION: No acute cardiopulmonary abnormality. Electronically signed by: Tyrone Amaro MD 07/09/2025 02:12 PM EDT Dictated By: Tyrone Amaro MD Signed By: <Electronically signed by Tyrone Amaro MD in OV> 07/09/25 1412 DD/ 1356 TD/TT: 07/09/[address] Light Repairer: Procedure Note Donotuseinterpreter, Image - 07/09/[address] [address] XRay Report Signed Patient: Carlos Alberto ChampagneR#: [id number] 26 : 1950cct:[id number] Age/Sex: 75 / MADM Date: 07/09/25 Loc: HO.ED Attending Dr: Ordering Physician: Generic ED Physician Date of Service: 07/09/25 Procedure(s): XR chest 2V Accession Number(s): [id number] cc: Generic ED Physician; Name,Oliver ROTHMAN Reason for Exam: chest pain EXAMINATION: XR CHEST 2 VIEWS HISTORY: chest pain COMPARISON: Comparison is made with the prior examination dated 06/05/2025. FINDINGS: PA and lateral views of the chest are submitted. There is scarring in the right upper lobe of the right lung base. Lungs are otherwise clear. There is no pleural effusion, pneumothorax, or pulmonary vascular congestion. The heart is normal in size. There is degenerative disc disease of the spine. XR/XR chest 2V IMPRESSION: No acute cardiopulmonary abnormality. Electronically signed by: Tyrone Amaro MD 07/09/2025 02:12 PM EDT RP Dictated By: Tyrone Amaro MD Signed By: <Electronically signed by Tyrone Amaro MD in OV> 07/09/25 1412 DD/ 1356 TD/TT: 07/09/[address] Light Repairer: [facility] External Provider IMG XR PROCEDURES Final Result * Lipase (07/09/2025 12:57 PM EDT) Lipase 26 8 - 78 U/L [facility] 07/09/2025 12:5 7 PM EDT 07/09/2025 1:00 PM EDT Generic External Data Provider LAB BLOOD ORDERAB LES Final Result [facility] [address] [place] [phone] * (ABNORMAL) Hepatic Function Panel (07/09/2025 12:57 PM EDT) Bilirubin, Total 0.7 0.0 - 1.0 mg/dL [facility] Bilirubin, Direct 0.3 0.0 - 0.5 mg/dL [facility] Aspartate Amino Transferase 111(H) 5 - 37 U/L [facility] Alanine Aminotransferase 57(H) 0 - 40 U/L [facility] Total Protein 7.4 6.5 - 8.0 g/dL [facility] Albumin Level 3.9 3.5 - 5.0 g/dL [facility] Alkaline Phosphatase 69 39 - 117 U/L [facility] 07/09/2025 12:5 7 PM EDT 07/09/2025 1:00 PM EDT Generic External Data Provider LAB BLOOD ORDERAB LES Final Result Performing Organization Address [facility] Co de Phone Number [facility] [address] [place] [phone] * High Sensitivity Troponin I (07/09/2025 12:57 PM EDT) Pathologist [facility] TROPONIN I HIGH SENSITIVITY <2.7 <3.5 - 35.0 ng/L [facility] Comment:[employer] high sens itivity Troponin-I results should beused in conjunction with other diagnostic information suchas ECG, clinical observations and information, and patientsymptoms to aid in the diagnosis of [facility]. 07/09/2025 12:5 7 PM EDT 07/09/2025 1:00 PM EDT Generic External Data Provider LAB BLOOD ORDERAB LES Final Result Performing Organization Address [facility]/ZIP Co de Phone Number [facility] [address] [place] [phone] * Prothrombin Time-INR (07/09/2025 12:57 PM EDT) Pathologist [facility] Prothrombin Time 12.2 10.9 - 12.4 SEC [facility] INTERNATIONAL NORM RATIO 1.1 0.9 - 1.1 [facility] Comment:INTERNATIONAL NORMAL IZED RATIO (INR) REFERENCE RANGES Reference RangeFor patients not on anticoagulant therapy: 0.9 - 1.1INR ranges for oral anticoagulanttherapy:For prevention and treatment of venous thrombosis and pulmonary embolism: 2.0 - 3.0For acute myocardial infarction with aspirin therapy: 2.0 - 3.0For acute myocardial infarction without aspirin therapy: 3.0 - 4.0For patients with mechanical prosthetic heart valves: 2.5 - 3.5 07/09/2025 12:5 7 PM EDT 07/09/2025 1:00 PM EDT us Generic External Data Provider LAB BLOOD ORDERAB LES Final Result [facility] [address] [place] [phone] * (ABNORMAL) Basic Metabolic Panel (07/09/2025 12:57 PM EDT) Sodium 139 135 - 145 mmol/L [facility] Potassium 4.3 3.3 - 5.1 mmol/L [facility] Chloride 108 96 - 108 mmol/L [facility] Carbon Dioxide 25 22 - 29 mmol/L [facility] Anion Gap 10(L) 12 - 20 [facility] Urea Nitrogen (BUN) 20(H) 9 - 16 mg/dL [facility] Creatinine, Serum 1.05 0.5 - 1.4 mg/dL [facility] Creatinine Clr Calc Pharmacy TNP [facility] Comment:Unable to calculate eCrCL; all parameters not provided. Estimated Glomerular Filt Rate >60 [facility] Comment:Chronic Kidney Disea se: Estimated GFR < 60 mL/min/1.20i2Dwsemn Kidney Disease: Estimated GFR < 15 mL/min/1.73m2 Glucose 128(H) 60 - 115 mg/dL [facility] Calcium 9.0 8.4 - 10.2 mg/dL [facility] 07/09/2025 12:5 7 PM EDT 07/09/2025 1:00 PM EDT us Generic External Data Provider LAB BLOOD ORDERAB LES Final Result [facility] [address] [place] [phone] * CBC auto differential (07/09/2025 12:57 PM EDT) White Blood Count 5.9 4.8 - 10.8 X10*3/uL [facility] Red Blood Count 5.19 4.60 - 5.80 X10*6/uL [facility] Hemoglobin 15.5 14.0 - 18.0 g/dl [facility] Hematocrit 44.9 42.0 - 52.0 % [facility] Mean Corpuscular Volume 86.5 80.0 - 98.0 fL [facility] Mean Corpuscular Hemoglobin 29.9 27.0 - 33.0 pg [facility] Mean Corpuscular HGB Conc 34.5 31.0 - 36.0 g/dl [facility] Red Cell Distribution Width 12.7 11.0 - 16.0 % [facility] Platelet Count 163 160 - 400 X10*3/uL [facility] Mean Platelet Volume 12.3 9.4 - 12.4 fL [facility] Neutrophils Percent Auto 52.7 45 - 73 % [facility] Imm Gran Pct Auto 0.2 0.0 - 0.4 % [facility] Lymphocytes Percent Auto 37.2 20 - 40 % [facility] Monocytes Percent Auto 8.0 2 - 11 % [facility] Eosinophils Percent Auto 1.2 0 - 4 % [facility] Basophils Percent Auto 0.7 0 - 2 % [facility] NRBC Pct Auto 0.0 0.0 - 0.2 /100WBC [facility] Neutrophils Absolute Auto 3.1 2.0 - 8.3 x10*3/uL [facility] Imm Gran Abs Auto 0.01 0.00 - 0.03 X10*3/uL [facility] Lymphocytes Absolute Auto 2.2 1.2 - 4.9 X10*3/uL [facility] Monocytes Absolute Auto 0.5 0.1 - 1.2 X10*3/uL [facility] Eosinophils Absolute Auto 0.1 0.0 - 0.4 X10*3/uL [facility] Basophils Absolute Auto 0.0 0.0 - 0.2 X10*3/uL [facility] NRBC Abs Auto 0.000 0.0 - 0.012 X10*3/uL [facility] 07/09/2025 12:5 7 PM EDT 07/09/2025 1:00 PM EDT us Generic External Data Provider LAB BLOOD ORDERAB LES Final Result [facility] [address] [place] [phone] documented in this encounter Visit Diagnoses Not on filedocumented in this encounter Additional Health Concerns Assessment Noted Time PHQ-9 Depression Total Score: 0 12/09/19 24 8:56 AM EST documented as of this encounter Care Teams Maintenance Repairman Relationship Specialty Start Date End Date Name, MD Oliver [address] [place] [address] PCP - General Family Medicine 05/17/17 documented as of this encounter
--- OUTSIDE RECORDS SUMMARY | 2025-07-09 21:55 | XMS_ITS | Encounter Summary ---
Author Organization [employer] Address [address] [facility] [address] [place] [address] Care Team Providers Care Imaging Scheduler Name Role Phone Name, Oliver ROTHMAN Primary Care Provider [phone] Encounter Details Date Type Department Care Team (Latest Contact Info) Description 05/20/2022 Abstract [facility] CONVERSIONS Dental, Provider, DDS Social History [...] on filedocumented in this encounter Care Teams Imaging Scheduler Relationship Specialty Start Date End Date Name, MD Oliver [address] [place] [phone] PCP - General Family Medicine 05/17/17 documented as of this encounter
--- OUTSIDE RECORDS SUMMARY | 2025-07-09 21:55 | XMS_ITS | Clinical Summary ---
Author Organization [facility] Address [address] [place] [address] Care Team Providers Care New Vehicle Sales Consultant Name Role Phone Unavailable Primary Care Provider [...] Health Maintenance Due Date Last Done Comments Advance Care Planning 1950 Hepatitis C Virus Screening 1950 DTaP/Tdap/Td Vaccines (1 - Tdap) 02/02/1971 Colonoscopy 02/02/1997 Pneumococcal Vaccines 50+ (1 of 1 - PCV) 02/02/2002 Zoster (Shingles) Vaccine (1 of 2) 02/02/2002 Influenza Vaccine 05/25/2025 COVID-19 Vaccine (4 - 2024-2 6 season) 2025 08/12/2021, 12/06/2020, 11/15/2020 RSV Vaccine 60 years and older and Patients (1 - 1-dose 75+ series) 02/02/2027 Hepatitis B Vaccines Aged Out No long er eligible based on patient's age to complete this topic Insurance [facility] on file [facility] Member Subscriber Plan / Payer ( fective 2016-Present) Name:Ever Champagne Relation to Subscriber:Self Name:Ever Champagne Payer ID:[id number] (NAIC) Group ID:[id number] Type:Not on file Address: [place] [phone] MEDICARE Member Subscriber Plan / Payer ( fective 1899-Present) Name:Ever Champagne Member ID:[id number] Relation to Subscriber:Self Name:Ever Champagne Subscriber ID:[id number] Payer ID:[id number] (NAIC) Group ID:Not on file Type:Not on file Address: [place] [id number]
--- OUTSIDE RECORDS SUMMARY | 2025-07-09 21:55 | XMS_ITS | Encounter Summary ---
Author Organization [employer] Address [address] [facility] [address] [place] [address] Care Team Providers Care Cilnical Scientist Name Role Phone Name, Oliver ROTHMAN Primary Care Provider [phone] Encounter Details Date Type Department Care Team (Late st Contact Info) Description 11/18/2023 Abstract [facility] DIABETES/NUTRITION [address] [place] [address] Name, MD Oliver [address] [place] [address] Social History Tobacco Use Types Packs/Day Years [...] on filedocumented in this encounter Care Teams Cilnical Scientist Relationship Specialty Start Date End Date Name, MD Oliver [address] [place] [address] PCP - General Family Medicine 05/17/17 documented as of this encounter
--- OUTSIDE RECORDS SUMMARY | 2025-07-09 21:55 | XMS_ITS | Clinical Summary ---
Author Organization [employer] Address [address] [place] [address] [address] [place] [address] Care Team Providers Care Secretary Book Keeper Name Role Phone Name, Oliver ROTHMAN Primary Care Provider [phone] Allergies No known active allergies Medications loratadine [...] 02/09/2024 Overview (12/04/2024): [place] [facility] [place] He has a remote history of treated TB T spot negative CT scan of the chest consistent with previous treated TB infection. [place] [address] CT Scan Report Signed Patient: Ever Champagne MR#: [id number] [birth year] : 1950 Acct:[id number] Age/Sex: 74 / M ADM Date: 08/08/24 Loc: .CT Attending Dr: Ced Robles MD Ordering Physician: Ced Robles MD Date of Service: 08/08/24 Procedure(s): CT chest wo IV con Accession Number(s): [id number] cc: Oliver Constantino MD; eCd Robles MD EXAMINATION: CT CHEST WITHOUT CONTRAST [...] by: Ki Perez MD 10/04/2024 03:31 PM [facility] History of cervical spinal surgery 08/18/2023 Cervical myelopathy 10/16/2022 Erectile dysfunction 10/16/2022 Essential hypertension 10/16/2022 Prediabetes 10/16/2022 Tubular adenoma of colon 10/12/2019 Overview (08/18/2023): [place] [facility] repeat recommended in 5 years Urinary [...] Date Resolved Date Nicotine dependence 12/04/2020 08/18/20 Encounters Date Type Department Care Team Description 07/09/2025 Orders Only GENERIC EXTERNAL DATA DEPARTMENT Provider, Generic External Data 07/03/2025 Refill [facility] [address] [place] [address] NameOliver MD 06/12/2025 Abstract [facility] [address] [place] [address] NameOliver MD 06/05/2025 Orders Only GENERIC EXTERNAL DATA DEPARTMENT Provider, Generic External Data 06/03/2025 Refill [facility] [address] [place] [address] Oliver Constantino MD 05/19/2025 Refill [facility] [address] [place] [address] NameOliver MD Cervical myelopathy ([facility]) 05/03/2025 Refill [facility] [address] [place] [address] Oliver Constantino MD 05/02/2025 Telephone [facility] [address] [place] [address] NameOliver MD Call Back Request 04/10/2025 Refill [facility] [address] [place] [address] Name, MD Oliver from Last 3 Months Immunizations Immunization Administration [...] Diabetes: Hemoglobin A1C 06/05/2023 06/05/2022, 03/2 06/2022 Depression Screening 12/09/2024 12/09/2023, 12/09/19 24 SDOH Screening 12/09/2024 12/09/2023 Zoster Vaccines (2 of 2) 01/30/2025 12/05/2024 COVID-19 Vaccine ( season) 2025 09/04/2022, 08/12/2021, 08/12/2021, Additional history exists Influenza Vaccine (#1) 2025 , 08/18/2023, 08/17/2022, [...] 2 VIEWS Routine 07/09/2025 1:56 PM EDT LIPASE Routine 07/09/2025 12:57 PM EDT HEPATIC FUNCTION PANEL Routine 12:57 PM EDT HIGH SENSITIVITY TROPONIN I Routine 07/09/2025 12:57 PM EDT PROTHROMBIN TIME-INR Routine 07/09/2025 12:57 PM EDT BASIC METABOLIC PANEL Routine 07/09/2025 12:57 PM EDT CBC WITH AUTO DIFFERENTIAL Routine 07/09/2025 12:[address] ABDOMEN PELVIS W CONTRAST Routine 06/05/2025 [...] Recently Relevant to Health Maintenance Results * High Sensitivity Troponin I (07/09/2025 2:42 PM EDT) Only the most recent of4 resultswithin the time period is included. TROPONIN I HIGH SENSITIVITY <2.7 <3.5 - 35.0 ng/L [facility] Comment:The [employer] high sens itivity Troponin-I results should beused in conjunction with other diagnostic information suchas ECG, clinical observations and information, and patientsymptoms to aid in the diagnosis of AL. 07/09/2025 2:42 PM EDT 07/09/2025 2:45 PM EDT us Generic External Data Provider LAB BLOOD ORDERAB LES Final Result Performing Organization Address City/State/[facility] Co de Phone Number [facility] [address] [place] [phone] * XR Chest 2 Views (07/09/2025 1:56 PM EDT) Anatomical Region Laterality Modality Chest Radiographic Usha ging 07/09/2025 1:56 PM EDT Narrative 07/09/2025 2:15 PM EDT [address] [address] XRay Report Signed Patient: Ever Champagne MR#: [id number] 26 : 1950 Acct:[id number] Age/Sex: 75 / M ADM Date: 07/09/25 Loc: .ED Attending Dr: Ordering Physician: Generic ED Physician Date of Service: 07/09/25 Procedure(s): XR chest 2V Accession Number(s): [id number] cc: [facility] ED Physician; Name,Oliver ROTHMAN Reason for Exam: [...] 07/09/25 1412 DD/ 1356 TD/TT: 07/09/25 1400 Awning Hanger Supervisor: Procedure Note Donotuseinterpreter, Image - 07/09/[address] [address] XRay Report Signed Patient: Luis Fernando Champagne#: [id number] 26 : 2Acct:[id number] Age/Sex: 75 / MADM Date: 07/09/25 Loc: .ED Attending Dr: Ordering Physician: Generic ED Physician Date of Service: 07/09/25 Procedure(s): XR chest 2V Accession Number(s): [id number] cc: Generic ED Physician; Name,Oliver ROTHMAN Reason [...] 07/09/25 1412 DD/ 1356 TD/TT: 07/09/25 1400 Awning Hanger Supervisor: [facility] External Provider IMG XR PROCEDURES Final Result * CBC auto differential (07/09/2025 12:57 PM EDT) Only the most recent of2 resultswithin the time period is included. White Blood Count 5.9 4.8 - 10.8 X10*3/uL [facility] Red Blood Count 5.19 4.60 - 5.80 X10*6/uL [facility] Hemoglobin 15.5 14.0 - 18.0 g/dl [facility] Hematocrit 44.9 42.0 - 52.0 % [facility] Mean Corpuscular Volume 86.5 80.0 - 98.0 fL [facility] Mean Corpuscular Hemoglobin 29.9 27.0 - 33.0 pg [facility] Mean Corpuscular HGB Conc 34.5 31.0 - 36.0 g/dl [facility] Red Cell Distribution Width 12.7 11.0 - 16.0 % [facility] Platelet Count 163 160 - 400 X10*3/uL [facility] Mean Platelet Volume 12.3 9.4 - 12.4 fL [facility] Neutrophils Percent Auto 52.7 45 - 73 % [facility] Imm Gran Pct Auto 0.2 0.0 - 0.4 % [facility] Lymphocytes Percent Auto 37.2 20 - 40 % [facility] Monocytes Percent Auto 8.0 2 - 11 % [facility] Eosinophils Percent Auto 1.2 0 - 4 % [facility] Basophils Percent Auto 0.7 0 - 2 % [facility] NRBC Pct Auto 0.0 0.0 - 0.2 /100WBC [facility] Neutrophils Absolute Auto 3.1 2.0 - 8.3 x10*3/uL [facility] Imm Gran Abs Auto 0.01 0.00 - 0.03 X10*3/uL [facility] Lymphocytes Absolute Auto 2.2 1.2 - 4.9 X10*3/uL [facility] Monocytes Absolute Auto 0.5 0.1 - 1.2 X10*3/uL [facility] Eosinophils Absolute Auto 0.1 0.0 - 0.4 X10*3/uL [facility] Basophils Absolute Auto 0.0 0.0 - 0.2 X10*3/uL [facility] NRBC Abs Auto 0.000 0.0 - 0.012 X10*3/uL [facility] 07/09/2025 12:5 7 PM EDT 07/09/2025 1:00 PM EDT us Generic External Data Provider LAB BLOOD ORDERAB LES Final Result Performing Organization Address City/[facility]/ZIP Co de Phone Number [facility] [address] [place] [phone] * Prothrombin Time-INR (07/09/2025 12:57 PM EDT) Prothrombin Time 12.2 10.9 - 12.4 SEC [facility] INTERNATIONAL NORM RATIO 1.1 0.9 - 1.1 [facility] Comment:INTERNATIONAL NORMAL IZED RATIO (INR) REFERENCE [...] ORDERAB LES Final Result Performing Organization Address [facility] Co de Phone Number [facility] [address] [place] [phone] * Lipase (07/09/2025 12:57 PM EDT) Lipase 26 8 - 78 U/L [facility] 07/09/2025 12:5 7 PM EDT 07/09/2025 1:00 PM EDT Generic External Data Provider LAB BLOOD ORDERAB LES Final Result Performing Organization Address [facility]/ZIP Co de Phone Number [facility] [address] [place] [phone] * (ABNORMAL) Hepatic Function Panel (07/09/2025 12:57 PM EDT) Pathologist [facility] Bilirubin, Total 0.7 0.0 - 1.0 mg/dL [facility] Bilirubin, Direct 0.3 0.0 - 0.5 mg/dL [facility] Aspartate Amino Transferase 111(H) 5 - 37 U/L [facility] Alanine Aminotransferase 57(H) 0 - 40 U/L [facility] Total Protein 7.4 6.5 - 8.0 g/dL [facility] Albumin Level 3.9 3.5 - 5.0 g/dL [facility] Alkaline Phosphatase 69 39 - 117 U/L [facility] 07/09/2025 12:5 7 PM EDT 07/09/2025 1:00 PM EDT us Generic External Data Provider LAB BLOOD ORDERAB LES Final Result Performing Organization Address City/State/[facility] Co de Phone Number [facility] [address] [place] [phone] * (ABNORMAL) Basic Metabolic Panel (07/09/2025 12:57 PM EDT) Pathologist [facility] Sodium 139 135 - 145 mmol/L [facility] Potassium 4.3 3.3 - 5.1 mmol/L [facility] Chloride 108 96 - 108 mmol/L [facility] Carbon Dioxide 25 22 - 29 mmol/L [facility] Anion Gap 10(L) 12 - 20 [facility] Urea Nitrogen (BUN) 20(H) 9 - 16 mg/dL [facility] Creatinine, Serum 1.05 0.5 - 1.4 mg/dL [facility] Creatinine Clr Calc Pharmacy TNP [facility] Comment:Unable to calculate eCrCL; all parameters not provided. Estimated Glomerular Filt Rate >60 [facility] Comment:Chronic Kidney Disea se: Estimated GFR < 60 mL/min/1.91o7Hjxows Kidney Disease: Estimated GFR < 15 mL/min/1.73m2 Glucose 128(H) 60 - 115 mg/dL [facility] Calcium 9.0 8.4 - 10.2 mg/dL [facility] 07/09/2025 12:5 7 PM EDT 07/09/2025 1:00 PM EDT us Generic External Data Provider LAB BLOOD ORDERAB LES Final Result Performing Organization Address City/State/[facility] de Phone Number [facility] [address] [place] [phone] * CT Abdomen Pelvis w/ Contrast (06/05/2025 6:47 PM EDT) Anatomical Region Laterality Modality Body, Pelvis, Abdomen Computed T omography 06/05/2025 6:47 PM EDT Narrative 06/05/2025 6:49 PM EDT [address] [address] [address] Scan Report Signed Patient: Ever Champagne MR#: [id number] 26 : 1950 Acct:[id number] Age/Sex: 75 / M ADM Date: 06/05/25 Loc: HO.ED Attending Dr: Ordering Physician: Ruben Bourgeois MD Date of Service: 06/05/25 Procedure(s): CT abdomen pelvis w IV con Accession Number(s): [id number] cc: Ruben Bourgeois MD; Name,Oliver ROTHMAN Report Number: [id number]: Total DLP = 0.00 mGy-cm CLINICAL HISTORY: vomiting post colonscopy CT abdomen and pelvis with contrast Comparison: CT/[place]/SR - CT CHEST WITHOUT IV CONTRAST - [...] in OV> 06/05/251848 DD/ 46 TD/TT: 06/05/251846 Awning Hanger Supervisor: Procedure Note Donotuseinterpreter, Image - 06/05/[address] [place] [address] [address] Scan Report Signed Patient: Luis Fernando Champagne#: [id number] 26 : 1950cct:[id number] Age/Sex: 75 / MADM Date: 06/05/25 Loc: HO.ED Attending Dr: Ordering Physician: Ruben Bourgeois MD Date of Service: 06/05/25 Procedure(s): CT abdomen pelvis w IV con Accession Number(s): [id number] cc: Ruben Bourgeois MD; Name,Oliver ROTHMAN Report Number: [id number]: Total DLP = 0.00 mGy-cm CLINICAL HISTORY: vomiting post colonscopy CT abdomen and pelvis with contrast Comparison: CT/[place]/SR - CT CHEST WITHOUT IV CONTRAST - [...] in OV> 06/05/251848 DD/ 46 TD/TT: 06/05/251846 Awning Hanger Supervisor: [facility] External Provider IMG CT PROCEDURES Final Result * CT Chest w/ Contrast (06/05/2025 6:38 PM EDT) Anatomical Region Laterality Modality Body, Chest Computed Tomogra phy 06/05/2025 6:38 PM EDT Narrative 06/05/2025 6:39 PM EDT [address] [address] [address] Scan Report Signed Patient: Ever Champagne MR#: [id number] [birth year] : 1950 Acct:[id number] Age/Sex: 75 / M ADM Date: 06/05/25 Loc: HO.ED Attending Dr: Ordering Physician: Ruben Bourgeois MD Date of Service: 06/05/25 Procedure(s): CT chest w IV con Accession Number(s): [id number] cc: Ruben Bourgeois MD; Name,Oliver ROTHMAN Report Number: [id number]: Total DLP = 709.00 mGy-cm CLINICAL HISTORY: central chest pain vomiting s p endo colonoscope CT chest with contrast Comparison: CT/[place]/SR - CT CHEST WITHOUT IV CONTRAST - [...] in OV> 06/05/251838 DD/ 37 TD/TT: 06/05/251837 Awning Hanger Supervisor: Procedure Note Donotuseinterpreter, Image - 06/05/[address] [address] [address] Scan Report Signed Patient: Carlos Alberto ChampagenR#: [id number] [birth year] : 1950cct:[id number] Age/Sex: 75 / MADM Date: 06/05/25 Loc: HO.ED Attending Dr: Ordering Physician: Ruben Bourgeois MD Date of Service: 06/05/25 Procedure(s): CT chest w IV con Accession Number(s): [id number] cc: Ruben Bourgeois MD; Name,Oliver ROTHMAN Report Number: [id number]: Total DLP = 709.00 mGy-cm CLINICAL HISTORY: central chest pain vomiting s p endo colonoscope CT chest with contrast Comparison: CT/[place]/SR - CT CHEST WITHOUT IV CONTRAST - [...] in OV> 06/05/251838 DD/ 37 TD/TT: 06/05/251837 Awning Hanger Supervisor: us [facility] External Provider IMG CT PROCEDURES Final Result * XR Chest 1 View (06/05/2025 5:00 PM EDT) Anatomical Region Laterality Modality Chest Radiographic Usha ging 06/05/2025 5:00 PM EDT Narrative 06/06/2025 7:31 AM EDT [address] [address] XRay Report Signed Patient: Ever Champagne MR#: [id number] [birth year] : 1950 Acct:[id number] Age/Sex: 75 / M ADM Date: 06/05/25 Loc: HO.ED Attending Dr: Ordering Physician: Ruben Bourgeois MD Date of Service: 06/05/25 Procedure(s): XR chest 1V Accession Number(s): [id number] cc: Ruben Bourgeois MD; Name,Oliver ROTHMAN EXAMINATION: [...] signed by Tyrone Amaro MD in OV> 06/06/25 0728 DD/ 99 TD/TT: 06/05/251704 Awning Hanger Supervisor: Procedure Note Donotuseinterpreter, Image - 06/06/[address] [address] XRay Report Signed Patient: Luis Fernando Champagne#: [id number] 26 : 2Acct:[id number] Age/Sex: 75 / MADM Date: 06/05/25 Loc: HO.ED Attending Dr: Ordering Physician: Ruben Bourgeois MD Date of Service: 06/05/25 Procedure(s): XR chest 1V Accession Number(s): [id number] cc: Ruben Bourgeois MD; Name,Oliver ROTHMAN EXAMINATION: [...] signed by Tyrone Amaro MD in OV> 06/06/25727 DD/ 99 TD/TT: 06/05/251704 Awning Hanger Supervisor: [facility] External Provider IMG XR PROCEDURES Final Result * SARS-CoV-2 RNA, Influenza A/B, and RSV RNA, Ql NAAT (06/05/2025 4:08 PM EDT) Influenza A PCR NEGATIVE Negative [facility] Influenza B PCR NEGATIVE Negative [facility] Resp Syncy Virus RNA Qual PCR NEGATIVE Negative [facility] SARS COV2 PCR NEGATIVE Negative [facility] Comment:All test results mus t be [...] use by authorized laboratories.Testing performed on the tinyclues GeneXpert utilizingreal-time RT-PCR.All SARS CoV2 and positive influenza A/B results arereported to [facility]. 06/05/2025 4:08 PM EDT 06/05/2025 4:11 PM EDT Generic External Data Provider LAB MICROBIOLOGY - GENERAL ORDERABLES Final Result [facility] [address] [place] [address] [phone] * Magnesium (06/05/2025 4:08 PM EDT) Magnesium 1.9 1.6 - 2.6 mg/dL [facility] 06/05/2025 4:08 PM EDT 06/05/2025 4:11 PM EDT us Generic External Data Provider LAB BLOOD ORDERAB LES Final Result [facility] [address] [place] [phone] * (ABNORMAL) Comprehensive Metabolic Panel (06/05/2025 4:08 PM EDT) Pathologist [facility] Sodium 139 135 - 145 mmol/L [facility] Potassium 3.7 3.3 - 5.1 mmol/L [facility] Chloride 109(H) 96 - 108 mmol/L [facility] Carbon Dioxide 21(L) 22 - 29 mmol/L [facility] Anion Gap 13 12 - 20 [facility] Urea Nitrogen (BUN) 16 9 - 16 mg/dL [facility] Creatinine, Serum 1.02 0.5 - 1.4 mg/dL [facility] Creatinine Clr Calc Pharmacy 62.4 [facility] Comment:eGFR (calculated fro m the MDRD study equation) and eCrCl(calculated from the Cockcroft-Gault equation) are based ondifferent parameters and may not yield comparable results.If eCrCl result is absurd, please check patient'sheight/weight. Estimated Glomerular Filt Rate >60 [facility] Comment:Chronic Kidney Disea se: Estimated GFR < 60 mL/min/1.41w0Yojmzw Kidney Disease: Estimated GFR < 15 mL/min/1.73m2 Glucose 136(H) 60 - 115 mg/dL [facility] Calcium 8.5 8.4 - 10.2 mg/dL [facility] Bilirubin, Total 0.9 0.0 - 1.0 mg/dL [facility] Aspartate Amino Transferase 31 5 - 37 U/L [facility] Alanine Aminotransferase 14 0 - 40 U/L [facility] Total Protein 6.9 6.5 - 8.0 g/dL [facility] Albumin Level 3.8 3.5 - 5.0 g/dL [facility] Alkaline Phosphatase 64 39 - 117 U/L [facility] 06/05/2025 4:08 PM EDT 06/05/2025 4:11 PM EDT us Generic External Data Provider LAB BLOOD ORDERAB LES Final Result Performing Organization Address City/State/[facility] Co de Phone Number [facility] [address] [place] [phone] * Hematoxylin and Eosin Stain (06/05/2025 10:50 AM EDT) 06/05/2025 10:5 0 AM EDT 06/05/2025 11:33 AM EDT Narrative [facility] - 06/07/2025 4:30 PM EDT ----- ------- Name: Ever Champagne Age/Sex: 75/M : 1950 Unit#: [id number] Attend Dr: Keya Blue MD Re06/05/25 Status: [facility] Location: [facility] Disch: ----- ------- SPEC : [id number] RECD: 06/05/25 STATUS: WILLY EDDY NUM: [id number] MARIEL: 06/05/25-[address] [facility] DR: Keya Blue MD ENTERED: 06/05/25114 SP TYPE: Surgical OTHR DR: Oliver Constantino MD ORDERED: HE Stain/, Gross Micro L4/9, IHC/3, Special st. 2/, H. pylori/3, AB/PAS/3 Diagnosis A. Duodenum, biopsy: [...] Name: IhsanEver Age/Sex: 75/M : 1950 Unit#: [id number] Attend Dr: Keya Blue MD Re06/05/25 Status: [facility] Location: [facility] Disch: ----- ------- SPEC : [id number] RECD: 06/05/25 STATUS: [facility] NUM: [id number] MARIEL: 06/05/25-[address] [facility] [address]: Keya Blue MD ENTERED: 06/05/25-1147 SP TYPE: Surgical OTHR DR: Oliver Constantino [...] Name: Ever Champagne Age/Sex: 75/M : 1950 [id number]#: [id number] Attend Dr: Keya Blue MD Re06/05/25 Status: [facility] Location: [facility] Disch: ----- ------- SPEC : [id number] RECD: 06/05/25 STATUS: [facility] NUM: [id number] MARIEL: 06/05/[address] [facility] [address]: Keya Blue MD ENTERED: 06/05/25 SP TYPE: Surgical OTHR DR: Oliver Constantino MD ORDERED: HE Stain/27, Gross Micro L4/9, IHC/3, Special st. 2/, [...] developed and their performance characteristics determined by [facility]. They have not been cleared or approved by the U.S. Food and Drug Administration (FDA). However, the FDA has determined that such clearance or approval is not necessary. This laboratory is certified under the Clinical Laboratory Improvement Amendments of 1988 (CLIA) as qualified to perform high complexity clinical laboratory testing. Copies To: NameOliver MD [address] [place] [address] [id number] Keya Blue MD [facility] [address] [place] [phone] [email or web address] ----- ------- Signed (signature on file) Marcia Babylon 06/07/25 1630 ----- ------- END OF REPORT us Generic External Data Provider LAB BLOOD ORDERAB LES Final Result [facility] [address] [place] [address] [phone] * (ABNORMAL) Hm Colonoscopy (06/05/2025) Colonoscopy Abnormal(A ) Normal 06/05/2025 us Oliver Name HEALTH MAINTENANCE Final Result * Lipid Panel, Standard (08/25/2023 8:51 AM EDT) Triglycerides 73 <150 mg/dL [facility] Comment:Desirable Triglyceri de: less than 150 mg/dLBorderline High Triglyceride 150-199 mg/dLHigh Triglyceride: 200-499 mg/dLVery High Triglyceride: greater than or equal to 5OO mg/dL Cholesterol 152 <200 mg/dL [facility] Comment:Desirable Cholestero l: less than 200 mg/dLBorderline High Cholesterol: 200-239 mg/dLHigh Cholesterol: greater than 239 mg/dL LDL Cholesterol Calculated 86 <100 mg/dL [facility] Comment:Desirable LDL: less than 100 mg/dLNear Optimal/Above Optimal LDL: 110- 129 mg/dLBorderline High LDL: 130-159 mg/dLHigh LDL: 160-189 mg/dLVery High LDL: greater than or equal to 190 mg/dL HDL Cholesterol 52 >40 mg/dL [facility] Comment:Desirable HDL: great er than 40 mg/dL Note: This HDL assay may give artificially low results in patients with liver disease. Blood Venous blood specimen / Unknown 08/25/2023 8:51 AM EDT 08/25/2023 11:32 AM EDT Oliver Constantino MD LAB BLOOD ORDERABLES Final Resul t Performing Organization Address City/[facility]/ZIP Co de Phone Number [facility] [address] [place] [address] [phone] * HEMOGLOBIN A1c (06/05/2022 7:58 AM EDT) Hemoglobin A1c 5.5 <5.7 % of total Hgb [facility] Comment: For the purpose of screening for the presence of diabetes: <5.7% Consistent with the absence of diabetes 5.7-6.4% Consistent with increased risk for diabetes (prediabetes) > or =6.5% Consistent with diabetes This assay result is consistent with a decreased risk of diabetes. Currently, no consensus exists regarding use of hemoglobin A1c for diagnosis of diabetes in children. According to [place] [employer] (ADA) guidelines, hemoglobin A1c <7.0% represents optimal control in non- diabetic patients. Different metrics may apply to specific patient populations. Standards of Medical Care in Diabetes(ADA). 06/05/2022 7:58 AM EDT us Oliver oCnstantino MD LAB BLOOD ORDERABLES Final Resul t Performing Organization Address [facility] Co de Phone Number [facility] [address] from Last 3 Months or Most Recently Relevant to Health Maintenance Insurance [facility] DUAL COMPLETE Care Teams Secretary Book Keeper Relationship Specialty Start Date End Date Name, MD Oliver [address] [place] [address] PCP - General Family Medicine 05/17/17
--- OUTSIDE RECORDS SUMMARY | 2025-07-09 21:55 | XMS_ITS | Encounter Summary ---
Author Organization [employer] Address [address] [facility] 7t [place] [address] Care Team Providers Care Food Order Delivery Runner Name Role Phone Name, Oliver ROTHMAN Primary Care Provider [phone] Encounter Details Date Type Department Care Team (Late st Contact Info) Description 11/18/2023 Abstract [facility] DIABETES/NUTRITION [address] [place] [address] Name, MD Oliver [address] [place] [address] Social History Tobacco Use Types Packs/Day Years [...] on filedocumented in this encounter Care Teams Food Order Delivery Runner Relationship Specialty Start Date End Date Name, MD Oliver [address] [place] [address] PCP - General Family Medicine 05/17/17 documented as of this encounter
--- OUTSIDE RECORDS SUMMARY | 2025-07-09 21:55 | XMS_ITS | Encounter Summary ---
Author Organization [employer] Address [address] [facility] 7t [place] [address] Care Team Providers Care Relief Worker Name Role Phone Name, Oliver ROTHMAN Primary Care Provider [phone] Reason for Visit * Reason Onset Date Comments Med Refill 10/13/2023 Encounter Details Date Type Department Care Team ([facility] st Contact Info) Description 10/13/2023 Telephone [facility] MEDICINE [address] [place] [address] Name, MD Oliver [address] [place] [address] Med Refill Social History Tobacco Use Types [...] No answer. LVM to call back on [phone] . * Telephone Encounter - Doe Barnett RN - 10/15/2023 8:56 AM EST T/C to pt. To inform regarding below message, No answer. LVM to call back on [phone] . * Telephone Encounter - Doe Barnett [...] on filedocumented in this encounter Care Teams Relief Worker Relationship Specialty Start Date End Date Name, MD Oliver [address] [place] [address] PCP - General Family Medicine 05/17/17 documented as of this encounter
--- OUTSIDE RECORDS SUMMARY | 2025-07-09 21:55 | XMS_ITS | Encounter Summary ---
Author Organization [employer] Address [address] [facility] 7t [place] [address] Care Team Providers Care Biofuels Plant Operations Engineer Name Role Phone Name, Oliver ROTHMAN Primary Care Provider [phone] Encounter Details Date Type Department Care Team (Late st Contact Info) Description 11/18/2023 Abstract [facility] DIABETES/NUTRITION [address] [place] [address] Name, MD Oliver [address] [place] [address] Social History Tobacco Use Types Packs/Day Years [...] on filedocumented in this encounter Care Teams Biofuels Plant Operations Engineer Relationship Specialty Start Date End Date Name, MD Oliver [address] [place] [address] PCP - General Family Medicine 05/17/17 documented as of this encounter
== END 2025-07-09 21:01 | disposition home or self-care (01) ==
LOC: HO.ED 21:01
PROVIDERS: Registered Nurse Emergency; Emergency Provider Student in an Organized Health Care Education/Training Program; PCP Internal Medicine Geriatric Medicine
DX: K21.9 Gastro-esophageal reflux disease without esophagitis (principal); R07.9 Chest pain, unspecified; J45.909 Unspecified asthma, uncomplicated
CPT/HCPCS: 36415; 71046; 80048; 80076; 83690; 84484; 85025; 85610; 93005; 99284

== ENCOUNTER → 2025-07-09 12:53 | Outpatient (BNV) | payer OTHER, SELFPAY | PROVIDERS: Emergency Provider Student in an Organized Health Care Education/Training Program; PCP Internal Medicine Geriatric Medicine; Visit Provider Internal Medicine | DX: R94.31 Abnormal electrocardiogram [ECG] [EKG] (principal); R07.9 Chest pain, unspecified | CPT/HCPCS: 93010 ==

== ENCOUNTER → 2025-07-09 13:56 | Outpatient (BNV) | payer OTHER, SELFPAY | PROVIDERS: PCP Internal Medicine Geriatric Medicine; Visit Provider Radiology Diagnostic Radiology | DX: R07.9 Chest pain, unspecified (principal) | CPT/HCPCS: 71046 ==

== ENCOUNTER 2025-07-17 15:38 | Outpatient (REF) | payer OTHER, SELFPAY ==
--- OUTSIDE RECORDS SUMMARY | 2025-07-17 15:15 | XMS_ITS | Encounter Summary ---
Author Organization [employer] Address [address] [facility] 7t [place] [address] Care Team Providers Care Self Sealing Fuel Tank Repairer Name Role Phone Name, Oliver ROTHMAN Primary Care Provider [phone] Encounter Details Date Type Department Care Team (Late st Contact Info) Description 07/17/2025 3:15 PM EDT Office Visit [facility] MEDICINE [address] [place] [address] Elena Giang FNP [address] [place] [address] Prediabetes (Primary Dx); Wellness examination Social History Tobacco Use Types Packs/Day Years Used Date Smoking Tobacco: Former Cigarettes Passive Smoke Exposure: Past Smokeless Tobacco: Former Tobacco Cessation:Counseling Given: Not Answered Alcohol Use Standard Drinks/Week Comments Never 0 (1 standard drink = 0.6 oz pur e alcohol) Depression Answer Date Recorded Patient Health Questionnaire-9 Score 1 07/17/2025 Patient Health Questionnaire-9 Score 1 07/17/2025 Last PHQ-9: Questionnaire Data Not on file 0 07/17/2025 Housing Stability Answer Date Recorded What is [...] Date Recorded Patient Health Questionnaire-2 Score 0 07/17/2025 Sex and Gender Information Value Date Recorded Sex Assigned at Male 08/24/2022 10:17 AM EDT Legal Sex Male 10:17 AM EDT Gender Identity Male 08/24/2022 10:17 AM EDT Sexual Orientation Straight 08/24/2022 10 :17 AM EDT documented as of this encounter Last Filed Vital Signs Vital Sign Reading Time Taken Comments Blood Pressure 134/74 07/17/2025 3:34 PM EDT Pulse 77 07/17/2025 3:15 PM EDT Temperature 36.7 C (98.1 F) 07/17/2025 3:15 PM EDT Respiratory Rate 24 07/17/2025 3:15 PM EDT Oxygen Saturation 98% 07/17/2025 3:15 PM EDT Inhaled Oxygen Concentration - - Weight 76.3 kg (168 lb 2 oz) 07/17/2025 3:15 PM EDT Height 172.7 cm (5' 8.01 ) 07/17/2025 3:15 PM ED T Body Mass Index 25.55 07/17/2025 3:15 PM EDT documented in this encounter Functional Status * Over the past 2 weeks, how often have you been bothered by any of the following problems? Question Answer Date of Assessment Author Patient Health Questionnaire -2 Score 0 07/17/2025 3:41 PM EDT Mandy Bangura MA * Little interest or pleasure in doing things Answer Date of Assessment Author Not at all 07/17/2025 3:41 PM EDT Mandy Correa MA * Feeling down, depressed, or hopeless Answer Date of Assessment Author Not at all 07/17/2025 3:41 PM EDT Mandy Correa MA * Trouble falling or staying asleep, or sleeping too much Answer Date of Assessment Author Not at all 07/17/2025 3:41 PM EDT Mandy Correa MA * Feeling tired or having little energy Answer Date of Assessment Author Several days 07/17/2025 3:41 PM EDT Mandy Correa MA * Poor appetite or overeating Answer Date of Assessment Author Not at all 07/17/2025 3:41 PM EDT Mandy Correa MA * Feeling bad about yourself - or that you are a failure or have let yourself or your family down Answer Date of Assessment Author Not at all 07/17/2025 3:41 PM EDT Mandy Correa MA * Trouble concentrating on things, such as reading the newspaper or watching television Answer Date of Assessment Author Not at all 07/17/2025 3:41 PM EDT Mandy Correa MA * Moving or speaking so slowly that other people could have noticed? Or the opposite - being so fidgety or restless that you have been moving around a lot more than usual. Answer Date of Assessment Author Not at all 07/17/2025 3:41 PM EDT Mandy Correa MA * Thoughts that you would be better off or hurting yourself in some way Answer Date of Assessment Author Not at all 07/17/2025 3:41 PM EDT Mandy Correa MA * Patient Health Questionnaire-9 Score Answer Date of Assessment Author 1 07/17/2025 3:41 PM EDT Mandy Correa MA * How difficult have these problems made it for you to do your work, take care of things at home, or get along with other people? Answer Date of Assessment Author Not difficult at all 07/17/2025 3:41 PM EDT Mandy Bateman MA * Over the last 2 weeks, how often have you been bothered by any of the following problems? Question Answer Date of Assessment Author Feeling nervous, anxious, or on edge 0 07/17/2025 3:41 PM EDT Mandy Bangura MA Not being able to stop or control worrying 0 07/17/2025 3:41 PM EDT Mandy Bangura MA Worrying too much about different things 0 07/17/2025 3:41 PM EDT Mandy Bangura MA Trouble relaxing 0 07/17/2025 3:41 PM EDT Mandy Bah MA Being so restless that it is hard to sit still 0 07/17/2025 3:41 PM EDT Mandy Bangura MA Becoming easily annoyed or irritable 0 07/17/2025 3:41 PM EDT Mandy Bangura MA Feeling afraid as if somethi ng awful might happen 0 07/17/2025 3:41 PM EDT Mandy Bangura MA ION-7 Total Score 0 07/17/2025 3:41 PM EDT Mandy Bangura MA documented as of this encounter Plan of Treatment Scheduled Orders Name Type Priority Associated Diagnoses Orde r Schedule Hepatitis C Antibody with Reflex to HCV, RNA, Quantitative, Real-Time PCR Lab Routine Wellness examination Expected: 07/17/2025, Expires: 07/17/2026 documented as of this encounter Procedures Procedure Name Priority Date/Time Associated Diagnosis Comments POCT GLYCATED HEMOGLOBIN, TOTAL Routine 07/17/2025 3:18 PM EDT Prediabetes POCT GLUCOSE Routine 07/17/2025 3:17 PM EDT Prediabetes documented in this encounter Results * POCT Hgb A1c (07/17/2025 3:18 PM EDT) Hemoglobin A1C 5.5 4.0 - 5.7 % QC Media Lot # [id number] Lot# Expiration Date ,[id number] Blood 07/17/2025 3:18 PM EDT Elena Giang [employer] DRIVER POINT OF CARE TEST ENTER/EDIT ORDERABLES Final Result * POCT Glucose (07/17/2025 3:17 PM EDT) Glucose Blood, POC 152 60 - 200 mg/dL QC Media Lot # [id number] Lot# Expiration Date [id number] Blood Capillary blood specimen / Unknown 07/17/2025 3:17 PM EDT Elena Giang [employer] DRIVER POINT OF CARE TEST ENTER/EDIT ORDERABLES Final Result documented in this encounter Visit Diagnoses Diagnosis Prediabetes- Primary Other abnormal glucose Wellness examination documented in this encounter Additional Health Concerns Assessment Noted Time PHQ-9 Depression Total Score: 1 07/17/20 3:41 PM EDT documented as of this encounter Care Teams Self Sealing Fuel Tank Repairer Relationship Specialty Start Date End Date Name, MD Oliver [address] [place] [address] PCP - General Family Medicine 05/17/17 documented as of this encounter
--- OUTSIDE RECORDS SUMMARY | 2025-07-17 18:23 | XMS_ITS | Encounter Summary ---
Author Organization [employer] Address 75 [facility] 7t [place] [address] Care Team Providers Care Rubber Covering Machine Operator Name Role Phone Name, Oliver ROTHMAN Primary Care Provider [phone] Encounter Details Date Type Department Care Team (Late st Contact Info) Description 11/18/2023 Abstract [facility] DIABETES/NUTRITION [address] [place] [address] Name, MD Oliver [address] [place] [address] Social History Tobacco Use Types Packs/Day Years [...] on filedocumented in this encounter Care Teams Rubber Covering Machine Operator Relationship Specialty Start Date End Date Name, MD Oliver [address] [place] [address] PCP - General Family Medicine 05/17/17 documented as of this encounter
--- OUTSIDE RECORDS SUMMARY | 2025-07-17 18:23 | XMS_ITS | Clinical Summary ---
Author Organization [facility] Address [address] [place] [address] Care Team Providers Care Securities Analyst Name Role Phone Unavailable Primary Care Provider [...] patient's age to complete this topic Insurance [facility] on file [facility] MEDICARE Member Subscriber Plan / Payer ( fective 2016-Present) Name:Ever Champagne Relation to Subscriber:Self Name:Ever Champagne Payer ID:[id number] (NAIC) Group ID:[id number] Type:Not on file Address: [place] [id number] MEDICARE Member Subscriber Plan / Payer ( fective 1899-Present) Name:Ever Champagne Member ID:[id number] Relation to Subscriber:Self Name:Ever Champagne Subscriber ID:[id number] Payer ID:[id number] (NAIC) Group ID:Not on file Type:Not on file Address: [place] [id number]
--- OUTSIDE RECORDS SUMMARY | 2025-07-17 18:23 | XMS_ITS | Encounter Summary ---
Author Organization [employer] Address [address] [facility] 7t [place] [address] Care Team Providers Care Exhaust Worker Name Role Phone Name, Oliver ROTHMAN Primary Care Provider [phone] Encounter Details Date Type Department Care Team (Late st Contact Info) Description 11/18/2023 Abstract [facility] MEDICINE [address] [place], [place] [id number] Name, MD Oliver [address] [place], [place] [id number] Social History Tobacco Use Types Packs/Day Years [...] on filedocumented in this encounter Care Teams Exhaust Worker Relationship Specialty Start Date End Date Name, MD Oliver [address] [place] [address] PCP - General Family Medicine 05/17/17 documented as of this encounter
--- OUTSIDE RECORDS SUMMARY | 2025-07-17 18:23 | XMS_ITS | Encounter Summary ---
Author Organization [employer] Address [address] [facility] 7t [place] [address] Care Team Providers Care Micrographics Services Supervisor Name Role Phone Name, Oliver ROTHMAN Primary Care Provider [phone] Encounter Details Date Type Department Care Team (Late st Contact Info) Description 11/18/2023 Abstract [facility] DIABETES/NUTRITION [address] [place] [address] Name, MD Oliver [address] [place] [address] Social History Tobacco Use Types Packs/Day Years [...] on filedocumented in this encounter Care Teams Micrographics Services Supervisor Relationship Specialty Start Date End Date Name, MD Oliver [address] [place] [address] PCP - General Family Medicine 05/17/17 documented as of this encounter
--- OUTSIDE RECORDS SUMMARY | 2025-07-17 18:23 | XMS_ITS | Encounter Summary ---
Author Organization [employer] Address [address] [facility] 7t [place] [address] Care Team Providers Care Manager Wastewater Name Role Phone Name, Oliver ROTHMAN Primary Care Provider [phone] Encounter Details Date Type Department Care Team (Latest Contact Info) Description 05/20/2022 Abstract [facility] CONVERSIONS Dental, Provider, DDS Social History [...] filedocumented in this encounter Care Teams Manager Wastewater Relationship Specialty Start Date End Date Name, MD Oliver [address] [place] [address] PCP - General Family Medicine 05/17/17 documented as of this encounter
--- OUTSIDE RECORDS SUMMARY | 2025-07-17 18:23 | XMS_ITS | Encounter Summary ---
Author Organization [employer] Address [address] [facility] 7t [place] [address] Care Team Providers Care Applications Manager Name Role Phone Name, Oliver ROTHMAN Primary Care Provider [phone] Encounter Details Date Type Department Care Team (Latest Contact Info) Description 07/17/2025 Travel Social History Tobacco Use Types Packs/Day Years Used Date Smoking Tobacco: Former Cigarettes Passive Smoke Exposure: Past Smokeless Tobacco: Former Alcohol Use Standard Drinks/Week Comments Never 0 [...] AM EDT documented as of this encounter Functional Status * Over the [...] documented as of this encounter Care Teams Applications Manager Relationship Specialty Start Date End Date Name, MD Oliver [address] [place] [address] PCP - General Family Medicine 05/17/17 documented as of this encounter
--- OUTSIDE RECORDS SUMMARY | 2025-07-17 18:23 | XMS_ITS | Clinical Summary ---
Author Organization [employer] Address [address] [place] [address] 7[address] [place] [address] Care Team Providers Care Upper Leather Cutter Name Role Phone Name, Oliver ROTHMAN Primary Care Provider [phone] Allergies No known active allergies Medications loratadine [...] 02/09/2024 Overview (12/04/2024): He was evaluated at [facility] pulmonary. He has a remote history of treated TB T spot negative CT scan of the chest consistent with previous treated TB infection. [place] [address] CT Scan Report Signed Patient: Ever Champagne MR#: [id number] 26 : 1950 Acct:[id number] Age/Sex: 74 / M ADM Date: 08/08/24 Loc: .CT Attending Dr: Ced Robles MD Ordering Physician: Ced Robles MD Date of Service: 08/08/24 Procedure(s): CT chest wo IV con Accession Number(s): [id number] cc: Oliver Constantino MD; Ced Robles MD [...] by: Ki Perez MD 10/04/2024 03:31 PM [facility] History of cervical spinal surgery 08/18/2023 Cervical myelopathy 10/16/2022 Erectile dysfunction 10/16/2022 Essential hypertension 10/16/2022 Prediabetes 10/16/2022 Tubular adenoma of colon 10/12/2019 Overview (08/18/2023): Colonoscopy done [address] [facility], repeat recommended in 5 years Urinary incontinence [...] Encounters Date Type Department Care Team Description 07/17/2025 3:15 PM EDT Office Visit [facility] [address] [place] [phone] Elena Giang, KATHY Prediabetes (Primary Dx); Wellness examination 07/17/2025 Travel 07/16/2025 Telephone [facility] [address] [place] [address] NameOliver MD 07/11/2025 Telephone [facility] [address] [place] [address] Oliver Constantino MD ER Follow-up 07/09/2025 Orders Only GENERIC EXTERNAL DATA DEPARTMENT Provider, Generic External Data 07/03/2025 Refill [facility] [address] [place] [address] Oliver Constantino MD 06/12/2025 Abstract [facility] [address] [place] [address] Oliver Constantino MD 06/05/2025 Orders Only GENERIC EXTERNAL DATA DEPARTMENT Provider, Generic External Data 06/03/2025 Refill [facility] [address] [place] [address] Name, MD Oliver 05/19/2025 Refill [facility] [address] [facility] [place] [address] Name, MD Oliver Cervical myelopathy ([facility]) 05/03/2025 Refill [facility] [address] [facility] [place] [address] NameOliver MD 05/02/2025 Telephone [facility] [address] [facility] [place] [address] Name, MD Oliver Call Back Request from Last 3 Months Immunizations Immunization Administration Dates Next Due Influenza High-dose Quadrivalent Preservative Fr ee 08/18/2023,06/22/2020 Influenza Quadrivalent Adjuvanted 08/17/2022, Influenza injectable quadriv alent IIV4 with preservative 08/09/2017 Influenza, High Dose Seasonal, Preservative Free 10/08/2024,11/03/2019 Pfizer Covid-19 Vaccine 12+ 08/12/2021, Pfizer Covid-19 Vaccine 12+ maría-sucrose (Villeda C ap) 08/12/2021,11/15/2020 Pneumococcal Conjugate PCV 13 04/26/2018 Pneumococcal Polysaccharide PPSV23 01/16/2022 Tdap 08/09/2017 Zoster, Recombinant 12/05/2024 Social History Tobacco Use Types Packs/Day Years [...] Mass Index 25.55 07/17/2025 3:15 PM EDT Plan of Treatment Health Maintenance Due Date Last Done Comments CT Colonography 1950 FIT DNA/Cologuard 1950 FIT 1950 FOBT 1950 Sigmoidoscopy 1950 Alcohol/Substance Use Screening 1962 Hepatitis C Screening 02/02/1970 SDOH Screening 12/09/2024 12/09/2023 Zoster Vaccines (2 of 2) 01/30/2025 12/05/2024 COVID-19 Vaccine ( season) 2025 09/04/2022, 08/12/2021, 08/12/2021, Additional history exists Influenza Vaccine (#1) 2025 , 08/18/2023, 08/17/2022, Additional history exists Depression Screening 07/17/2026 07/17/2025, 07/17/20 Diabetes: Hemoglobin A1C 07/17/2026 025, 06/05/2022, 01/20/2022 Tobacco Screening 07/17/2026 07/17/2025 RSV Patients and Patients Aged 60 years [...] GLUCOSE Routine 07/17/2025 3:17 PM EDT Prediabetes HIGH SENSITIVITY TROPONIN I Routine 07/09/2025 2:42 [...] 08/25/2023 8:51 AM EDT Essential hypertension Prediabetes from Last 3 Months or Most Recently Relevant to Health Maintenance Results * POCT Hgb A1c (07/17/2025 3:18 PM EDT) [facility] Hemoglobin A1C 5.5 4.0 - 5.7 % QC Media Lot # [id number] Lot# Expiration Date [id number] Blood 07/17/2025 3:18 PM EDT [place] DEPUTY CLERK OF COURT POINT OF CARE TEST ENTER/EDIT ORDERABLES Final Result * POCT Glucose (07/17/2025 3:17 PM EDT) [facility] Glucose Blood, POC 152 60 - 200 mg/dL QC Media Lot # [id number] Lot# Expiration Date [id number] Blood Capillary blood specimen / Unknown 07/17/2025 3:17 PM EDT [employer] DEPUTY CLERK OF COURT POINT OF CARE TEST ENTER/EDIT ORDERABLES Final Result * High Sensitivity Troponin I (07/09/2025 2:42 PM EDT) Only the most recent of4 resultswithin the time period is included. [facility] TROPONIN I HIGH SENSITIVITY <2.7 <3.5 - 35.0 ng/L [facility] Comment:The Seals high sens itivity Troponin-I results should beused in conjunction with other diagnostic information suchas ECG, clinical observations and information, and patientsymptoms to aid in the diagnosis of HI. 07/09/2025 2:42 PM EDT 07/09/2025 2:45 PM EDT Generic External Data Provider LAB BLOOD ORDERAB LES Final Result [facility] [address] [place] [phone] * XR Chest 2 Views (07/09/2025 1:56 PM EDT) Anatomical Region Laterality Modality Chest Radiographic Usha ging 07/09/2025 1:56 PM EDT Narrative 07/09/2025 2:15 PM EDT [address] [address] XRay Report Signed Patient: Ever Champagne MR#: [id number] 26 : 1950 Acct:[id number] Age/Sex: 75 / M ADM Date: 07/09/25 Loc: .ED Attending Dr: Ordering Physician: Generic ED Physician Date of Service: 07/09/25 Procedure(s): XR chest 2V Accession Number(s): [id number] cc: Generic ED Physician; Name,Oliver ROTHMAN Reason [...] 07/09/25 1412 DD/ 1356 TD/TT: 07/09/25 1400 Television Installer Helper: Procedure Note Donotuseinterpreter, Image - 07/09/[address] [address] XRay Report Signed Patient: Luis Fernando Champagne#: [id number] 26 : 2Acct:[id number] Age/Sex: 75 / MADM Date: 07/09/25 Loc: HO.ED Attending Dr: Ordering Physician: Generic ED Physician Date of Service: 07/09/25 Procedure(s): XR chest 2V Accession Number(s): [id number] cc: Generic ED Physician; Name,Oliver ROTHMAN Reason [...] 07/09/25 1412 DD/ 1356 TD/TT: 07/09/25 1400 Television Installer Helper: [facility] External Provider IMG XR PROCEDURES Final Result * CBC auto differential (07/09/2025 12:57 PM EDT) Only the most recent of2 resultswithin the time period is included. White Blood Count 5.9 4.8 - 10.8 X10*3/uL [facility] Red Blood Count 5.19 4.60 - 5.80 X10*6/uL [facility] Hemoglobin 15.5 14.0 - 18.0 g/dl [facility] Hematocrit 44.9 42.0 - 52.0 % [facility] Mean Corpuscular Volume 86.5 80.0 - 98.0 fL [facility] Mean Corpuscular Hemoglobin 29.9 27.0 - 33.0 pg [facility] Mean Corpuscular HGB Conc 34.5 31.0 - 36.0 g/dl [facility] Red Cell Distribution Width 12.7 11.0 - 16.0 % [facility] Platelet Count 163 160 - 400 X10*3/uL [facility] Mean Platelet Volume 12.3 9.4 - 12.4 fL [facility] Neutrophils Percent Auto 52.7 45 - 73 % [facility] Imm Gran Pct Auto 0.2 0.0 - 0.4 % [facility] Lymphocytes Percent Auto 37.2 20 - 40 % [facility] Monocytes Percent Auto 8.0 2 - 11 % [facility] Eosinophils Percent Auto 1.2 0 - 4 % [facility] Basophils Percent Auto 0.7 0 - 2 % [facility] NRBC Pct Auto 0.0 0.0 - 0.2 /100WBC [facility] Neutrophils Absolute Auto 3.1 2.0 - 8.3 x10*3/uL [facility] Imm Gran Abs Auto 0.01 0.00 - 0.03 X10*3/uL [facility] Lymphocytes Absolute Auto 2.2 1.2 - 4.9 X10*3/uL [facility] Monocytes Absolute Auto 0.5 0.1 - 1.2 X10*3/uL [facility] Eosinophils Absolute Auto 0.1 0.0 - 0.4 X10*3/uL [facility] Basophils Absolute Auto 0.0 0.0 - 0.2 X10*3/uL [facility] NRBC Abs Auto 0.000 0.0 - 0.012 X10*3/uL [facility] 07/09/2025 12:5 7 PM EDT 07/09/2025 1:00 PM EDT us Generic External Data Provider LAB BLOOD ORDERAB LES Final Result [facility] [address] [place] [address] [phone] * Prothrombin Time-INR (07/09/2025 12:57 PM EDT) [facility] Prothrombin Time 12.2 10.9 - 12.4 SEC [facility] INTERNATIONAL NORM RATIO 1.1 0.9 - 1.1 [facility] Comment:INTERNATIONAL NORMAL IZED RATIO (INR) [...] ORDERAB LES Final Result Performing Organization Address [facility]/ZIP Co de Phone Number [facility] [address] [place] [phone] * Lipase (07/09/2025 12:57 PM EDT) [facility] Lipase 26 8 - 78 U/L [facility] 07/09/2025 12:5 7 PM EDT 07/09/2025 1:00 PM EDT Generic External Data Provider LAB BLOOD ORDERAB LES Final Result Performing Organization Address [facility] Co de Phone Number [facility] [address] [place] [phone] * (ABNORMAL) Hepatic Function Panel (07/09/2025 12:57 PM EDT) [facility] Bilirubin, Total 0.7 0.0 - 1.0 mg/dL [facility] Bilirubin, Direct 0.3 0.0 - 0.5 mg/dL [facility] Aspartate Amino Transferase 111(H) 5 - 37 U/L [facility] Alanine Aminotransferase 57(H) 0 - 40 U/L [facility] Total Protein 7.4 6.5 - 8.0 g/dL [facility] Albumin Level 3.9 3.5 - 5.0 g/dL [facility] Alkaline Phosphatase 69 39 - 117 U/L [facility] 07/09/2025 12:5 7 PM EDT 07/09/2025 1:00 PM EDT us Generic External Data Provider LAB BLOOD ORDERAB LES Final Result [facility] [address] [place] [address] [phone] * (ABNORMAL) Basic Metabolic Panel (07/09/2025 12:57 PM EDT) Sodium 139 135 - 145 mmol/L [facility] Potassium 4.3 3.3 - 5.1 mmol/L [facility] Chloride 108 96 - 108 mmol/L [facility] Carbon Dioxide 25 22 - 29 mmol/L [facility] Anion Gap 10(L) 12 - 20 [facility] Urea Nitrogen (BUN) 20(H) 9 - 16 mg/dL [facility] Creatinine, Serum 1.05 0.5 - 1.4 mg/dL [facility] Creatinine Clr Calc Pharmacy TNP [facility] Comment:Unable to calculate eCrCL; all parameters not provided. Estimated Glomerular Filt Rate >60 [facility] Comment:Chronic Kidney Disea se: Estimated GFR < 60 mL/min/1.54o8Jpkkac Kidney Disease: Estimated GFR < 15 mL/min/1.73m2 Glucose 128(H) 60 - 115 mg/dL [facility] Calcium 9.0 8.4 - 10.2 mg/dL [facility] 07/09/2025 12:5 7 PM EDT 07/09/2025 1:00 PM EDT us Generic External Data Provider LAB BLOOD ORDERAB LES Final Result [facility] [address] [place] [phone] * CT Abdomen Pelvis w/ Contrast (06/05/2025 6:47 PM EDT) Anatomical Region Laterality Modality Body, Pelvis, Abdomen Computed T omography 06/05/2025 6:47 PM EDT Narrative 06/05/2025 6:49 PM EDT [address] [address] [address] Scan Report Signed Patient: Ever Champagne MR#: [id number] 26 : 1950 Acct:[id number] Age/Sex: 75 / M ADM Date: 06/05/25 Loc: .ED Attending Dr: Ordering Physician: Ruben Bourgeois MD Date of Service: 06/05/25 Procedure(s): CT abdomen pelvis w IV con Accession Number(s): [id number] cc: Ruben Bourgeois MD; Name,Oliver ROTHMAN Report Number: [id number]: Total DLP = 0.00 mGy-cm CLINICAL HISTORY: vomiting post colonscopy CT abdomen and pelvis with contrast Comparison: CT/FL/SR - CT CHEST WITHOUT IV CONTRAST - [...] in OV> 06/05/251848 DD/ 46 TD/TT: 06/05/251846 Television Installer Helper: Procedure Note Donotuseinterpreter, Image - 06/05/[address] [address] [address] Scan Report Signed Patient: Luis Fernando Champagne#: [id number] 26 : 2Acct:[id number] Age/Sex: 75 / MADM Date: 06/05/25 Loc: HO.ED Attending Dr: Ordering Physician: Ruben Bourgeois MD Date of Service: 06/05/25 Procedure(s): CT abdomen pelvis w IV con Accession Number(s): [id number] cc: Ruben Bourgeios MD; Name,Oliver ROTHMAN Report Number: [id number]: Total DLP = 0.00 mGy-cm CLINICAL HISTORY: vomiting post colonscopy CT abdomen and pelvis with contrast Comparison: CT/FL/SR - CT CHEST WITHOUT IV CONTRAST - [...] in OV> 06/05/251848 DD/ 46 TD/TT: 06/05/251846 Television Installer Helper: us [facility] External Provider IMG CT PROCEDURES Final Result * CT Chest w/ Contrast (06/05/2025 6:38 PM EDT) Anatomical Region Laterality Modality Body, Chest Computed Tomogra phy 06/05/2025 6:38 PM EDT Narrative 06/05/2025 6:39 PM EDT [address] [place] [address] [address] Scan Report Signed Patient: Ever Champagne MR#: [id number] 26 : 1950 Acct:[id number] Age/Sex: 75 / M ADM Date: 06/05/25 Loc: HO.ED Attending Dr: Ordering Physician: Ruben Bourgeois MD Date of Service: 06/05/25 Procedure(s): CT chest w IV con Accession Number(s): [id number] cc: Ruben Bourgeois MD; Name,Oliver ROTHMAN Report Number: [id number]: Total DLP = 709.00 mGy-cm CLINICAL HISTORY: central chest pain vomiting s p endo colonoscope CT chest with contrast Comparison: CT/FL/SR - CT CHEST WITHOUT IV CONTRAST - [...] signed by Eugenio Mcadams MD in OV> 06/05/259 DD/ 37 TD/TT: 06/05/251837 Television Installer Helper: Procedure Note Donotuseinterpreter, Image - 06/05/[address] [address] [address] Scan Report Signed Patient: Carlos Alberto ChampagneR#: [id number] 26 : 1950cct:[id number] Age/Sex: 75 / MADM Date: 06/05/25 Loc: HO.ED Attending Dr: Ordering Physician: Ruben Bourgeois MD Date of Service: 06/05/25 Procedure(s): CT chest w IV con Accession Number(s): [id number] cc: Ruben Bourgeois MD; Name,Oliver ROTHMAN Report Number: [id number]: Total DLP = 709.00 mGy-cm CLINICAL HISTORY: central chest pain vomiting s p endo colonoscope CT chest with contrast Comparison: CT/FL/SR - CT CHEST WITHOUT IV CONTRAST - [...] in OV> 06/05/251838 DD/ 37 TD/TT: 06/05/251837 Television Installer Helper: [facility] External Provider IMG CT PROCEDURES Final Result * XR Chest 1 View (06/05/2025 5:00 PM EDT) Anatomical Region Laterality Modality Chest Radiographic Usha ging 06/05/2025 5:00 PM EDT Narrative 06/06/2025 7:31 AM EDT [address] [address] XRay Report Signed Patient: Ever Champagne MR#: [id number] [birth year] : 1950 Acct:[id number] Age/Sex: 75 / M ADM Date: 06/05/25 Loc: HO.ED Attending Dr: Ordering Physician: Ruben Bourgeois MD Date of Service: 06/05/25 Procedure(s): XR chest 1V Accession Number(s): [id number] cc: Ruebn Bourgeois MD; Oliver Constantino MD EXAMINATION: XR CHEST 1 VIEW HISTORY: chest [...] in OV> 06/06/25727 DD/ 99 TD/TT: 06/05/251704 Television Installer Helper: Procedure Note Donotuseinterpreter, Image - 06/06/[address] [address] XRay Report Signed Patient: Luis Fernando Champagne#: [id number] 26 : 1950cct:[id number] Age/Sex: 75 / MADM Date: 06/05/25 Loc: .ED Attending Dr: Ordering Physician: Ruben Bourgeois MD Date of Service: 06/05/25 Procedure(s): XR chest 1V Accession Number(s): [id number] cc: Ruben Bourgeois MD; Oliver Constantino MD EXAMINATION: XR CHEST 1 VIEW HISTORY: chest [...] Tyrone Amaro MD 06/06/2025 07:28 AM EDT Dictated By: Tyrone Amaro MD Signed By: <Electronically signed by Tyrone Amaro MD in OV> 06/06/25727 DD/ 99 TD/TT: 06/05/251704 Television Installer Helper: [facility] External Provider IMG XR PROCEDURES Final Result * SARS-CoV-2 RNA, Influenza A/B, and RSV RNA, Ql NAAT (06/05/2025 4:08 PM EDT) Influenza A PCR NEGATIVE Negative [facility] Influenza B PCR NEGATIVE Negative [facility] Resp Syncy Virus RNA Qual PCR NEGATIVE Negative [facility] SARS COV2 PCR NEGATIVE Negative [facility] Comment:All test results mus t [...] use by authorized laboratories.Testing performed on the [employer] GeneXpert utilizingreal-time RT-PCR.All SARS CoV2 and positive influenza A/B results arereported to [facility]. 06/05/2025 4:08 PM EDT 06/05/2025 4:11 PM EDT Generic External Data Provider LAB MICROBIOLOGY - GENERAL ORDERABLES Final Result [facility] [address] [place] [address] [phone] * Magnesium (06/05/2025 4:08 PM EDT) Magnesium 1.9 1.6 - 2.6 mg/dL [facility] 06/05/2025 4:08 PM EDT 06/05/2025 4:11 PM EDT us Generic External Data Provider LAB BLOOD ORDERAB LES Final Result [facility] [address] [place] [address] [phone] * (ABNORMAL) Comprehensive Metabolic Panel (06/05/2025 4:08 PM EDT) Sodium 139 135 - 145 mmol/L [facility] Potassium 3.7 3.3 - 5.1 mmol/L [facility] Chloride 109(H) 96 - 108 mmol/L [facility] Carbon Dioxide 21(L) 22 - 29 mmol/L [facility] Anion Gap 13 12 - 20 [facility] Urea Nitrogen (BUN) 16 9 - 16 mg/dL [facility] Creatinine, Serum 1.02 0.5 - 1.4 mg/dL [facility] Creatinine Clr Calc Pharmacy 62.4 [facility] Comment:eGFR (calculated fro m the MDRD study equation) and eCrCl(calculated from the Cockcroft-Gault equation) are based ondifferent parameters and may not yield comparable results.If eCrCl result is absurd, please check patient'sheight/weight. Estimated Glomerular Filt Rate >60 [facility] Comment:Chronic Kidney Disea se: Estimated GFR < 60 mL/min/1.92m3Vgeozw Kidney Disease: Estimated GFR < 15 mL/min/1.73m2 Glucose 136(H) 60 - 115 mg/dL [facility] Calcium 8.5 8.4 - 10.2 mg/dL [facility] Bilirubin, Total 0.9 0.0 - 1.0 mg/dL [facility] Aspartate Amino Transferase 31 5 - 37 U/L [facility] Alanine Aminotransferase 14 0 - 40 U/L [facility] Total Protein 6.9 6.5 - 8.0 g/dL [facility] Albumin Level 3.8 3.5 - 5.0 g/dL [facility] Alkaline Phosphatase 64 39 - 117 U/L [facility] 06/05/2025 4:08 PM EDT 06/05/2025 4:11 PM EDT us Generic External Data Provider LAB BLOOD ORDERAB LES Final Result [facility] [address] [place] [phone] * Hematoxylin and Eosin Stain (06/05/2025 10:50 AM EDT) 06/05/2025 10:5 0 AM EDT 06/05/2025 11:33 AM EDT Narrative [facility] - 06/07/2025 4:30 PM EDT ----- ------- Name: Ever Champagne Age/Sex: 75/M : 1950 Unit#: [id number] Attend Dr: Keya Blue MD Re06/05/25 Status: [facility] Location: [facility] Disch: ----- ------- SPEC : [id number] RECD: 06/05/25 STATUS: WILLY [place]DY NUM: [id number] MARIEL: 06/05/25-[address] [facility] [address]: Keya Blue MD ENTERED: 06/05/25-1148 [...] Name: Ever Champagne Age/Sex: 75/M : 1950 [id number] Unit#: [id number] Attend Dr: Keya Blue MD Re06/05/25 Status: [facility] Location: [facility] Disch: ----- ------- SPEC : [id number] RECD: 06/05/25 STATUS: [place] NUM: [id number] MARIEL: 06/05/25-[address] [facility] [address]: Keya Blue MD ENTERED: 06/05/25-114 [...] gastric body bx's are three villeda-white and hansne-pink irregular tissue fragments ranging from 0.15-0.3 cm, [...] Name: IhsanEver Age/Sex: 75/M : 1950 Unit#: [id number] Attend Dr: Keya Blue MD Re06/05/25 Status: [facility] Location: [facility] Disch: ----- ------- SPEC : [id number] RECD: 06/05/25 STATUS: [place] NUM: [id number] MARIEL: 06/05/25-[address] [facility] [address]: Keya Blue MD ENTERED: 06/05/25 [...] developed and their performance characteristics determined by [facility]. They have not been cleared or approved by the U.S. Food and Drug Administration (FDA). However, the FDA has determined that such clearance or approval is not necessary. This laboratory is certified under the Clinical Laboratory Improvement Amendments of 1988 (CLIA) as qualified to perform high complexity clinical laboratory testing. Copies To: Name,Oliver ROTHMAN [address] [place] [id number] [facility] [address] [place] [id number] [email or web address] ----- ------- Signed (signature on file) Marcia Schrader 06/07/25 1630 ----- ------- END OF REPORT Generic External Data Provider LAB BLOOD ORDERAB LES Final Result [facility] [address] [place] [address] [phone] * (ABNORMAL) Hm Colonoscopy (06/05/2025) Colonoscopy Abnormal(A ) Normal 06/05/2025 Oliver Constantino MD HEALTH MAINTENANCE Final Result * Lipid Panel, Standard (08/25/2023 8:51 AM EDT) Triglycerides 73 <150 mg/dL [facility] Comment:Desirable Triglyceri de: less than 150 mg/dLBorderline High Triglyceride 150-199 mg/dLHigh Triglyceride: 200-499 mg/dLVery High Triglyceride: greater than or equal to 5OO mg/dL Cholesterol 152 <200 mg/dL [facility] Comment:Desirable Cholestero l: less than 200 mg/dLBorderline High Cholesterol: 200-239 mg/dLHigh Cholesterol: greater than 239 mg/dL LDL Cholesterol Calculated 86 <100 mg/dL [facility] Comment:Desirable LDL: less than 100 mg/dLNear Optimal/Above Optimal LDL: 110- 129 mg/dLBorderline High LDL: 130-159 mg/dLHigh LDL: 160-189 mg/dLVery High LDL: greater than or equal to 190 mg/dL HDL Cholesterol 52 >40 mg/dL [facility] Comment:Desirable HDL: great er than 40 mg/dL Note: This HDL assay may give artificially low results in patients with liver disease. Blood Venous blood specimen / Unknown 08/25/2023 8:51 AM EDT 08/25/2023 11:32 AM EDT us Oliver Constantino MD LAB BLOOD ORDERABLES Final Resul t Performing Organization Address City/[facility]/ZIP Co de Phone Number [facility] [address] [place] [address] [phone] from Last 3 Months or Most Recently Relevant to Health Maintenance Insurance [facility] DUAL COMPLETE Care Teams Upper Leather Cutter Relationship Specialty Start Date End Date Name, MD Oliver [address] [place] [phone] PCP - General Family Medicine 05/17/17
--- OUTSIDE RECORDS SUMMARY | 2025-07-17 18:23 | XMS_ITS | Encounter Summary ---
Author Organization [employer] Address [address] [facility] [address] [place] [address] Care Team Providers Care Emery Wheel Molder Name Role Phone Name, Oliver ROTHMAN Primary Care Provider Encounter Details Date Type Department Care Team (Late st Contact Info) Description 11/18/2023 Abstract [facility] DIABETES/NUTRITION [address] [place] [address] Name, MD Oliver [address] [place] [address] Social History Tobacco Use Types Packs/Day Years [...] on filedocumented in this encounter Care Teams Emery Wheel Molder Relationship Specialty Start Date End Date Name, MD Oliver [address] [place] [address] PCP - General Family Medicine 05/17/17 documented as of this encounter
--- OUTSIDE RECORDS SUMMARY | 2025-07-17 18:23 | XMS_ITS | Encounter Summary ---
Author Organization [employer] Address [address] [place] [address] Care Team Providers Care Filler Feeder Name Role Phone Name, Oliver ROTHMAN Primary Care Provider [phone] Encounter Details Date Type Department Care Team (Late st Contact Info) Description 07/16/2025 Telephone [facility] [address] [place], [place] [id number] Name, MD Oliver [address] [place] [address] Social History Tobacco Use Types Packs/Day Years [...] encounter Miscellaneous Notes * Telephone Encounter - Bhavya Curtis MA - 07/16/2025 9:05 AM EDT Chart Prep Labs: done Images: done Referrals: Requested notes for Podiatry & notes for colonoscopy are in chart Vaccines due: Covid, Flu, and Zoster Screenings: Alcohol/Substance Use Screening Overdue care gaps: A1c, Glucose, SBIRT, SDOH, PHQ-9, ION-7, Oral health screening, and Tobacco ED- notes in chart documented in this encounter Plan of Treatment Not on file documented as of this encounter Visit Diagnoses Not on filedocumented in this encounter Additional Health Concerns Assessment Noted Time PHQ-9 Depression Total Score: 0 12/09/19 24 8:56 AM EST documented as of this encounter Care Teams Filler Feeder Relationship Specialty Start Date End Date Name, MD Oliver [address] [place] [address] PCP - General Family Medicine 05/17/17 documented as of this encounter
--- OUTSIDE RECORDS SUMMARY | 2025-07-17 18:23 | XMS_ITS ---
Author Name Alfredo KRISHNAMagaly Address [address] [place] [address] Phone [phone] [facility] Care Team Providers Care Cook Chili Name Role Phone Magaly Fuentes Unavailable [phone] Unavailable Unavailable Unavailable [facility] Unavailable Unavailable Unavailable [phone] Reason for Referral Not Available Allergies, adverse reactions, alerts No known allergies History of medication use Medication Class Instructions Start Date End Date Diclofenac Sodium 1 % Gel APPLY 2 GRAMS TOPICALLY TO AFFECTED AREA(S) 4 TIMES A DAY 2022-03-18 No Data Available Loratadine 10 mg Tab TAKE 1 TABLET BY [facility] EVERY DAY NEEDED FOR ALLERGIES 2022-01-16 [...] 2024-04-12 N/A HYPERTENSIO N CONTINGENCY PLANLast updated: 04/09/2025HTN Member to call for the following symptoms: BP >180/100 / Headache/ HR >100 Planned intervention: Assess for signs of end organ damage (headache, vision changes, chest pain)/ Hspt Tutor on proper BP monitoring technique and reassess/ [...] Pain Assessment - NO pain present (1126F) [facility] [place]20[place] Pain Assessment - NO pain present (1126F) [facility] [place] Pain Assessment - NO pain present (1126F) [facility] [place] Pain Assessment - NO pain present (1126F) [facility] [place] Pain Assessment - NO pain present (1126F) [facility] [place] Pain Assessment - NO pain present (1126F) [facility] [place]20[place] Pain Assessment - NO pain present (1126F) [facility] [place]20[place] Type 2 diabetes mellitus wit h other circulatory complicationsHypertension secondary to endocrine disordersUnspecified osteoarthritis, unspecified site Pain Assessment - NO pain present (1126F) [facility] ([place] 08[place]/2022 Pain Assessment - NO pain present (1126F) [facility] [place] Estab. patient 30-39min; chronic exacerbation, 2 stable chronic or 1 acute illness add add modifier 95 for video, (do not use for phone, instead use 90986-21) [facility] [place]2023 Type 2 diabetes mellitus wit hout complicationsAbdominal aortic aneurysm, without rupture, unspecifiedDisease of spinal cord, unspecifiedEssential (primary) hypertensionUnspecified osteoarthritis, unspecified sitePersonal history of malignant neoplasm of prostateAnesthesia of skinCervicalgiaOther chronic pain Estab. patient 30-39min; chronic exacerbation, 2 stable chronic or 1 acute illness add add modifier 95 for video, (do not use for phone, instead use 83295-33) [facility] [place] Estab. patient 30-39min; chronic exacerbation, 2 stable chronic or 1 acute illness add add modifier 95 for video, (do not use for phone, instead use 10019-27) [facility] [place] Estab. patient 30-39min; chronic exacerbation, 2 stable chronic or 1 acute illness add add modifier 95 for video, (do not use for phone, instead use 69028-40) [facility] [place] Estab. patient 30-39min; chronic exacerbation, 2 stable chronic or 1 acute illness add add modifier 95 for video, (do not use for phone, instead use 09162-46) [facility] [place] Estab. patient 30-39min; chronic exacerbation, 2 stable chronic or 1 acute illness add add modifier 95 for video, (do not use for phone, instead use 73614-81) [facility] [place] Estab. patient 30-39min; chronic exacerbation, 2 stable chronic or 1 acute illness add add modifier 95 for video, (do not use for phone, instead use 33030-26) [facility] [place] Estab. patient 30-39min; chronic exacerbation, 2 stable chronic or 1 acute illness add add modifier 95 for video, (do not use for phone, instead use 91854-81) [facility] [place] Estab. patient 30-39min; chronic exacerbation, 2 stable chronic or 1 acute illness add add modifier 95 for video, (do not use for phone, instead use 70188-01) [facility] [place] Estab. patient 30-39min; chronic exacerbation, 2 stable chronic or 1 acute illness add add modifier 95 for video, (do not use for phone, instead use 32257-61) [facility] [place]2023 Unlisted special service; to be used for medical record reviews and reporting CPTII codes (1111F, etc) [facility] [place] 03/17/2024 Other specified health statu s Unlisted special service; to be used for medical record reviews and reporting CPTII codes (1111F, etc) [facility] [place] Unlisted special service; to be used for medical record reviews and reporting CPTII codes (1111F, etc) [facility] [place] 03[place]17[place] Estab. patient 30-39min; chronic exacerbation, 2 stable chronic or 1 acute illness add add modifier 95 for video, (do not use for phone, instead use 97382-56) [facility] [place]2024 Essential (primary) hypertensionUnspecified osteoarthritis, unspecified [...] (do not use for phone, instead use 62220-34) [facility] [place] 04[place] Estab. patient 30-39min; chronic exacerbation, 2 stable chronic or 1 acute illness add add modifier 95 for video, (do not use for phone, instead use 89498-95) [facility] [place] 04[place] Estab. patient 30-39min; chronic exacerbation, 2 stable chronic or 1 acute illness add add modifier 95 for video, (do not use for phone, instead use 77658-68) [facility] [place] Estab. patient 30-39min; chronic exacerbation, 2 stable chronic or 1 acute illness add add modifier 95 for video, (do not use for phone, instead use 44532-59) [facility] [place] 04[place] Estab. patient 30-39min; chronic exacerbation, 2 stable chronic or 1 acute illness add add modifier 95 for video, (do not use for phone, instead use 33686-24) [facility] [place] 04[place] Estab. patient 30-39min; chronic exacerbation, 2 stable chronic or 1 acute illness add add modifier 95 for video, (do not use for phone, instead use 79712-25) [facility] [place] Estab. patient 30-39min; chronic exacerbation, 2 stable chronic or 1 acute illness add add modifier 95 for video, (do not use for phone, instead use 25615-75) [facility] [place] Estab. patient 30-39min; chronic exacerbation, 2 stable chronic or 1 acute illness add add modifier 95 for video, (do not use for phone, instead use 17977-78) [facility] [place] Estab. patient 30-39min; chronic exacerbation, 2 stable chronic or 1 acute illness add add modifier 95 for video, (do not use for phone, instead use 74680-12) [facility] [place] 04[place] [facility] [place]20[place] Type 2 diabetes mellitus wit hout complicationsEssential (primary) hypertensionUnsp FB in resp tract, part unsp causing oth injury, sequela No Data Available [facility] [place] Estab. patient 10-29min; 1 minor problem; add add modifier 95 for video, modifier 93 for phone [facility] [place] 12[place]11/2024 Unspecified symptoms and sig ns involving the genitourinary system Estab. patient 10-29min; 1 minor problem; add add modifier 95 for video, modifier 93 for phone [facility] [place] [facility] Estab. patient 20-29min; 1 stable chronic or 2 minor; add add modifier 95 for video, modifier 93 for phone [facility] [place] 04/09/2025 Unspecified osteoarthritis, unspecified siteEssential (primary) hypertensionType 2 diabetes mellitus without complicationsPersonal history of malignant neoplasm of prostateAbdominal aortic aneurysm, without rupture, unspecifiedAnesthesia of skinCervicalgiaOther chronic painDisease of spinal cord, unspecifiedOther problems related to medical facilities and other health care Estab. patient 20-29min; 1 stable chronic or 2 minor; add add modifier 95 for video, modifier 93 for phone [facility] [place] 04/09/2025 Estab. patient 20-29min; 1 stable chronic or 2 minor; add add modifier 95 for video, modifier 93 for phone [facility] [place] 04/09/2025 Estab. patient 20-29min; 1 stable chronic or 2 minor; add add modifier 95 for video, modifier 93 for phone [facility] [place] 04/09/2025 Estab. patient 20-29min; 1 stable chronic or 2 minor; add add modifier 95 for video, modifier 93 for phone [facility] [place]20[place] Estab. patient 20-29min; 1 stable chronic or 2 minor; add add modifier 95 for video, modifier 93 for phone [facility] [place] 04/09/2025 Estab. patient 20-29min; 1 stable chronic or 2 minor; add add modifier 95 for video, modifier 93 for phone [facility] [place] 04[place]09/2025 Estab. patient 20-29min; 1 stable chronic or 2 minor; add add modifier 95 for video, modifier 93 for phone [facility] [place] 04[place]09/2025 Estab. patient 20-29min; 1 stable chronic or 2 minor; add add modifier 95 for video, modifier [address] [facility] ([place] 04/09/20[place] Estab. patient 20-29min; 1 stable chronic or 2 minor; add add modifier 95 for video, modifier [address] [facility] [place] 04/[place]/2025 Vital Signs Date of Collection [...] tive Time Current Smoking Status Former smoker 2025-06-26 3 Sex Male History of Procedures Procedures Service [...] (do not use for phone, instead use 21031-30) 82023 2022-08-28 No Data Available No Data Availa ble SBP 130-139 (3075F) 3075F 2022-08-28 No Data Availabl e No Data Available DBP <80 (3078F) 3078F 2022-08-28 No Data Available No Data Available Estab. patient 30-39min; chronic exacerbation, 2 stable chronic or 1 acute illness add add modifier 95 for video, (do not use for phone, instead use 59175-95) 65502 2023-07-06 No Data Available No Data Availa [...] reviews and reporting CPTII codes (1111F, etc) 34035 2024-03-17 No Data Available No Data Availa ble SBP 130-139 (3075F) 3075F 2024-03-17 No Data Availabl e No Data Available DBP 80-89 (3079F) 3079F 2024-03-17 No Data Available No Data Available Estab. patient 30-39min; chronic exacerbation, 2 stable chronic or 1 acute illness add add modifier 95 for video, (do not use for phone, instead use 79936-75) 67524 2024-04-12 No Data Available No Data Availa [...] No Data Avail able No Data Available 96068 2024-08-22 No Data Available No Data Available Medication List Documented (1159F) 1159F 2024-08-22 No Data Available No Data Starr ilable Estab. patient 10-29min; 1 minor problem; add add modifier 95 for video, modifier 93 for phone 33792 2024-12-11 No Data Available No Data Availa ble Pain Assessment - NO pain present (1126F) 1126F 2024-12-11 No Data Available No Data A vailable Estab. patient 20-29min; 1 stable chronic or 2 minor; add add modifier 95 for video, modifier 93 for phone 61610 2025-04-09 No Data Available No Data Availa [...] actions with Friends/Family in a typical week: [employer] daily. 2025-04-09 Mental Status Status Date Alert [...] needs that may arise.LosartanDM2 diet controlled, unknown P1qIodbrso with PCP every 3 monthsPain increasing in [...] record. (1123F)Continue to see PCP. Follow-up with [facility] as [...] low abd pain. [facility]. Follow-up with Gerardo as needed for any acute or disease education needs that may arise 17/05. 2024-08-22 08:44:40 Phone (patient, pare nt, or guardian); 5-10 minutes of medical discussion (no modifier 95)Continue to see PCP. Follow-up with [facility] as [...] organ damage (headache, vision changes, chest pain)/ Hspt Tutor on proper BP monitoring technique and reassess/ [...]
--- OUTSIDE RECORDS SUMMARY | 2025-07-17 18:23 | XMS_ITS | Encounter Summary ---
Author Organization [employer] Address [address] [place] [address] [address] [place] [address] Care Team Providers Care Assistant Professor Of Nursing Name Role Phone Name, Oliver ROTHMAN Primary Care Provider [phone] Encounter Details Date Type Department Care Team (Late st Contact Info) Description 03/29/2023 Abstract [facility] MEDICINE [address] [place] [address] Name, MD Oliver [address] [place] [address] Social History Tobacco Use Types Packs/Day Years [...] on filedocumented in this encounter Care Teams Assistant Professor Of Nursing Relationship Specialty Start Date End Date Name, MD Oliver [address] [place] [address] PCP - General Family Medicine 05/17/17 documented as of this encounter
--- OUTSIDE RECORDS SUMMARY | 2025-07-17 18:23 | XMS_ITS | Encounter Summary ---
Author Organization [employer] Address [address] [facility] [address] [facility] [address] [place] [address] Care Team Providers Care Opinion Polls Survey Worker Name Role Phone Name, Oliver ROTHMAN Primary Care Provider [phone] Encounter Details Date Type Department Care Team (Late st Contact Info) Description 11/18/2023 Abstract [facility] DIABETES/NUTRITION [address] [place] [address] Name, MD Oliver [address] [place] [address] Social History Tobacco Use Types Packs/Day Years [...] on filedocumented in this encounter Care Teams Opinion Polls Survey Worker Relationship Specialty Start Date End Date Name, MD Oliver [address] [place] [address] PCP - General Family Medicine 05/17/17 documented as of this encounter
--- OUTSIDE RECORDS SUMMARY | 2025-07-17 18:23 | XMS_ITS | Encounter Summary ---
Author Organization [employer] Address [address] [facility] [address] [place] [address] Care Team Providers Care Production Trainer Name Role Phone Name, Oliver ROTHMAN Primary Care Provider [phone] Reason for Visit * Reason Onset Date Comments Med Refill 10/13/2023 Encounter Details Date Type Department Care Team ([facility] st Contact Info) Description 10/13/2023 Telephone [facility] MEDICINE [address] [place] [address] Name, MD Oliver [address] [place] [address] Med Refill Social History Tobacco Use Types [...] No answer. LVM to call back on [phone] . * Telephone Encounter - Doe Barnett RN - 10/15/2023 8:56 AM EST T/C to pt. To inform regarding below message, No answer. LVM to call back on [phone] . * Telephone Encounter - Doe Barnett [...] filedocumented in this encounter Care Teams Production Trainer Relationship Specialty Start Date End Date Name, MD Oliver [address] [place] [address] PCP - General Family Medicine 05/17/17 documented as of this encounter
[2025-07-18 08:41] LABS: ~HepC Num1 0.08 S/CO (0.00-0.79); ~Hepatitis C Antibody Nonreactive (Nonreactive)
== END 2025-07-17 15:39 | disposition home or self-care (01) ==
LOC: HO.HHCL 15:38
PROVIDERS: PCP Internal Medicine Geriatric Medicine; Visit Provider Nurse Practitioner Family
DX: Z00.00 Encounter for general adult medical examination without abnormal findings (principal); Z11.59 Encounter for screening for other viral diseases
CPT/HCPCS: 36415; 86803

== ENCOUNTER 2025-08-02 09:16 | Outpatient (REF) | payer OTHER, SELFPAY | END 2025-08-02 09:17 | disposition home or self-care (01) | LOC: HO.LNP 09:16 | PROVIDERS: PCP Internal Medicine Geriatric Medicine; Visit Provider Internal Medicine | DX: Z11.0 Encounter for screening for intestinal infectious diseases (principal) | CPT/HCPCS: 83013 ==

== ENCOUNTER 2025-09-10 16:27 | Outpatient (REF) | payer OTHER, SELFPAY | END 2025-09-10 16:28 | disposition home or self-care (01) | LOC: HO.LNP 16:27 | PROVIDERS: Visit Provider Nurse Practitioner Family | DX: R30.0 Dysuria (principal) | CPT/HCPCS: 87086; 87088; 87186 ==